=== PATIENT | female | born 1960 | race Caucasian/White ===

== ENCOUNTER 2020-09-01 09:32 | Observation (INO) ==
--- NOTE | 2020-09-01 11:18 | Emergency Department Note ---
History of Present Illness General Chief complaint: Respiratory Problems Stated complaint: BACK PAIN, LEFT LUNG PAIN Time Seen by Provider: 09/01/20 10:59 Source: patient Mode of arrival: ambulatory Limitations: no limitations History of Present Illness Maximum Pain Intensity: 8 This patient is a 59-year-old female who presents to the emergency department for evaluation of "left lung pain." The patient reports that she has had pain intermittently for the past 3 weeks. She states pain was more severe today but has now subsided. She reports she developed some pain in her "left lung" which radiates into the back. She states it does cause her some shortness of breath. She reports some phlegm in her throat, but denies any cough. She denies any fever. Pain does not change with exertion. She has not noticed anything that seems to make the pain better or worse. She reports that it comes on at random. She states that when she does have the pain, she has a hard time getting comfortable and has a hard time sleeping at night due to this. She rates her discomfort an 8/10 when it is severe. She denies any recent travel, leg pain or swelling. She does not take any exogenous hormones. Home Medications Home Medications Medication Instructions Recorded Confirmed Type polyethylene glycol 3350 [Miralax] 17 g PO QAM 12/20/19 09/01/20 History glucagon 3 mg/actuation nasal spray 3 mg INTNAS ONCE #1 ea 01/21/20 09/01/20 Rx duloxetine 30 mg capsule,delayed 30 mg PO BID 02/08/20 09/01/20 History release pen needle, diabetic 31 gauge x #400 ea 02/17/20 06/26/20 Rx 5/16" FreeStyle Addi 14 Day Sensor #6 ea NS 02/22/20 06/26/20 Rx insulin lispro 100 unit/mL 5 units SQ BID ml 05/08/20 09/01/20 History subcutaneous solution aripiprazole 5 mg tablet 5 mg PO QAM 06/26/20 09/01/20 History insulin degludec 100 unit/mL (3 22 units SQ QAM ml 06/26/20 09/01/20 History mL) subcutaneous pen atorvastatin 10 mg PO HS 09/01/20 09/01/20 History Allergies Allergy/AdvReac Type Severity Reaction Status Date / Time Penicillins Allergy Unknown Rash Verified 09/01/20 12:02 Past Med/Surg History Medical History Depression Diabetes type 2, uncontrolled Dyslipidemia Dysphagia PT STOPPED TAKING ALL HER ORAL MEDS PAST MONTH-ENCOURAGED SHE CALL HER PCP TODAY AND CHECK HER BLOOD SUGAR. Hearing deficit BILAT COCHLEAR DEVICES Hypertension Multiple thyroid nodules WERE BEING FOLLOWED IN [place] SOB (shortness of breath) on exertion Surgical History History of cochlear implant BILAT History of colonoscopy History of laparoscopy FOR ENDOMETRIOSIS, converted to open procedure, LSO done too the patient thinks (isn't sure). History of tonsillectomy Social History Smoking Status: Current every day smoker Cigarettes Per Day: 20; Second Hand Exposure: No; Hx Alcohol Use: No Hx Substance Use: No Preferred Language: Divehi Communication Ability: Effective Weed Control Inspector Required: No Beliefs That Will Affect Care: None marital status: Current Living Situation: Spouse and Family Current Living Situation Comment: Pt lives with spouse and son Feels Safe at Home: Yes Assistive Devices: Hearing Aid - Bilateral Review of Systems A total of 10 systems reviewed and were otherwise negative Physical Exam Vital Signs Vital Signs - 24 hr 09/01/20 09:51 09/01/20 09:59 09/01/20 11:04 Temperature 36.6 C Temperature Source Oral Pulse Rate 96 H Pulse Rate [Apical] 84 Pulse Rhythm Regular Pulse Rhythm [Apical] Regular Pulse Strength Normal Pulse Strength [Apical] Normal Respiratory Rate 18 20 Respiratory Effort / Characteristics Non-Labored Spontaneous Non-Labored Spontaneous Non-Labored Spontaneous Respiratory Depth Normal Normal Normal Respiratory Pattern Regular Regular Regular Blood Pressure 133/83 Blood Pressure [Left Arm] 134/105 H Blood Pressure Mean 99 Blood Pressure Mean [Left Arm] 114 Blood Pressure Position Sitting Blood Pressure Position [Left Arm] Sitting Pulse Oximetry 99 98 Oxygen Delivery Method Room Air Room Air Room Air Sepsis Recent Fever Within 48 Hours No Sepsis New/Unexplained Change in Mental Status No Sepsis Action Taken by Nursing No Action Required 09/01/20 12:24 09/01/20 14:04 Temperature Temperature Source Pulse Rate Pulse Rate [Apical] 85 77 Pulse Rhythm Pulse Rhythm [Apical] Regular Regular Pulse Strength Pulse Strength [Apical] Normal Normal Respiratory Rate 18 18 Respiratory Effort / Characteristics Non-Labored Spontaneous Non-Labored Spontaneous Respiratory Depth Normal Normal Respiratory Pattern Regular Regular Blood Pressure Blood Pressure [Left Arm] 136/92 135/90 Blood Pressure Mean Blood Pressure Mean [Left Arm] 106 105 Blood Pressure Position Blood Pressure Position [Left Arm] Sitting Sitting Pulse Oximetry 100 100 Oxygen Delivery Method Nasal Cannula Room Air Sepsis Recent Fever Within 48 Hours Sepsis New/Unexplained Change in Mental Status Sepsis Action Taken by Nursing VITALS: Vitals are noted on the nurse's note and reviewed by myself. GENERAL: This is a 59-year-old female, in no acute distress, well-developed well-nourished. SKIN: The skin was without rashes. HEAD: Normocephalic atraumatic. EARS: External auditory canals clear, tympanic membranes pearly ann without erythema or effusion bilaterally. EYES: Pupils equal round and reactive to light and accommodation. NOSE: Patent, turbinates without inflammation or discharge. MOUTH: Mucous membranes moist. Tonsils are not enlarged. Pharynx without erythema or exudate. NECK: Supple without nuchal rigidity. No lymphadenopathy. HEART: Regular rate and rhythm without murmurs gallops or rubs. LUNGS: Clear to auscultation bilaterally without wheezes, rales or rhonchi. No retractions or accessory muscle use. ABDOMEN: Positive bowel sounds x 4. Soft, nontender to palpation. MUSCULOSKELETAL: No reproducible tenderness palpation. NEURO: Patient was alert and oriented to person place and time. Course Administered Medications Acetaminophen (Acetaminophen 325 Mg Tab) 650 mg PO Q4H PRN PRN Reason: Pain or Fever Stop: 10/01/20 17:15 Last Admin: 09/01/20 18:08 Dose: 650 mg Documented by: [id number] Heparin Sodium/Dextrose (Heparin Sodium/Dextrose) 25,000 units in 500 mls @ 13 mls/hr IV .Q24H ADRIÁN; Protocol Stop: 10/01/20 15:14 Last Titration: 09/01/20 18:55 Dose: 650 units/hr, 13 mls/hr Documented by: [id number] Cosigned by: [id number] Admin: 09/01/20 15:06 Dose: 650 units/hr, 13 mls/hr Documented by: [id number] Cosigned by: [id number] Insulin Aspart (Insulin Aspart 100 Units/Ml 3 Ml Pen) 0 units SC Q6 ADRIÁN Stop: 10/01/20 17:59 Last Admin: 09/01/20 18:11 Dose: Not Given Documented by: [id number] Cosigned by: [id number] Discontinued Medications Aspirin (Aspirin Chew 324 Mg) 324 mg PO NOW STA Stop: 09/01/20 12:19 Last Admin: 09/01/20 12:43 Dose: 324 mg Documented by: [id number] Fentanyl Citrate (Fentanyl Citrate 100 Mcg/2 Ml Vial) 50 mcg IV NOW STA Stop: 09/01/20 12:46 Last Admin: 09/01/20 14:10 Dose: Not Given Documented by: [id number] Heparin Sodium (Porcine) (Heparin Sod (Porcine) 1000 Unit/Ml 10 Ml Vial) Confirm Administered Dose 10,000 units .ROUTE .STK-MED ONE Stop: 09/01/20 14:55 Last Admin: 09/01/20 15:00 Dose: Not Given Documented by: [id number] Heparin Sodium/Dextrose (Heparin Iv Low Dose With Bolus) 1 ea IV Q15M [facility]; Protocol Stop: 09/01/20 16:45 Last Admin: 09/01/20 18:47 Dose: Not Given Documented by: [id number] Heparin Sodium/Dextrose (Heparin 64489 Unit/500 Ml D5w) Confirm Administered Dose 25,000 units IV .STK-MED ONE Stop: 09/01/20 14:55 Last Admin: 09/01/20 15:00 Dose: 3,000 units Documented by: [id number] Cosigned by: [id number] Insulin Glargine (Insulin Glargine Solostar 100 Units/Ml 3 Ml Pen) 10 units SC ONE ONE Stop: 09/01/20 18:01 Last Admin: 09/01/20 18:11 Dose: Not Given Documented by: [id number] Ioversol (Optiray 320 125ml) 119 ml IV ONCE ONE Stop: 09/01/20 13:10 Last Admin: 09/01/20 13:09 Dose: 119 ml Documented by: [id number] Medical Decision Making Differential Diagnosis Differential diagnosis includes acute coronary syndrome, pulmonary embolism, pneumothorax, pericarditis, myocarditis, endocarditis, anxiety, musculoskeletal pain, GERD, costochondritis, pneumonia, among others. Home Medications Current Medication List: was personally reviewed by me Laboratory Data Attestation: I reviewed the patient's lab results. Result diagrams: 09/01/20 11:04 09/01/20 11:04 Lab Results 09/01/20 09/01/20 09/01/20 Range/Units 11:04 11:04 11:04 WBC 7.59 (4.8-10.8) K/uL RBC 5.36 (4.2-5.4) M/uL Hgb 15.6 (12.0-16.0) g/dL Hct 47.3 H (37-47) % MCV 88.2 (80-100) fL MCH 29.1 (25-34) pg MCHC 33.0 (32-36) g/dL RDW Std Deviation 43.2 (36.4-46.3) fL RDW Coeff of Faye 13.4 (11.5-14.5) % Plt Count 266 (130-400) K/uL MPV 9.4 (7.4-10.4) fL Immature Gran % (Auto) 0.1 % Neut % (Auto) 63.5 % Lymph % (Auto) 24.4 % [place] % (Auto) 8.7 % Eos % (Auto) 2.8 % Baso % (Auto) 0.5 % Neut # (Auto) 4.82 (1.4-6.5) K/uL Lymph # (Auto) 1.85 (1.2-3.4) K/uL [place] # (Auto) 0.66 H (0.11-0.59) K/uL Eos # (Auto) 0.21 (0-0.5) K/uL Baso # (Auto) 0.04 (0-0.2) K/uL Immature Gran # (Auto) 0.01 (0.00-0.02) K/uL PT 9.9 (9.0-12.0) Seconds INR 0.9 (0.9-1.1) APTT 28.0 (21.0-31.0) Seconds PTT Ratio 1.0 D-Dimer 370 (0-500) ug/L FEU Sodium 135 L (136-145) mmol/L Potassium 4.9 (3.5-5.1) mmol/L Chloride 101 (98-107) mmol/L Carbon Dioxide 27 (21-32) mmol/L Anion Gap 7.0 (3-11) BUN 11 (7-18) mg/dl Creatinine 0.63 (0.6-1.2) mg/dl Est Cr Clr Drug Dosing 82.7 ml/min Est GFR ( Amer) 113.8 Est GFR (Non-Af Amer) 98.2 BUN/Creatinine Ratio 17.8 (10-20) Glucose 229 H (70-99) mg/dl Calcium 9.7 (8.5-10.1) mg/dl Total Bilirubin 0.4 (0.2-1) mg/dl AST 18 (15-37) U/L ALT 25 (12-78) U/L Alkaline Phosphatase 96 (45-117) U/L Troponin I 0.269 H* (0-0.045) ng/ml Total Protein 8.1 (6.4-8.2) gm/dl Albumin 4.0 (3.4-5.0) gm/dl Globulin 4.1 H (2.5-4.0) gm/dl Albumin/Globulin Ratio 1.0 (0.9-2) Imaging Data Attestation: I personally reviewed and interpreted this imaging study as follows: Radiologist's Impression: XR chest 2V PA/lateral FINDINGS: Lung volumes are normal. Lungs are clear. There is no pneumothorax or pleural effusion. Cardiac size is normal. Mediastinal contours are normal. There is no evidence for pulmonary edema. IMPRESSION: No acute cardiopulmonary findings. CT ANGIOGRAM OF THE CHEST FINDINGS: There is a multinodular thyroid gland, similar to the preceding study. No pathologically enlarged axillary mediastinal or hilar lymph nodes were visualized. There is mild ectasia of descending thoracic aorta which measures 37 mm at the level the main pulmonary artery There were no pulmonary artery filling defects to indicate acute pulmonary embolism. No pleural effusions are visualized. There is no focal pulmonary consolidation. There are multiple bilateral subcentimeter pulmonary nodules measuring up to 5 mm as were described in the prior study. Recommendations of a 12 month follow-up screening CT scan remain unchanged. IMPRESSION: 1. No acute intrathoracic findings 2. No evidence of acute pulmonary embolism 3. No evidence of acute parenchymal consolidation ECG Data Attestation: I personally reviewed and interpreted this ECG as follows: Indication: + chest pain Rate (beats per minute): 88 Rhythm: + normal sinus ECG ST segments: + Nonspecific ST abnormalities Comparison ECG Date: no prior available MDM Narrative Continuous cardiac rehabilitation specialist: Order was placed for continuous cardiac rehabilitation specialist. Patient was placed on the cardiac rehabilitation specialist. Patient was noted to be in normal sinus rhythm at an initial rate of 88 bpm. The patient is a 59-year-old female who presents today complaining of left-sided crampy chest pain which has been ongoing for 3 weeks. Pain has been interm ittent but is not exertional. Labs with no leukocytosis or anemia. D-dimer was not elevated. Troponin was found to be elevated at 0.269. A CT angiogram of the chest was done to rule out PE given patient's unusual history and this was negative. This does likely represent an NSTEMI. Patient was given aspirin. EKG was unremarkable. Case was discussed with the [facility] hospitalist team, who will evaluate the patient for further care. Based on the patient's presentation and work up, I feel the patient is stable for outpatient treatment. The patient was educated to return to the emergency department for any worsening of their current condition or new/concerning symptoms. [] will follow up with []. Impression & Plan Left-sided chest pain, Non-ST elevation [place] (NSTEMI), Elevated troponin Discharge Plan Visit Data Chief Complaint: Respiratory Problems Stated Complaint: BACK PAIN, LEFT LUNG PAIN ED Provider: Christiano Li ED Midlevel Provider: Missy Storey Discharge Problem: Left-sided chest pain, Non-ST elevation [place] (NSTEMI), Elevated troponin Patient Disposition: Admitted As Inpatient Discharge Instructions Interventions: ED Discharge Assessment Last Done: 09/01/20 15:55
[2020-09-01 11:38] LABS: Basophils # (auto) 0.04 K/uL (0-0.2); Basophils % (auto) 0.5 %; Eosinophils # (auto) 0.21 K/uL (0-0.5); Eosinophils % (auto) 2.8 %; Hematocrit (blood only) 47.3 % (37-47); Hemoglobin 15.6 g/dL (12.0-16.0); Immature Granulocytes # (auto) 0.01 K/uL (0.00-0.02); Immature Granulocytes % (auto) 0.1 %; Lymphocytes # (auto) 1.85 K/uL (1.2-3.4); Lymphocytes % (auto) 24.4 %; Mean Corpuscular Hemoglobin 29.1 pg (25-34); Mean Corpuscular Volume 88.2 fL (80-100); Mean Platelet Volume 9.4 fL (7.4-10.4); Monocytes # (auto) 0.66 K/uL (0.11-0.59); Monocytes % (auto) 8.7 %; Neutrophils # (auto) 4.82 K/uL (1.4-6.5); Neutrophils % (auto) 63.5 %; Platelet Count 266 K/uL (130-400); RDW Coefficient of Variation 13.4 % (11.5-14.5); RDW Standard Deviation 43.2 fL (36.4-46.3); Red Blood Count 5.36 M/uL (4.2-5.4); White Blood Count 7.59 K/uL (4.8-10.8)
[2020-09-01 11:43] LABS: D Dimer 370 ug/L FEU (0-500); INR 0.9 (0.9-1.1); Prothrombin Time 9.9 Seconds (9.0-12.0)
[2020-09-01 11:59] LABS: BUN Creatinine Ratio 17.8 (10-20); Calcium 9.7 mg/dl (8.5-10.1); Creatinine Clr Calc Pharmacy 82.7 ml/min; Est GFR (African American) 113.8; Est GFR (Non-African American) 98.2; Potassium 4.9 mmol/L (3.5-5.1)
--- NOTE | 2020-09-01 12:05 | XRay Report ---
XR chest 2V PA/lateral CLINICAL HISTORY: left chest pain/back pain COMPARISON STUDY: Chest CT April 21, 2020. FINDINGS: Lung volumes are normal. Lungs are clear. There is no pneumothorax or pleural effusion. Car diac size is normal. Mediastinal contours are normal. There is no evidence for pulmonary edema. IMPRESSION: No acute cardiopulmonary findings. ACT 112: Negative or not required by law. Electronically signed by: Rico Thomas M.D. 09/01/2020 12:04 PM
[2020-09-01 12:17] LABS: Bilirubin,Total 0.4 mg/dl (0.2-1); Globulin 4.1 gm/dl (2.5-4.0); Total Protein 8.1 gm/dl (6.4-8.2); Troponin I 0.269 ng/ml (0-0.045)
[2020-09-01] MEDS ORDERED: ASPIRIN CHEW 324 MG PO STA (12:18)
[2020-09-01] MEDS ORDERED: fentaNYL citrate 100 MCG/2 ML VIAL IV STA (12:45)
[2020-09-01] MEDS ORDERED: OPTIRAY 320 125ml IV ONE (13:09)
--- NOTE | 2020-09-01 13:21 | CT Scan Report ---
CT ANGIOGRAM OF THE CHEST CLINICAL HISTORY: left chest pain, elevated troponin POSSIBLE ACUTE PULMONARY EMBOLISM COMPARISON STUDY: Chest CT scan dated 04/21/2020 TECHNIQUE: Following the IV administration of 119 mL of Optiray-320, CT angiogram of the thorax was p erformed from the thoracic inlet to the lung bases utilizing the pulmonary embolus protocol. Images a re reviewed in the axial, sagittal, and coronal planes. IV contrast was administered without complica tion. MIP imaging was performed. A dose lowering technique was utilized adhering to the principles o f ALARA. CT DOSE: 243.02 mGy.cm FINDINGS: There is a multinodular thyroid gland, similar to the preceding study. No pathologically enlarged axillary mediastinal or hilar lymph nodes were visualized. There is mild ectasia of descending thoracic aorta which measures 37 mm at the level the main pulmona ry artery There were no pulmonary artery filling defects to indicate acute pulmonary embolism. No pleural effusions are visualized. There is no focal pulmonary consolidation. There are multiple bilateral subcentimeter pulmonary nodul es measuring up to 5 mm as were described in the prior study. Recommendations of a 12 month follow-up screening CT scan remain unchanged. IMPRESSION: 1. No acute intrathoracic findings 2. No evidence of acute pulmonary embolism 3. No evidence of acute parenchymal consolidation ACT 112: Negative or not required by law. Electronically signed by: Nestor Gurrola M.D. 09/01/2020 1:20 PM
[2020-09-01] MEDS ORDERED: HEPARIN SODIUM/DEXTROSE 25,000 UNITS/500 ML BAG IV SCH ×2 (14:30→15:15)
--- NOTE | 2020-09-01 14:31 | History & Physical Report ---
Date of Service September 01, 2020 Assessment & Plan (1) Atypical chest pain: Unclear from history regarding course. Very significant risk factors for coronary artery disease therefore will treat with the assumption this is causing her pain. Alternative possibility of perimyocarditis however would expect her pain to improve more with Advil than acetaminophen and it does not appear to be positional. (2) NSTEMI (non-ST elevated myocardial infarction): Aspirin 324 mg given in ER. Continue 81 mg p.o. daily. Start metoprolol tartrate 25 mg p.o. twice daily Increase atorvastatin from 10 mg to 40 mg p.o. at bedtime IV heparin low-dose drip with bolus. Lipid panel and HbA1c with a.m. labs Diet: heart healthy. N.p.o. after midnight Consult cardiology for consideration of cardiac catheterization (3) Diabetic radiculopathy: Currently denies having any upper thigh pain. Duloxetine 20 mg p.o. twice daily. Acetaminophen PRN (4) Dyslipidemia: Atorvastatin increased as above (5) Diabetes type 2, uncontrolled: Hemoglobin A1c 8.59. We will repeat with a.m. labs. Hold outpatient insulin regimen and will consult pharmacy for tight glycemic control during her admission. (6) Depression: Continue duloxetine 30 mg p.o. twice daily (7) Hearing deficit: (8) Multiple thyroid nodules: Notable history of this. Follow-up with endocrinology. (9) DVT prophylaxis: On IV heparin drip as above. History of Present Illness Chief Complaint: Chest pain Primary Care Provider: Jet Rosen Vani Sanchez is a 59 year old female with no known coronary artery disease, uncontrolled type 2 diabetes, hyperlipidemia, hypertension, tobacco use disorder who presents to the ER with chest pain. Patient is very hard of hearing therefore history is somewhat limited. Able to lip read from greater than 6 feet away. Having chest pain for the last 2 months however more progressive over the last 2 weeks. Left-sided. Radiation through to the back. Severity 2/10, currently 1/10. Associated shortness of breath. Mild improvement with acetaminophen > Advil. No diaphoresis or nausea. Nonpleuritic, non-positional, nonexertional. This morning she had much worse chest pain starting from 4 AM until receiving fentanyl here in the ER. Because it was much more severe she called her PCP this morning who advised her to come to the ER. Of note she did have a dobutamine stress echo in July for chest pain or shortness of breath which was negative for inducible ischemia and no wall motion abnormalities seen with LVEF 50 to 55%. However her symptoms have significantly increased since this time. She reports approximately a year ago stopping all her medications after moving to [place] from [place]. Her cement truck driver in [facility] has been trying to convince her to take insulin for a while she has had uncontrolled diabetes many years. She continues to smoke on your occasion and has also noticed this makes her pain worse. Due to her pain being atypical in the ER she underwent CTA with no acute intrathoracic findings. Lab work was only remarkable for an elevated troponin 0.269. She was referred to medicine for admission. Allergies Allergy/AdvReac Type Severity Reaction Status Date / Time Penicillins Allergy Unknown Rash Verified 09/01/20 12:02 Home Medications Home Medications Medication Instructions Recorded Confirmed Type polyethylene glycol 3350 [Miralax] 17 g PO QAM 12/20/19 09/01/20 History glucagon 3 mg/actuation nasal spray 3 mg INTNAS ONCE #1 ea 01/21/20 09/01/20 Rx duloxetine 30 mg capsule,delayed 30 mg PO BID 02/08/20 09/01/20 History release pen needle, diabetic 31 gauge x #400 ea 02/17/20 06/26/20 Rx 5/16" FreeStyle Addi 14 Day Sensor #6 ea NS 02/22/20 06/26/20 Rx insulin lispro 100 unit/mL 5 units SQ BID ml 05/08/20 09/01/20 History subcutaneous solution aripiprazole 5 mg tablet 5 mg PO QAM 06/26/20 09/01/20 History insulin degludec 100 unit/mL (3 22 units SQ QAM ml 06/26/20 09/01/20 History mL) subcutaneous pen atorvastatin 10 mg PO HS 09/01/20 09/01/20 History Past Med/Surg History Medical History Depression Diabetes type 2, uncontrolled Dyslipidemia Dysphagia PT STOPPED TAKING ALL HER ORAL MEDS PAST MONTH-ENCOURAGED SHE CALL HER PCP TODAY AND CHECK HER BLOOD SUGAR. Hearing deficit BILAT COCHLEAR DEVICES Hypertension Multiple thyroid nodules WERE BEING FOLLOWED [place] SOB (shortness of breath) on exertion Surgical History History of cochlear implant BILAT History of colonoscopy History of laparoscopy FOR ENDOMETRIOSIS, converted to open procedure, LSO done too the patient thinks (isn't sure). History of tonsillectomy Social History Smoking Status: Current every day smoker Cigarettes Per Day: 20; Second Hand Exposure: No; Hx Alcohol Use: No Hx Substance Use: No Preferred Language: Japanese Communication Ability: Impaired Beliefs That Will Affect Care: None marital status: Current Living Situation: Spouse and Family Feels Safe at Home: Yes Assistive Devices: Glasses Review of Systems Review of Systems: All systems reviewed & are unremarkable except as noted in HPI & below Physical Exam Constitutional: WD/WN, vitals as above Eyes: PERRL, conjunctivae normal, anicteric sclerae ENMT: external ear and nose normal, oropharynx normal Neck: normal visual inspection and trachea midline Respiratory: normal respiratory effort, lungs clear to auscultation Cardiovascular: RRR, no murmur, no edema Gastrointestinal (Abdomen): normal bowel sounds, soft, nontender, no hepatosplenomegaly Musculoskeletal: Clubbing present. Extensive degenerative joint changes in both hands Skin: no rashes, warm and dry Neurologic: moves all extremities and awake; not confused Psychiatric: A+Ox3, euthymic affect Genitourinary: no CVA tenderness Lymphatic: no cervical or axillary lymphadenopathy Results & Data Results & Data ([facility]) Vital Signs (Past 12 Hours) Vital Signs Temp Pulse Pulse Resp BP BP Pulse Ox 09/01/20 14:04 77 18 135/90 100 09/01/20 12:24 85 18 136/92 100 09/01/20 11:04 84 20 134/105 H 98 09/01/20 09:51 36.6 C 96 H 18 133/[address] ANGIOGRAM OF THE CHEST IMPRESSION: 1. No acute intrathoracic findings 2. No evidence of acute pulmonary embolism 3. No evidence of acute parenchymal consolidation XR chest 2V PA/lateral IMPRESSION: No acute cardiopulmonary findings. ECG Indication: chest pain Rate (beats per minute): 88 Rhythm: normal sinus Findings: + other (T wave flattening laterally); no ST depression Change: no significant change Code Status & VTE Plan Code Status Full as discussed with the patient VTE Prophylaxis Plan VTE Prophylaxis will be ordered: Yes PG Care Time/CCT Total # of Minutes Spent Total Time Spent with Patient: Total time spent is greater than 50% in coordination of care (as documented) at patient's floor/unit and/or counseling patient: Coding Level of Care Code 74529 Initial Inpt Care Lvl 3 Diagnoses Atypical chest pain R07.89 NSTEMI (non-ST elevated myocardial infarction) I21.4 Diabetic radiculopathy E11.49; M54.10 Dyslipidemia E78.5 Diabetes type 2, uncontrolled E11.65 Depression F32.9 Hearing deficit H91.90 Multiple thyroid nodules E04.2 DVT prophylaxis Z29.9
[2020-09-01] MEDS ORDERED: Heparin IV Low Dose WITH Bolus IV SCH (14:45)
[2020-09-01] MEDS ORDERED: HEPARIN SOD (PORCINE) 1000 UNIT/ML 10 ML VIAL ONE (14:54)
[2020-09-01] MEDS ORDERED: HEPARIN 25000 UNIT/500 ML D5W IV ONE (14:54)
[2020-09-01] MEDS ORDERED: Heparin Adult STANDARD Wt-Based Dextrose 5% 25,000 units/500 mL IV SCH (15:00)
[2020-09-01] MEDS ORDERED: NITROGLYCERIN SL 0.4 MG/TAB TAB SL PRN (17:16)
[2020-09-01] MEDS ORDERED: ACETAMINOPHEN 325 MG TAB PO PRN (17:16)
[2020-09-01] MEDS ORDERED: PHARMACY GLYCEMIC MGMT CONSULT PRN (17:23)
[2020-09-01] MEDS ORDERED: GLUCOSE 10 TABS/TUBE PO PRN (17:30)
[2020-09-01] MEDS ORDERED: GLUCAGON FOR INJ 1 MG VIAL IM PRN (17:30)
[2020-09-01] MEDS ORDERED: DEXTROSE 50% 50 ML SYRINGE IV PRN (17:30)
[2020-09-01] MEDS ORDERED: GLUCOSE 40% GEL 15 GM TUBE PO PRN (17:30)
[2020-09-01] MEDS ORDERED: CARBOHYDRATES FOR HYPOGLYCEMIA PO PRN (17:30)
[2020-09-01 17:57] LABS: Troponin I 0.272 ng/ml (0-0.045)
[2020-09-01] MEDS ORDERED: INSULIN GLARGINE SOLOSTAR 100 UNITS/ML 3 ML PEN SC ONE (18:00)
[2020-09-01] MEDS: INSULIN ASPART 100 UNITS/ML 3 ML PEN SC SCH (18:11)
[2020-09-01] MEDS: METOPROLOL TARTRATE 25 MG TAB PO SCH (20:06)
--- NOTE | 2020-09-01 20:47 | Pharmacy Report ---
Glycemic Control Consultation - Date of Service September 01, 2020 - Scope Scope: Glycemic Pharmacist consulted for glycemic control and to write orders per [facility] inpatient glycemic control protocol. - Objective Weight: 60 kg Accuchecks BSG (last 24hrs): 09/01/20 09/01/20 11:04 17:12 Glucose 229 H POC Glucose 148 H Laboratory Data (last 24hrs): 09/01/20 11:04 Potassium 4.9 Carbon Dioxide 27 Anion Gap 7.0 Creatinine 0.63 Est Cr Clr Drug Dosing 82.7 - Recent Pertinent Medications Outpatient Anti-diabetic Regimen: * Tresiba 22 units SC qAM * Humalog 5 units SC BIDM (lunch and dinner) * A1c = 8.5% (04/25/20) - repeat ordered and pending - Assessment & Plan Assessment & Plan: ASSESSMENT: * CT is a 59 year old female who presents with atypical chest pain * Patient being treated for NSTEMI with heparin gtt, high-intensity statin, and one-time aspirin 324 mg in ED * Patient is NPO after midnight for consideration of cardiac catheterization * Intended to give approximately half of the basal dose (10 units) given limited PO intake today and NPO after midnight, but patient refused this dose PLAN FOR INPATIENT GLYCEMIC CONTROL: * Basal insulin * Patient refused dose this evening - will reassess in AM * Bolus insulin - weight-based stress of 2 dosing * NovoLog per scale ACHS or Q6hrs while NPO * Goal Range: Low 110 mg/dL - High 140 mg/dL * Correction Factor: 40 mg/dL/unit * Nutritional / Prandial insulin per carb ratio of 1 unit per 13 grams CHO consumed * 0300 check overnight due to refused basal dose * Please note that the plan above was derived based on current level of insulin resistance and hospital stress. These recommendations are appropriate for inpatient admission only. Plan of care upon discharge will need to be reassessed to avoid potential outpatient hypo/hyperglycemia. Thank you.
[2020-09-01] MEDS ORDERED: ATORVASTATIN 40 MG TAB PO SCH (21:00)
[2020-09-01 21:31] LABS: Partial Thromboplastin Ratio 1.5
[2020-09-01] MEDS ORDERED: HEPARIN IV BOLUS 2,000 UNITS in SYRINGE 0 ML IV ONE (22:45)
--- NOTE | 2020-09-01 22:53 | Electrocardiogram Report ---
Test Reason : Blood Pressure : / mmHG Vent. Rate : 088 BPM Atrial Rate : 088 BPM P-R Int : 122 ms QRS Dur : 084 ms QT Int : 374 ms P-R-T Axes : 026 000 073 degrees QTc Int : 452 ms Normal sinus rhythm Nonspecific T wave abnormality Abnormal ECG No previous ECGs available Confirmed by William Redd ([id number]) on 09/01/2020 10:52:51 PM Referred By: REFERRED SELF Confirmed By:William Redd
[2020-09-01] MEDS: DULOXETINE HCL 30 MG CAP PO SCH (23:26)
[2020-09-02] MEDS: INSULIN ASPART 100 UNITS/ML 3 ML PEN SC SCH ×3 (00:45→11:54)
[2020-09-02] MEDS ORDERED: INSULIN ASPART 100 UNITS/ML 3 ML PEN SC SCH ×2 (03:00→12:30)
[2020-09-02 04:34] LABS: Hematocrit (blood only) 44.1 % (37-47); Hemoglobin 14.1 g/dL (12.0-16.0); Mean Corpuscular Volume 87.7 fL (80-100); Mean Platelet Volume 9.1 fL (7.4-10.4); Platelet Count 228 K/uL (130-400); RDW Coefficient of Variation 13.3 % (11.5-14.5); RDW Standard Deviation 42.7 fL (36.4-46.3); Red Blood Count 5.03 M/uL (4.2-5.4); White Blood Count 6.39 K/uL (4.8-10.8)
[2020-09-02 04:54] LABS: Partial Thromboplastin Ratio 1.6
[2020-09-02 04:59] LABS: BUN Creatinine Ratio 11.4 (10-20); Calcium 9.1 mg/dl (8.5-10.1); Creatinine Clr Calc Pharmacy 100.2 ml/min; Est GFR (African American) 122.8; Est GFR (Non-African American) 105.9; Potassium 4.5 mmol/L (3.5-5.1); Troponin I 0.249 ng/ml (0-0.045)
[2020-09-02 05:01] LABS: Partial Thromboplastin Time 45.8 Seconds (21.0-31.0)
[2020-09-02] MEDS ORDERED: HEPARIN IV BOLUS 2,000 UNITS in SYRINGE 0 ML IV ONE (05:27)
[2020-09-02 06:59] LABS: Estimated Average Glucose 192 mg/dl; Hemoglobin A1C 8.3 % (4.5-5.6)
[2020-09-02] MEDS: METOPROLOL TARTRATE 25 MG TAB PO SCH (08:28)
[2020-09-02] MEDS ORDERED: INSULIN GLARGINE SOLOSTAR 100 UNITS/ML 3 ML PEN SC ONE (08:30)
[2020-09-02] MEDS ORDERED: ARIPiprazole 5 MG TAB PO SCH (09:00)
[2020-09-02] MEDS ORDERED: POLYETHYLENE (MIRALAX) 17 GM PACK PO SCH (09:00)
[2020-09-02] MEDS ORDERED: ASPIRIN 81 MG ECTAB PO SCH (09:00)
--- NOTE | 2020-09-02 10:20 | Cardiology Consultation ---
Date of Consultation September 02, 2020 Assessment & Plan (1) Left-sided chest pain: This symptoms with which she presented are clearly not related to an acute coronary syndrome or likely to be cardiac in etiology. While she describes having the symptoms for 2 weeks her record suggests that they have been present for longer. In fact, it seems that she was referred for outpatient stress testing based on some element of chest pain. Her symptoms are easily reproducible with palpation. I asked her on several occasions if the pain produced with palpation is human resources hr representative of her presenting chest pain and she answered in the affirmative. It also appears to be pleuritic in nature. It is not reliably reproduced with activity. She has had an extended and severe episode of discomfort without any significant rise or fall in her cardiac biomarkers suggestive of an acute coronary syndrome. This may represent some musculoskeletal discomfort, an inflammatory process such as pleurisy, but not likely pericarditis. (2) Elevated troponin: She does have some elevated cardiac biomarkers. The trajectory of her elevation is not suggestive of an acute coronary syndrome. I am not convinced this represents demand ischemia but may be human resources hr representative of occult obstructive coronary disease. She admits to being sedentary. She has risk factors for coronary disease which include poorly controlled diabetes and tobacco abuse. Interestingly, her dobutamine echocardiogram was not clearly indicative of severe ischemia. However, given her risk factors and elevated biomarkers I think it would be reasonable to recommend coronary angiography. I do not believe this needs to be performed urgently or emergently. I did describe the procedure to the patient including the attendant risks. She wishes to consider this option. I offered the opportunity to perform the procedure as early as this Friday if she elects to stay in the hospital. However, I think it would be safe to discharge her and perform this as an outpatient as well. Again, I do not believe she is suffering from an acute coronary syndrome and this is likely more of a chronic process for which she does not have notable symptoms. She should be continued on her current dose of atorvastatin. Lipid profile was actually quite good recently. I would agree with continuing her on beta blockade at the current doses. She should certainly continue a daily aspirin. I think we can safely discontinue the heparin. History of Present Illness Reason for Consultation: Chest pain, elevated troponin Requesting Physician: Shey Attending Physician: Clint Kat MD History of Present Illness The patient is a 59-year-old woman without a known history of cardiac disease who suffers from poorly controlled diabetes and tobacco abuse. It seems that she has been having some symptoms of chest discomfort for at least 2 weeks. Her record suggests symptoms dating back to July of this year at which time she underwent dobutamine echocardiography for evaluation. The test was not suggestive of significant coronary disease. However, over the past 2 weeks the patient states that she has had waxing and waning severity of left-sided chest discomfort. She feels this discomfort begins under her left breast and radiates into the axillary region. And sometimes involves the left arm as well. She states that it is worse with deep breathing. It is also worse with palpation. She feels that it is commonly incited by smoking. He is commonly relieved with use of Tylenol. She has the symptoms fairly frequently and they can last for hours at times. She cannot make a similar association with activity. Yesterday she had a more severe episode of discomfort. This prompted her to seek medical attention. She was evaluated in our emergency room and discovered to have evidence of myocardial damage based on elevated biomarkers. She was subsequently admitted for non ST elevation myocardial infarction. She admits to being sedentary individual. She does not exercise regularly. However, she is not reliably have symptoms associated with activity either. At the time of admission her symptoms were nearly resolved. She states that they are commonly worse in the morning. There did not appear to be worsened with eating. This morning she does have some mild discomfort in the similar distribution. Allergies Allergy/AdvReac Type Severity Reaction Status Date / Time Penicillins Allergy Unknown Rash Verified 09/01/20 12:02 Home Medications Home Medications Medication Instructions Recorded Confirmed Type polyethylene glycol 3350 [Miralax] 17 g PO QAM 12/20/19 09/01/20 History glucagon 3 mg/actuation nasal spray 3 mg INTNAS ONCE #1 ea 01/21/20 09/01/20 Rx duloxetine 30 mg capsule,delayed 30 mg PO BID 02/08/20 09/01/20 History release pen needle, diabetic 31 gauge x #400 ea 02/17/20 06/26/20 Rx 5/16" FreeStyle Addi 14 Day Sensor #6 ea NS 02/22/20 06/26/20 Rx insulin lispro 100 unit/mL 5 units SQ BID ml 05/08/20 09/01/20 History subcutaneous solution aripiprazole 5 mg tablet 5 mg PO QAM 06/26/20 09/01/20 History insulin degludec 100 unit/mL (3 22 units SQ QAM ml 06/26/20 09/01/20 History mL) subcutaneous pen atorvastatin 10 mg PO HS 09/01/20 09/01/20 History aspirin 81 mg PO DAILY #30 tab 09/02/20 Rx metoprolol tartrate 25 mg PO BID #60 tab 09/02/20 Rx Patient History Medical History Depression Diabetes type 2, uncontrolled Dyslipidemia Dysphagia PT STOPPED TAKING ALL HER ORAL MEDS PAST MONTH-ENCOURAGED SHE CALL HER PCP TODAY AND CHECK HER BLOOD SUGAR. Hearing deficit BILAT COCHLEAR DEVICES Hypertension Multiple thyroid nodules WERE BEING FOLLOWED IN RULA SOB (shortness of breath) on exertion Surgical History History of cochlear implant BILAT History of colonoscopy History of laparoscopy FOR ENDOMETRIOSIS, converted to open procedure, LSO done too the patient thinks (isn't sure). History of tonsillectomy Social History Smoking Status: Current every day smoker (HAS SMOKED FOR 40 YEARS) Cigarettes Per Day: 20; Second Hand Exposure: No; Hx Alcohol Use: No Hx Substance Use: No Preferred Language: Mosotho Communication Ability: Effective Corrugated Sheet Material Sheeter Required: No Beliefs That Will Affect Care: None marital status: Current Living Situation: Spouse and Family Current Living Situation Comment: Pt lives with spouse and son Feels Safe at Home: Yes Assistive Devices: None Review of Systems Review of Systems: All systems reviewed & are unremarkable except as noted in HPI & below Per HPI. No abdominal pain. No lower extremity edema. Physical Exam Physical Exam: She is alert and oriented x3. Mood affect appear normal. She answered all questions appropriately. HEENT: Sclerae are anicteric. Pupils are equal and reactive to light and accommodation. Extraocular movements were intact. Hard of hearing. Neuro: Cranial nerves intact Neck: Examination of the submandibular region did not reveal any significant lymphadenopathy. Carotids are palpable bilaterally and free of bruits on auscultation. There was no evidence of jugular venous distention. The thyroid was not enlarged. Lungs: Lungs are clear to auscultation bilaterally. There are no rales wheezes or rhonchi. She has normal respiratory effort without use of accessory muscles . There is normal pulmonary excursion. Cardiac: The rhythm was regular. S1 and S2 were normal. There are no murmurs on examination. The PMI was not markedly displaced on palpation. Chest: Tender to palpation along the left upper pectoral area and left lateral chest wall including the axilla. Abdomen: The abdomen was soft and nontender. Extremities: Patient has bilateral radial pulses that are equal in intensity. There is no evidence cyanosis or clubbing. There was no evidence of significant peripheral edema bilaterally. Skin: There are no rashes noted on examination today. Results & Data ([facility]) Vital Signs (Past 12 Hours) Vital Signs Temp Pulse Pulse Resp BP Pulse Ox 09/02/20 08:03 37 C 84 18 122/78 99 09/02/20 08:00 83 09/02/20 05:05 36.6 C 75 18 110/72 97 09/02/20 00:04 36.5 C 66 16 116/74 97 Laboratory Results Abnormal Lab Results 09/01/20 09/01/20 09/01/20 11:04 11:04 11:04 WBC 7.59 RBC 5.36 Hgb 15.6 Hct 47.3 H MCV 88.2 MCH 29.1 MCHC 33.0 RDW Std Deviation 43.2 RDW Coeff of Faye 13.4 Plt Count 266 MPV 9.4 Immature Gran % (Auto) 0.1 Neut % (Auto) 63.5 Lymph % (Auto) 24.4 [place] % (Auto) 8.7 Eos % (Auto) 2.8 Baso % (Auto) 0.5 Neut # (Auto) 4.82 Lymph # (Auto) 1.85 [place] # (Auto) 0.66 H Eos # (Auto) 0.21 Baso # (Auto) 0.04 Immature Gran # (Auto) 0.01 PT 9.9 INR 0.9 APTT 28.0 PTT Ratio 1.0 D-Dimer 370 Sodium 135 L Potassium 4.9 Chloride 101 Carbon Dioxide 27 Anion Gap 7.0 BUN 11 Creatinine 0.63 Est Cr Clr Drug Dosing 82.7 Est GFR ( Amer) 113.8 Est GFR (Non-Af Amer) 98.2 BUN/Creatinine Ratio 17.8 Glucose 229 H POC Glucose Estimat Average Glucose Hemoglobin A1c Calcium 9.7 Magnesium Total Bilirubin 0.4 AST 18 ALT 25 Alkaline Phosphatase 96 Troponin I 0.269 H* Total Protein 8.1 Albumin 4.0 Globulin 4.1 H Albumin/Globulin Ratio 1.0 Triglycerides Cholesterol LDL Cholesterol, Calc VLDL Cholesterol, Calc HDL Cholesterol Cholesterol/HDL Ratio 09/01/20 09/01/20 09/01/20 17:12 17:22 17:27 WBC RBC Hgb Hct MCV MCH MCHC RDW Std Deviation RDW Coeff of Faye Plt Count MPV Immature Gran % (Auto) Neut % (Auto) Lymph % (Auto) [place] % (Auto) Eos % (Auto) Baso % (Auto) Neut # (Auto) Lymph # (Auto) [place] # (Auto) Eos # (Auto) Baso # (Auto) Immature Gran # (Auto) PT INR APTT PTT Ratio D-Dimer Sodium Potassium Chloride Carbon Dioxide Anion Gap BUN Creatinine Est Cr Clr Drug Dosing Est GFR ( Amer) Est GFR (Non-Af Amer) BUN/Creatinine Ratio Glucose POC Glucose 148 H Estimat Average Glucose 192 Hemoglobin A1c 8.3 H Calcium Magnesium 2.0 Total Bilirubin AST ALT Alkaline Phosphatase Troponin I 0.272 H* Total Protein Albumin Globulin Albumin/Globulin Ratio Triglycerides Cholesterol LDL Cholesterol, Calc VLDL Cholesterol, Calc HDL Cholesterol Cholesterol/HDL Ratio 09/01/20 09/01/20 09/02/20 21:13 21:13 00:40 WBC RBC Hgb Hct MCV MCH MCHC RDW Std Deviation RDW Coeff of Faye Plt Count MPV Immature Gran % (Auto) Neut % (Auto) Lymph % (Auto) [place] % (Auto) Eos % (Auto) Baso % (Auto) Neut # (Auto) Lymph # (Auto) [place] # (Auto) Eos # (Auto) Baso # (Auto) Immature Gran # (Auto) PT INR APTT 41.0 H PTT Ratio 1.5 D-Dimer Sodium Potassium Chloride Carbon Dioxide Anion Gap BUN Creatinine Est Cr Clr Drug Dosing Est GFR ( Amer) Est GFR (Non-Af Amer) BUN/Creatinine Ratio Glucose POC Glucose 150 H Estimat Average Glucose Hemoglobin A1c Calcium Magnesium Total Bilirubin AST ALT Alkaline Phosphatase Troponin I 0.271 H* Total Protein Albumin Globulin Albumin/Globulin Ratio Triglycerides Cholesterol LDL Cholesterol, Calc VLDL Cholesterol, Calc HDL Cholesterol Cholesterol/HDL Ratio 09/02/20 09/02/20 09/02/20 03:24 04:18 04:18 WBC 6.39 RBC 5.03 Hgb 14.1 Hct 44.1 MCV 87.7 MCH 28.0 MCHC 32.0 RDW Std Deviation 42.7 RDW Coeff of Faye 13.3 Plt Count 228 MPV 9.1 Immature Gran % (Auto) Neut % (Auto) Lymph % (Auto) [place] % (Auto) Eos % (Auto) Baso % (Auto) Neut # (Auto) Lymph # (Auto) [place] # (Auto) Eos # (Auto) Baso # (Auto) Immature Gran # (Auto) PT INR APTT PTT Ratio D-Dimer Sodium 139 Potassium 4.5 Chloride 105 Carbon Dioxide 29 Anion Gap 5.0 BUN 6 L D Creatinine 0.50 L Est Cr Clr Drug Dosing 100.2 Est GFR ( Amer) 122.8 Est GFR (Non-Af Amer) 105.9 BUN/Creatinine Ratio 11.4 Glucose 181 H POC Glucose 179 H Estimat Average Glucose Hemoglobin A1c Calcium 9.1 Magnesium Total Bilirubin AST ALT Alkaline Phosphatase Troponin I 0.249 H* Total Protein Albumin Globulin Albumin/Globulin Ratio Triglycerides 165 H Cholesterol 139 LDL Cholesterol, Calc 39 VLDL Cholesterol, Calc 33 HDL Cholesterol 67 Cholesterol/HDL Ratio 2 09/02/20 09/02/20 04:18 07:30 WBC RBC Hgb Hct MCV MCH MCHC RDW Std Deviation RDW Coeff of Faye Plt Count MPV Immature Gran % (Auto) Neut % (Auto) Lymph % (Auto) [place] % (Auto) Eos % (Auto) Baso % (Auto) Neut # (Auto) Lymph # (Auto) [place] # (Auto) Eos # (Auto) Baso # (Auto) Immature Gran # (Auto) PT INR APTT 45.8 H* PTT Ratio 1.6 D-Dimer Sodium Potassium Chloride Carbon Dioxide Anion Gap BUN Creatinine Est Cr Clr Drug Dosing Est GFR ( Amer) Est GFR (Non-Af Amer) BUN/Creatinine Ratio Glucose POC Glucose 209 H Estimat Average Glucose Hemoglobin A1c Calcium Magnesium Total Bilirubin AST ALT Alkaline Phosphatase Troponin I Total Protein Albumin Globulin Albumin/Globulin Ratio Triglycerides Cholesterol LDL Cholesterol, Calc VLDL Cholesterol, Calc HDL Cholesterol Cholesterol/HDL Ratio Diagnostic Findings Chest CT a obtained at time admission revealed pulmonary nodules but no evidence of pulmonary embolus or other acute intrathoracic findings. Limited echocardiogram obtained today did not reveal any change from an echocardiogram obtained on 07/11/2020. That was a dobutamine echocardiogram which did not demonstrate any evidence of inducible ischemia. No significant valvular heart disease. ECG Additional Comments: EKG obtained at the time of admission revealed normal sinus rhythm with nonspecific ST and T-wave changes. PG Care Time/CCT Total # of Minutes Spent Total Time Spent with Patient: Total time spent is greater than 50% in coordination of care (as documented) at patient's floor/unit and/or counseling patient: Coding Level of Care Code 51121 Office/OBS Consult Lvl 4 Diagnoses Left-sided chest pain R07.9 Elevated troponin R77.8
--- NOTE | 2020-09-02 10:26 | XCELERA ---
[id number]
[2020-09-02] MEDS: DULOXETINE HCL 30 MG CAP PO SCH (11:17)
--- NOTE | 2020-09-02 13:35 | Discharge Summary ---
Date of Service September 02, 2020 Admission HPI Per Admitting Provider Vani Bethea is a 59 year old female with no known coronary artery disease, uncontrolled type 2 diabetes, hyperlipidemia, hypertension, tobacco use disorder who presents to the ER with chest pain. Patient is very hard of hearing therefore history is somewhat limited. Able to lip read from greater than 6 feet away. Having chest pain for the last 2 months however more progressive over the last 2 weeks. Left-sided. Radiation through to the back. Severity 2/10, currently 1/10. Associated shortness of breath. Mild improvement with acetaminophen > Advil. No diaphoresis or nausea. Nonpleuritic, non-positional, nonexertional. This morning she had much worse chest pain starting from 4 AM until receiving fentanyl here in the ER. Because it was much more severe she called her PCP this morning who advised her to come to the ER. Of note she did have a dobutamine stress echo in July for chest pain or shortness of breath which was negative for inducible ischemia and no wall motion abnormalities seen with LVEF 50 to 55%. However her symptoms have significantly increased since this time. She reports approximately a year ago stopping all her medications after moving to [place] from [place]. Her cab station attendant in [facility] has been trying to convince her to take insulin for a while she has had uncontrolled diabetes many years. She continues to smoke on your occasion and has also noticed this makes her pain worse. Due to her pain being atypical in the ER she underwent CTA with no acute intrathoracic findings. Lab work was only remarkable for an elevated troponin 0.269. She was referred to medicine for admission. Admission Exam Per Admitting Provider Constitutional: WD/WN, vitals as above Eyes: PERRL, conjunctivae normal, anicteric sclerae ENMT: external ear and nose normal, oropharynx normal Neck: normal visual inspection and trachea midline Respiratory: normal respiratory effort, lungs clear to auscultation Cardiovascular: RRR, no murmur, no edema Gastrointestinal (Abdomen): normal bowel sounds, soft, nontender, no hepatosplenomegaly Musculoskeletal: Clubbing present. Extensive degenerative joint changes in both hands Skin: no rashes, warm and dry Neurologic: moves all extremities and awake; not confused Psychiatric: A+Ox3, euthymic affect Genitourinary: no CVA tenderness Lymphatic: no cervical or axillary lymphadenopathy Principal Diagnosis Musculoskeletal chest pain Elevated troponin Discharge Exam Patient reports feeling well. Mild chest pain worse on palpation but no pain increased pain on exertion. She mobilized around the travis independently without dizziness. Feels ready for discharge. Constitutional WD/WN, vitals as above Respiratory normal respiratory effort, lungs clear to auscultation Cardiovascular RRR, no murmur, no edema Chest (Breasts) Additional Comments: Pain on palpation over left side of anterior ribs Neurologic moves all extremities and awake Psychiatric A+Ox3, euthymic affect Discharge Data Allergies Allergy/AdvReac Type Severity Reaction Status Date / Time Penicillins Allergy Unknown Rash Verified 09/01/20 12:02 Consultations 09/01/20 13:47 ED Decision to Admit Stat 09/01/20 17:16 Consult Cardiology Routine Ordered Studies 09/01/20 12:26 CT angio chest PE protocol Stat IMPRESSION: 1. No acute intrathoracic findings 2. No evidence of acute pulmonary embolism 3. No evidence of acute parenchymal consolidation Hospital Course (1) Atypical chest pain: Vani Bethea is a 59 year old female observed overnight at [facility] from September 01-2019 due to chest pain with elevated troponin I. Initial concern for NSTEMI ruled out as pain atypical and troponin stable overnight. Chest pain reproducible on exam therefore suspected musculos keletal (costochondritis) in nature. She was reviewed by cardiology (Dr Bhagat) and suspected to have coronary artery disease given her elevated troponin and significant risk factors despite recent negative stress test. Recommended non- urgent cardiac catheterization. Recommended starting aspirin 81mg PO daily as likely underlying coronary artery disease in addition to metoprolol 25mg PO BID. Recommended following up with her PCP in the next 1-2 weeks regarding her MSK chest pain. She will continue to follow up with her cab station attendant routinely regarding her T2DM which appears to be much improved since last year. She is now medically stable for discharge and will contacted on Friday regarding scheduling the cardiac catheterization next week as above. (2) Diabetic radiculopathy: (3) Dyslipidemia: (4) Diabetes type 2, uncontrolled: (5) Depression: (6) Hearing deficit: (7) Multiple thyroid nodules: Total Time Total Time Spent Total Time Spent (In Minutes): 25 Total Time Includes: Examination of the Patient, Discharge Planning, Medication Reconciliation and Communication With Other Providers (Dr Bhagat) Discharge Plan Discharge Items Patient Disposition: Home - Self-Care Reason For Visit: Chest Pain Discharge Diagnosis: Musculoskeletal chest pain Elevated troponin Activity: Per Instructions section Non-emergency contact: Primary Care Provider and Environmental Planning Engineer Call non-emergency contact if: you have any medication questions Follow-up/Referrals: Samson Bhagat MD [Physician] - (Cardiology to call on Friday to set up cardiac catheterization appointment----Dr. Bhagat's office will call you with appointment) Jet Rosen [Primary Care Provider] - 09/05/20 9:50 am Diet: Carb Consistent or DM2 and Heart Healthy Addtl Attending Provider Instructions: You were observed overnight at [facility] from September 01-2019 due to chest pain with elevated heart enzyme (troponin I). Initial concern for heart attack was ruled out since your troponin level was stable. Your pain was reproducible on exam therefore suspected to be more musculoskeletal such as costochondritis. Recommend taking acetaminophen as needed for this. He will reviewed by cardiology (Dr. Bhagat) and recommended to have a cardiac catheterization due to your significant risk factors and elevated troponin level there is a high suspicion of coronary artery disease, despite this episode not being consistent with a heart attack. This can be safely performed as an outpatient and recommend being discharged at this time. The forcer maker office should give you a call on Friday but if you do not hear back Dr. Bhagat's office number is above. Recommend starting a daily aspirin and medication called metoprolol as prescribed below to reduce your cardiovascular risk of heart attacks and strokes. Please follow-up with your PCP in the next 1 to 2 weeks after your cardiac catheterization for follow-up of your musculoskeletal chest pain. Continue to follow-up with your cab station attendant for improved control of your diabetes. You are doing much better with this compared to last year and HbA1c is currently 8.3. Please resume your usual diabetic insulin regimen. Kind regards, Dr. Clint Kat Pending Studies at Discharge: No Stand-Alone Forms: My [facility], Smoking Cessation Medications and DC Order Prescriptions: New aspirin 81 mg tablet,delayed release (DR/EC) 81 mg PO DAILY Qty: 30 RF: 0 metoprolol tartrate 25 mg tablet 25 mg PO BID Qty: 60 RF: 0 Continued (DME) pen needle, diabetic [BD Ultra-Fine Short Pen Needle] 31 gauge x 5/16" needle See Rx Instructions .ROUTE .MEDSUPPLY Qty: 400 RF: 3 (DME) FreeStyle Addi 14 Day Sensor Kit See Rx Instructions .ROUTE .MEDSUPPLY Qty: 6 RF: 3 insulin lispro [Humalog U-100 Insulin] 100 unit/mL solution 5 units SQ BID RF: 0 duloxetine [Cymbalta] 30 mg capsule,delayed release(DR/EC) 30 mg PO BID RF: 0 aripiprazole [Abilify] 5 mg tablet 5 mg PO QAM RF: 0 Baqsimi 3 mg/actuation spray,non-aerosol 3 mg INTNAS ONCE Qty: 1 RF: 1 polyethylene glycol 3350 [Miralax] 17 gram Powder In Packet 17 g PO QAM RF: 0 Tresiba FlexTouch U-100 100 unit/mL (3 mL) insulin pen 22 units SQ QAM RF: 0 atorvastatin 10 mg tablet 10 mg PO HS RF: 0 Discharge Orders: Discharge Order (Routine); Ordered 09/02/20 Ordered By: Clint Kat Admission Data Admit Date/Time: 09/01/20 14:30 Attending Provider: Clint Kat Admit Provider: Clint Kat Primary Care Provider: Jet Rosen Other Providers: William Redd ; Clint Kat Other Interventions: Discharge Summary Assessment (RN) Last Done: 09/02/20 11:15 Coding Level of Care Code 16556 OBS Care - Discharge Diagnoses Atypical chest pain R07.89 Diabetic radiculopathy E11.49; M54.10 Dyslipidemia E78.5 Diabetes type 2, uncontrolled E11.65 Depression F32.9 Hearing deficit H91.90 Multiple thyroid nodules E04.2
== END 2020-09-02 14:30 | disposition home or self-care (01) ==
LOC: ED 09:32 → 2S 14:30 → INTOOBSV 14:30 → 2S 15:55

== ENCOUNTER 2023-03-13 13:30 | Inpatient (IN) ==
[2023-03-13] MEDS ORDERED: SODIUM CHLORIDE 0.9% 1000ML 1,000 ML IV SCH (13:45)
--- NOTE | 2023-03-13 13:47 | Emergency Department Note ---
Impression & Plan Fall, Weakness, Leukocytosis ED Provider Note INFORMANT: Patient and EMS ED PROVIDER(S): Leo Vences DO CHIEF COMPLAINT: Fall, dehydration PLAN: Disposition: Admission Outpatient prescription management: none Discussion with: I spoke with the hospitalist, who will see the patient for admission/observation and further evaluation and consultation. MEDICAL DECISION MAKING: This is a 62-year-old female who presents to the ED with a chief complaint of a fall in her home. The patient states that she was on the ground since this morning. She was unable to get up. She lives alone. The patient states that her hips hurt a little bit but she thinks that is from laying on the ground. The patient has cochlear implants and is somewhat hard of hearing. The patient was able to get in contact with a friend who called EMS. She was brought in for evaluation. EMS report that the patient needed to go to the bathroom when they helped her up. They were able to walk her to the bathroom under her own power however they felt that she was weak and slightly unsteady. They felt that if they would have let her go, she probably would have fallen again. On my exam, t he patient does not have any evidence of fractures or significant injury. No head injury. No neck pain or back pain. No tenderness with palpation. Axial loading of the legs and arms did not reveal any pain. Range of motion of the hips, knees and upper extremity joints did not reveal any pain. The patient's mouth is dry. The patient does have a history of type 2 diabetes. The patient does have a leukocytosis with a white blood cell count of 16.4. Chest x-ray did not show any evidence of pneumonia. COVID test was negative. EKG shows a normal sinus rhythm. Chemistry panel showed no concerning electrolyte abnormality. Total CK was slightly elevated 323. Glucose is 283. Urinalysis pending. Given the white blood cell count and weakness, empiric dose of IV Rocephin was administered. The patient was also given a liter of normal saline IV. Triage Nursing notes reviewed. Vital Signs: reviewed Prior /Outside records reviewed: none Differential diagnosis: Soft tissue injury, bony injury, dehydration, electrolyte abnormality, anemia, infection. Diagnostics, as interpreted by me: 12 lead ECG: Normal sinus rhythm rate of 83. No ST elevation. No PVCs. Normal QTc. Cardiac Monitoring ordered: none Medical decision rules: none Imaging studies: Chest x-ray: No pneumonia. Procedures: none. Critical care: none. HPI: See MDM above. PAST MEDICAL HISTORY: See Below PAST SURGICAL HISTORY: See Below SOCIAL HISTORY: See Below HOME MEDICATIONS: See Below ALLERGIES: See Below VITALS: See Below PHYSICAL EXAMINATION: See MDM for positive findings otherwise unremarkable. CONSTITUTIONAL/VITAL SIGNS: Reviewed GENERAL:done as appropriate INTEGUMENTARY: done as appropriate HEAD: done as appropriate EYES: done as appropriate RESPIRATORY: done as appropriate CARDIOVASCULAR:done as appropriate GI/ABDOMEN:done as appropriate EXTREMITIES: done as appropriate NEUROLOGICAL: done as appropriate PSYCHIATRIC:done as appropriate MUSCULOSKELETAL:done as appropriate TRIAGE NURSING DOCUMENTATION REVIEWED. Past Med/Surg History Medical History Depression Diabetes type 2, controlled Diabetic radiculopathy Dyslipidemia Dysphagia PT STOPPED TAKING ALL HER ORAL MEDS PAST MONTH-ENCOURAGED SHE CALL HER PCP TODAY AND CHECK HER BLOOD SUGAR. Essential hypertension Edita's thyroiditis Hearing deficit BILAT COCHLEAR DEVICES Hypertension SOB (shortness of breath) on exertion Vitamin D deficiency Surgical History History of cochlear implant BILAT History of colonoscopy History of laparoscopy FOR ENDOMETRIOSIS, converted to open procedure, LSO done too the patient thinks (isn't sure). History of tonsillectomy Family History Family/Other Stroke Hypertension Father Hypertension Social History Smoking Status: Current some day smoker Cigarettes Per Day: 20; Second Hand Exposure: No; Hx Alcohol Use: No Hx Substance Use: No Preferred Language: Honduran Communication Ability: Effective Satellite Instruction Facilitator Required: No Beliefs That Will Affect Care: None marital status: Current Living Situation: Spouse Current Living Situation Comment: Pt lives with spouse and son Feels Safe at Home: Yes Assistive Devices: None Allergies Allergies Allergy/AdvReac Type Severity Reaction Status Date / Time Penicillins Allergy Unknown Rash Verified 11/05/21 14:15 Home Meds Home Medications Medication Instructions Recorded Confirmed polyethylene glycol 3350 17 gram 17 g PO QAM 12/20/19 05/23/22 oral powder packet (Miralax) aripiprazole 5 mg tablet (Abilify) 10 mg PO QAM 01/29/21 05/23/22 duloxetine 30 mg capsule,delayed 90 mg PO DAILY 01/29/21 05/23/22 release (Cymbalta) vitamins A,C,U-jyld-twpmre 2,148 2 tab PO DAILY 06/25/21 05/23/22 mcg-113 mg-45 mg-17.4 mg tablet (PreserVision AREDS) glucagon 3 mg/actuation nasal 3 mg intranasal PRN 11/05/21 05/23/22 spray (Baqsimi) Previous Rx's Medication Instructions Recorded flash glucose scanning reader #1 ea 12/21/20 (FreeStyle Addi 14 Day [place]) pen needle, diabetic 32 gauge x #500 ea 10/22/21" (BD Ultra-Fine Grace Pen Needle) insulin aspart U-100 100 unit/mL 5 unit (0.05 mL) subcut TID #15 mL 11/01/21 (3 mL) subcutaneous pen (Novolog FlexPen U-100 Insulin aspart) dulaglutide 0.75 mg/0.5 mL 0.75 mg (0.5 mL) subcut WEEKLY #6 08/21/22 subcutaneous pen injector mL (Trulicity) FreeStyle Addi 14 Day Sensor #6 ea 09/10/22 (flash glucose sensor) atorvastatin 10 mg tablet 10 mg PO HS #90 tabs 11/06/22 insulin degludec 100 unit/mL (3 17 unit (0.17 mL) subcut QAM #15 mL 02/12/23 mL) subcutaneous pen (Tresiba FlexTouch U-100 insulin) Results & Data (ED) Vital Signs Vital Signs - 24 hr 03/13/23 13:41 03/13/23 13:41 03/13/23 14:04 Temperature 36.5 C Temperature Source Oral Pulse Rate 89 86 Pulse Rate [Finger] Pulse Rhythm Regular Regular Pulse Rhythm [Finger] Pulse Strength Normal Pulse Strength [Finger] Respiratory Rate 18 20 Respiratory Effort / Characteristics Non-Labored Spontaneous Non-Labored Spontaneous Respiratory Depth Normal Normal Respiratory Pattern Regular Regular Blood Pressure 148/86 H Blood Pressure [Right Arm] Blood Pressure Mean 106 Blood Pressure Mean [Right Arm] Blood Pressure Position Sitting Blood Pressure Position [Right Arm] Pulse Oximetry 97 98 99 Oxygen Delivery Method Room Air Room Air Room Air Sepsis Recent Fever Within 48 Hours No Sepsis New/Unexplained Change in Mental Status No Sepsis Action Taken by Nursing No Action Required 03/13/23 14:43 Temperature Temperature Source Pulse Rate Pulse Rate [Finger] 90 Pulse Rhythm Pulse Rhythm [Finger] Regular Pulse Strength Pulse Strength [Finger] Normal Respiratory Rate 20 Respiratory Effort / Characteristics Non-Labored Spontaneous Respiratory Depth Normal Respiratory Pattern Regular Blood Pressure Blood Pressure [Right Arm] 164/87 H Blood Pressure Mean Blood Pressure Mean [Right Arm] 112 Blood Pressure Position Blood Pressure Position [Right Arm] Lying Pulse Oximetry 99 Oxygen Delivery Method Room Air Sepsis Recent Fever Within 48 Hours Sepsis New/Unexplained Change in Mental Status Sepsis Action Taken by Nursing Laboratory Data 03/13/23 14:08 03/13/23 14:08 Lab Results 03/13/23 03/13/23 03/13/23 Range/Units 14:08 14:08 14:08 WBC 16.40 H (4.8-10.8) K/ul RBC 5.14 (4.20-5.40) M/uL Hgb 15.3 (12.0-16.0) g/dl Hct 44.7 (37.0-47.0) % MCV 87.0 (80.0-100.0) fL MCH 29.8 (25.0-34.0) pg MCHC 34.2 (32.0-36.0) g/dL RDW Std Deviation 40.8 (36.4-46.3) fL RDW Coeff of Faye 13.1 (11.5-14.5) % Plt Count 218 (130-400) K/uL MPV 9.6 (9.4-12.4) fL Immature Gran % (Auto) 0.4 % Neut % (Auto) 87.5 % Lymph % (Auto) 3.8 % [place] % (Auto) 8.0 % Eos % (Auto) 0.0 % Baso % (Auto) 0.3 % Neut # (Auto) 14.34 H (1.40-6.50) K/uL Lymph # (Auto) 0.63 L (1.2-3.4) K/uL [place] # (Auto) 1.31 H (0.11-0.59) K/uL Eos # (Auto) 0.00 (0-0.50) K/uL Baso # (Auto) 0.05 (0-0.2) K/uL Immature Gran # (Auto) 0.07 (0.01-0.20) K/uL Sodium 139 (136-145) mmol/L Potassium 3.5 (3.5-5.1) mmol/L Chloride 102 (98-107) mmol/L Carbon Dioxide 25 (21-32) mmol/L Anion Gap 12 H (3-11) BUN 9 (6-23) mg/dl Creatinine 0.52 L (0.6-1.2) mg/dl Est Cr Clr Drug Dosing 92.8 ml/min Est GFR ( Amer) 118.7 ml/min Est GFR (Non-Af Amer) 102.4 ml/min BUN/Creatinine Ratio 17.3 (10-20) Glucose 283 H (70-99(Fasting)) mg/dl Calcium 9.7 (8.6-10.3) mg/dl Total Bilirubin 0.8 (0.2-1.0) mg/dl AST 27 (13-39) U/L ALT 18 (7-52) U/L Alkaline Phosphatase 74 (34-104) U/L Total Creatine Kinase 323 H (26-192) U/L Total Protein 6.7 (6.0-8.3) gm/dl Albumin 4.1 (3.4-5.0) gm/dl Globulin 2.6 (2.5-4.0) gm/dl Albumin/Globulin Ratio 1.6 (0.9-2) SARS-CoV-2, RNA, NAAT NEGATIVE (NEGATIVE) Administered Medications Discontinued Medications Sodium Chloride (Nss 1000ml) 1,000 mls @ 999 mls/hr IV .Q1H1M ADRIÁN Stop: 03/13/23 14:45 Last Admin: 03/13/23 14:00 Dose: 999 mls/hr Documented By: [facility] Imaging Data Radiologist's Impression: Chest X-Ray 03/13/23 13:40 XR chest 1V portable CLINICAL HISTORY: Weakness. COMPARISON STUDY: Chest CT June 12, 2022. FINDINGS: Multiple old right-sided rib fractures are incidentally noted. There is mild elevation of the left hemidiaphragm. Lungs are clear. There is no pneumothorax or pleural effusion. Cardiac size is normal. Mediastinal contours are normal. There is no evidence for pulmonary edema. IMPRESSION: No acute cardiopulmonary findings. ACT 112: Negative or not required by law. Electronically signed by: Rico Thomas M.D. 03/13/2023 2:11 PM Pelvis X-Ray 03/13/23 13:41 XR pelvis 1-2V routine CLINICAL HISTORY: fall. Pelvic pain. COMPARISON STUDY: None. FINDINGS: No fracture or dislocation within the pelvis or hips. The sacrum is in tact. The bones are osteopenic. Mild degenerative changes within the bilateral hips and sacroiliac joints. Moderate fecal retention. IMPRESSION: No fracture or dislocation within the pelvis or hips. ACT 112: Negative or not required by law. Electronically signed by: Bruce Hartman M.D. 03/13/2023 2:42 PM Discharge Plan Visit Data Chief Complaint: Fall ED Provider: Leo Vences Discharge Problem: Fall, Weakness, Leukocytosis Forms Stand Alone Forms: [facility] [employer] Prescriptions Prescriptions: No Action (DME) FreeStyle Addi 14 Day [place] Misc See Rx Instructions .ROUTE .MEDSUPPLY Qty: 1 0RF Rx Instructions: Use to test blood sugars daily (DME) pen needle, diabetic [BD Ultra-Fine Grace Pen Needle] 32 gauge x 5/32" needle See Rx Instructions miscellaneous .MEDSUPPLY Qty: 500 3RF Rx Instructions: As directed to use with insulin pens 4 times a day insulin aspart U-100 [Novolog FlexPen U-100 Insulin] 100 unit/mL (3 mL) insulin pen 5 unit subcut TID Qty: 15 3RF (DME) FreeStyle Addi 14 Day Sensor Kit See Rx Instructions .ROUTE .MEDSUPPLY Qty: 6 3RF Rx Instructions: Change every 14 days atorvastatin 10 mg tablet 10 mg PO HS Qty: 90 0RF insulin degludec [Tresiba FlexTouch U-100] 100 unit/mL (3 mL) insulin pen 17 unit SQ QAM Qty: 15 3RF Rx Instructions: Inject 17 units in the morning; TDD up to 20 units a day PreserVision AREDS 7,160 unit- 113 mg-100 unit tablet 2 tab PO DAILY Rx Instructions: administer with AM and PM meals Trulicity 0.75 mg/0.5 mL pen injector 0.75 mg subcut WEEKLY MDD inject once a week Qty: 6 3RF Rx Instructions: Inject once a week duloxetine [Cymbalta] 30 mg capsule,delayed release(DR/EC) 90 mg PO DAILY aripiprazole [Abilify] 5 mg tablet 10 mg PO QAM Baqsimi 3 mg/actuation spray,non-aerosol 3 mg INTNAS PRN polyethylene glycol 3350 [Miralax] 17 gram Powder In Packet 17 g PO QAM Referrals Referrals: Terence Herr MD [Primary Care Provider] -
--- NOTE | 2023-03-13 14:12 | XRay Report ---
XR chest 1V portable CLINICAL HISTORY: Weakness. COMPARISON STUDY: Chest CT June 12, 2022. FINDINGS: Multiple old right-sided rib fractures are incidentally noted. There is mild elevation of t he left hemidiaphragm. Lungs are clear. There is no pneumothorax or pleural effusion. Cardiac size is normal. Mediastinal contours are normal. There is no evidence for pulmonary edema. IMPRESSION: No acute cardiopulmonary findings. ACT 112: Negative or not required by law. Electronically signed by: Rico Thomas M.D. 03/13/2023 2:11 PM
[2023-03-13 14:41] LABS: Basophils # (auto) 0.05 K/uL (0-0.2); Basophils % (auto) 0.3 %; Hematocrit (blood only) 44.7 % (37.0-47.0); Hemoglobin 15.3 g/dl (12.0-16.0); Immature Granulocytes # (auto) 0.07 K/uL (0.01-0.20); Immature Granulocytes % (auto) 0.4 %; Lymphocytes # (auto) 0.63 K/uL (1.2-3.4); Lymphocytes % (auto) 3.8 %; Mean Corpuscular Hemoglobin 29.8 pg (25.0-34.0); Mean Corpuscular Hgb Conc 34.2 g/dL (32.0-36.0); Mean Platelet Volume 9.6 fL (9.4-12.4); Monocytes # (auto) 1.31 K/uL (0.11-0.59); Neutrophils # (auto) 14.34 K/uL (1.40-6.50); Neutrophils % (auto) 87.5 %; Platelet Count 218 K/uL (130-400); RDW Coefficient of Variation 13.1 % (11.5-14.5); RDW Standard Deviation 40.8 fL (36.4-46.3); Red Blood Count 5.14 M/uL (4.20-5.40)
--- NOTE | 2023-03-13 14:45 | XRay Report ---
XR pelvis 1-2V routine CLINICAL HISTORY: fall. Pelvic pain. COMPARISON STUDY: None. FINDINGS: No fracture or dislocation within the pelvis or hips. The sacrum is intact. The bones are o steopenic. Mild degenerative changes within the bilateral hips and sacroiliac joints. Moderate fecal retention. IMPRESSION: No fracture or dislocation within the pelvis or hips. ACT 112: Negative or not required by law. Electronically signed by: Bruce Hartman M.D. 03/13/2023 2:42 PM
[2023-03-13 14:52] LABS: Albumin Globulin Ratio 1.6 (0.9-2); Albumin Level 4.1 gm/dl (3.4-5.0); BUN Creatinine Ratio 17.3 (10-20); Bilirubin,Total 0.8 mg/dl (0.2-1.0); Calcium 9.7 mg/dl (8.6-10.3); Creatinine Clr Calc Pharmacy 92.8 ml/min; Est GFR (African American) 118.7 ml/min; Est GFR (Non-African American) 102.4 ml/min; Globulin 2.6 gm/dl (2.5-4.0); Potassium 3.5 mmol/L (3.5-5.1); Total Protein 6.7 gm/dl (6.0-8.3)
[2023-03-13] MEDS ORDERED: cefTRIAXone SODIUM 2,000 MG/70 ML BAG IV STA (14:56)
[2023-03-13 15:06] LABS: Appearance Urine Clear (Clear); Bacteria Urine Automated 1+ (Negative); Bilirubin Urine Negative (Negative); Blood Urine Negative (Negative); Color Urine Yellow; Epithelial Cell Urine Auto >30 /lpf (0-5); Glucose Urine UA 3+ (Negative); Ketones Urine 1+ (Negative); Leukocyte Esterase Urine Negative (Negative); Nitrite Urine Negative (Negative); Protein Urine Trace (Negative); RBC Urine Automated 0-4 /hpf (0-4); Specific Gravity Urine 1.022 (1.000-1.030); Urobilinogen Urine Negative (Negative)
--- NOTE | 2023-03-13 15:46 | History & Physical Report ---
Date of Service March 13, 2023 Assessment & Plan (1) Fall: (2) Leukocytosis: (3) Weakness: Plan: - Admit to med surg - PT/OT consults, fall precautions - UA does not appear infected, follow urine culture - Labs appear to be essentially unremarkable, imaging including x-rays and chest x-ray appear normal - EKG is without acute findings - Leukocytosis is noted with WBC of 16.40, and CK elevated at 323, likely from repetitive falls (4) Diabetes type 2, controlled: Plan: -Glucose is elevated at 283 on presentation, continue ISS with Accu-Cheks ACHS -Last A1c is 7.9 in May 2022, recheck with a.m. labs -Continue long-acting insulin, at home uses Tresiba 10 units daily -Hold Trulicity once per week (5) Hypertension: Plan: - Not on any blood pressure medications per med rec - BP elevated at 164/87 - will monitor and add prn hydralazine with parameters - Pt reports being in pain so likely adding to elevation, ordered tylenol po x 1 now and then prn (6) Dyslipidemia: Plan: -Continue statin therapy, atorvastatin 10 mg at bedtime (7) Tobacco use: Plan: - Smokes 1 ppd cigarettes, cessation encouraged at bedside, will order nicotine patch (8) Depression: Plan: -Continue Abilify 10 mg every morning, Cymbalta 60 mg twice daily DVT PPx: - teds, scds CODE: DNR/DNI Dispo: From home, likely to remain in the hospital x 1-2 days A total of 75 minutes were spent with greater than 50% of that time face to face with the patient, personally reviewing all current laboratories, imaging studies, past medication reconciliation, outpatient chart review, and discussion with specialists to collaborate care for the patient with attending. Please see attending documentation for corrections and/or additions. History of Present Illness Chief Complaint: Ambulatory dysfunction Primary Care Provider: Terence Herr MD This is a 62-year-old female with PMHx of DM type II, HTN, HLD, depression, dysphagia, Edita thyroiditis, vitamin D sufficiency and history of cochlear implant with hearing disability, and ambulatory dysfunction in the past requiring physical therapy, who presents to the ER with recent frequent falls. She has fallen approximately 3 times within the past month, however today she was unable to get herself up off of the floor and slowly crawled around on the floor for hours this morning until being able to reach a telephone to call her parents. She notes that she did not have any preceding lightheadedness or dizziness, and tripped over her own feet. She uses a cane to assist her ambulation. Last summer she sustained significant injury s/p fall with multiple broken ribs, hurt her right leg which has been consistently weaker than the left since then, requiring a PT/OT acute rehab stay and was at [facility] for a few weeks. She lives at home by herself, but in the past month has been thinking she needs more help. She notes that her last August. Her mood has been stable on Abilify. She did not take any of her morning medications today. Her elderly parents are sitting with her at bedside. She is requesting something for pain, as her body feels sore all over and she was agreeable to tylenol and a heating pad. Pt notes that she is intermittently short of breath but smokes about 1 ppd of cigarettes and has for her adult life, with intermittent cessation. Allergies Allergy/AdvReac Type Severity Reaction Status Date / Time Penicillins Allergy Unknown Rash Verified 03/13/23 15:24 Home Medications Medication Instructions Recorded Confirmed Type flash glucose scanning reader #1 ea 12/21/20 03/13/23 Rx (FreeStyle Addi 14 Day [place]) pen needle, diabetic 32 gauge x #500 ea 10/22/21 03/13/23 Rx 5/32" (BD Ultra-Fine Grace Pen Needle) dulaglutide 0.75 mg/0.5 mL 0.75 mg (0.5 mL) subcut WEEKLY #6 08/21/22 03/13/23 Rx subcutaneous pen injector mL (Trulicity) FreeStyle Addi 14 Day Sensor #6 ea 09/10/22 03/13/23 Rx (flash glucose sensor) atorvastatin 10 mg tablet 10 mg PO HS #90 tabs 11/06/22 03/13/23 Rx insulin degludec 100 unit/mL (3 17 unit (0.17 mL) subcut QAM #15 mL 02/12/23 03/13/23 Rx mL) subcutaneous pen (Tresiba FlexTouch U-100 insulin) aripiprazole 10 mg tablet 10 mg PO QAM 03/13/23 03/13/23 History docusate sodium 100 mg capsule 100 mg PO BID 03/13/23 03/13/23 History duloxetine 60 mg capsule,delayed 60 mg PO AMHS 03/13/23 03/13/23 History release sennosides 8.6 mg capsule 17.2 mg PO BID 03/13/23 03/13/23 History Past Med/Surg History Medical History (Updated 03/13/23 @ 15:35 by Peggy Herbert PA-C) Depression Diabetes type 2, controlled Diabetic radiculopathy Dyslipidemia Dysphagia PT STOPPED TAKING ALL HER ORAL MEDS PAST MONTH-ENCOURAGED SHE CALL HER PCP TODAY AND CHECK HER BLOOD SUGAR. Essential hypertension Edita's thyroiditis Hearing deficit BILAT COCHLEAR DEVICES Hypertension SOB (shortness of breath) on exertion Vitamin D deficiency Surgical History History of cochlear implant BILAT History of colonoscopy History of laparoscopy FOR ENDOMETRIOSIS, converted to open procedure, LSO done too the patient thinks (isn't sure). History of tonsillectomy Family History Family/Other Stroke Hypertension Father Hypertension Social History Smoking Status: Current every day smoker Cigarettes Per Day: 20; Second Hand Exposure: No; Do You Dip or Chew Tobacco: No; Hx Alcohol Use: No Hx Substance Use: No Preferred Language: Vietnamese Communication Ability: Impaired Communication Ability Comment: cochlear inplants Deck Lid Fitter Required: No Beliefs That Will Affect Care: None marital status: Current Living Situation: Alone Current Living Situation Comment: Pt lives with spouse and son Feels Safe at Home: Yes Safety Concerns: Feels Safe At This Time Assistive Devices: Cane Assistive Devices Comment: cochlear inplants. continous bsg monitor right shoulder Review of Systems Review of Systems: Constitutional: No fever, sweats or chills Eyes: No diplopia, no worsening or blurred vision ENT: hard of hearing cochlear implants, no trouble swallowing Respiratory: No cough, sputum, dyspnea at rest or on exertion Cardiovascular: No chest pain, tightness or palpitations Abdomen: No pain, nausea, vomiting, diarrhea or constipation : denies dysuria, increased frequency or hematuria Musculoskeletal: as per HPI, Generalized weakness, + falls, soreness in lower extremities Neurologic: + generalized weakness, no numbness/tingling, + uses a cane for ambulation, + balance problems Psychiatric: No anxiety or depression Skin: No rash or itch Physical Exam Physical Exam: General: awake, alert, no apparent distress, appears much older than stated age, chronically ill Head: Normocephalic, atraumatic ENT: PERRL, EOMI, no pharyngeal exudate, mucous membranes dry, cochlear implants bilaterally, Hard of hearing Chest: Clear to auscultation, on room air, no adventitious breath sounds Cardiac: Regular rate and rhythm, no murmur, no JVD, normal peripheral pulses, good capillary refill Abdominal: NABS x 4 quadrants, soft, nondistended, nontender to palpation, no rebound or guarding Extremities: + Injuries sustained to knees bilaterally, right foot is internally rotated, patient reports that is her baseline status post fall last summer, upper extremities with normal inspection, no peripheral edema or erythema, calfs nontender to palpation Psych: Normal mood and affect Neuro: AAO x 3, strength intact bilaterally upper extremities are 4/5, right lower extremity rated 3/5, left lower extremity rated 4/5, speech is garbled somewhat secondary to hearing disability, no slurring of speech, no focal deficits, no peripheral sensory deficits Results & Data Results & Data Vital Signs (Past 12 Hours) Vital Signs Temp Pulse Pulse Resp BP BP Pulse Ox 03/13/23 14:43 90 20 164/87 H 99 03/13/23 14:04 86 20 99 03/13/23 13:41 98 03/13/23 13:41 36.5 C 89 18 148/86 H 97 O2 Del Method 03/13/23 14:43 Room Air 03/13/23 14:04 Room Air 03/13/23 13:41 Room Air 03/13/23 13:41 Room Air Laboratory Results 03/13/23 14:39 Urine Culture - Pending Urine,Indwelling Cath 03/13/23 03/13/23 03/13/23 14:39 14:08 14:08 WBC RBC Hgb Hct MCV MCH MCHC RDW Std Deviation RDW Coeff of Faye Plt Count MPV Immature Gran % (Auto) Neut % (Auto) Lymph % (Auto) Wilkinson % (Auto) Eos % (Auto) Baso % (Auto) Neut # (Auto) Lymph # (Auto) [place] # (Auto) Eos # (Auto) Baso # (Auto) Immature Gran # (Auto) Sodium 139 Potassium 3.5 Chloride 102 Carbon Dioxide 25 Anion Gap 12 H BUN 9 Creatinine 0.52 L Est Cr Clr Drug Dosing 92.8 Est GFR ( Amer) 118.7 Est GFR (Non-Af Amer) 102.4 BUN/Creatinine Ratio 17.3 Glucose 283 H Calcium 9.7 Total Bilirubin 0.8 AST 27 ALT 18 Alkaline Phosphatase 74 Total Creatine Kinase 323 H Total Protein 6.7 Albumin 4.1 Globulin 2.6 Albumin/Globulin Ratio 1.6 Urine Color Yellow Urine Appearance Clear Urine pH 5.0 Ur Specific [place] 1.022 Urine Protein Trace H Urine Glucose (UA) 3+ H Urine Ketones 1+ H Urine Blood Negative Urine Nitrite Negative Urine Bilirubin Negative Urine Urobilinogen Negative Ur Leukocyte Esterase Negative Urine WBC (Auto) 5-10 H Urine RBC (Auto) 0-4 U Hyaline Cast (Auto) 1-5 U Epithel Cells (Auto) >30 H Urine Bacteria (Auto) 1+ H SARS-CoV-2, RNA, NAAT NEGATIVE 03/13/23 14:08 WBC 16.40 H RBC 5.14 Hgb 15.3 Hct 44.7 MCV 87.0 MCH 29.8 MCHC 34.2 RDW Std Deviation 40.8 RDW Coeff of Faye 13.1 Plt Count 218 MPV 9.6 Immature Gran % (Auto) 0.4 Neut % (Auto) 87.5 Lymph % (Auto) 3.8 Wilkinson % (Auto) 8.0 Eos % (Auto) 0.0 Baso % (Auto) 0.3 Neut # (Auto) 14.34 H Lymph # (Auto) 0.63 L [place]kinson # (Auto) 1.31 H Eos # (Auto) 0.00 Baso # (Auto) 0.05 Immature Gran # (Auto) 0.07 Sodium Potassium Chloride Carbon Dioxide Anion Gap BUN Creatinine Est Cr Clr Drug Dosing Est GFR ( Amer) Est GFR (Non-Af Amer) BUN/Creatinine Ratio Glucose Calcium Total Bilirubin AST ALT Alkaline Phosphatase Total Creatine Kinase Total Protein Albumin Globulin Albumin/Globulin Ratio Urine Color Urine Appearance Urine pH Ur Specific [place] Urine Protein Urine Glucose (UA) Urine Ketones Urine Blood Urine Nitrite Urine Bilirubin Urine Urobilinogen Ur Leukocyte Esterase Urine WBC (Auto) Urine RBC (Auto) U Hyaline Cast (Auto) U Epithel Cells (Auto) Urine Bacteria (Auto) SARS-CoV-2, RNA, NAAT Diagnostic Findings Chest X-Ray 03/13/23 13:40 XR chest 1V portable CLINICAL HISTORY: Weakness. COMPARISON STUDY: Chest CT June 12, 2022. FINDINGS: Multiple old right-sided rib fractures are incidentally noted. There is mild elevation of the left hemidiaphragm. Lungs are clear. There is no pneumothorax or pleural effusion. Cardiac size is normal. Mediastinal contours are normal. There is no evidence for pulmonary edema. IMPRESSION: No acute cardiopulmonary findings. ACT 112: Negative or not required by law. Electronically signed by: Rico Thomas M.D. 03/13/2023 2:11 PM Pelvis X-Ray 03/13/23 13:41 XR pelvis 1-2V routine CLINICAL HISTORY: fall. Pelvic pain. COMPARISON STUDY: None. FINDINGS: No fracture or dislocation within the pelvis or hips. The sacrum is intact. The bones are osteopenic. Mild degenerative changes within the bilateral hips and sacroiliac joints. Moderate fecal retention. IMPRESSION: No fracture or dislocation within the pelvis or hips. ACT 112: Negative or not required by law. Electronically signed by: Bruce Hartman M.D. 03/13/2023 2:42 PM Code Status & VTE Plan Code Status DNR/DNI -discussed with the patient at bedside Supervising Physician Co-Signing Physician Notes Patient was seen and examined independently. Chart reviewed. History of frequent falls. Lives alone. Here after another mechanical fall, down on ground at home all morning. Needs placement Repeat CK in AM
[2023-03-13] MEDS ORDERED: ACETAMINOPHEN 325 MG TAB PO ONE (16:48)
[2023-03-13] MEDS ORDERED: hydrALAZINE HCL 20 MG/ML VIAL IV PRN (17:00)
[2023-03-13] MEDS ORDERED: GLUCAGON FOR INJ 1 MG VIAL SQ PRN (17:13)
[2023-03-13] MEDS ORDERED: DEXTROSE 50% 50 ML SYRINGE IV PRN (17:13)
[2023-03-13] MEDS ORDERED: SODIUM CHLORIDE 0.9% 500 ML IV SCH (17:13)
[2023-03-13] MEDS ORDERED: GLUCOSE 40% GEL 15 GM TUBE PO PRN (17:13)
[2023-03-13] MEDS ORDERED: GLUCOSE 10 TAB/TUBE PO PRN (17:13)
[2023-03-13] MEDS ORDERED: PHARMACY GLYCEMIC MGMT CONSULT PRN (17:13)
[2023-03-13] MEDS ORDERED: ONDANSETRON INJ 2 MG/ML 2 ML VIAL IV PRN (17:13)
[2023-03-13] MEDS ORDERED: CARBOHYDRATES FOR HYPOGLYCEMIA PO PRN (17:13)
[2023-03-13] MEDS: NICOTINE 21 MG/24 HR TDSY TD SCH (20:32)
[2023-03-13] MEDS: DOCUSATE SODIUM 100 MG CAP PO SCH (20:33)
[2023-03-13] MEDS: ATORVASTATIN 10 MG TAB PO SCH (20:33)
[2023-03-13] MEDS: SENNA 8.6 MG TAB PO SCH (20:33)
[2023-03-13] MEDS: DULoxetine HCL 60 MG CAP PO SCH (20:34)
[2023-03-13] MEDS: INSULIN ASPART PER UNIT CHARGE SC SCH ×2 (20:38→21:47)
[2023-03-13] MEDS ORDERED: LANTUS PER UNIT CHARGE SQ ONE (21:00)
[2023-03-14] MEDS ORDERED: INSULIN ASPART PER UNIT CHARGE SC SCH (02:00)
[2023-03-14 06:38] LABS: Hemoglobin 13.7 g/dl (12.0-16.0); Mean Corpuscular Hemoglobin 29.3 pg (25.0-34.0); Mean Corpuscular Hgb Conc 34.3 g/dL (32.0-36.0); Mean Corpuscular Volume 85.7 fL (80.0-100.0); Mean Platelet Volume 9.8 fL (9.4-12.4); Platelet Count 206 K/uL (130-400); RDW Coefficient of Variation 13.1 % (11.5-14.5); RDW Standard Deviation 40.9 fL (36.4-46.3); Red Blood Count 4.67 M/uL (4.20-5.40)
[2023-03-14 06:59] LABS: BUN Creatinine Ratio 17.1 (10-20); Creatinine Clr Calc Pharmacy 117.7 ml/min; Est GFR (African American) 128.3 ml/min; Est GFR (Non-African American) 110.7 ml/min; Magnesium 1.7 mg/dl (1.7-2.4); Potassium 3.1 mmol/L (3.5-5.1)
[2023-03-14] MEDS: NICOTINE 21 MG/24 HR TDSY TD SCH (08:36)
[2023-03-14] MEDS: DULoxetine HCL 60 MG CAP PO SCH ×2 (08:37→20:25)
[2023-03-14] MEDS: SENNA 8.6 MG TAB PO SCH ×2 (08:37→20:25)
[2023-03-14] MEDS: ARIPiprazole 10 MG TAB PO SCH (08:37)
[2023-03-14] MEDS: DOCUSATE SODIUM 100 MG CAP PO SCH ×2 (08:37→20:24)
[2023-03-14] MEDS ORDERED: POTASSIUM CHLORIDE CRTAB 20 MEQ TABCR PO STA (08:38)
[2023-03-14] MEDS ORDERED: LANTUS PER UNIT CHARGE SQ SCH (09:00)
[2023-03-14] MEDS ORDERED: NON-FORMULARY MEDICATION (Insulin Degludec [Tresiba Flextouch U-100] 100 unit/mL (3 mL) in SQ SCH (09:00)
[2023-03-14] MEDS: INSULIN ASPART PER UNIT CHARGE SC SCH ×4 (09:15→21:04)
--- NOTE | 2023-03-14 09:29 | Pharmacy Report ---
Pharmacy Glycemic Short Note 2 - Date of Service March 14, 2023 - Glycemic Short BSG Results (Last 24 hours): 03/13/23 03/13/23 03/13/23 14:08 17:49 19:46 Glucose 283 H POC Glucose 264 H 221 H 03/14/23 03/14/23 03/14/23 02:12 05:32 08:00 Glucose 212 H POC Glucose 122 H 255 H OUTPATIENT ANTIDIABETIC REGIMEN: * Tresiba 17 units SC AM * Trulicity 0.75 mg SC weekly * HbA1c: 9.8% (03/14/23) ASSESSMENT: * 62 yo F admitted on 03/13/23 secondary to frequent falls recently. Pharmacy has been consulted to assist with inpatient glycemic management. Patient is an uncontrolled Type 2 diabetic as an outpatient. Please refer to outpatient regimen and most recent HbA1c above. * Ordered and tolerating a T2DM diet. Received 12 units of basal and 4 units of bolus insulin last evening. BSGs were: 264-221 mg/dL. * Fasting BSG this AM was 255 mg/dL. Increased basal to match home dose. No changes to bolus regimen at this time. PLAN FOR INPATIENT GLYCEMIC CONTROL: * Basal insulin * Lantus 17 units SC AM * Bolus insulin * NovoLog per scale ACHS or Q6hrs while NPO * Goal Range: Low 120 mg/dL - High 160 mg/dL * Correction Factor: 35 mg/dL/unit * Nutritional / Prandial insulin per carb ratio of 1 unit per 12 grams CHO consumed
[2023-03-14 09:37] LABS: Estimated Average Glucose 235 mg/dl; Hemoglobin A1C 9.8 % (4.5-5.6)
--- NOTE | 2023-03-14 14:39 | Hospitalist Progress Note ---
Date of Service March 14, 2023 Assessment & Plan (1) Fall: (2) Leukocytosis: (3) Weakness: Plan: - PT/OT consults, fall precautions - UA does not appear infected, follow urine culture-urine is growing 3 types of organisms likely contaminant. -No significant causes of weakness found - Leukocytosis is noted with WBC of 16.40, and CK elevated at 323, likely from repetitive falls -Intravenous ceftriaxone has been discontinued -We will get PT & OT evaluation for possible placement History of dysphagia We will get speech therapy evaluation She has been eating normally though (4) Diabetes type 2, controlled: Plan: -Glucose is elevated at 283 on presentation, continue ISS with Accu-Cheks ACHS -Last A1c is 7.9 in May 2022, recheck with a.m. labs -Continue long-acting insulin, at home uses Tresiba 10 units daily -Hold Trulicity once per week (5) Hypertension: Plan: - Not on any blood pressure medications per med rec - BP elevated at 164/87 - will monitor and add prn hydralazine with parameters - Pt reports being in pain so likely adding to elevation, ordered tylenol po x 1 now and then prn -Blood pressure remains controlled at 120/78 (6) Dyslipidemia: Plan: -Continue statin therapy, atorvastatin 10 mg at bedtime (7) Tobacco use: Plan: - Smokes 1 ppd cigarettes, cessation encouraged at bedside, will order nicotine patch (8) Depression: Plan: -Continue Abilify 10 mg every morning, Cymbalta 60 mg twice daily DVT PPx: - aileen scds CODE: DNR/DNI Dispo: From home, likely to remain in the hospital x 1-2 days Admission and Anticipated Discharge Date Admission Date: March 13, 2023 Subjective 03/14/2023 The patient was seen and examined in medical floor She has been stable and denies any significant symptoms Was admitted with recurrent falls at home Will need PT OT evaluation and likely to need placement Review of Systems Review of Systems: All systems reviewed and are unremarkable except as noted below Physical Exam Physical Exam: Lying in bed without any significant discomfort Constitutional: average body habitus; not ill appearing Eyes: PERRL, conjunctivae normal, anicteric sclerae ENMT: external ear and nose normal, oropharynx normal Neck: trachea midline, no thyromegaly Respiratory: no respiratory distress Auscultation: + diminished lung sounds and + crackles (Minimal crackles at the bases) Cardiovascular: Rate/Rhythm: regular rate and regular rhythm; not tachycardic Heart Sounds: normal S1, normal S2 and + murmur Extremities: no edema Gastrointestinal (Abdomen): Inspection/Auscultation: normal bowel sounds; abdomen not distended Percussion/Palpation: abdomen soft; abdomen nontender Musculoskeletal: No acute arthritis involving any of the joints Skin: Multiple bruising involving the lower extremities mainly the knees Neurologic: normal touch/pain/proprioception and moves all extremities; no focal motor deficits Lymphatic: no cervical or axillary lymphadenopathy Results & Data Results & Data Vital Signs (Past 12 Hours) Vital Signs Temp Pulse Resp BP Pulse Ox O2 Del Method 03/14/23 07:56 36.3 C L 80 10 L 120/78 97 Room Air Laboratory Results Short CBC 03/13/23 03/14/23 Range/Units 14:08 05:32 WBC 16.40 H 10.80 (4.8-10.8) K/ul Hgb 15.3 13.7 (12.0-16.0) g/dl Hct 44.7 40.0 (37.0-47.0) % Plt Count 218 206 (130-400) K/uL BMP 03/13/23 03/14/23 14:08 05:32 Sodium 139 137 Potassium 3.5 3.1 L Chloride 102 104 Carbon Dioxide 25 23 BUN 9 7 Creatinine 0.52 L 0.41 L Glucose 283 H 212 H Calcium 9.7 9.0 Cardiac Enzymes 03/13/23 03/14/23 Range/Units 14:08 05:32 Total Creatine Kinase 323 H 575 H (26-192) U/L Liver Function 03/13/23 Range/Units 14:08 Total Bilirubin 0.8 (0.2-1.0) mg/dl AST 27 (13-39) U/L ALT 18 (7-52) U/L Alkaline Phosphatase 74 (34-104) U/L Albumin 4.1 (3.4-5.0) gm/dl Urine 03/13/23 Range/Units 14:39 Urine Color Yellow Urine Appearance Clear (Clear) Urine pH 5.0 (4.5-7.5) Ur Specific [place] 1.022 (1.000-1.030) Urine Protein Trace H (Negative) Urine Glucose (UA) 3+ H (Negative) Medications Administered Current Inpatient Medications Acetaminophen (Acetaminophen 325 Mg Tab) 650 mg PO Q4H PRN PRN Reason: Moderate Pain (Scale 4, 5, 6) Stop: 04/12/23 17:12 Aripiprazole (Aripiprazole 10 Mg Tab) 10 mg PO QAM [facility] Stop: 04/13/23 08:59 Last Admin: 03/14/23 08:37 Dose: 10 mg Atorvastatin Calcium (Atorvastatin 10 Mg Tab) 10 mg PO HS [facility] Stop: 04/12/23 20:59 Last Admin: 03/13/23 20:33 Dose: 10 mg Dextrose (Dextrose 50% 50 Ml Syringe) 25 - 50 ml IV UD PRN; Protocol PRN Reason: Hypoglycemia Protocol Stop: 04/12/23 17:12 Docusate Sodium (Docusate Sodium 100 Mg Cap) 100 mg PO BID [facility] Stop: 04/12/23 20:59 Last Admin: 03/14/23 08:37 Dose: 100 mg Duloxetine HCl (Duloxetine Hcl 60 Mg Cap) 60 mg PO AMHS [facility] Stop: 04/12/23 20:59 Last Admin: 03/14/23 08:37 Dose: 60 mg Glucagon (Glucagon For Inj 1 Mg Vial) 1 mg SQ UD PRN; Protocol PRN Reason: Hypoglycemia Protocol Stop: 04/12/23 17:12 Glucose (Glucose 10 Tab/Tube) 4 - 8 tab PO UD PRN; Protocol PRN Reason: Hypoglycemia Treatment Stop: 04/12/23 17:12 Glucose (Glucose 40% Gel 15 Gm Tube) 15 - 30 gm PO UD PRN; Protocol PRN Reason: Hypoglycemia Protocol Stop: 04/12/23 17:12 Hydralazine HCl (Hydralazine Hcl 20 Mg/Ml Vial) 10 mg IV Q8H PRN PRN Reason: Hypertension Stop: 04/12/23 16:59 Insulin Aspart (Insulin Aspart Per Unit Charge) 0 units SC [facility]; Protocol Stop: 04/12/23 17:29 Last Admin: 03/14/23 13:03 Dose: 5 units Insulin Glargine (Lantus Per Unit Charge) 17 units SQ DAILY [facility]; Protocol Stop: 04/13/23 08:59 Last Admin: 03/14/23 09:15 Dose: 17 units Miscellaneous (Remove Nicoderm Patch) 1 each N/A DAILY@0859 [facility] Stop: 04/13/23 08:58 Last Admin: 03/14/23 08:36 Dose: 1 each Miscellaneous (Carbohydrates For Hypoglycemia ) 15 - 30 gm PO UD PRN PRN Reason: Hypoglycemia Protocol Stop: 04/12/23 17:12 Miscellaneous Information (Pharmacy Glycemic Mgmt Consult) 1 each N/A UD PRN PRN Reason: Consult Stop: 04/12/23 17:12 Nicotine (Nicotine 21 Mg/24 Hr Tdsy) 21 mg TD QAM [facility] Stop: 04/12/23 17:14 Last Admin: 03/14/23 08:36 Dose: 21 mg Ondansetron HCl (Ondansetron Inj 2 Mg/Ml 2 Ml Vial) 4 mg IV Q4H PRN PRN Reason: Nausea And Vomiting Stop: 04/12/23 17:12 Sennosides (Senna 8.6 Mg Tab) 17.2 mg PO BID [facility] Stop: 04/12/23 20:59 Last Admin: 03/14/23 08:37 Dose: 17.2 mg
[2023-03-14] MEDS: ATORVASTATIN 10 MG TAB PO SCH (20:24)
--- NOTE | 2023-03-14 22:26 | Electrocardiogram Report ---
Test Reason : Blood Pressure : / mmHG Vent. Rate : 083 BPM Atrial Rate : 083 BPM P-R Int : 122 ms QRS Dur : 088 ms QT Int : 352 ms P-R-T Axes : 021 -32 108 degrees QTc Int : 413 ms Normal sinus rhythm Left axis deviation T wave abnormality, consider anterior ischemia Abnormal ECG When compared with ECG of 12-JUN-2022 13:39, Criteria for Septal infarct are no longer Present QT has shortened Confirmed by William Redd ([id number]) on 03/14/2023 10:25:57 PM Referred By: REFERRED SELF Confirmed By:William Redd
[2023-03-15] MEDS: ARIPiprazole 10 MG TAB PO SCH (09:16)
[2023-03-15] MEDS: DULoxetine HCL 60 MG CAP PO SCH ×2 (09:16→20:16)
[2023-03-15] MEDS: ACETAMINOPHEN 325 MG TAB PO PRN ×2 (09:16→20:13)
[2023-03-15] MEDS: NICOTINE 21 MG/24 HR TDSY TD SCH (09:17)
[2023-03-15] MEDS: SENNA 8.6 MG TAB PO SCH ×2 (09:17→20:15)
[2023-03-15] MEDS: DOCUSATE SODIUM 100 MG CAP PO SCH ×2 (09:20→20:15)
[2023-03-15] MEDS: LANTUS PER UNIT CHARGE SQ SCH (09:21)
[2023-03-15] MEDS: INSULIN ASPART PER UNIT CHARGE SC SCH ×4 (09:21→20:55)
--- NOTE | 2023-03-15 14:15 | Pharmacy Report ---
Pharmacy Glycemic Short Note 2 - Date of Service March 15, 2023 - Glycemic Short BSG Results (Last 24 hours): 03/14/23 03/14/23 03/15/23 17:03 20:30 08:25 POC Glucose 189 H 195 H 229 H 03/15/23 12:13 POC Glucose 207 H OUTPATIENT ANTIDIABETIC REGIMEN: * Tresiba 17 units SC AM * Trulicity 0.75 mg SC weekly * HbA1c: 9.8% (03/14/23) ASSESSMENT: 03/15: * Vani received 36 units of insulin yesterday (17 units basal + 19 units bolus) * Fasting BSG of 229 mg/dL. Will increase Lantus ~25%. * Persistent post prandial hyperglycemia. Will tighten correction factor and carb ratio. 03/14: * 62 yo F admitted on 03/13/23 secondary to frequent falls recently. Pharmacy has been consulted to assist with inpatient glycemic management. Patient is an uncontrolled Type 2 diabetic as an outpatient. Please refer to outpatient regimen and most recent HbA1c above. * Ordered and tolerating a T2DM diet. Received 12 units of basal and 4 units of bolus insulin last evening. BSGs were: 264-221 mg/dL. * Fasting BSG this AM was 255 mg/dL. Increased basal to match home dose. No changes to bolus regimen at this time. PLAN FOR INPATIENT GLYCEMIC CONTROL: * Basal insulin * Lantus 21 units SC AM * Bolus insulin * NovoLog per scale ACHS or Q6hrs while NPO * Goal Range: Low 120 mg/dL - High 150 mg/dL * Correction Factor: 25 mg/dL/unit * Nutritional / Prandial insulin per carb ratio of 1 unit per 9 grams CHO consumed
--- NOTE | 2023-03-15 17:00 | Hospitalist Progress Note ---
Date of Service March 15, 2023 Assessment & Plan (1) Fall: (2) Leukocytosis: (3) Weakness: Plan: - PT/OT consults, fall precautions - UA does not appear infected, follow urine culture-urine is growing 3 types of organisms likely contaminant. -No significant causes of weakness found - Leukocytosis is noted with WBC of 16.40, and CK elevated at 323, likely from repetitive falls -Intravenous ceftriaxone has been discontinued -We will get PT & OT evaluation for possible placement -Likely to need placement History of dysphagia We will get speech therapy evaluation She has been eating normally though Appreciate speech evaluation and recommendation (4) Diabetes type 2, controlled: Plan: -Glucose is elevated at 283 on presentation, continue ISS with Accu-Cheks ACHS -Last A1c is 7.9 in May 2022, recheck with a.m. labs -Continue long-acting insulin, at home uses Tresiba 10 units daily -Hold Trulicity once per week (5) Hypertension: Plan: - Not on any blood pressure medications per med rec - BP elevated at 164/87 - will monitor and add prn hydralazine with parameters - Pt reports being in pain so likely adding to elevation, ordered tylenol po x 1 now and then prn -Blood pressure remains controlled at 120/78 Blood pressure remains on the lower side 92/65 (6) Dyslipidemia: Plan: -Continue statin therapy, atorvastatin 10 mg at bedtime (7) Tobacco use: Plan: - Smokes 1 ppd cigarettes, cessation encouraged at bedside, will order nicotine patch (8) Depression: Plan: -Continue Abilify 10 mg every morning, Cymbalta 60 mg twice daily DVT PPx: - aileen scds CODE: DNR/DNI Dispo: From home, likely to remain in the hospital x 1-2 days Awaiting PT and OT evaluation prior to discharge Admission and Anticipated Discharge Date Admission Date: March 15, 2023 Subjective 03/14/2023 The patient was seen and examined in medical floor She has been stable and denies any significant symptoms Was admitted with recurrent falls at home Will need PT OT evaluation and likely to need placement 03/15/2023 The patient was seen and examined in the medical floor She has been stable out of bed on a chair Complains today of some right groin pain We will get PT and OT evaluation Review of Systems Review of Systems: All systems reviewed and are unremarkable except as noted below Physical Exam Physical Exam: Lying in bed without any significant discomfort Constitutional: average body habitus; not ill appearing Eyes: PERRL, conjunctivae normal, anicteric sclerae ENMT: external ear and nose normal, oropharynx normal Neck: trachea midline, no thyromegaly Respiratory: no respiratory distress Auscultation: + diminished lung sounds and + crackles (Minimal crackles at the bases) Cardiovascular: Rate/Rhythm: regular rate and regular rhythm; not tachycardic Heart Sounds: normal S1, normal S2 and + murmur Extremities: no edema Gastrointestinal (Abdomen): Inspection/Auscultation: normal bowel sounds; abdomen not distended Percussion/Palpation: abdomen soft; abdomen nontender Musculoskeletal: No acute arthritis involving any joint Neurologic: normal touch/pain/proprioception and moves all extremities; no focal motor deficits Lymphatic: no cervical or axillary lymphadenopathy Results & Data Results & Data Vital Signs (Past 12 Hours) Vital Signs Temp Pulse Resp BP BP Pulse Ox O2 Del Method 03/15/23 15:43 36.7 C 82 16 92/65 L 98 Room Air 03/15/23 07:45 Room Air 03/15/23 07:13 37 C 87 16 105/67 94 Room Air Medications Administered Current Inpatient Medications Acetaminophen (Acetaminophen 325 Mg Tab) 650 mg PO Q4H PRN PRN Reason: Moderate Pain (Scale 4, 5, 6) Stop: 04/12/23 17:12 Last Admin: 03/15/23 09:16 Dose: 650 mg Aripiprazole (Aripiprazole 10 Mg Tab) 10 mg PO QAM [facility] Stop: 04/13/23 08:59 Last Admin: 03/15/23 09:16 Dose: 10 mg Atorvastatin Calcium (Atorvastatin 10 Mg Tab) 10 mg PO HS [facility] Stop: 04/12/23 20:59 Last Admin: 03/14/23 20:24 Dose: 10 mg Dextrose (Dextrose 50% 50 Ml Syringe) 25 - 50 ml IV UD PRN; Protocol PRN Reason: Hypoglycemia Protocol Stop: 04/12/23 17:12 Docusate Sodium (Docusate Sodium 100 Mg Cap) 100 mg PO BID [facility] Stop: 04/12/23 20:59 Last Admin: 03/15/23 09:20 Dose: 100 mg Duloxetine HCl (Duloxetine Hcl 60 Mg Cap) 60 mg PO AMHS [facility] Stop: 04/12/23 20:59 Last Admin: 03/15/23 09:16 Dose: 60 mg Glucagon (Glucagon For Inj 1 Mg Vial) 1 mg SQ UD PRN; Protocol PRN Reason: Hypoglycemia Protocol Stop: 04/12/23 17:12 Glucose (Glucose 10 Tab/Tube) 4 - 8 tab PO UD PRN; Protocol PRN Reason: Hypoglycemia Treatment Stop: 04/12/23 17:12 Glucose (Glucose 40% Gel 15 Gm Tube) 15 - 30 gm PO UD PRN; Protocol PRN Reason: Hypoglycemia Protocol Stop: 04/12/23 17:12 Hydralazine HCl (Hydralazine Hcl 20 Mg/Ml Vial) 10 mg IV Q8H PRN PRN Reason: Hypertension Stop: 04/12/23 16:59 Insulin Aspart (Insulin Aspart Per Unit Charge) 0 units SC [facility]; Protocol Stop: 04/12/23 17:29 Last Admin: 03/15/23 13:03 Dose: 6 units Insulin Glargine (Lantus Per Unit Charge) 21 units SQ DAILY [facility]; Protocol Stop: 04/14/23 08:59 Last Admin: 03/15/23 09:21 Dose: 21 units Miscellaneous (Remove Nicoderm Patch) 1 each N/A DAILY@0859 [facility] Stop: 04/13/23 08:58 Last Admin: 03/15/23 09:17 Dose: 1 each Miscellaneous (Carbohydrates For Hypoglycemia ) 15 - 30 gm PO UD PRN PRN Reason: Hypoglycemia Protocol Stop: 04/12/23 17:12 Miscellaneous Information (Pharmacy Glycemic Mgmt Consult) 1 each N/A UD PRN PRN Reason: Consult Stop: 04/12/23 17:12 Nicotine (Nicotine 21 Mg/24 Hr Tdsy) 21 mg TD QAM [facility] Stop: 04/12/23 17:14 Last Admin: 03/15/23 09:17 Dose: 21 mg Ondansetron HCl (Ondansetron Inj 2 Mg/Ml 2 Ml Vial) 4 mg IV Q4H PRN PRN Reason: Nausea And Vomiting Stop: 04/12/23 17:12 Sennosides (Senna 8.6 Mg Tab) 17.2 mg PO BID [facility] Stop: 04/12/23 20:59 Last Admin: 03/15/23 09:17 Dose: 17.2 mg
[2023-03-15] MEDS: ATORVASTATIN 10 MG TAB PO SCH (20:16)
[2023-03-16] MEDS: DOCUSATE SODIUM 100 MG CAP PO SCH ×2 (08:20→19:57)
[2023-03-16] MEDS: ARIPiprazole 10 MG TAB PO SCH (08:20)
[2023-03-16] MEDS: NICOTINE 21 MG/24 HR TDSY TD SCH (08:20)
[2023-03-16] MEDS: DULoxetine HCL 60 MG CAP PO SCH ×2 (08:20→19:57)
[2023-03-16] MEDS: SENNA 8.6 MG TAB PO SCH ×2 (08:20→19:56)
[2023-03-16] MEDS: INSULIN ASPART PER UNIT CHARGE SC SCH ×4 (08:54→21:12)
[2023-03-16] MEDS: LANTUS PER UNIT CHARGE SQ SCH (08:55)
[2023-03-16] MEDS ORDERED: LANTUS PER UNIT CHARGE SQ ONE (12:30)
--- NOTE | 2023-03-16 13:36 | Discharge Summary ---
Date of Service March 16, 2023 Admission HPI Per Admitting Provider This is a 62-year-old female with PMHx of DM type II, HTN, HLD, depression, dysphagia, Edita thyroiditis, vitamin D sufficiency and history of cochlear implant with hearing disability, and ambulatory dysfunction in the past requiring physical therapy, who presents to the ER with recent frequent falls. She has fallen approximately 3 times within the past month, however today she was unable to get herself up off of the floor and slowly crawled around on the floor for hours this morning until being able to reach a telephone to call her parents. She notes that she did not have any preceding lightheadedness or dizziness, and tripped over her own feet. She uses a cane to assist her ambulation. Last summer she sustained significant injury s/p fall with multiple broken ribs, hurt her right leg which has been consistently weaker than the left since then, requiring a PT/OT acute rehab stay and was at [facility] for a few weeks. She lives at home by herself, but in the past month has been thinking she needs more help. She notes that her last August. Her mood has been stable on Abilify. She did not take any of her morning medications today. Her elderly parents are sitting with her at bedside. She is requesting something for pain, as her body feels sore all over and she was agreeable to tylenol and a heating pad. Pt notes that she is intermittently short of breath but smokes about 1 ppd of cigarettes and has for her adult life, with intermittent cessation. Discharge Exam Lying in bed without any significant discomfort Constitutional average body habitus; not ill appearing Eyes PERRL, conjunctivae normal, anicteric sclerae ENMT external ear and nose normal, oropharynx normal Neck trachea midline, no thyromegaly Respiratory no respiratory distress Auscultation: + diminished lung sounds and + crackles (Minimal crackles at the bases) Cardiovascular Rate/Rhythm: regular rate and regular rhythm; not tachycardic Heart Sounds: normal S1, normal S2 and + murmur Extremities: no edema Gastrointestinal (Abdomen) Inspection/Auscultation: normal bowel sounds; abdomen not distended Percussion/Palpation: abdomen soft; abdomen nontender Neurologic normal touch/pain/proprioception and moves all extremities; no focal motor deficits Lymphatic no cervical or axillary lymphadenopathy Discharge Data Allergies Allergy/AdvReac Type Severity Reaction Status Date / Time Penicillins Allergy Unknown Rash Verified 03/13/23 15:24 Consultations 03/13/23 15:05 ED Decision to Admit Stat Hospital Course (1) Fall: (2) Leukocytosis: (3) Weakness: - PT/OT consults, fall precautions - UA does not appear infected, follow urine culture-urine is growing 3 types of organisms likely contaminant. -No significant causes of weakness found - Leukocytosis is noted with WBC of 16.40, and CK elevated at 323, likely from repetitive falls -Intravenous ceftriaxone has been discontinued -We will get PT & OT evaluation for possible placement -Likely to need placement History of dysphagia We will get speech therapy evaluation She has been eating normally though Appreciate speech evaluation and recommendation (4) Diabetes type 2, controlled: -Glucose is elevated at 283 on presentation, continue ISS with Accu-Cheks ACHS -Last A1c is 7.9 in May 2022, recheck with a.m. labs -Continue long-acting insulin, at home uses Tresiba 10 units daily -Hold Trulicity once per week (5) Hypertension: - Not on any blood pressure medications per med rec - BP elevated at 164/87 - will monitor and add prn hydralazine with parameters - Pt reports being in pain so likely adding to elevation, ordered tylenol po x 1 now and then prn -Blood pressure remains controlled at 120/78 Blood pressure remains on the lower side 92/65 (6) Dyslipidemia: -Continue statin therapy, atorvastatin 10 mg at bedtime (7) Tobacco use: - Smokes 1 ppd cigarettes, cessation encouraged at bedside, will order nicotine patch (8) Depression: -Continue Abilify 10 mg every morning, Cymbalta 60 mg twice daily DVT PPx: - teds, scds CODE: DNR/DNI Dispo: From home, likely to remain in the hospital x 1-2 days Awaiting PT and OT evaluation prior to discharge Discharge Plan Discharge Items Reason For Visit: AMBULATORY DYSFUNCTION Follow-up/Referrals: Terence Herr MD [Primary Care Provider] - Medications and DC Order Prescriptions: No Action (DME) FreeStyle Addi 14 Day [place] Misc See Rx Instructions .ROUTE .MEDSUPPLY Qty: 1 0RF Rx Instructions: Use to test blood sugars daily (DME) pen needle, diabetic [BD Ultra-Fine Grace Pen Needle] 32 gauge x 5/32" needle See Rx Instructions miscellaneous .MEDSUPPLY Qty: 500 3RF Rx Instructions: As directed to use with insulin pens 4 times a day (DME) FreeStyle Addi 14 Day Sensor Kit See Rx Instructions .ROUTE .MEDSUPPLY Qty: 6 3RF Rx Instructions: Change every 14 days atorvastatin 10 mg tablet 10 mg PO HS Qty: 90 0RF insulin degludec [Tresiba FlexTouch U-100] 100 unit/mL (3 mL) insulin pen 17 unit SQ QAM Qty: 15 3RF Rx Instructions: Inject 17 units in the morning; TDD up to 20 units a day Trulicity 0.75 mg/0.5 mL pen injector 0.75 mg subcut WEEKLY MDD inject once a week Qty: 6 3RF Rx Instructions: Inject once a week aripiprazole 10 mg tablet 10 mg PO QAM duloxetine 60 mg capsule,delayed release(DR/EC) 60 mg PO AMHS docusate sodium 100 mg Capsule 100 mg PO BID sennosides 8.6 mg Capsule 17.2 mg PO BID Admission Data Admit Date/Time: 03/15/23 13:47 Attending Provider: Adolfo Leyva Admit Provider: Chuck Landa Primary Care Provider: Terence Herr Other Providers: Chuck Landa ; [facility] ; [facility]
--- NOTE | 2023-03-16 13:39 | Hospitalist Progress Note ---
Date of Service March 16, 2023 Assessment & Plan (1) Fall: (2) Leukocytosis: (3) Weakness: Plan: - PT/OT consults, fall precautions - UA does not appear infected, follow urine culture-urine is growing 3 types of organisms likely contaminant. -No significant causes of weakness found - Leukocytosis is noted with WBC of 16.40, and CK elevated at 323, likely from repetitive falls -Intravenous ceftriaxone has been discontinued -We will get PT & OT evaluation for possible placement -Appreciate PT and OT input and recommendation to rehab -She remains stable to be transferred History of dysphagia We will get speech therapy evaluation She has been eating normally though Appreciate speech evaluation and recommendation (4) Diabetes type 2, controlled: Plan: -Glucose is elevated at 283 on presentation, continue ISS with Accu-Cheks ACHS -Last A1c is 7.9 in May 2022, recheck with a.m. labs -Continue long-acting insulin, at home uses Tresiba 10 units daily -Hold Trulicity once per week (5) Hypertension: Plan: - Not on any blood pressure medications per med rec - BP elevated at 164/87 - will monitor and add prn hydralazine with parameters - Pt reports being in pain so likely adding to elevation, ordered tylenol po x 1 now and then prn -Blood pressure remains controlled at 120/78 Blood pressure remains on the lower side 92/65 Blood pressure seems to be stable at 111/74 (6) Dyslipidemia: Plan: -Continue statin therapy, atorvastatin 10 mg at bedtime (7) Tobacco use: Plan: - Smokes 1 ppd cigarettes, cessation encouraged at bedside, will order nicotine patch (8) Depression: Plan: -Continue Abilify 10 mg every morning, Cymbalta 60 mg twice daily DVT PPx: - aileen, scds CODE: DNR/DNI Dispo: From home, likely to remain in the hospital x 1-2 days Likely discharge to rehab tomorrow Admission and Anticipated Discharge Date Admission Date: March 15, 2023 Subjective 03/14/2023 The patient was seen and examined in medical floor She has been stable and denies any significant symptoms Was admitted with recurrent falls at home Will need PT OT evaluation and likely to need placement 03/15/2023 The patient was seen and examined in the medical floor She has been stable out of bed on a chair Complains today of some right groin pain We will get PT and OT evaluation 03/16/2023 The patient was seen and examined in medical floor She has been complaining of right inguinal pain specially with ambulation X-ray reviewed did not show any fracture She will have pain medications prior to ovulation Denies any other symptoms Review of Systems Review of Systems: All systems reviewed and are unremarkable except as noted below Physical Exam Constitutional: average body habitus; not ill appearing Eyes: PERRL, conjunctivae normal, anicteric sclerae ENMT: external ear and nose normal, oropharynx normal Neck: trachea midline, no thyromegaly Respiratory: no respiratory distress Auscultation: + diminished lung sounds and + crackles (Minimal crackles at the bases) Cardiovascular: Rate/Rhythm: regular rate and regular rhythm; not tachycardic Heart Sounds: normal S1, normal S2 and + murmur Extremities: no edema Gastrointestinal (Abdomen): Inspection/Auscultation: normal bowel sounds; abdomen not distended Percussion/Palpation: abdomen soft; abdomen nontender Musculoskeletal: No significant restriction of movement of the right hip Neurologic: normal touch/pain/proprioception and moves all extremities; no focal motor deficits Lymphatic: no cervical or axillary lymphadenopathy Results & Data Results & Data Vital Signs (Past 12 Hours) Vital Signs Temp Pulse Resp BP Pulse Ox O2 Del Method O2 Del Method 03/16/23 08:00 Room Air 03/16/23 07:44 37.2 C 87 16 111/74 96 Room Air Medications Administered Current Inpatient Medications Acetaminophen (Acetaminophen 325 Mg Tab) 650 mg PO Q4H PRN PRN Reason: Moderate Pain (Scale 4, 5, 6) Stop: 04/12/23 17:12 Last Admin: 03/15/23 20:13 Dose: 650 mg Aripiprazole (Aripiprazole 10 Mg Tab) 10 mg PO QAM [facility] Stop: 04/13/23 08:59 Last Admin: 03/16/23 08:20 Dose: 10 mg Atorvastatin Calcium (Atorvastatin 10 Mg Tab) 10 mg PO HS [facility] Stop: 04/12/23 20:59 Last Admin: 03/15/23 20:16 Dose: 10 mg Dextrose (Dextrose 50% 50 Ml Syringe) 25 - 50 ml IV UD PRN; Protocol PRN Reason: Hypoglycemia Protocol Stop: 04/12/23 17:12 Docusate Sodium (Docusate Sodium 100 Mg Cap) 100 mg PO BID [facility] Stop: 04/12/23 20:59 Last Admin: 03/16/23 08:20 Dose: 100 mg Duloxetine HCl (Duloxetine Hcl 60 Mg Cap) 60 mg PO AMHS [facility]CLUDES [facility] Stop: 04/12/23 20:59 Last Admin: 03/16/23 08:20 Dose: 60 mg Glucagon (Glucagon For Inj 1 Mg Vial) 1 mg SQ UD PRN; Protocol PRN Reason: Hypoglycemia Protocol Stop: 04/12/23 17:12 Glucose (Glucose 10 Tab/Tube) 4 - 8 tab PO UD PRN; Protocol PRN Reason: Hypoglycemia Treatment Stop: 04/12/23 17:12 Glucose (Glucose 40% Gel 15 Gm Tube) 15 - 30 gm PO UD PRN; Protocol PRN Reason: Hypoglycemia Protocol Stop: 04/12/23 17:12 Hydralazine HCl (Hydralazine Hcl 20 Mg/Ml Vial) 10 mg IV Q8H PRN PRN Reason: Hypertension Stop: 04/12/23 16:59 Insulin Aspart (Insulin Aspart Per Unit Charge) 0 units SC [facility]; Protocol Stop: 04/12/23 17:29 Last Admin: 03/16/23 12:41 Dose: 9 units Insulin Glargine (Lantus Per Unit Charge) 25 units SQ DAILY [facility]; Protocol Stop: 04/16/23 08:59 Miscellaneous (Remove Nicoderm Patch) 1 each N/A DAILY@0859 [facility] Stop: 04/13/23 08:58 Last Admin: 03/16/23 08:55 Dose: 1 each Miscellaneous (Carbohydrates For Hypoglycemia ) 15 - 30 gm PO UD PRN PRN Reason: Hypoglycemia Protocol Stop: 04/12/23 17:12 Miscellaneous Information (Pharmacy Glycemic Mgmt Consult) 1 each N/A UD PRN PRN Reason: Consult Stop: 04/12/23 17:12 Nicotine (Nicotine 21 Mg/24 Hr Tdsy) 21 mg TD QAM [facility] Stop: 04/12/23 17:14 Last Admin: 03/16/23 08:20 Dose: 21 mg Ondansetron HCl (Ondansetron Inj 2 Mg/Ml 2 Ml Vial) 4 mg IV Q4H PRN PRN Reason: Nausea And Vomiting Stop: 04/12/23 17:12 Sennosides (Senna 8.6 Mg Tab) 17.2 mg PO BID [facility] Stop: 04/12/23 20:59 Last Admin: 03/16/23 08:20 Dose: 17.2 mg
--- NOTE | 2023-03-16 14:31 | Pharmacy Report ---
Pharmacy Glycemic Short Note 2 - Date of Service March 16, 2023 - Glycemic Short BSG Results (Last 24 hours): 03/15/23 03/15/23 03/16/23 17:14 20:36 04:03 POC Glucose 174 H 186 H 124 H 03/16/23 03/16/23 08:13 12:13 POC Glucose 234 H 218 H OUTPATIENT ANTIDIABETIC REGIMEN: * Tresiba 17 units SC AM * Trulicity 0.75 mg SC weekly * HbA1c: 9.8% (03/14/23) ASSESSMENT: 03/16: * Vani received 46 units of insulin yesterday (21 units of basal + 25 units bolus) * Continues to experience both fasting and post prandial elevations despite increasing doses on 03/15. * Fasting of 234 mg/dL. BSG check at 0400 was at goal, 124 mg/dL. I confirmed that the patient did not have anything to eat between these two values. Will further increase basal insulin. * Patient requesting to use her home dulaglutide SQ. Discussed with Hospitalist. Will resume dulaglutide today. Will need to monitor post prandial BSGs closely while on this medication plus Novolog. 03/15: * Vani received 36 units of insulin yesterday (17 units basal + 19 units bolus) * Fasting BSG of 229 mg/dL. Will increase Lantus ~25%. * Persistent post prandial hyperglycemia. Will tighten correction factor and carb ratio. 03/14: * 62 yo F admitted on 03/13/23 secondary to frequent falls recently. Pharmacy has been consulted to assist with inpatient glycemic management. Patient is an uncontrolled Type 2 diabetic as an outpatient. Please refer to outpatient regimen and most recent HbA1c above. * Ordered and tolerating a T2DM diet. Received 12 units of basal and 4 units of bolus insulin last evening. BSGs were: 264-221 mg/dL. * Fasting BSG this AM was 255 mg/dL. Increased basal to match home dose. No changes to bolus regimen at this time. PLAN FOR INPATIENT GLYCEMIC CONTROL: * Basal insulin * Lantus 21 units SC AM + 5 units with lunch * Start Lantus 25 units SC daily on 03/17 * Dulaglutide 0.75 mg SC weekly on Sundays * Bolus insulin * NovoLog per scale ACHS or Q6hrs while NPO * Goal Range: Low 120 mg/dL - High 150 mg/dL * Correction Factor: 25 mg/dL/unit * Nutritional / Prandial insulin per carb ratio of 1 unit per 7 grams CHO consumed
[2023-03-16] MEDS ORDERED: [UNRECOGNIZED DRUG - REMARK] SC SCH (16:00)
[2023-03-16] MEDS: ACETAMINOPHEN 325 MG TAB PO PRN (19:58)
[2023-03-16] MEDS: ATORVASTATIN 10 MG TAB PO SCH (19:58)
[2023-03-17] MEDS ORDERED: LANTUS PER UNIT CHARGE SQ SCH (09:00)
[2023-03-17] MEDS: SENNA 8.6 MG TAB PO SCH ×2 (09:02→20:12)
[2023-03-17] MEDS: DOCUSATE SODIUM 100 MG CAP PO SCH ×2 (09:02→20:11)
[2023-03-17] MEDS: NICOTINE 21 MG/24 HR TDSY TD SCH (09:02)
[2023-03-17] MEDS: DULoxetine HCL 60 MG CAP PO SCH ×2 (09:02→20:12)
[2023-03-17] MEDS: ARIPiprazole 10 MG TAB PO SCH (09:02)
[2023-03-17] MEDS: LANTUS PER UNIT CHARGE SQ SCH (09:06)
[2023-03-17] MEDS: INSULIN ASPART PER UNIT CHARGE SC SCH ×4 (09:07→21:49)
--- NOTE | 2023-03-17 09:34 | Pharmacy Report ---
Pharmacy Glycemic Short Note 2 - Date of Service March 17, 2023 - Glycemic Short BSG Results (Last 24 hours): 03/16/23 03/16/23 03/16/23 12:13 17:09 20:24 POC Glucose 218 H 115 H 112 H 03/17/23 08:08 POC Glucose 112 H OUTPATIENT ANTIDIABETIC REGIMEN: * Tresiba 17 units SC AM * Trulicity 0.75 mg SC weekly * HbA1c: 9.8% (03/14/23) ASSESSMENT: 03/17: * Patient received 50 units of insulin yesterday, 26 units basal + 24 units bolus. BSGs were: 361-139-664-112 mg/dL. * Fasting BSG significantly improved this AM to 112 mg/dL. Basal dose was increased each of the last 3 days so may just be seeing a delayed effect. Also, patient received home GLP1-RA injection yesterday afternoon which may be playing a role. Will decrease basal dose by ~20% today. * Postprandial BSGs were well controlled last evening. Therefore, will not make any changes to bolus regimen today. 03/16: * Vani received 46 units of insulin yesterday (21 units of basal + 25 units bolus) * Continues to experience both fasting and post prandial elevations despite increasing doses on 03/15. * Fasting of 234 mg/dL. BSG check at 0400 was at goal, 124 mg/dL. I confirmed that the patient did not have anything to eat between these two values. Will further increase basal insulin. * Patient requesting to use her home dulaglutide SQ. Discussed with Hospitalist. Will resume dulaglutide today. Will need to monitor post prandial BSGs closely while on this medication plus Novolog. 03/15: * Vani received 36 units of insulin yesterday (17 units basal + 19 units bolus) * Fasting BSG of 229 mg/dL. Will increase Lantus ~25%. * Persistent post prandial hyperglycemia. Will tighten correction factor and carb ratio. 03/14: * 62 yo F admitted on 03/13/23 secondary to frequent falls recently. Pharmacy has been consulted to assist with inpatient glycemic management. Patient is an uncontrolled Type 2 diabetic as an outpatient. Please refer to outpatient regimen and most recent HbA1c above. * Ordered and tolerating a T2DM diet. Received 12 units of basal and 4 units of bolus insulin last evening. BSGs were: 264-221 mg/dL. * Fasting BSG this AM was 255 mg/dL. Increased basal to match home dose. No changes to bolus regimen at this time. PLAN FOR INPATIENT GLYCEMIC CONTROL: * Basal insulin * Lantus 20 units SC daily * Dulaglutide 0.75 mg SC weekly on Sundays * Bolus insulin * NovoLog per scale ACHS or Q6hrs while NPO * Goal Range: Low 110 mg/dL - High 140 mg/dL * Correction Factor: 25 mg/dL/unit * Nutritional / Prandial insulin per carb ratio of 1 unit per 7 grams CHO consumed
--- NOTE | 2023-03-17 13:49 | Hospitalist Progress Note ---
Date of Service March 17, 2023 Assessment & Plan (1) Fall: (2) Leukocytosis: (3) Weakness: Plan: This is a 62-year-old female with PMHx of DM type II, HTN, HLD, depression, dysphagia, Edita thyroiditis, vitamin D sufficiency and history of cochlear implant with hearing disability, and ambulatory dysfunction in the past requiring physical therapy, who presents to the ER with recent frequent falls. - PT/OT consults, fall precautions - Rehab is recommended - UA does not appear infected, follow urine culture-urine is growing 3 types of organisms likely contaminant. -No significant causes of weakness found - Leukocytosis is noted with WBC of 16.40, and CK elevated at 323, likely from repetitive falls -Intravenous ceftriaxone has been discontinued -medically stable for d/c to rehab when able History of dysphagia ST consulted felt no formal assessment indicated at this time (4) Diabetes type 2, controlled: Plan: -Glucose is elevated at 283 on presentation, continue ISS with Accu-Cheks ACHS -Last A1c is 7.9 in May 2022, recheck with a.m. labs -Continue long-acting insulin, at home uses Tresiba 10 units daily -Hold Trulicity once per week -a1c 9.8 on 03/14/23 - BSG 114 (5) Hypertension: Plan: - Not on any blood pressure medications per med rec - BP elevated at 164/87 - w ill monitor and add prn hydralazine with parameters - Pt reports being in pain so likely adding to elevation, ordered tylenol po x 1 now and then prn - BP stable (6) Dyslipidemia: Plan: -Continue statin therapy, atorvastatin 10 mg at bedtime (7) Tobacco use: Plan: - Smokes 1 ppd cigarettes, cessation encouraged at bedside, will order nicotine patch (8) Depression: Plan: -Continue Abilify 10 mg every morning, Cymbalta 60 mg twice daily DVT PPx: - abram gallagher CODE: DNR/DNI Dispo: From home, awaiting rehab placement A total of 40 minutes was spent with greater than 50% of that time personally viewing all current laboratory work and diagnostic imaging studies obtained in the ED. Additionally, I was able to view the patients past medication reconciliation and history with direct visualization in the patients chart. Included in the time above, a portion of that time was spent assessing the patient while discussing and collaborating with specialists, if necessary, and making medical decision making on treatment plan. All of the above was collaborated with Dr. Leyva. Please see addendum for further details. Admission and Anticipated Discharge Date Admission Date: March 15, 2023 Supervising Physician Co-Signing Physician Notes Attending addendum: The patient was seen and examined in presence of the son She complains to right groin pain especially with ambulation Denies any other significant symptoms On examination No apparent distress at rest Hemodynamically stable Examination of the right groin and right hip joint remain unremarkable Her medications and imaging studies reviewed Admitted with fall secondary to ambulatory dysfunction with right hip arthritis Remains medically stable for transfer to facility to continue physical therapy Agree with assessment plan as outlined above by Gaye Leyva Subjective Pt was seen and eval in room 350-2. Follow up recurrent falls. C/o R groin pain otherwise no acute complaints. Denies f/c/s, chest pain, sob, n/v/d, abd pain. Stable appetite. Review of Systems Review of Systems: All systems reviewed & are unremarkable except as noted in HPI & below Physical Exam Physical Exam: Gen: WD/WN, F, NAD, A&O x3 HEENT: Normocephalic, atraumatic, conjunctivae moist, sclerae anicteric, mucous membranes moist. +cochlear implant Lung: Clear to Auscultation bilaterally, no wheezes/rales/rhonchi Heart: Regular rate, regular rhythm, no murmurs, rubs, or gallops Abdomen: Soft, NT, ND +BS x 4 Extremities: No edema Skin: Warm, no rash, negative turgor. Results & Data Results & Data Vital Signs (Past 12 Hours) Vital Signs Temp Pulse Resp BP Pulse Ox O2 Del Method 03/17/23 07:42 36.9 C 85 11 L 118/70 97 Room Air Medications Administered Current Inpatient Medications Acetaminophen (Acetaminophen 325 Mg Tab) 650 mg PO Q4H PRN PRN Reason: Moderate Pain (Scale 4, 5, 6) Stop: 04/12/23 17:12 Last Admin: 03/16/23 19:58 Dose: 650 mg Aripiprazole (Aripiprazole 10 Mg Tab) 10 mg PO QAM [facility] Stop: 04/13/23 08:59 Last Admin: 03/17/23 09:02 Dose: 10 mg Atorvastatin Calcium (Atorvastatin 10 Mg Tab) 10 mg PO HS [facility] Stop: 04/12/23 20:59 Last Admin: 03/16/23 19:58 Dose: 10 mg Dextrose (Dextrose 50% 50 Ml Syringe) 25 - 50 ml IV UD PRN; Protocol PRN Reason: Hypoglycemia Protocol Stop: 04/12/23 17:12 Docusate Sodium (Docusate Sodium 100 Mg Cap) 100 mg PO BID [facility] Stop: 04/12/23 20:59 Last Admin: 03/17/23 09:02 Dose: 100 mg Duloxetine HCl (Duloxetine Hcl 60 Mg Cap) 60 mg PO [facility] Stop: 04/12/23 20:59 Last Admin: 03/17/23 09:02 Dose: 60 mg Glucagon (Glucagon For Inj 1 Mg Vial) 1 mg SQ UD PRN; Protocol PRN Reason: Hypoglycemia Protocol Stop: 04/12/23 17:12 Glucose (Glucose 10 Tab/Tube) 4 - 8 tab PO UD PRN; Protocol PRN Reason: Hypoglycemia Treatment Stop: 04/12/23 17:12 Glucose (Glucose 40% Gel 15 Gm Tube) 15 - 30 gm PO UD PRN; Protocol PRN Reason: Hypoglycemia Protocol Stop: 04/12/23 17:12 Hydralazine HCl (Hydralazine Hcl 20 Mg/Ml Vial) 10 mg IV Q8H PRN PRN Reason: Hypertension Stop: 04/12/23 16:59 Insulin Aspart (Insulin Aspart Per Unit Charge) 0 units SC [facility]; Protocol Stop: 04/12/23 17:29 Last Admin: 03/17/23 12:56 Dose: 5 units Insulin Glargine (Lantus Per Unit Charge) 20 units SQ DAILY [facility]; Protocol Stop: 04/16/23 08:59 Last Admin: 03/17/23 09:06 Dose: 20 units Miscellaneous (Remove Nicoderm Patch) 1 each N/A DAILY@0859 [facility] Stop: 04/13/23 08:58 Last Admin: 03/17/23 09:03 Dose: 1 each Miscellaneous (Carbohydrates For Hypoglycemia ) 15 - 30 gm PO UD PRN PRN Reason: Hypoglycemia Protocol Stop: 04/12/23 17:12 Miscellaneous Information (Pharmacy Glycemic Mgmt Consult) 1 each N/A UD PRN PRN Reason: Consult Stop: 04/12/23 17:12 Nicotine (Nicotine 21 Mg/24 Hr Tdsy) 21 mg TD QAM [facility] Stop: 04/12/23 17:14 Last Admin: 03/17/23 09:02 Dose: 21 mg *Dulaglutide*Non- Form Patient's Own Med 1 each SC Briones@0900 [facility] Stop: 04/15/23 15:59 Last Admin: 03/16/23 17:15 Dose: 0.75 mg Ondansetron HCl (Ondansetron Inj 2 Mg/Ml 2 Ml Vial) 4 mg IV Q4H PRN PRN Reason: Nausea And Vomiting Stop: 04/12/23 17:12 Sennosides (Senna 8.6 Mg Tab) 17.2 mg PO BID [facility] Stop: 04/12/23 20:59 Last Admin: 03/17/23 09:02 Dose: 17.2 mg
[2023-03-17] MEDS: ACETAMINOPHEN 325 MG TAB PO PRN (20:10)
[2023-03-17] MEDS: ATORVASTATIN 10 MG TAB PO SCH (20:11)
[2023-03-18 06:36] LABS: Basophils # (auto) 0.04 K/uL (0-0.2); Basophils % (auto) 0.5 %; Eosinophils # (auto) 0.19 K/uL (0-0.50); Eosinophils % (auto) 2.5 %; Hemoglobin 13.3 g/dl (12.0-16.0); Immature Granulocytes # (auto) 0.02 K/uL (0.01-0.20); Immature Granulocytes % (auto) 0.3 %; Lymphocytes # (auto) 1.94 K/uL (1.2-3.4); Mean Corpuscular Hemoglobin 29.1 pg (25.0-34.0); Mean Corpuscular Hgb Conc 33.3 g/dL (32.0-36.0); Mean Corpuscular Volume 87.5 fL (80.0-100.0); Mean Platelet Volume 9.3 fL (9.4-12.4); Monocytes # (auto) 0.89 K/uL (0.11-0.59); Monocytes % (auto) 11.9 %; Neutrophils # (auto) 4.38 K/uL (1.40-6.50); Neutrophils % (auto) 58.8 %; Platelet Count 258 K/uL (130-400); RDW Coefficient of Variation 12.9 % (11.5-14.5); RDW Standard Deviation 41.2 fL (36.4-46.3); Red Blood Count 4.57 M/uL (4.20-5.40); White Blood Count 7.46 K/ul (4.8-10.8)
[2023-03-18 06:50] LABS: BUN Creatinine Ratio 25.6 (10-20); Calcium 9.3 mg/dl (8.6-10.3); Creatinine Clr Calc Pharmacy 112.2 ml/min; Est GFR (African American) 126.3 ml/min; Potassium 4.7 mmol/L (3.5-5.1)
[2023-03-18] MEDS: NICOTINE 21 MG/24 HR TDSY TD SCH (08:14)
[2023-03-18] MEDS: ARIPiprazole 10 MG TAB PO SCH (08:15)
[2023-03-18] MEDS: DULoxetine HCL 60 MG CAP PO SCH ×2 (08:15→20:27)
[2023-03-18] MEDS: SENNA 8.6 MG TAB PO SCH ×2 (08:15→20:27)
[2023-03-18] MEDS: DOCUSATE SODIUM 100 MG CAP PO SCH ×2 (08:15→20:27)
[2023-03-18] MEDS: LANTUS PER UNIT CHARGE SQ SCH (09:07)
[2023-03-18] MEDS: INSULIN ASPART PER UNIT CHARGE SC SCH ×4 (09:07→20:27)
--- NOTE | 2023-03-18 13:37 | Hospitalist Progress Note ---
Date of Service March 18, 2023 Assessment & Plan (1) Fall: (2) Leukocytosis: (3) Weakness: Plan: This is a 62-year-old female with PMHx of DM type II, HTN, HLD, depression, dysphagia, Edita thyroiditis, vitamin D sufficiency and history of cochlear implant with hearing disability, and ambulatory dysfunction in the past requiring physical therapy, who presents to the ER with recent frequent falls. - PT/OT consults, fall precautions - Rehab is recommended - UA does not appear infected, follow urine culture-urine is growing 3 types of organisms likely contaminant. -No significant causes of weakness found - Leukocytosis is noted with WBC of 16.40, and CK elevated at 323, likely from repetitive falls and no resolved -Intravenous ceftriaxone has been discontinued -medically stable for d/c to rehab when able History of dysphagia ST consulted felt no formal assessment indicated at this time (4) Diabetes type 2, controlled: Plan: -Glucose is elevated at 283 on presentation, continue ISS with Accu-Cheks ACHS -Last A1c is 7.9 in May 2022, recheck with a.m. labs -Continue long-acting insulin, at home uses Tresiba 10 units daily -Hold Trulicity once per week -a1c 9.8 on 03/14/23 - BSG 114 (5) Hypertension: Plan: - Not on any blood pressure medications per med rec - BP stable (6) Dyslipidemia: Plan: -Continue statin therapy, atorvastatin 10 mg at bedtime (7) Tobacco use: Plan: - Smokes 1 ppd cigarettes, cessation encouraged at bedside, will order nicotine patch (8) Depression: Plan: -Continue Abilify 10 mg every morning, Cymbalta 60 mg twice daily DVT PPx: - teds, scds CODE: DNR/DNI Dispo: From home, awaiting rehab placement, denied [facility], other referrals being placed, possible d[facility]c to [facility] A total of 40 minutes was spent with greater than 50% of that time personally viewing all current laboratory work and diagnostic imaging studies obtained in the ED. Additionally, I was able to view the patients past medication reconciliation and history with direct visualization in the patients chart. Included in the time above, a portion of that time was spent assessing the patient while discussing and collaborating with specialists, if necessary, and making medical decision making on treatment plan. All of the above was collaborated with Dr. Leyva. Please see addendum for further details. Admission and Anticipated Discharge Date Admission Date: March 15, 2023 Supervising Physician Co-Signing Physician Notes Attending addendum: The patient was seen and examined in telemetry floor in presence of the daughter Still complains to have right groin pain Has been ambulating and has been getting physical therapy Has been accepted to [facility] and will be discharged tomorrow On examination No apparent distress at rest Hemodynamically stable Chest-clear to auscultate bilaterally Heart-S1, S2 Abdomen-benign Extremities-no acute arthritis involving any joint and no edema Labs reviewed and medications reviewed Has ambulatory dysfunction with frequent falls Right groin pain likely secondary to osteoarthritis of the hip Will need rehab placement to continue physical therapy Agree with assessment and plan as outlined above by Gaye Leyva Subjective Pt was seen and eval in room 350-2. Follow up recurrent falls. continues to C/o R groin pain otherwise no acute complaints. Daughter is at bedside. Denies f/c/s, chest pain, sob, n/v/d, abd pain. Stable appetite. Only walks ~ 15ft with PT yesterday. Review of Systems Review of Systems: All systems reviewed & are unremarkable except as noted in HPI & below Physical Exam Physical Exam: Gen: WD/WN, F, NAD, A&O x3 HEENT: Normocephalic, atraumatic, conjunctivae moist, sclerae anicteric, mucous membranes moist. +cochlear implant Lung: Clear to Auscultation bilaterally, no wheezes/rales/rhonchi Heart: Regular rate, regular rhythm, no murmurs, rubs, or gallops Abdomen: Soft, NT, ND +BS x 4 Extremities: No edema Skin: Warm, no rash, negative turgor. Results & Data Results & Data Vital Signs (Past 12 Hours) Vital Signs Temp Pulse Resp BP Pulse Ox O2 Del Method 03/18/23 11:33 36.7 C 88 22 109/76 95 Room Air 03/18/23 07:22 36.2 C L 86 16 106/73 96 Room Air Laboratory Results Short CBC 03/18/23 Range/Units 05:33 WBC 7.46 (4.8-10.8) K/ul Hgb 13.3 (12.0-16.0) g/dl Hct 40.0 (37.0-47.0) % Plt Count 258 (130-400) K/uL BMP 03/18/23 05:33 Sodium 136 Potassium 4.7 Chloride 100 Carbon Dioxide 30 BUN 11 Creatinine 0.43 L Glucose 118 H Calcium 9.3 Medications Administered Current Inpatient Medications Acetaminophen (Acetaminophen 325 Mg Tab) 650 mg PO Q4H PRN PRN Reason: Moderate Pain (Scale 4, 5, 6) Stop: 04/12/23 17:12 Last Admin: 03/17/23 20:10 Dose: 650 mg Aripiprazole (Aripiprazole 10 Mg Tab) 10 mg PO QAM [facility] Stop: 04/13/23 08:59 Last Admin: 03/18/23 08:15 Dose: 10 mg Atorvastatin Calcium (Atorvastatin 10 Mg Tab) 10 mg PO HS [facility] Stop: 04/12/23 20:59 Last Admin: 03/17/23 20:11 Dose: 10 mg Dextrose (Dextrose 50% 50 Ml Syringe) 25 - 50 ml IV UD PRN; Protocol PRN Reason: Hypoglycemia Protocol Stop: 04/12/23 17:12 Docusate Sodium (Docusate Sodium 100 Mg Cap) 100 mg PO BID [facility] Stop: 04/12/23 20:59 Last Admin: 03/18/23 08:15 Dose: 100 mg Duloxetine HCl (Duloxetine Hcl 60 Mg Cap) 60 mg PO [facility] Stop: 04/12/23 20:59 Last Admin: 03/18/23 08:15 Dose: 60 mg Glucagon (Glucagon For Inj 1 Mg Vial) 1 mg SQ UD PRN; Protocol PRN Reason: Hypoglycemia Protocol Stop: 04/12/23 17:12 Glucose (Glucose 10 Tab/Tube) 4 - 8 tab PO UD PRN; Protocol PRN Reason: Hypoglycemia Treatment Stop: 04/12/23 17:12 Glucose (Glucose 40% Gel 15 Gm Tube) 15 - 30 gm PO UD PRN; Protocol PRN Reason: Hypoglycemia Protocol Stop: 04/12/23 17:12 Hydralazine HCl (Hydralazine Hcl 20 Mg/Ml Vial) 10 mg IV Q8H PRN PRN Reason: Hypertension Stop: 04/12/23 16:59 Insulin Aspart (Insulin Aspart Per Unit Charge) 0 units SC [facility]; Protocol Stop: 04/12/23 17:29 Last Admin: 03/18/23 09:07 Dose: 4 units Insulin Glargine (Lantus Per Unit Charge) 20 units SQ DAILY [facility]; Protocol Stop: 04/16/23 08:59 Last Admin: 03/18/23 09:07 Dose: 20 units Miscellaneous (Remove Nicoderm Patch) 1 each N/A DAILY@0859 [facility] Stop: 04/13/23 08:58 Last Admin: 03/18/23 08:15 Dose: 1 each Miscellaneous (Carbohydrates For Hypoglycemia ) 15 - 30 gm PO UD PRN PRN Reason: Hypoglycemia Protocol Stop: 04/12/23 17:12 Miscellaneous Information (Pharmacy Glycemic Mgmt Consult) 1 each N/A UD PRN PRN Reason: Consult Stop: 04/12/23 17:12 Nicotine (Nicotine 21 Mg/24 Hr Tdsy) 21 mg TD QAM [facility] Stop: 04/12/23 17:14 Last Admin: 03/18/23 08:14 Dose: 21 mg *Dulaglutide*Non- Form Patient's Own Med 1 each SC [facility]@0900 [facility] Stop: 04/15/23 15:59 Last Admin: 03/16/23 17:15 Dose: 0.75 mg Ondansetron HCl (Ondansetron Inj 2 Mg/Ml 2 Ml Vial) 4 mg IV Q4H PRN PRN Reason: Nausea And Vomiting Stop: 04/12/23 17:12 Sennosides (Senna 8.6 Mg Tab) 17.2 mg PO BID [facility] Stop: 04/12/23 20:59 Last Admin: 03/18/23 08:15 Dose: 17.2 mg
[2023-03-18] MEDS: ACETAMINOPHEN 325 MG TAB PO PRN (16:42)
[2023-03-18] MEDS: ATORVASTATIN 10 MG TAB PO SCH (20:27)
[2023-03-19 08:26] LABS: Hematocrit (blood only) 39.7 % (37.0-47.0); Hemoglobin 13.3 g/dl (12.0-16.0); Mean Corpuscular Hemoglobin 29.5 pg (25.0-34.0); Mean Corpuscular Hgb Conc 33.5 g/dL (32.0-36.0); Mean Platelet Volume 9.2 fL (9.4-12.4); Platelet Count 276 K/uL (130-400); RDW Coefficient of Variation 12.9 % (11.5-14.5); RDW Standard Deviation 41.4 fL (36.4-46.3); Red Blood Count 4.51 M/uL (4.20-5.40); White Blood Count 8.21 K/ul (4.8-10.8)
[2023-03-19 08:56] LABS: Calcium 9.3 mg/dl (8.6-10.3); Creatinine Clr Calc Pharmacy 117.7 ml/min; Est GFR (African American) 128.3 ml/min; Est GFR (Non-African American) 110.7 ml/min; Potassium 4.3 mmol/L (3.5-5.1)
[2023-03-19] MEDS: DULoxetine HCL 60 MG CAP PO SCH (09:08)
[2023-03-19] MEDS: DOCUSATE SODIUM 100 MG CAP PO SCH (09:08)
[2023-03-19] MEDS: SENNA 8.6 MG TAB PO SCH (09:08)
[2023-03-19] MEDS: NICOTINE 21 MG/24 HR TDSY TD SCH (09:08)
[2023-03-19] MEDS: ARIPiprazole 10 MG TAB PO SCH (09:08)
[2023-03-19] MEDS: INSULIN ASPART PER UNIT CHARGE SC SCH ×2 (09:10→12:40)
[2023-03-19] MEDS: LANTUS PER UNIT CHARGE SQ SCH (09:10)
[2023-03-19] MEDS: ACETAMINOPHEN 325 MG TAB PO PRN (10:37)
--- NOTE | 2023-03-19 11:33 | XRay Report ---
XR hip RT min 2V CLINICAL HISTORY: Right groin pain. COMPARISON STUDY: Pelvis 03/13/2023. FINDINGS: The bones are osteopenic. No acute fracture or dislocation within the proximal right femur. Focal cortical irregularity at the superior and inferior pubic rami suggesting age-indeterminate fra ctures. These are not significantly displaced. Soft tissues are unremarkable. No radiopaque foreign b odies. IMPRESSION: Focal cortical irregularity at the superior and inferior pubic rami suggesting age-indet erminate fractures. ACT 112: Negative or not required by law. Electronically signed by: Bruce Hartman M.D. 03/19/2023 11:32 AM
--- NOTE | 2023-03-19 14:38 | Communication Note ---
Date of Service: March 19, 2023 We were asked to review the patient's x-rays today secondary to finding she had a superior inferior pubic ramus fracture. Patient had fallen prior to admi ssion. Patient had multiple falls prior to this but after this latest fall, she was having difficulty getting up to ambulate. She was admitted by the hospitalist service. She had a pelvis film performed on 03/13/2023 which showed no obvious fractures. She appears to have a subtle cortical irregularity on the superior pubic ramus but no obvious fracture on the inferior pubic ramus from the pelvis film. Patient was continued to have discomfort in the right groin and a repeat film was done of the right hip today. This did show fracture lines at the superior and inferior pubic ramus. No obvious fractures noted around the sacral area. I discussed the case with Dr. Proctor who is regional property manager today for [facility]. Films have been reviewed. It was felt that CT scan was not needed at this time per Dr. Proctor. Patient can be weightbearing as tolerated with use of walker. She should follow-up with Dr. Proctor in 2 weeks.
--- NOTE | 2023-03-19 16:29 | Discharge Summary ---
Discharge Summary Date of Service March 19, 2023 Notes For Next Care Provider Admitted for fall, found to have non-operative pubic rami fracture, WBAT and discharged to [facility]. Ortho f/u in 2 weeks. Recommend outpatient Psychiatric care as well given ongoing depression. Medication Changes From Visit Increased Tresiba to 20u daily Admission HPI Per Admitting Provider This is a 62-year-old female with PMHx of DM type II, HTN, HLD, depression, dysphagia, Edita thyroiditis, vitamin D sufficiency and history of cochlear implant with hearing disability, and ambulatory dysfunction in the past requiring physical therapy, who presents to the ER with recent frequent falls. She has fallen approximately 3 times within the past month, however today she was unable to get herself up off of the floor and slowly crawled around on the floor for hours this morning until being able to reach a telephone to call her parents. She notes that she did not have any preceding lightheadedness or dizziness, and tripped over her own feet. She uses a cane to assist her ambulation. Last summer she sustained significant injury s/p fall with multiple broken ribs, hurt her right leg which has been consistently weaker than the left since then, requiring a PT/OT acute rehab stay and was at [facility] a few [facility]. She lives at home by herself, but in the past month has been thinking she needs more help. She notes that her last August. Her mood has been stable on Abilify. She did not take any of her morning medications today. Her elderly parents are sitting with her at bedside. She is requesting something for pain, as her body feels sore all over and she was agreeable to tylenol and a heating pad. Pt notes that she is intermittently short of breath but smokes about 1 ppd of cigarettes and has for her adult life, with intermittent cessation. Admission Exam Per Admitting Provider General: awake, alert, no apparent distress, appears much older than stated age, chronically ill Head: Normocephalic, atraumatic ENT: PERRL, EOMI, no pharyngeal exudate, mucous membranes dry, cochlear implants bilaterally, Hard of hearing Chest: Clear to auscultation, on room air, no adventitious breath sounds Cardiac: Regular rate and rhythm, no murmur, no JVD, normal peripheral pulses, good capillary refill Abdominal: NABS x 4 quadrants, soft, nondistended, nontender to palpation, no rebound or guarding Extremities: + Injuries sustained to knees bilaterally, right foot is internally rotated, patient reports that is her baseline status post fall last summer, upper extremities with normal inspection, no peripheral edema or erythema, calfs nontender to palpation Psych: Normal mood and affect Neuro: AAO x 3, strength intact bilaterally upper extremities are 4/5, right lower extremity rated 3/5, left lower extremity rated 4/5, speech is garbled somewhat secondary to hearing disability, no slurring of speech, no focal deficits, no peripheral sensory deficits Principal Dx & Hospital Course #1 = Principal Diagnosis (1) Fall: (2) Leukocytosis: (3) Weakness: (4) Diabetes type 2, controlled: (5) Hypertension: (6) Dyslipidemia: (7) Tobacco use: (8) Depression: Plan This is a 62-year-old female with PMHx of DM type II, HTN, HLD, depression, dysphagia, Edita thyroiditis, vitamin D sufficiency and history of cochlear implant with hearing disability, and ambulatory dysfunction in the past requiring physical therapy, who presents to the ER with recent frequent falls. Initial pelvic x-ray did not reveal any acute fracture. Evaluated by PT/OT with recommendation for ongoing rehab at SNF. Is able to ambulate and transfer with minimal assist and use of walker for balance. Due to ongoing pain in right groin, hip x-ray was obtained today which showed age-indeterminate superior inferior pubic rami fracture. Films reviewed by orthopedic surgery service, who recommended weightbearing as tolerated with use of walker. The x-ray did not show any obvious fractures noted around sacral area. It was felt that CT scan not needed at this time per Dr. Proctor and patient is to follow-up with him in 2 weeks time at [facility]. Has been receiving Tylenol as needed for pain control with ambulation but is comfortable at rest. Continue alternating Tylenol and ibuprofen as needed in outpatient setting. Caution against use of narcotics given poor tolerance of them in the past. Did empirically receive IV Rocephin due to abnormal UA but urine culture growing 3 organisms, likely contaminant and antibiotic was discontinued. Noted to have poorly controlled type 2 diabetes with A1c of 9.8 on 03/14/2023. tobacco educator and glycemic pharmacy recommend increasing Tresiba to 20 units daily. Continue to monitor BSG closely at rehab and adjust insulin as needed. Smokes 1 pack/day but encourage cessation and ordered nicotine patch for discharge. Daughter mention concerns of uncontrolled depression and notable in patient's affect. Continue Abilify and Cymbalta home medication with recommendation for continued PCP follow-up and psychiatric evaluation upon discharge. Discussed plan with patient and her daughter at bedside, who [facility]. Hemodynamically stable and comfortable at time of discharge. Discharge Exam Gen: WD/WN, F, NAD, A&O x3 HEENT: Normocephalic, atraumatic, conjunctivae moist, sclerae anicteric, mucous membranes moist. +cochlear implant Lung: Clear to Auscultation bilaterally, no wheezes/rales/rhonchi Heart: Regular rate, regular rhythm, no murmurs, rubs, or gallops Abdomen: Soft, NT, ND +BS x 4 Extremities: TTP medial thigh. No trauma noted, no edema Skin: Warm, no rash, negative turgor. Updated Medication List Medication Instructions Recorded Confirmed Type FreeStyle Addi 14 Day Sensor #6 ea 03/19/23 Rx (flash glucose sensor) acetaminophen 500 mg capsule 1,000 mg PO Q8H PRN pain #60 caps 03/19/23 Rx aripiprazole 10 mg tablet 10 mg PO QAM #30 tabs 03/19/23 Rx atorvastatin 10 mg tablet 10 mg PO HS #30 tabs 03/19/23 Rx docusate sodium 100 mg capsule 100 mg PO BID #60 caps 03/19/23 Rx dulaglutide 0.75 mg/0.5 mL 0.75 mg (0.5 mL) subcut WEEKLY #6 03/19/23 Rx subcutaneous pen injector mL (Trulicity) duloxetine 60 mg capsule,delayed 60 mg PO AMHS #60 caps 03/19/23 Rx release flash glucose scanning reader #1 ea 03/19/23 Rx (FreeStyle Addi 14 Day [place]) ibuprofen 200 mg capsule 400 mg PO Q6H PRN pain #14 caps 03/19/23 Rx insulin degludec 100 unit/mL (3 20 unit (0.2 mL) subcut QAM #15 mL 03/19/23 Rx mL) subcutaneous pen pen needle, diabetic 32 gauge x #500 ea 03/19/23 Rx 532" (BD Ultra-Fine Grace Pen Needle) sennosides 8.6 mg capsule 17.2 mg PO BID #60 caps 03/19/23 03/13/23 Rx Hospital Stay Data Consultations 03/13/23 15:05 ED Decision to Admit Stat Pending Results Patient Have Any Pending Studies at Discharge: No Discharge Instructions Given to Patient (Per Discharging Provider) You were admitted after a fall with initial pelvic x-ray not revealing any acute fractures. Per PT/OT evaluation, able to transfer and ambulate with minimal assist and walker. Due to ongoing pain in right groin, obtained hip x-ray today which showed age- indeterminate superior inferior pubic rami fracture. Films reviewed by orthopedic surgery service with recommendation to weight-bear as tolerated with use of walker. Follow-up with Dr. Proctor of orthopedic surgery in two weeks. MEDICATION CHANGES: Increase Tresiba to 20 units SQ Daily. While at rehab recommend close monitoring of blood sugars and titration of insulin to achieve good blood sugar control. Continue all other medications. Recommend scheduled Tylenol 1,000mg TID and ibuprofen as needed for pubic rami fracture. RECOMMENDATIONS FOR FOLLOW-UP: Please follow up with primary care provider upon discharge from rehab. Continue to encourage smoking cessation. Continue PT and OT to strengthen lower extremities and improve mobility. A1C was 9.8 on 03/14/23. This is considered uncontrolled and recommend close follow up with primary provider to achieve better blood sugar control. Insulin dose of Tresiba was increased from 17 units to 20 units. Monitor blood sugars before meals and at bedtime. Recommend follow up with PCP/psychiatry given ongoing concerns for depression. Follow-up with Dr. Proctor of orthopedic surgery in two weeks. OTHER INSTRUCTIONS: Seek medical attention if you have: * temperature above 101 * chest pain or trouble breathing * abdominal pain, nausea, vomiting * diarrhea, dark stools or bloody stools * any unanswered questions or concerns Call 911 if symptoms are severe. Please take good care of yourself. It has been a pleasure taking care of you. Please take care of yourself. If you have any questions regarding your recent hospitalization please contact [facility] and request Huma Gandhi @ [phone]. Total Time Total Time Spent Total Time Spent (In Minutes): 75 Supervising Physician Co-Signing Physician Notes Patient is seen and examined at bedside. Chart reviewed. Discussed with orthopedics. Agree with assessment and plan as per physician accounting administrative assistant. Plan to be discharged to rehab. Advised to follow-up with orthopedics upon discharge
== END 2023-03-19 17:43 | DRG 536 ==
LOC: ED 13:30 → 3W 13:30 → SUATTDRO 15:50 → 3W 16:41 → SUATTDRO 03-15 13:47

== ENCOUNTER 2023-04-10 21:53 | Inpatient (IN) ==
[2023-04-10 22:50] LABS: Basophils # (auto) 0.08 K/uL (0-0.2); Basophils % (auto) 0.8 %; Eosinophils # (auto) 0.28 K/uL (0-0.50); Eosinophils % (auto) 2.8 %; Hematocrit (blood only) 42.3 % (37.0-47.0); Hemoglobin 13.9 g/dl (12.0-16.0); Immature Granulocytes # (auto) 0.03 K/uL (0.01-0.20); Immature Granulocytes % (auto) 0.3 %; Lymphocytes # (auto) 1.95 K/uL (1.2-3.4); Lymphocytes % (auto) 19.5 %; Mean Corpuscular Hemoglobin 29.3 pg (25.0-34.0); Mean Corpuscular Hgb Conc 32.9 g/dL (32.0-36.0); Mean Corpuscular Volume 89.1 fL (80.0-100.0); Mean Platelet Volume 9.1 fL (9.4-12.4); Monocytes # (auto) 1.01 K/uL (0.11-0.59); Monocytes % (auto) 10.1 %; Neutrophils # (auto) 6.63 K/uL (1.40-6.50); Neutrophils % (auto) 66.5 %; Platelet Count 342 K/uL (130-400); RDW Standard Deviation 42.6 fL (36.4-46.3); Red Blood Count 4.75 M/uL (4.20-5.40); White Blood Count 9.98 K/ul (4.8-10.8)
--- NOTE | 2023-04-10 22:54 | Emergency Department Note ---
Impression & Plan Cerebrovascular accident, Acute hyponatremia ED Provider Note NAME: CONCHIS COFFMAN AGE: 62 SEX: F : 1960 ARRIVES VIA: Walk-In INFORMANT: Patient ED PROVIDER(S): Han Ding DO CHIEF COMPLAINT: AMS HPI: Patient is a 62-year-old female with a past medical history of diabetes, hypertension and smoker who presents to the ER for confusion. Patient was recently admitted for a hip fracture and transferred to rehab. She was there until the fourth. She just left. She has had waxing and waning mild confusion. Today at 2 PM she has been significantly more confused. She is unable to get out certain words. Daughter has been present with her. Patient denies any headache or change in vision. No chest pain or shortness of breath. PAST MEDICAL HISTORY:See Below PAST SURGICAL HISTORY:See Below FAMILY HISTORY:See Below SOCIAL HISTORY:See Below HOME MEDICATIONS:See Below ALLERGIES:See Below VITALS:See Below PHYSICAL EXAMINATION: GENERAL: Sitting up in bed, alert, chronically ill-appearing, disheveled, intermittently following commands EYE EXAM: normal conjunctiva. PERRL and EOM's grossly intact. OROPHARYNX:tongue normal and mucous membranes are moist LUNGS: Clear to auscultation. Normal chest wall mechanics HEART: no murmurs, S1 normal and S2 normal ABDOMEN: abdomen soft, non-tender, normo-active bowel sounds, no masses, no rebound or guarding. BACK: Back is symmetrical on inspection and there is no deformity, no midline tenderness, no CVA tenderness. SKIN: no rashes and no bruising UPPER EXTREMITIES: upper extremities are grossly normal. LOWER EXTREMITIES: No pitting edema. NEURO EXAM: Not oriented to person place or time, cranial nerves II-XII intact, normal speech, no weakness of arms, no weakness of legs. Unable to perform drift or [id number] secondary to mentation MEDICAL DECISION MAKING: Patient is a 60-year-old female who presents ER for above-stated complaint. IV was established blood work was obtained. External records were reviewed. Labs show no significant leukocytosis or anemia. INR is unremarkable. BMP with mild hyponatremia 133. Glucose slightly up at 206. LFTs bilirubin was unremarkable. UA was clean. COVID-negative. CT of the head does suggest possible subacute infarct per radiology as I discussed with them over the phone. Symptoms started 2. By the time patient presented she was non-tPA candidate. She is still having trouble getting her words out. She was updated bedside discussed with the hospitalist. History was obtained by the daughter who was present at bedside. Triage Nursing notes reviewed. Limited review of prior medical records performed Vital Signs: reviewed and remarkable for no significant abnormalities Differential diagnosis: Differential diagnoses includes but is not limited to toxic, metabolic, infectious, traumatic, cardiac, neurologic, hematologic, psychiatric and inflammatory etiologies. ER treatment provided: See below Diagnostics interpreted by me include EKG and cardiac monitoring as listed below: -Cardiac Monitoring: An order was placed for continuous cardiac monitoring. The monitor shows a rate of 80 with sinus rhythm. -ECG: QTc 442 rhythm rate 85 Normal axis No PVCs QTc 442 -Laboratory studies:Interpreted by me as stated above in MDM and shown below. Imaging studies: Xrays: As interpreted by me: Portable AP upright 1 view of the chest shows no pneumonia CTs show: CT angios of the head and neck were negative Consultation(s): Discussed with hospitalist Dr. Soares for further evaluation management Procedures:none Critical Care: None Past Med/Surg History Medical History (Updated 04/11/23 @ 01:35 by Han Ding DO) Depression Diabetes mellitus, type II Diabetes type 2, controlled Diabetic radiculopathy Dyslipidemia Dysphagia PT STOPPED TAKING ALL HER ORAL MEDS PAST MONTH-ENCOURAGED SHE CALL HER PCP TODAY AND CHECK HER BLOOD SUGAR. Essential hypertension Edita's thyroiditis Hearing deficit BILAT COCHLEAR DEVICES Hypertension SOB (shortness of breath) on exertion Vitamin D deficiency Surgical History History of cochlear implant BILAT History of colonoscopy History of laparoscopy FOR ENDOMETRIOSIS, converted to open procedure, LSO done too the patient thinks (isn't sure). History of tonsillectomy Family History Family/Other Stroke Hypertension Father Hypertension Social History Smoking Status: Current every day smoker Tobacco Type: Cigarettes Cigarettes Per Day: 20; Second Hand Exposure: No; Do You Dip or Chew Tobacco: No; Hx Alcohol Use: No Hx Substance Use: No Preferred Language: Wolof Communication Ability: Effective Communication Ability Comment: cochlear inplants Computer System Validation Specialist Required: No Beliefs That Will Affect Care: None marital status: Current Living Situation: Alone Current Living Situation Comment: Pt lives with spouse and son Feels Safe at Home: Yes Assistive Devices: Cane, Stair Lift and Walker Allergies Allergies Allergy/AdvReac Type Severity Reaction Status Date / Time Penicillins Allergy Intermediate Rash Verified 04/10/23 23:29 Home Meds Home Medications Medication Instructions Recorded Confirmed acetaminophen 500 mg capsule 1,000 mg PO DIRECTED PRN pain 04/10/23 04/10/23 insulin aspart U-100 100 unit/mL 5 unit subcut TID 04/10/23 04/10/23 subcutaneous solution (Novolog U-100 Insulin aspart) insulin degludec 100 unit/mL (3 17 - 20 unit subcut DAILY 04/10/23 04/10/23 mL) subcutaneous pen (Tresiba FlexTouch U-100 insulin) Previous Rx's Medication Instructions Recorded FreeStyle Addi 14 Day Sensor #6 ea 03/19/23 (flash glucose sensor) aripiprazole 10 mg tablet 10 mg PO QAM #30 tabs 03/19/23 atorvastatin 10 mg tablet 10 mg PO HS #30 tabs 03/19/23 dulaglutide 0.75 mg/0.5 mL 0.75 mg (0.5 mL) subcut WEEKLY #6 03/19/23 subcutaneous pen injector mL (Trulicity) duloxetine 60 mg capsule,delayed 60 mg PO AMHS #60 caps 03/19/23 release flash glucose scanning reader #1 ea 03/19/23 (FreeStyle Addi 14 Day [place]) ibuprofen 200 mg capsule 400 mg PO Q6H PRN pain #14 caps 03/19/23 pen needle, diabetic 32 gauge x #500 ea 03/19/2332" (BD Ultra-Fine Grace Pen Needle) Results & Data (ED) Vital Signs Vital Signs - 24 hr 04/10/23 21:56 04/10/23 22:48 04/10/23 22:50 Temperature 36.4 C L Temperature Source Temporal Artery Scan Pulse Rate 101 H 92 H 86 Pulse Rate from SpO2 Sensor 86 Respiratory Rate 18 28 H 23 Respiratory Effort / Characteristics Non-Labored Spontaneous Respiratory Depth Normal Blood Pressure 154/91 H 149/94 H Blood Pressure Mean 112 112 Blood Pressure Position Sitting Pulse Oximetry 100 100 Oxygen Delivery Method Room Air Sepsis Recent Fever Within 48 Hours No Sepsis New/Unexplained Change in Mental Status No Sepsis Action Taken by Nursing No Action Required 04/10/23 23:00 04/10/23 23:10 04/10/23 23:20 Temperature Temperature Source Pulse Rate 89 89 87 Pulse Rate from SpO2 Sensor 90 87 Respiratory Rate 24 17 19 Respiratory Effort / Characteristics Respiratory Depth Blood Pressure 137/103 H Blood Pressure Mean 114 Blood Pressure Position Pulse Oximetry 100 100 Oxygen Delivery Method Sepsis Recent Fever Within 48 Hours Sepsis New/Unexplained Change in Mental Status Sepsis Action Taken by Nursing 04/10/23 23:30 04/10/23 23:56 04/11/23 00:00 Temperature Temperature Source Pulse Rate 85 89 96 H Pulse Rate from SpO2 Sensor 85 95 H Respiratory Rate 13 22 19 Respiratory Effort / Characteristics Respiratory Depth Blood Pressure 133/89 Blood Pressure Mean 103 Blood Pressure Position Pulse Oximetry 100 100 Oxygen Delivery Method Sepsis Recent Fever Within 48 Hours Sepsis New/Unexplained Change in Mental Status Sepsis Action Taken by Nursing 04/11/23 00:01 04/11/23 00:10 04/11/23 00:20 Temperature Temperature Source Pulse Rate 90 92 H 89 Pulse Rate from SpO2 Sensor 99 H 92 H 90 Respiratory Rate 16 18 14 Respiratory Effort / Characteristics Respiratory Depth Blood Pressure 163/100 H Blood Pressure Mean 121 Blood Pressure Position Pulse Oximetry 97 100 100 Oxygen Delivery Method Sepsis Recent Fever Within 48 Hours Sepsis New/Unexplained Change in Mental Status Sepsis Action Taken by Nursing 04/11/23 00:32 04/11/23 00:30 04/11/23 00:40 Temperature 37.3 C Temperature Source Oral Pulse Rate 84 89 Pulse Rate from SpO2 Sensor 85 87 Respiratory Rate 18 16 Respiratory Effort / Characteristics Respiratory Depth Blood Pressure 136/87 Blood Pressure Mean 103 Blood Pressure Position Pulse Oximetry 99 100 Oxygen Delivery Method Sepsis Recent Fever Within 48 Hours Sepsis New/Unexplained Change in Mental Status Sepsis Action Taken by Nursing 04/11/23 00:50 04/11/23 01:00 04/11/23 01:01 Temperature Temperature Source Pulse Rate 87 91 H 94 H Pulse Rate from SpO2 Sensor Respiratory Rate 17 17 16 Respiratory Effort / Characteristics Respiratory Depth Blood Pressure 133/100 Blood Pressure Mean 111 Blood Pressure Position Pulse Oximetry Oxygen Delivery Method Sepsis Recent Fever Within 48 Hours Sepsis New/Unexplained Change in Mental Status Sepsis Action Taken by Nursing 04/11/23 01:10 Temperature Temperature Source Pulse Rate 85 Pulse Rate from SpO2 Sensor Respiratory Rate 19 Respiratory Effort / Characteristics Respiratory Depth Blood Pressure Blood Pressure Mean Blood Pressure Position Pulse Oximetry Oxygen Delivery Method Sepsis Recent Fever Within 48 Hours Sepsis New/Unexplained Change in Mental Status Sepsis Action Taken by Nursing Laboratory Data 04/10/23 22:26 04/10/23 22: Lab Results 04/10/23 04/10/23 04/10/23 Range/Units 22:00 22:26 22:26 WBC 9.98 (4.8-10.8) K/ul RBC 4.75 (4.20-5.40) M/uL Hgb 13.9 (12.0-16.0) g/dl Hct 42.3 (37.0-47.0) % MCV 89.1 (80.0-100.0) fL MCH 29.3 (25.0-34.0) pg MCHC 32.9 (32.0-36.0) g/dL RDW Std Deviation 42.6 (36.4-46.3) fL RDW Coeff of Faye 13.0 (11.5-14.5) % Plt Count 342 (130-400) K/uL MPV 9.1 L (9.4-12.4) fL Immature Gran % (Auto) 0.3 % Neut % (Auto) 66.5 % Lymph % (Auto) 19.5 % [place] % (Auto) 10.1 % Eos % (Auto) 2.8 % Baso % (Auto) 0.8 % Neut # (Auto) 6.63 H (1.40-6.50) K/uL Lymph # (Auto) 1.95 (1.2-3.4) K/uL [place] # (Auto) 1.01 H (0.11-0.59) K/uL Eos # (Auto) 0.28 (0-0.50) K/uL Baso # (Auto) 0.08 (0-0.2) K/uL Immature Gran # (Auto) 0.03 (0.01-0.20) K/uL PT 9.9 (9.0-12.0) Seconds INR 0.9 (0.9-1.1) APTT 27.3 (21.0-31.0) Seconds PTT Ratio 1.0 Sodium (136-145) mmol/L Potassium (3.5-5.1) mmol/L Chloride (98-107) mmol/L Carbon Dioxide (21-32) mmol/L Anion Gap (3-11) BUN (6-23) mg/dl Creatinine (0.6-1.2) mg/dl Est Cr Clr Drug Dosing ml/min Est GFR ( Amer) ml/min Est GFR (Non-Af Amer) ml/min BUN/Creatinine Ratio (10-20) Glucose (70-99(Fasting)) mg/dl POC Glucose 163 H (70-99) mg/dl Calcium (8.6-10.3) mg/dl Magnesium (1.7-2.4) mg/dl Total Bilirubin (0.2-1.0) mg/dl AST (13-39) U/L ALT (7-52) U/L Alkaline Phosphatase (34-104) U/L Troponin I High Sens (0-14) pg/ml Total Protein (6.0-8.3) gm/dl Albumin (3.4-5.0) gm/dl Globulin (2.5-4.0) gm/dl Albumin/Globulin Ratio (0.9-2) Urine Color Urine Appearance (Clear) Urine pH (4.5-7.5) Ur Specific [place] (1.000-1.030) Urine Protein (Negative) Urine Glucose (UA) (Negative) Urine Ketones (Negative) Urine Blood (Negative) Urine Nitrite (Negative) Urine Bilirubin (Negative) Urine Urobilinogen (Negative) Ur Leukocyte Esterase (Negative) SARS-CoV-2, RNA, NAAT (NEGATIVE) 04/10/23 04/10/23 04/11/23 Range/Units 22:26 23:06 00:32 WBC (4.8-10.8) K/ul RBC (4.20-5.40) M/uL Hgb (12.0-16.0) g/dl Hct (37.0-47.0) % MCV (80.0-100.0) fL MCH (25.0-34.0) pg MCHC (32.0-36.0) g/dL RDW Std Deviation (36.4-46.3) fL RDW Coeff of Faye (11.5-14.5) % Plt Count (130-400) K/uL MPV (9.4-12.4) fL Immature Gran % (Auto) % Neut % (Auto) % Lymph % (Auto) % [place] % (Auto) % Eos % (Auto) % Baso % (Auto) % Neut # (Auto) (1.40-6.50) K/uL Lymph # (Auto) (1.2-3.4) K/uL [place] # (Auto) (0.11-0.59) K/uL Eos # (Auto) (0-0.50) K/uL Baso # (Auto) (0-0.2) K/uL Immature Gran # (Auto) (0.01-0.20) K/uL PT (9.0-12.0) Seconds INR (0.9-1.1) APTT (21.0-31.0) Seconds PTT Ratio Sodium 133 L (136-145) mmol/L Potassium 4.5 (3.5-5.1) mmol/L Chloride 98 (98-107) mmol/L Carbon Dioxide 26 (21-32) mmol/L Anion Gap 9 (3-11) BUN 10 (6-23) mg/dl Creatinine 0.49 L (0.6-1.2) mg/dl Est Cr Clr Drug Dosing 106.7 ml/min Est GFR ( Amer) 121.0 ml/min Est GFR (Non-Af Amer) 104.4 ml/min BUN/Creatinine Ratio 20.4 H (10-20) Glucose 206 H (70-99(Fasting)) mg/dl POC Glucose (70-99) mg/dl Calcium 9.6 (8.6-10.3) mg/dl Magnesium 1.8 (1.7-2.4) mg/dl Total Bilirubin 0.4 (0.2-1.0) mg/dl AST 15 (13-39) U/L ALT 8 (7-52) U/L Alkaline Phosphatase 129 H (34-104) U/L Troponin I High Sens 8.6 (0-14) pg/ml Total Protein 7.0 (6.0-8.3) gm/dl Albumin 4.1 (3.4-5.0) gm/dl Globulin 2.9 (2.5-4.0) gm/dl Albumin/Globulin Ratio 1.4 (0.9-2) Urine Color Yellow Urine Appearance Clear (Clear) Urine pH 5.5 (4.5-7.5) Ur Specific [place] 1.008 (1.000-1.030) Urine Protein Negative (Negative) Urine Glucose (UA) Negative (Negative) Urine Ketones Negative (Negative) Urine Blood Negative (Negative) Urine Nitrite Negative (Negative) Urine Bilirubin Negative (Negative) Urine Urobilinogen Negative (Negative) Ur Leukocyte Esterase Negative (Negative) SARS-CoV-2, RNA, NAAT NEGATIVE (NEGATIVE) Administered Medications Discontinued Medications Ioversol (Optiray 320 500ml) 112 ml IV ONCE ONE Stop: 04/11/23 00:19 Last Admin: 04/11/23 00:19 Dose: 112 ml Documented By: LY Imaging Data Radiologist's Impression: Head CT 04/10/23 00:00 CR Exam(s): CT HEAD Without Contrast EXAM: CT Head Without Intravenous Contrast CLINICAL HISTORY: Reason for exam: neuro deficit, acute stroke suspected. TECHNIQUE: Axial computed tomography images of the head/brain without intravenous contrast. CTDI is 29.23 mGy and DLP is 512.02 mGy-cm. Automated exposure control was utilized for the study. A dose lowering technique was utilized adhering to the principles of ALARA. COMPARISON: CT head 06/12/22 FINDINGS: Calvarium is intact. Paranasal sinuses are clear. Patient is status post partial bilateral mastoidectomies and placement of bilateral cochlear implants. Left mastoid air cells are partially opacified. Right mastoid air cells are clear. There is generalized parenchymal volume loss with enlargement of the sulci, ventricles, and basal cisterns. Evaluation of the brain parenchyma is limited by motion artifact. Hypoattenuation in the cerebral white matter is compatible with chronic small vessel ischemic disease. There is questionable loss of polanco-white matter differentiation in the anterior left temporal lobe (series 2, image 8). Polanco-white matter differentiation appears otherwise grossly maintained. There is no hemorrhage or midline shift. IMPRESSION: 1. Limited by motion artifact. 2. Questionable loss of polanco-white matter differentiation in the anterior left temporal lobe could represent acute or subacute infarct. Communications: Call Doctor Other Electronically signed by: Rhona Naik M.D. 04/11/23 00:37 AM Head CTA 04/10/23 22:32 Exam(s): CTA HEAD With Contrast IV Amt: 112ml Optiray 320 EXAM: CT Angiography Head With Intravenous Contrast CLINICAL HISTORY: Reason for exam: neuro deficit, acute stroke suspected. TECHNIQUE: Axial computed tomographic angiography images of the head with intravenous contrast. CTDI is 29.23 mGy and DLP is 512.02 mGy-cm. Automated exposure control was utilized for the study. A dose lowering technique was utilized adhering to the principles of ALARA. MIP reconstructed images were created and reviewed. CONTRAST: Patient received 112ml Optiray 320 of IV contrast COMPARISON: CT head of the same date FINDINGS: Right internal carotid artery: Calcific plaquing of the intracranial right ICA without stenosis. No aneurysm. Right anterior cerebral artery: Unremarkable. No occlusion or significant stenosis. No aneurysm. Right middle cerebral artery: Unremarkable. No occlusion or significant stenosis. No aneurysm. Right posterior cerebral artery: Unremarkable. No occlusion or significant stenosis. No aneurysm. 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 No occlusion or significant stenosis. No aneurysm. Left internal carotid artery: Calcific plaquing of the intracranial left ICA without stenosis. No aneurysm. Left anterior cerebral artery: Unremarkable. No occlusion or significant stenosis. No aneurysm. Left middle cerebral artery: Unremarkable. No occlusion or significant stenosis. No aneurysm. Left posterior cerebral artery: Unremarkable. No occlusion or significant stenosis. No aneurysm. 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 No occlusion or significant stenosis. No aneurysm. Basilar artery: Unremarkable. No occlusion or significant stenosis. No aneurysm. IMPRESSION: 1. Patent intracranial circulation. Electronically signed by: Rhona Naik M.D. 04/11/23 00:41 AM Neck CTA 04/10/23 22:32 Exam(s): CTA NECK With Contrast IV Amt: 112ml Optiray 320 EXAM: CT Angiography Neck With Intravenous Contrast CLINICAL HISTORY: Reason for exam: neuro deficit, acute stroke suspected. TECHNIQUE: Routine carotid CT angiography protocol was performed with intravenous contrast. NASCET criteria using the distal ICAs for comparison were used for evaluation of stenoses. CTDI is 12.76 mGy and DLP is 516.38 mGy-cm. Automated exposure control was utilized for the study. A dose lowering technique was utilized adhering to the principles of ALARA. MIP reconstructed images were created and reviewed. CONTRAST: Patient received 112ml Optiray 320 of IV contrast COMPARISON: None. FINDINGS: VASCULATURE: Right common carotid artery: Unremarkable. No occlusion or significant stenosis. No dissection. Right internal carotid artery: Calcific plaque producing approximately 20% stenosis within the proximal to mid right ICA. No dissection. Right external carotid artery: Unremarkable. No occlusion. Right vertebral artery: Unremarkable. No occlusion or significant stenosis. No dissection. Left common carotid artery: Unremarkable. No occlusion or significant stenosis. No dissection. Left internal carotid artery: Unremarkable. Extracranial segment is patent with no occlusion or significant stenosis. No dissection. Left external carotid artery: Unremarkable. No occlusion. Left vertebral artery: Unremarkable. No occlusion or significant stenosis. No dissection. Other vasculature: Conventional aortic arch branch anatomy. NECK: Bones/joints: Unremarkable. Soft tissues: Unremarkable. Lung apices: Clear. CAROTID STENOSIS REFERENCE USING NASCET CRITERIA: % ICA stenosis = (1 - narrowest ICA diameter/diameter of distal cervical ICA) x 100. Mild - <50% stenosis. Moderate - 50-69% stenosis. Severe - 70-94% stenosis. Near occlusion - 95-99% stenosis. Occluded - 100% stenosis. IMPRESSION: No dissection, hemodynamically significant stenosis, or occlusion. Electronically signed by: Rhona Naik M.D. 04/11/23 00:52 AM Discharge Plan Visit Data Chief Complaint: TIA Symptoms Stated Complaint: DIABETIC,REF BY DOC,STROKE ED Provider: Han Ding Discharge Problem: Cerebrovascular accident, Acute hyponatremia Forms Stand Alone Forms: My [facility] Prescriptions Prescriptions: No Action insulin aspart U-100 [Novolog U-100 Insulin aspart] 100 unit/mL Solution 5 unit SUBCUT TID insulin degludec [Tresiba FlexTouch U-100] 100 unit/mL (3 mL) insulin pen 17 - 20 unit SUBCUT DAILY Rx Instructions: PER PT'S DAUGHTER, "ONLY WILL LET ME GIVE HER 16 UNITS". acetaminophen 500 mg capsule 1,000 mg PO DIRECTED PRN (Reason: pain) ibuprofen 200 mg capsule 400 mg PO Q6H PRN (Reason: pain) Qty: 14 0RF atorvastatin 10 mg tablet 10 mg PO HS Qty: 30 0RF aripiprazole 10 mg tablet 10 mg PO QAM Qty: 30 0RF duloxetine 60 mg capsule,delayed release(DR/EC) 60 mg PO AMHS Qty: 60 0RF (DME) pen needle, diabetic [BD Ultra-Fine Grace Pen Needle] 32 gauge x /32" ne edle See Rx Instructions miscellaneous .MEDSUPPLY Qty: 500 3RF Rx Instructions: As directed to use with insulin pens 4 times a day Trulicity 0.75 mg/0.5 mL pen injector 0.75 mg subcut WEEKLY Qty: 6 3RF Rx Instructions: TUESDAYS (DME) FreeStyle Addi 14 Day Sensor Kit See Rx Instructions .ROUTE .MEDSUPPLY Qty: 6 3RF Rx Instructions: Change every 14 days (DME) FreeStyle Addi 14 Day [place] Misc See Rx Instructions .ROUTE .MEDSUPPLY Qty: 1 1RF Rx Instructions: Use to test blood sugars daily Referrals Referrals: Terence Herr MD [Primary Care Provider] -
[2023-04-10 23:04] LABS: Albumin Globulin Ratio 1.4 (0.9-2); Albumin Level 4.1 gm/dl (3.4-5.0); BUN Creatinine Ratio 20.4 (10-20); Bilirubin,Total 0.4 mg/dl (0.2-1.0); Calcium 9.6 mg/dl (8.6-10.3); Creatinine Clr Calc Pharmacy 106.7 ml/min; Est GFR (Non-African American) 104.4 ml/min; Globulin 2.9 gm/dl (2.5-4.0); Magnesium 1.8 mg/dl (1.7-2.4); Potassium 4.5 mmol/L (3.5-5.1)
[2023-04-10 23:11] LABS: Troponin I High Sensitivity 8.6 pg/ml (0-14)
[2023-04-10 23:18] LABS: INR 0.9 (0.9-1.1); Partial Thromboplastin Time 27.3 Seconds (21.0-31.0); Prothrombin Time 9.9 Seconds (9.0-12.0)
[2023-04-10 23:35] LABS: Appearance Urine Clear (Clear); Bilirubin Urine Negative (Negative); Blood Urine Negative (Negative); Color Urine Yellow; Glucose Urine UA Negative (Negative); Ketones Urine Negative (Negative); Leukocyte Esterase Urine Negative (Negative); Nitrite Urine Negative (Negative); Protein Urine Negative (Negative); Specific Gravity Urine 1.008 (1.000-1.030); Urobilinogen Urine Negative (Negative); pH Urine 5.5 (4.5-7.5)
[2023-04-11] MEDS ORDERED: OPTIRAY 320 500ml IV ONE (00:18)
--- NOTE | 2023-04-11 00:39 | CT Scan Report ---
Exam(s): CT HEAD Without Contrast EXAM: CT Head Without Intravenous Contrast CLINICAL HISTORY: Reason for exam: neuro deficit, acute stroke suspected. TECHNIQUE: Axial computed tomography images of the head/brain without intravenous contrast. CTDI is 29.23 mGy and DLP is 512.02 mGy-cm. Automated exposure control was utilized for the study. A dose lowering technique was utilized adhering to the principles of ALARA. COMPARISON: CT head 06/12/22 FINDINGS: Calvarium is intact. Paranasal sinuses are clear. Patient is status post partial bilateral mastoidectomies and placement of bilateral cochlear implants. Left mastoid air cells are partially opacified. Right mastoid air cells are clear. There is generalized parenchymal volume loss with enlargement of the sulci, ventricles, and basal cisterns. Evaluation of the brain parenchyma is limited by motion artifact. Hypoattenuation in the cerebral white matter is compatible with chronic small vessel ischemic disease. There is questionable loss of polanco-white matter differentiation in the anterior left temporal lobe (series 2, image 8). Polanco-white matter differentiation appears otherwise grossly maintained. There is no hemorrhage or midline shift. IMPRESSION: 1. Limited by motion artifact. 2. Questionable loss of polanco-white matter differentiation in the anterior left temporal lobe could represent acute or subacute infarct. Communications: Call Doctor Other Electronically signed by: Rhona Naik M.D. 04/11/23 00:37 AM
--- NOTE | 2023-04-11 00:42 | CT Scan Report ---
Exam(s): CTA HEAD With Contrast IV Amt: 112ml Optiray 320 EXAM: CT Angiography Head With Intravenous Contrast CLINICAL HISTORY: Reason for exam: neuro deficit, acute stroke suspected. TECHNIQUE: Axial computed tomographic angiography images of the head with intravenous contrast. CTDI is 29.23 mGy and DLP is 512.02 mGy-cm. Automated exposure control was utilized for the study. A dose lowering technique was utilized adhering to the principles of ALARA. MIP reconstructed images were created and reviewed. CONTRAST: Patient received 112ml Optiray 320 of IV contrast COMPARISON: CT head of the same date FINDINGS: Right internal carotid artery: Calcific plaquing of the intracranial right ICA without stenosis. No aneurysm. Right anterior cerebral artery: Unremarkable. No occlusion or significant stenosis. No aneurysm. Right middle cerebral artery: Unremarkable. No occlusion or significant stenosis. No aneurysm. Right posterior cerebral artery: Unremarkable. No occlusion or significant stenosis. No aneurysm. 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 No occlusion or significant stenosis. No aneurysm. Left internal carotid artery: Calcific plaquing of the intracranial left ICA without stenosis. No aneurysm. Left anterior cerebral artery: Unremarkable. No occlusion or significant stenosis. No aneurysm. Left middle cerebral artery: Unremarkable. No occlusion or significant stenosis. No aneurysm. Left posterior cerebral artery: Unremarkable. No occlusion or significant stenosis. No aneurysm. 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 No occlusion or significant stenosis. No aneurysm. Basilar artery: Unremarkable. No occlusion or significant stenosis. No aneurysm. IMPRESSION: 1. Patent intracranial circulation. Electronically signed by: Rhona Naik M.D. 04/11/23 00:41 AM
--- NOTE | 2023-04-11 00:53 | CT Scan Report ---
Exam(s): CTA NECK With Contrast IV Amt: 112ml Optiray 320 EXAM: CT Angiography Neck With Intravenous Contrast CLINICAL HISTORY: Reason for exam: neuro deficit, acute stroke suspected. TECHNIQUE: Routine carotid CT angiography protocol was performed with intravenous contrast. NASCET criteria using the distal ICAs for comparison were used for evaluation of stenoses. CTDI is 12.76 mGy and DLP is 516.38 mGy-cm. Automated exposure control was utilized for the study. A dose lowering technique was utilized adhering to the principles of ALARA. MIP reconstructed images were created and reviewed. CONTRAST: Patient received 112ml Optiray 320 of IV contrast COMPARISON: None. FINDINGS: VASCULATURE: Right common carotid artery: Unremarkable. No occlusion or significant stenosis. No dissection. Right internal carotid artery: Calcific plaque producing approximately 20% stenosis within the proximal to mid right ICA. No dissection. Right external carotid artery: Unremarkable. No occlusion. Right vertebral artery: Unremarkable. No occlusion or significant stenosis. No dissection. Left common carotid artery: Unremarkable. No occlusion or significant stenosis. No dissection. Left internal carotid artery: Unremarkable. Extracranial segment is patent with no occlusion or significant stenosis. No dissection. Left external carotid artery: Unremarkable. No occlusion. Left vertebral artery: Unremarkable. No occlusion or significant stenosis. No dissection. Other vasculature: Conventional aortic arch branch anatomy. NECK: Bones/joints: Unremarkable. Soft tissues: Unremarkable. Lung apices: Clear. CAROTID STENOSIS REFERENCE USING NASCET CRITERIA: % ICA stenosis = (1 - narrowest ICA diameter/diameter of distal cervical ICA) x 100. Mild - <50% stenosis. Moderate - 50-69% stenosis. Severe - 70-94% stenosis. Near occlusion - 95-99% stenosis. Occluded - 100% stenosis. IMPRESSION: No dissection, hemodynamically significant stenosis, or occlusion. Electronically signed by: Rhona Naik M.D. 04/11/23 00:52 AM
[2023-04-11] MEDS: MAGNESIUM SULFATE / D5W 1 GM/100 ML BAG IV SCH ×2 (01:55→03:38)
[2023-04-11] MEDS ORDERED: CARBOHYDRATES FOR HYPOGLYCEMIA PO PRN ×2 (02:06→05:27)
[2023-04-11] MEDS ORDERED: GLUCOSE 40% GEL 15 GM TUBE PO PRN ×2 (02:06→05:27)
[2023-04-11] MEDS ORDERED: GLUCOSE 10 TAB/TUBE PO PRN ×2 (02:06→05:27)
[2023-04-11] MEDS ORDERED: DEXTROSE 50% 50 ML SYRINGE IV PRN ×2 (02:06→05:27)
[2023-04-11] MEDS ORDERED: GLUCAGON FOR INJ 1 MG VIAL SQ PRN ×2 (02:06→05:27)
[2023-04-11] MEDS ORDERED: SODIUM CHLORIDE 0.9% 1000ML 1,000 ML IV ONE (02:07)
[2023-04-11] MEDS: INSULIN ASPART PER UNIT CHARGE SC SCH ×5 (02:25→21:17)
[2023-04-11] MEDS ORDERED: ASPIRIN 81 MG CHEW PO STA (02:58)
--- NOTE | 2023-04-11 02:58 | History & Physical Report ---
Date of Service April 11, 2023 Assessment & Plan (1) Cerebrovascular accident: Plan: Acute/subacute infarct over left temporal lobe as per CT report hypertension, elevated secondary to above hyperlipidemia, on statin Rx hx COPD/CONNIE as per records, stable lung status DM 2 insulin requiring, suboptimal control as of recent hemoglobin A1c of 9.08 March 2023 hypothyroidism, euthyroid as of today's TSH anxiety/mood disorder, at baseline sensorineural hearing loss status post cochlear device implantation Sacral decubitus wound, noted by PCP during last visit, on recent mupirocin Rx ongoing tobacco abuse Medical telemetry Neurochecks Aspirin for secondary stroke prevention Permissive hypertension for first 48 hours Brain MRI unfortunately precluded by patient's cochlear device TTE for additional stroke work-up Neurology consult Re: CVA Basal bolus insulin, ISS BG goal 1 10-1 40, carb count coverage PT OT eval Wound care nurse consult for sacral decubitus wound Nicotine patch DVT prophylaxis. Lovenox subcu Full code Patient daughter requesting updates providers. Ms. Renetta Moreira, contact #[phone]. Text document was generated using [employer] voice recognition software. It may contain grammatical or spelling errors. Kindly contact undersigned for clarification of any documentation item in question. History of Present Illness Chief Complaint: Altered mental status Primary Care Provider: Terence Herr MD History obtained from patient, family, and records. Limited history from patient secondary to marked hearing impairment. Medical history significant for hypertension, hyperlipidemia, COPD/CONNIE as per records, DM 2 insulin requiring, hypothyroidism, anxiety/mood disorder, sensorineural hearing loss status post cochlear device implantation, ongoing tobacco abuse. Recent confinement last month for recurrent falls. Age-indeterminate pelvic fractures noted on imaging. Patient discharged to [facility] facility where she stayed until she was discharged home last week. Patient seen on follow-up at PCPs office 2 days ago. Daughter working with case management for patient placement. Stage I sacral decubitus wound noted on patient's back for which topical mupirocin was prescribed by PCP. Yesterday afternoon, patient noted to be more confused than usual. Somewhat aphasic. No note of facial droop/arm/leg weakness. Patient brought to the ER for evaluation. 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 Allergies Allergy/AdvReac Type Severity Reaction Status Date / Time Penicillins Allergy Intermediate Rash Verified 04/10/23 23:29 Home Medications Medication Instructions Recorded Confirmed Type FreeStyle Addi 14 Day Sensor #6 ea 03/19/23 Rx (flash glucose sensor) aripiprazole 10 mg tablet 10 mg PO QAM #30 tabs 03/19/23 04/11/23 Rx atorvastatin 10 mg tablet 10 mg PO HS #30 tabs 03/19/23 04/11/23 Rx dulaglutide 0.75 mg/0.5 mL 0.75 mg (0.5 mL) subcut WEEKLY #6 03/19/23 04/11/23 Rx subcutaneous pen injector mL (Trulicity) duloxetine 60 mg capsule,delayed 60 mg PO AMHS #60 caps 03/19/23 04/11/23 Rx release flash glucose scanning reader #1 ea 03/19/23 Rx (FreeStyle Addi 14 Day Conifer) ibuprofen 200 mg capsule 400 mg PO Q6H PRN pain #14 caps 03/19/23 04/10/23 Rx pen needle, diabetic 32 gauge x #500 ea 03/19/23 Rx 5/32" (BD Ultra-Fine Grace Pen Needle) insulin aspart U-100 100 unit/mL 5 unit subcut TID 04/10/23 04/10/23 History subcutaneous solution (Novolog U-100 Insulin aspart) insulin degludec 100 unit/mL (3 16 unit subcut DAILY 04/10/23 04/11/23 History mL) subcutaneous pen (Tresiba FlexTouch U-100 insulin) acetaminophen 325 mg tablet 975 mg PO TID 04/11/23 04/11/23 History (Tylenol) docusate sodium 100 mg capsule 100 mg PO BID 04/11/23 04/11/23 History lidocaine 4 % topical patch 1 patch topical DAILY PRN Pain 04/11/23 04/11/23 History mupirocin 2 % topical ointment 1 applic topical BID 04/11/23 04/11/23 History Past Med/Surg History Medical History Depression Diabetes mellitus, type II Diabetes type 2, controlled Diabetic radiculopathy Dyslipidemia Dysphagia PT STOPPED TAKING ALL HER ORAL MEDS PAST MONTH-ENCOURAGED SHE CALL HER PCP TODAY AND CHECK HER BLOOD SUGAR. Essential hypertension Edita's thyroiditis Hearing deficit BILAT COCHLEAR DEVICES Hypertension SOB (shortness of breath) on exertion Vitamin D deficiency Surgical History History of cochlear implant BILAT History of colonoscopy History of laparoscopy FOR ENDOMETRIOSIS, converted to open procedure, LSO done too the patient thinks (isn't sure). History of tonsillectomy Family History Family/Other Stroke Hypertension Father Hypertension Social History Smoking Status: Current every day smoker Tobacco Type: Cigarettes Cigarettes Per Day: 20; Second Hand Exposure: No; Do You Dip or Chew Tobacco: No; Hx Alcohol Use: No Hx Substance Use: No Preferred Language: Greek Communication Ability: Impaired Communication Ability Comment: Bilat cochlear implants Product Management Intern Required: No Beliefs That Will Affect Care: None marital status: Current Living Situation: Family Current Living Situation Comment: Previously lived alone until daughter came to live w her in march Feels Safe at Home: Yes Safety Concerns: Feels Safe At This Time Assistive Devices: Cane and Walker Assistive Devices Comment: bilat cochlear implants Review of Systems Review of Systems: Could not be reliably obtained secondary to marked hearing impairment Physical Exam Physical Exam: GENERAL: Comfortable, lethargic, marked hearing impairment, no respiratory distress SKIN: Normal color, warm HEENT: [place] palpebral conjunctivae, no ptosis, dry buccal mucosa NECK : Supple, no tenderness CHEST : Decreased breath sounds, no tenderness HEART : RRR, no obvious murmurs ABDOMEN: Some distention, nontender EXTREMITIES : No LE swelling/tenderness, no other conspicuous deformities noted NEUROLOGIC : Lethargic, no facial asymmetry, marked hearing impairment, gait and stance not assessed Results & Data Results & Data Vital Signs (Past 12 Hours) Vital Signs Temp Pulse Resp BP Pulse Ox O2 Del Method 04/11/23 01:10 85 19 04/11/23 01:01 94 H 16 133/100 04/11/23 01:00 91 H 17 04/11/23 00:50 87 17 04/11/23 00:40 89 16 100 04/11/23 00:30 84 18 136/87 99 04/11/23 00:32 37.3 C 04/11/23 00:20 89 14 100 04/11/23 00:10 92 H 18 163/100 H 100 04/11/23 00:01 90 16 97 04/11/23 00:00 96 H 19 100 04/10/23 23:56 89 22 04/10/23 23:30 85 13 133/89 100 04/10/23 23:20 87 19 100 04/10/23 23:10 89 17 04/10/23 23:00 89 24 137/103 H 100 04/10/23 22:50 86 23 100 04/10/23 22:48 92 H 28 H 149/94 H 04/10/23 21:56 36.4 C L 101 H 18 154/91 H 100 Room Air Laboratory Results Laboratory Results WBC 9.98 K/ul (4.8-10.8) 04/10/23 22:26 RBC 4.75 M/uL (4.20-5.40) 04/10/23 22:26 Hgb 13.9 g/dl (12.0-16.0) 04/10/23 22:26 Hct 42.3 % (37.0-47.0) 04/10/23 22: MCV 89.1 fL (80.0-100.0) 04/10/23 22:26 MCH 29.3 pg (25.0-34.0) 04/10/23 22: MCHC 32.9 g/dL (32.0-36.0) 04/10/23 22:26 RDW Std Deviation 42.6 fL (36.4-46.3) 04/10/23 22:26 RDW Coeff of Faye 13.0 % (11.5-14.5) 04/10/23 22:26 Plt Count 342 K/uL (130-400) 04/10/23 22:26 MPV 9.1 fL (9.4-12.4) L 04/10/23 22:26 Immature Gran % (Auto) 0.3 % 04/10/23 22:26 Neut % (Auto) 66.5 % 04/10/23 22:26 Lymph % (Auto) 19.5 % 04/10/23 22:26 [place]lette % (Auto) 10.1 % 04/10/23 22:26 Eos % (Auto) 2.8 % 04/10/23 22:26 Baso % (Auto) 0.8 % 04/10/23 22: Neut # (Auto) 6.63 K/uL (1.40-6.50) H 04/10/23 22: Lymph # (Auto) 1.95 K/uL (1.2-3.4) 04/10/23 22: [place] # (Auto) 1.01 K/uL (0.11-0.59) H 04/10/23 22:26 Eos # (Auto) 0.28 K/uL (0-0.50) 04/10/23 22: Baso # (Auto) 0.08 K/uL (0-0.2) 04/10/23: Immature Gran # (Auto) 0.03 K/uL (0.01-0.20) 04/10/23 22: PT 9.9 Seconds (9.0-12.0) 04/10/23: INR 0.9 (0.9-1.1) 04/10/23 22: APTT 27.3 Seconds (21.0-31.0) 04/10/23: PTT Ratio 1.0 04/10/23 22: Sodium 133 mmol/L (136-145) L 04/10/23 22: Potassium 4.5 mmol/L (3.5-5.1) 04/10/23 22: Chloride 98 mmol/L (98-107) 04/10/23 22: Carbon Dioxide 26 mmol/L (21-32) 04/10/23 22: Anion Gap 9 (3-11) 04/10/23 22: BUN 10 mg/dl (6-23) 04/10/23: Creatinine 0.49 mg/dl (0.6-1.2) L 04/10/23: Est Cr Clr Drug Dosing 106.7 ml/min 04/10/23 22: Est GFR ( Amer) 121.0 ml/min 04/10/23 22: Est GFR (Non-Af Amer) 104.4 ml/min 04/10/23 22: BUN/Creatinine Ratio 20.4 (10-20) H 04/10/23 22:26 Glucose 206 mg/dl (70-99(Fasting)) H 04/10/23 22:26 POC Glucose 163 mg/dl (70-99) H 04/10/23 22:00 Calcium 9.6 mg/dl (8.6-10.3) 04/10/23 22:26 Magnesium 1.8 mg/dl (1.7-2.4) 04/10/23 22: Total Bilirubin 0.4 mg/dl (0.2-1.0) 04/10/23 22:26 AST 15 U/L (13-39) 04/10/23 22:26 ALT 8 U/L (7-52) 04/10/23 22: Alkaline Phosphatase 129 U/L (34-104) H 04/10/23 22: Troponin I High Sens 8.6 pg/ml (0-14) 04/10/23 22:26 Total Protein 7.0 gm/dl (6.0-8.3) 04/10/23 22: Albumin 4.1 gm/dl (3.4-5.0) 04/10/23 22: Globulin 2.9 gm/dl (2.5-4.0) 04/10/23 22: Albumin/Globulin Ratio 1.4 (0.9-2) 04/10/23 22:26 Urine Color Yellow 04/10/23 23:06 Urine Appearance Clear (Clear) 04/10/23 23:06 Urine pH 5.5 (4.5-7.5) 04/10/23 23:06 Ur Specific [place] 1.008 (1.000-1.030) 04/10/23 23:06 Urine Protein Negative (Negative) 04/10/23 23:06 Urine Glucose (UA) Negative (Negative) 04/10/23 23:06 Urine Ketones Negative (Negative) 04/10/23 23:06 Urine Blood Negative (Negative) 04/10/23 23:06 Urine Nitrite Negative (Negative) 04/10/23 23:06 Urine Bilirubin Negative (Negative) 04/10/23 23:06 Urine Urobilinogen Negative (Negative) 04/10/23 23:06 Ur Leukocyte Esterase Negative (Negative) 04/10/23 23:06 SARS-CoV-2, RNA, NAAT NEGATIVE (NEGATIVE) 04/11/23 00:[address] 04/10/23 00:00 CR Exam(s): CT HEAD Without Contrast EXAM: CT Head Without Intravenous Contrast CLINICAL HISTORY: Reason for exam: neuro deficit, acute stroke suspected. TECHNIQUE: Axial computed tomography images of the head/brain without intravenous contrast. CTDI is 29.23 mGy and DLP is 512.02 mGy-cm. Automated exposure control was utilized for the study. A dose lowering technique was utilized adhering to the principles of ALARA. COMPARISON: CT head 06/12/22 FINDINGS: Calvarium is intact. Paranasal sinuses are clear. Patient is status post partial bilateral mastoidectomies and placement of bilateral cochlear implants. Left mastoid air cells are partially opacified. Right mastoid air cells are clear. There is generalized parenchymal volume loss with enlargement of the sulci, ventricles, and basal cisterns. Evaluation of the brain parenchyma is limited by motion artifact. Hypoattenuation in the cerebral white matter is compatible with chronic small vessel ischemic disease. There is questionable loss of polanco-white matter differentiation in the anterior left temporal lobe (series 2, image 8). Polanco-white matter differentiation appears otherwise grossly maintained. There is no hemorrhage or midline shift. IMPRESSION: 1. Limited by motion artifact. 2. Questionable loss of polanco-white matter differentiation in the anterior left temporal lobe could represent acute or subacute infarct. Communications: Call Doctor Other Electronically signed by: Rhona Naik M.D. 04/11/23 00:37 AM Head CTA 04/10/23 22:32 Exam(s): CTA HEAD With Contrast IV Amt: 112ml Optiray 320 EXAM: CT Angiography Head With Intravenous Contrast CLINICAL HISTORY: Reason for exam: neuro deficit, acute stroke suspected. TECHNIQUE: Axial computed tomographic angiography images of the head with intravenous contrast. CTDI is 29.23 mGy and DLP is 512.02 mGy-cm. Automated exposure control was utilized for the study. A dose lowering technique was utilized adhering to the principles of ALARA. MIP reconstructed images were created and reviewed. CONTRAST: Patient received 112ml Optiray 320 of IV contrast COMPARISON: CT head of the same date FINDINGS: Right internal carotid artery: Calcific plaquing of the intracranial right ICA without stenosis. No aneurysm. Right anterior cerebral artery: Unremarkable. No occlusion or significant stenosis. No aneurysm. Right middle cerebral artery: Unremarkable. No occlusion or significant stenosis. No aneurysm. Right posterior cerebral artery: Unremarkable. No occlusion or significant stenosis. No aneurysm. 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 No occlusion or significant stenosis. No aneurysm. Left internal carotid artery: Calcific plaquing of the intracranial left ICA without stenosis. No aneurysm. Left anterior cerebral artery: Unremarkable. No occlusion or significant stenosis. No aneurysm. Left middle cerebral artery: Unremarkable. No occlusion or significant stenosis. No aneurysm. Left posterior cerebral artery: Unremarkable. No occlusion or significant stenosis. No aneurysm. 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 No occlusion or significant stenosis. No aneurysm. Basilar artery: Unremarkable. No occlusion or significant stenosis. No aneurysm. IMPRESSION: 1. Patent intracranial circulation. Electronically signed by: Rhona Naik M.D. 04/11/23 00:41 AM Neck CTA 04/10/23 22:32 Exam(s): CTA NECK With Contrast IV Amt: 112ml Optiray 320 EXAM: CT Angiography Neck With Intravenous Contrast CLINICAL HISTORY: Reason for exam: neuro deficit, acute stroke suspected. TECHNIQUE: Routine carotid CT angiography protocol was performed with intravenous contrast. NASCET criteria using the distal ICAs for comparison were used for evaluation of stenoses. CTDI is 12.76 mGy and DLP is 516.38 mGy-cm. Automated exposure control was utilized for the study. A dose lowering technique was utilized adhering to the principles of ALARA. MIP reconstructed images were created and reviewed. CONTRAST: Patient received 112ml Optiray 320 of IV contrast COMPARISON: None. FINDINGS: VASCULATURE: Right common carotid artery: Unremarkable. No occlusion or significant stenosis. No dissection. Right internal carotid artery: Calcific plaque producing approximately 20% stenosis within the proximal to mid right ICA. No dissection. Right external carotid artery: Unremarkable. No occlusion. Right vertebral artery: Unremarkable. No occlusion or significant stenosis. No dissection. Left common carotid artery: Unremarkable. No occlusion or significant stenosis. No dissection. Left internal carotid artery: Unremarkable. Extracranial segment is patent with no occlusion or significant stenosis. No dissection. Left external carotid artery: Unremarkable. No occlusion. Left vertebral artery: Unremarkable. No occlusion or significant stenosis. No dissection. Other vasculature: Conventional aortic arch branch anatomy. NECK: Bones/joints: Unremarkable. Soft tissues: Unremarkable. Lung apices: Clear. CAROTID STENOSIS REFERENCE USING NASCET CRITERIA: % ICA stenosis = (1 - narrowest ICA diameter/diameter of distal cervical ICA) x 100. Mild - <50% stenosis. Moderate - 50-69% stenosis. Severe - 70-94% stenosis. Near occlusion - 95-99% stenosis. Occluded - 100% stenosis. IMPRESSION: No dissection, hemodynamically significant stenosis, or occlusion. Electronically signed by: Rhona Naik M.D. 04/11/23 00:52 AM Diagnostic Findings EKG as per my interpretation : Rate 85, NSR, LAD, LAFB, septal infarct, diffuse T wave abnormalities
[2023-04-11] MEDS: NICOTINE 21 MG/24 HR TDSY TD SCH (03:36)
[2023-04-11] MEDS ORDERED: PHARMACIST DISCHARGE MED REC CONSULT PRN (05:27)
[2023-04-11] MEDS ORDERED: ACETAMINOPHEN 325 MG TAB PO PRN (05:27)
[2023-04-11] MEDS ORDERED: LIDOCAINE 5% 1 PATCH TD PRN (05:27)
[2023-04-11 07:11] LABS: Chol HDL Ratio 2.1 (0-5)
--- NOTE | 2023-04-11 07:20 | XRay Report ---
XR chest 1V portable HISTORY: 62 years-old Female neuro deficit, acute stroke suspected acute shortness of breath COMPARISON: 03/13/2023 TECHNIQUE: AP view of the chest FINDINGS: Cardiac silhouette is upper limits of normal in size. No pneumothorax, pleural effusion, airspace con solidation or overt pulmonary edema. Chronic right-sided rib fractures. Unchanged left hemidiaphragma tic elevation. Bones of the chest appear grossly intact. IMPRESSION: No acute process. ACT 112: Negative or not required by law. The above report was generated using voice recognition software. It may contain grammatical, syntax o r spelling errors. Electronically signed by: Gee Mcnair M.D. 04/11/2023 7:19 AM
[2023-04-11] MEDS: DULoxetine HCL 60 MG CAP PO SCH ×2 (08:13→21:16)
[2023-04-11] MEDS: ARIPiprazole 10 MG TAB PO SCH (08:13)
[2023-04-11] MEDS: LANTUS PER UNIT CHARGE SQ SCH (08:16)
--- NOTE | 2023-04-11 09:24 | Neurology Consultation ---
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 Clinically, she has a distinct a facial, mostly motor/expressive. She cannot state now owns. Because of her trouble with following commands and with imitation (at times) I cannot exclude a receptive aphasia. Compound in the communication issues is profound hearing loss with cochlear implants. She has no other focal neurologic deficit on examination otherwise. Patient has been falling recently. This has not been adequately explore and I do note on CT scan of the head that the patient has her generous ventricles and she may have normal pressure hydrocephalus. This could give her some cognitive issues as well as balance and falling problems. Patient has multiple risk factors for stroke including hypertension, diabetes, cigarette smoking, and dyslipidemia. Her lipids, however, are very well controlled on 10 mg atorvastatin. Recommendations: 1. Unfortunately, we cannot get an MRI of the brain because of the cochlear implants. 2. However, depending on her clinical course, we may repeat the CT scan if needed. 3. once she recovers some from her acute stroke, we may pursue additional neurologic testing because of the ventricular size and her falling. We may consider a radionucleotide cisternogram to evaluate for normal pressure hydrocephalus ( this could could be done as an outpatient ). 4. Speech therapy to evaluate and treat. Physical and occupational therapy should be done as well. 5. Control blood pressure as you are doing. 6. Control glucose trying to lower the hemoglobin A1c ( March 14 was 9.8). 7. since her lipids are so significantly controlled on the low dose of atorvastatin, I would not increase this dose. 8. Initiate 81 mg aspirin tablet daily overall, I spent a total of 75 minutes with this case including review of records, review of CT films, direct evaluation the patient at bedside, discussion of the case with the patient, RN, and Dr. Pulido at bedside, and the patient's daughter via telephone, including differential diagnosis and treatment options. History of Present Illness Reason for Consultation: patient is a 62-year-old, who I was asked to see at the request of Dr. Moore, for neurologic consultation regarding stroke Requesting Physician: Dr. Moore Attending Physician: Minal Pulido MD History of Present Illness patient has a history of diabetes, hypertension, depression, and dyslipidemia. In addition, the patient has significant hearing loss and has cochlear implants bilaterally. the patient has been falling rather frequently in the last few months and fell March 13 injuring her pubic rami. She went to [facility] for rehab on March 19 and was discharged home April 03. According to the patient's daughter, who I talked to via the telephone at has been caring for the patient this past week, the patient did fairly well for the 1st few days at home but by the she was not communicating well. She was having trouble finishing sentences or thoughts. The patient stated the daughter that "something isn't right". She arrived to the emergency room April 10 at 9:56 p.m. with a blood pressure of 154/91, pulse 101, respiratory rate 18, temperature 36.4, and O2 saturation 100%. She was described as having trouble getting words out and being "confused". CBC and Chem profile were remarkable only for an elevated glucose ( 206) and alkaline phosphatase (129). Urinalysis was unremarkable. CT scan of the head showed a left temporoparietal stroke. I reviewed this film and see the wedge like hypodensity on the left. In addition the ventricles are "generous" and seemed to be out of proportion to any atrophy that might be present. CT angiography of the head neck were largely unremarkable. Patient has blood pressure 115/78 this morning and glucose is 125. total cholesterol is 113 and triglycerides 139 she has little bit of pain in her left hip area and a mild headache. Allergies Allergy/AdvReac Type Severity Reaction Status Date / Time Penicillins Allergy Intermediate Rash Verified 04/10/23 23:29 Home Medications Medication Instructions Recorded Confirmed Type FreeStyle Addi 14 Day Sensor #6 ea 03/19/23 Rx (flash glucose sensor) aripiprazole 10 mg tablet 10 mg PO QAM #30 tabs 03/19/23 04/11/23 Rx atorvastatin 10 mg tablet 10 mg PO HS #30 tabs 03/19/23 04/11/23 Rx dulaglutide 0.75 mg/0.5 mL 0.75 mg (0.5 mL) subcut WEEKLY #6 03/19/23 04/11/23 Rx subcutaneous pen injector mL (Trulicity) duloxetine 60 mg capsule,delayed 60 mg PO AMHS #60 caps 03/19/23 04/11/23 Rx release flash glucose scanning reader #1 ea 03/19/23 Rx (FreeStyle Addi 14 Day [place]) ibuprofen 200 mg capsule 400 mg PO Q6H PRN pain #14 caps 03/19/23 04/10/23 Rx pen needle, diabetic 32 gauge x #500 ea 03/19/23 Rx 32" (BD Ultra-Fine Grace Pen Needle) insulin aspart U-100 100 unit/mL 5 unit subcut TID 04/10/23 04/10/23 History subcutaneous solution (Novolog U-100 Insulin aspart) insulin degludec 100 unit/mL (3 16 unit subcut DAILY 04/10/23 04/11/23 History mL) subcutaneous pen (Tresiba FlexTouch U-100 insulin) acetaminophen 325 mg tablet 975 mg PO TID 04/11/23 04/11/23 History (Tylenol) docusate sodium 100 mg capsule 100 mg PO BID 04/11/23 04/11/23 History lidocaine 4 % topical patch 1 patch topical DAILY PRN Pain 04/11/23 04/11/23 History mupirocin 2 % topical ointment 1 applic topical BID 04/11/23 04/11/23 History Patient History Medical History Depression Diabetes mellitus, type II Diabetes type 2, controlled Diabetic radiculopathy Dyslipidemia Dysphagia PT STOPPED TAKING ALL HER ORAL MEDS PAST MONTH-ENCOURAGED SHE CALL HER PCP TODAY AND CHECK HER BLOOD SUGAR. Essential hypertension Edita's thyroiditis Hearing deficit BILAT COCHLEAR DEVICES Hypertension SOB (shortness of breath) on exertion Vitamin D deficiency Surgical History History of cochlear implant BILAT History of colonoscopy History of laparoscopy FOR ENDOMETRIOSIS, converted to open procedure, LSO done too the patient thinks (isn't sure). 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 Exam (Neuro) Physical Exam: The patient is left-handed. She is awake and alert. Speech is understandable and there is no obvious dysarthria. She is very fluent with "little" words or "filler" words, but cannot produce now oz or name objects. When given a choice of several possibilities she tends to mostly pick out the right answer and knows that she was correct. She is very hard of hearing and I was speaking fairly deeply and loudly, fairly closely making direct eye contact when I spoke to her. She seemed to be in a good mood and was smiling and friendly. At times she seemed to be unable to follow direction or understand the question. Extraocular eye muscles are intact without nystagmus. Pupils are 4 mm bilaterally and reactive to light. There is no facial droop. Tongue is midline and palate moves well.Visual acuity seems to be intact bilaterally and she recognize and could state fingers laterally, bilateral There are no deficits to sensation in the face in all 3 distributions of the fifth cranial nerve bilaterally. Corneal reflexes are positive bilaterally. Facial strength and symmetry was normal bilaterally. There is normal sternocleidomastoid and trapezius (shoulder shrug) strength bilaterally. Tongue is midline with good strength bilaterally. Neck has a full range of motion without discomfort. There are no cervical bruits bilaterally. There are no cranial or ocular bruits. Heart is without murmur. There is a regular rhythm and rate. Cervical, thoracic, and lumbar spine are nontender to palpation. gait was not tested. With outstretched arms there is no drift. There are no resting, postural, or action tremors. There is no ataxia with finger to nose testing. There is Reasonable facility in the hands. No other abnormal involuntary movements are noted. Motor strength is 5/5 diffusely in the arms bilaterally including deltoids, biceps, triceps, brachioradialis, wrist flexors and extensors, barrel marker, and intrinsic hand muscles. Motor strength is 5/5 diffusely in the legs bilaterally including hip flexors, quadriceps, hamstrings, gastrocnemius, tibialis anterior, tibialis posterior, and Peroneii muscles. Toe extensors are normal and there is good bulk in the extensor digitorum brevis muscles bilaterally. The limbs have good tone without rigidity or spasticity. There is no atrophy noted in the muscles. Muscle bulk is normal, there is no tenderness to palpation, no myotonia to percussion, and no fasciculations seen. Sensory examination is intact to touch and pin throughout all 4 limbs diffusely. Reflexes are 2/4 in the biceps, triceps, brachioradialis, quadriceps, and Achilles tendons bilaterally. There is no clonus bilaterally. Toes are downgoing with plantar stimulation bilaterally. Peripheral pulses are present and of normal quality distally in all 4 limbs. There is no peripheral edema noted in the limbs. Results & Data Vital Signs (Past 12 Hours) Vital Signs Temp Pulse Pulse Resp BP BP Pulse Ox 04/11/23 07:58 36.6 C 78 18 115/78 97 04/11/23 06:15 04/11/23 06:15 36.4 C L 84 16 153/87 H 96 04/11/23 04:59 36.4 C L 84 16 153/87 H 96 04/11/23 07:26 81 04/11/23 04:38 04/11/23 04:20 87 19 04/11/23 04:10 86 17 04/11/23 04:00 85 19 140/91 04/11/23 03:50 86 18 04/11/23 03:40 96 H 20 04/11/23 03:30 88 17 132/86 95 04/11/23 03:20 87 21 98 04/11/23 03:10 86 18 98 04/11/23 03:00 84 20 139/87 98 04/11/23 02:50 89 23 96 04/11/23 02:40 85 23 100 04/11/23 02:30 82 15 145/84 H 99 04/11/23 02:20 87 15 100 04/11/23 02:10 88 18 98 04/11/23 02:00 86 14 100 04/11/23 01:50 84 16 137/99 100 04/11/23 01:40 91 H 21 04/11/23 01:30 107 H 18 04/11/23 01:20 88 18 04/11/23 03:48 90 04/11/23 01:10 85 19 04/11/23 01:01 94 H 16 133/100 04/11/23 01:00 91 H 17 04/11/23 00:50 87 17 04/11/23 00:40 89 16 100 04/11/23 00:30 84 18 136/87 99 04/11/23 00:32 37.3 C 04/11/23 00:20 89 14 100 04/11/23 00:10 92 H 18 163/100 H 100 04/11/23 00:01 90 16 97 04/11/23 00:00 96 H 19 100 04/10/23 23:56 89 22 04/10/23 23:30 85 13 133/89 100 04/10/23 23:20 87 19 100 04/10/23 23:10 89 17 04/10/23 23:00 89 24 137/103 H 100 04/10/23 22:50 86 23 100 04/10/23 22:48 92 H 28 H 149/94 H 04/10/23 21:56 36.4 C L 101 H 18 154/91 H 100 O2 Del Method 04/11/23 07:58 Room Air 04/11/23 06:15 Room Air 04/11/23 06:15 Room Air 04/11/23 04:59 Room Air 04/11/23 07:26 04/11/23 04:38 Room Air 04/11/23 04:20 04/11/23 04:10 04/11/23 04:00 04/11/23 03:50 04/11/23 03:40 04/11/23 03:30 04/11/23 03:20 04/11/23 03:10 04/11/23 03:00 04/11/23 02:50 04/11/23 02:40 04/11/23 02:30 04/11/23 02:20 04/11/23 02:10 04/11/23 02:00 04/11/23 01:50 04/11/23 01:40 04/11/23 01:30 04/11/23 01:20 04/11/23 03:48 04/11/23 01:10 04/11/23 01:01 04/11/23 01:00 04/11/23 00:50 04/11/23 00:40 04/11/23 00:30 04/11/23 00:32 04/11/23 00:20 04/11/23 00:10 04/11/23 00:01 04/11/23 00:00 04/10/23 23:56 04/10/23 23:30 04/10/23 23:20 04/10/23 23:10 04/10/23 23:00 04/10/23 22:50 04/10/23 22:48 04/10/23 21:56 Room Air PG Care Time/CCT Total # of Minutes Spent Total Time Spent with Patient: Total time spent is greater than 50% in coordination of care (as documented) at patient's floor/unit and/or counseling patient: Coding Level of Care Code 76829 INT INP/OBS CARE 3/75MIN Diagnoses 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
--- NOTE | 2023-04-11 10:11 | Hospitalist Progress Note ---
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 Very well controlled on atorvastatin 10mg. Will continue this for now Recent A1c from last month was 9.8. Need optimization of glycemic control. Will monitor while inpatient Continue ISS Awaiting TTE PT/OT eval Continue home levothyroxine dose for hypothyroidism Counseled on need for smoking cessation Continue home aripiprazole, duloxetin Continue wound care DVT prophylaxis. Lovenox subcu Full code Patient daughter requesting updates providers. Ms. Renetta Moreira, contact #[phone]. Admission and Anticipated Discharge Date Admission Date: April 11, 2023 Subjective Patient seen and examined Patient has hearing deficits She also has expressive aphasia which makes ROS challenging She noted pain in her left hip She follows simple commands most of the time. Physical Exam Constitutional: + well hydrated; no acute distress Eyes: PERRL, conjunctivae normal, anicteric sclerae ENMT: external ear and nose normal, oropharynx normal Respiratory: normal respiratory effort, lungs clear to auscultation Cardiovascular: Rate/Rhythm: regular rate and regular rhythm S1 S2 Gastrointestinal (Abdomen): normal bowel sounds, soft, nontender, no h epatosplenomegaly Musculoskeletal: No pedal edema Neurologic: PERRL, EOMI +Aphasia No facial droop, nystagmus or lateral drift of outstretched arms NO focal sensory or motor deficits in extremities Results & Data Results & Data Vital Signs (Past 12 Hours) Vital Signs Temp Pulse Pulse Resp BP BP Pulse Ox 04/11/23 07:58 36.6 C 78 18 115/78 97 04/11/23 06:15 04/11/23 06:15 36.4 C L 84 16 153/87 H 96 04/11/23 04:59 36.4 C L 84 16 153/87 H 96 04/11/23 07:26 81 04/11/23 04:38 04/11/23 04:20 87 19 04/11/23 04:10 86 17 04/11/23 04:00 85 19 140/91 04/11/23 03:50 86 18 04/11/23 03:40 96 H 20 04/11/23 03:30 88 17 132/86 95 04/11/23 03:20 87 21 98 04/11/23 03:10 86 18 98 04/11/23 03:00 84 20 139/87 98 04/11/23 02:50 89 23 96 04/11/23 02:40 85 23 100 04/11/23 02:30 82 15 145/84 H 99 04/11/23 02:20 87 15 100 04/11/23 02:10 88 18 98 04/11/23 02:00 86 14 100 04/11/23 01:50 84 16 137/99 100 04/11/23 01:40 91 H 21 04/11/23 01:30 107 H 18 04/11/23 01:20 88 18 04/11/23 03:48 90 04/11/23 01:10 85 19 04/11/23 01:01 94 H 16 133/100 04/11/23 01:00 91 H 17 04/11/23 00:50 87 17 04/11/23 00:40 89 16 100 04/11/23 00:30 84 18 136/87 99 04/11/23 00:32 37.3 C 04/11/23 00:20 89 14 100 04/11/23 00:10 92 H 18 163/100 H 100 04/11/23 00:01 90 16 97 04/11/23 00:00 96 H 19 100 04/10/23 23:56 89 22 04/10/23 23:30 85 13 133/89 100 04/10/23 23:20 87 19 100 04/10/23 23:10 89 17 04/10/23 23:00 89 24 137/103 H 100 04/10/23 22:50 86 23 100 04/10/23 22:48 92 H 28 H 149/94 H O2 Del Method 04/11/23 07:58 Room Air 04/11/23 06:15 Room Air 04/11/23 06:15 Room Air 04/11/23 04:59 Room Air 04/11/23 07:26 04/11/23 04:38 Room Air 04/11/23 04:20 04/11/23 04:10 04/11/23 04:00 04/11/23 03:50 04/11/23 03:40 04/11/23 03:30 04/11/23 03:20 04/11/23 03:10 04/11/23 03:00 04/11/23 02:50 04/11/23 02:40 04/11/23 02:30 04/11/23 02:20 04/11/23 02:10 04/11/23 02:00 04/11/23 01:50 04/11/23 01:40 04/11/23 01:30 04/11/23 01:20 04/11/23 03:48 04/11/23 01:10 04/11/23 01:01 04/11/23 01:00 04/11/23 00:50 04/11/23 00:40 04/11/23 00:30 04/11/23 00:32 04/11/23 00:20 04/11/23 00:10 04/11/23 00:01 04/11/23 00:00 04/10/23 23:56 04/10/23 23:30 04/10/23 23:20 04/10/23 23:10 04/10/23 23:00 04/10/23 22:50 04/10/23 22:48 Laboratory Results Abnormal lab results 04/10/23 04/10/23 04/10/23 Range/Units 22:00 22:26 22:26 MPV 9.1 L (9.4-12.4) fL Neut # (Auto) 6.63 H (1.40-6.50) K/uL [place] # (Auto) 1.01 H (0.11-0.59) K/uL Sodium 133 L (136-145) mmol/L Creatinine 0.49 L (0.6-1.2) mg/dl BUN/Creatinine Ratio 20.4 H (10-20) Glucose 206 H (70-99(Fasting)) mg/dl POC Glucose 163 H (70-99) mg/dl Alkaline Phosphatase 129 H (34-104) U/L 04/11/23 04/11/23 Range/Units 06:12 12:03 MPV (9.4-12.4) fL Neut # (Auto) (1.40-6.50) K/uL [place] # (Auto) (0.11-0.59) K/uL Sodium (136-145) mmol/L Creatinine (0.6-1.2) mg/dl BUN/Creatinine Ratio (10-20) Glucose (70-99(Fasting)) mg/dl POC Glucose 125 H 198 H (70-99) mg/dl Alkaline Phosphatase (34-104) U/L
[2023-04-11] MEDS: MUPIROCIN 2% OINT 22 GM TUBE TOP SCH ×2 (12:07→21:17)
--- NOTE | 2023-04-11 13:14 | Pharmacy Report ---
- Date of Service April 11, 2023 - Pharmacy CVA/TIA Medication Review Medications to Prevent Stroke handout has been added to the patients discharge packet. Antiplatelet(s) * Aspirin 81 mg PO daily Cholesterol * LDL = 32 * Patient was on Atorvastatin 10 mg daily prior to admission. This is continued on admission. * Per Neurology note: "since her lipids are so significantly controlled on the low dose of atorvastatin, I would not increase this dose." DVT Prophylaxis * Heparin 5000 units SC q12h Therapeutic Anticoagulation * No history of Afib/Aflutter noted Type 2 Diabetes * Patient has T2DM, but per Dr. Pulido, a diabetes medication with proven CVD benefit will be deferred to their outpatient provider due to familiarity with risks/benefits of such therapies. Dr. Pulido said her basal insulin was only just increased last month. "Medications to prevent stroke" handout has already been added to the patient's discharge packet, which instructs the patient to follow up with their outpatient provider to evaluate which diabetes medication with proven CVD benefit is best for them
[2023-04-11] MEDS: HEPARIN SOD 5,000 UNIT/0.5 ML VIAL SQ SCH ×2 (16:44→21:16)
[2023-04-11] MEDS: ATORVASTATIN 10 MG TAB PO SCH (21:15)
--- NOTE | 2023-04-12 06:16 | Electrocardiogram Report ---
Test Reason : Blood Pressure : / mmHG Vent. Rate : 085 BPM Atrial Rate : 085 BPM P-R Int : 124 ms QRS Dur : 074 ms QT Int : 372 ms P-R-T Axes : 025 -20 090 degrees QTc Int : 442 ms Normal sinus rhythm Low voltage QRS Septal infarct , age undetermined Nonspecific T wave abnormality Abnormal ECG When compared with ECG of 13-MAR-2023 14:02, Septal infarct is now Present T wave inversion no longer evident in Anterior leads Confirmed by William Redd ([id number]) on 04/12/2023 6:15:56 AM Referred By: VINH PCP Confirmed By:William Redd
[2023-04-12 07:47] LABS: Basophils # (auto) 0.05 K/uL (0-0.2); Basophils % (auto) 0.6 %; Eosinophils # (auto) 0.18 K/uL (0-0.50); Hematocrit (blood only) 38.6 % (37.0-47.0); Hemoglobin 13.1 g/dl (12.0-16.0); Immature Granulocytes # (auto) 0.03 K/uL (0.01-0.20); Immature Granulocytes % (auto) 0.3 %; Lymphocytes # (auto) 1.49 K/uL (1.2-3.4); Lymphocytes % (auto) 16.9 %; Mean Corpuscular Hemoglobin 29.4 pg (25.0-34.0); Mean Corpuscular Hgb Conc 33.9 g/dL (32.0-36.0); Mean Corpuscular Volume 86.7 fL (80.0-100.0); Monocytes # (auto) 0.82 K/uL (0.11-0.59); Monocytes % (auto) 9.3 %; Neutrophils # (auto) 6.24 K/uL (1.40-6.50); Neutrophils % (auto) 70.9 %; Platelet Count 296 K/uL (130-400); RDW Coefficient of Variation 13.1 % (11.5-14.5); RDW Standard Deviation 40.8 fL (36.4-46.3); Red Blood Count 4.45 M/uL (4.20-5.40); White Blood Count 8.81 K/ul (4.8-10.8)
[2023-04-12 08:08] LABS: BUN Creatinine Ratio 17.5 (10-20); Calcium 8.8 mg/dl (8.6-10.3); Creatinine Clr Calc Pharmacy 120.6 ml/min; Est GFR (African American) 129.4 ml/min; Est GFR (Non-African American) 111.6 ml/min
--- NOTE | 2023-04-12 08:26 | Hospitalist Progress Note ---
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 Will continue this for now Recent A1c from last month was 9.8. Need optimization of glycemic control. Will monitor while inpatient Start IVF D5 saline for now while NPO Accucheck and ISS q6H Will have glycemic pharm on board TTE reviewed PT/OT eval noted Will benefit from SNF eventually Called daughter Renetta and updated her Currently on home levothyroxine dose for hypothyroidism Currently home aripiprazole, duloxetin Po meds on hold today as above Continue wound care DVT prophylaxis. Hep sq not given this morning in view of some oral bleeding Full code Patient daughter requesting updates providers. Ms. Renetta Moreira, contact #[phone]. I spent a total of 65 minutes coordinating, documenting and providing care for this patient excluding time spent in performance of separately billed services Called daughter and updated again in the afternoon Admission and Anticipated Discharge Date Admission Date: April 11, 2023 Subjective Called by RN who just took over this morning that she had noticed some blood on patient's face. Per RN, Night RN noted she was sleeping around 1am. No other events noted Tele showed sinus tachycardia in 100s. On seeing patient, she was sleeping but arousable However, she was not responsive to my questions, tracks slowly Patient has significant hearing deficits. However, even after placing her hearing aids on/turning them on, she was still not answering questions like yesterday She had dried blood in her lip and mouth but would not let me examine inside of mouth/tongue properly Review of Systems Review of Systems: Unable to assess due to mental status Physical Exam Constitutional: no acute distress Altered Eyes: PERRL, conjunctivae normal, anicteric sclerae ENMT: Dried blood on lip and mouth. Would not allow me examine oral cavity as she kept closing her mouth and pulling away Respiratory: normal respiratory effort, lungs clear to auscultation Cardiovascular: Rate/Rhythm: regular rhythm and + tachycardic S1 S2 Gastrointestinal (Abdomen): normal bowel sounds, soft, nontender, no hepatosplenomegaly Musculoskeletal: No pedal edema Neurologic: PERRL, EOMI Was not answering my questions. Tracks Stares blankly at times Moves all extremities spontaneously Results & Data Results & Data Vital Signs (Past 12 Hours) Vital Signs Temp Pulse Pulse Resp BP BP Pulse Ox 04/12/23 07:59 36.8 C 102 H 18 126/78 92 04/12/23 07:30 128 H 04/12/23 07:30 04/12/23 04:02 36.6 C 89 18 117/80 95 04/11/23 23:30 36.8 C 92 H 18 121/77 96 04/12/23 00:57 93 H O2 Del Method 04/12/23 07:59 Room Air 04/12/23 07:30 04/12/23 07:30 Room Air 04/12/23 04:02 Room Air 04/11/23 23:30 Room Air 04/12/23 00:57 Laboratory Results Abnormal lab results 04/11/23 04/11/23 04/12/23 Range/Units 16:57 20:16 07:02 MPV 9.0 L (9.4-12.4) fL [place] # (Auto) 0.82 H (0.11-0.59) K/uL Creatinine (0.6-1.2) mg/dl Glucose (70-99(Fasting)) mg/dl POC Glucose 127 H 134 H (70-99) mg/dl 04/12/23 04/12/23 04/12/23 Range/Units 07:02 07:48 11:47 MPV (9.4-12.4) fL [place] # (Auto) (0.11-0.59) K/uL Creatinine 0.40 L (0.6-1.2) mg/dl Glucose 167 H (70-99(Fasting)) mg/dl POC Glucose 218 H 217 H (70-99) mg/dl
[2023-04-12] MEDS: HEPARIN SOD 5,000 UNIT/0.5 ML VIAL SQ SCH ×2 (08:29→20:12)
[2023-04-12] MEDS: DULoxetine HCL 60 MG CAP PO SCH ×2 (08:29→20:12)
[2023-04-12] MEDS: ASPIRIN 81 MG ECTAB PO SCH (08:29)
[2023-04-12] MEDS: ARIPiprazole 10 MG TAB PO SCH (08:29)
[2023-04-12] MEDS: MUPIROCIN 2% OINT 22 GM TUBE TOP SCH ×2 (08:30→20:13)
--- NOTE | 2023-04-12 09:20 | CT Scan Report ---
CT head/brain wo con CLINICAL HISTORY: CVA. Acute change in mental status. Reassess Technique: Contiguous axial CT images of the head were acquired from the base of the skull to the barney nuzhat without intravenous contrast administration. Images were viewed in brain, subdural and bone windo ws. Automated dose lowering techniques and/or adjustment according to patient size were utilized for this exam. Comparison: Comparison is made to CTA head and neck 04/10/2023 Findings: Areas of decreased attenuation are present in the periventricular and subcortical white matter bilate rally consistent with small vessel ischemic disease. Generalized cerebral atrophy with commensurate e nlargement of the ventricles, sulci, and cisterns is also present. There is no acute intracranial hem orrhage or evidence of acute territorial infarction. No shift of the midline structures, mass effect, or extra-axial abnormalities are shown. Atherosclerotic calcifications are present in the intracran ial segments of the internal carotid arteries. Imaged portions of the paranasal sinuses and mastoid air cells are clear. The orbits appear normal. There are no acute fractures of the calvaria or scalp swelling. Impression: No acute intracranial hemorrhage, no evidence of acute territorial infarction or other acute intracra nial disease process. ACT 112: Negative or not required by law. Electronically signed by: Porter Parks M.D. 04/12/2023 9:18 AM
--- NOTE | 2023-04-12 09:53 | Neurology Progress Note ---
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 Clinically, she has a distinct aphasia, mostly motor/expressive. She cannot state nouns. Because of her trouble with following commands and with imitation (at times) I cannot exclude a receptive aphasia in addition. Compounding the communication issues is profound hearing loss with cochlear implants. She has no other focal neurologic deficit on examination otherwise. this morning she was found with blood and having had bitten the right side of her tongue. Given her mental status I suspect she had a seizure. Repeat CT scan was unremarkable. Patient has been falling recently. This has not been adequately explore and I do note on CT scan of the head that the patient has her generous ventricles and she may have normal pressure hydrocephalus. This could give her some cognitive issues as well as balance and falling problems. Patient has multiple risk factors for stroke including hypertension, diabetes, cigarette smoking, and dyslipidemia. Her lipids, however, are very well controlled on 10 mg atorvastatin. Recommendations: 1. Unfortunately, we cannot get an MRI of the brain because of the cochlear implants. 2. initiate levetiracetam 500 milligrams twice daily. No need for a loading dose at this time. No need for an EEG as I would probably treat her whether the EEG was positive or negative. 3. once she recovers some from her acute stroke, we may pursue additional neurologic testing because of the ventricular size and her falling. We may consider a radionucleotide cisternogram to evaluate for normal pressure hydrocephalus ( this could could be done as an outpatient ). 4. Speech therapy to evaluate and treat. Physical and occupational therapy should be done as well. 5. Control blood pressure as you are doing. 6. Control glucose trying to lower the hemoglobin A1c ( March 14 was 9.8). 7. since her lipids are so significantly controlled on the low dose of atorvastatin, I would not increase this dose. 8. Continue 81 mg aspirin tablet daily overall, I spent a total of 35 minutes with this case including review of records, review of CT films, direct evaluation the patient at bedside, discussion of the case with the patient, RN, and Dr. Ezekwem at bedside, including differential diagnosis and treatment options. Admission and Anticipated Discharge Date Admission Date: April 11, 2023 Subjective Patient had an uneventful day yesterday and apparently slept all night. She was found in the morning by the day shift RN to be asleep with blood dripping out corners of both sides of her mouth. It was clear that she is this the right side of her tongue. She underwent a CT scan of the head which showed no acute processes or change. Ventricles were still enlarged. Blood pressure was 126/78 and she Remains afebrile. Laboratory studies today revealed a normal CBC and Chem profile although glucose was 167. Results & Data Vital Signs (Past 12 Hours) Vital Signs Temp Pulse Pulse Resp BP BP Pulse Ox 04/12/23 07:59 36.8 C 102 H 18 126/78 92 04/12/23 07:30 128 H 04/12/23 07:30 04/12/23 04:02 36.6 C 89 18 117/80 95 04/11/23 23:30 36.8 C 92 H 18 121/77 96 04/12/23 00:57 93 H O2 Del Method 04/12/23 07:59 Room Air 04/12/23 07:30 04/12/23 07:30 Room Air 04/12/23 04:02 Room Air 04/11/23 23:30 Room Air 04/12/23 00:57 Exam (Neuro) Physical Exam: she is awake and alert when gently touched. She makes eye contact and fixes following the examiner. She says "yes" and "okay" frequently no matter how loudly I speak to her. She seems slightly lethargic / confused compared to yesterday. She is moving all 4 limbs equally well with no abnormal involuntary movements. Extraocular eye muscles seem intact without nystagmus and there is no facial droop. Tongue is midline. PG Care Time/CCT Total # of Minutes Spent Total Time Spent with Patient: Total time spent is greater than 50% in coordination of care (as documented) at patient's floor/unit and/or counseling patient: Coding Level of Care Code 72247 SUB INP/OBS CARE 2/35MIN Diagnoses Unresponsive episode R41.89 Aphasia due to acute stroke I63.9; R47.01 Hypertension I10 Diabetes mellitus, type II E11.9 Fall W19.XXXA Hearing deficit H91.90
[2023-04-12] MEDS ORDERED: levETIRAcetam 500 MG in 0.9 % SODIUM CHLORIDE 100 ML IV SCH (10:30)
[2023-04-12] MEDS: INSULIN ASPART PER UNIT CHARGE SC SCH ×4 (10:38→18:49)
[2023-04-12] MEDS: LANTUS PER UNIT CHARGE SQ SCH (10:44)
[2023-04-12] MEDS: NICOTINE 21 MG/24 HR TDSY TD SCH (10:44)
[2023-04-12] MEDS ORDERED: PHARMACY GLYCEMIC MGMT CONSULT PRN (14:20)
[2023-04-12] MEDS: D5W AND NSS 1,000 ML IV SCH (14:22)
[2023-04-12] MEDS ORDERED: LORazepam 2 MG/1 ML VIAL IV PRN (18:12)
[2023-04-12] MEDS ORDERED: levETIRAcetam 1,000 MG in 0.9 % SODIUM CHLORIDE 100 ML IV STA (18:46)
--- NOTE | 2023-04-12 18:49 | Communication Note ---
Date of Service: April 12, [address] Pulido / pt's RN that patient likely experienced another seizure. Family member was present at the bedside and witnessed patient twitching. On my evaluation, patient likely postictal, she is also very hard of hearing per family present at the bedside. Patient not answering questions, drowsy. Discussed with the family at the bedside and discussed with neurologist Dr. Altamirano. Plan to give patient 1 g of IV Keppra now. Patient was started on Keppra today and received 500 mg this morning. She will continue with this dosage starting tomorrow. Dr. Pulido was updated about the conversation. MD Wil[place]
[2023-04-12] MEDS: ATORVASTATIN 10 MG TAB PO SCH (20:12)
[2023-04-12] MEDS ORDERED: LANTUS PER UNIT CHARGE SQ SCH (21:00)
[2023-04-13] MEDS: INSULIN ASPART PER UNIT CHARGE SC SCH ×5 (00:25→20:37)
[2023-04-13] MEDS: D5W AND NSS 1,000 ML IV SCH ×2 (05:20→18:50)
[2023-04-13 06:24] LABS: Basophils # (auto) 0.06 K/uL (0-0.2); Basophils % (auto) 0.5 %; Eosinophils # (auto) 0.08 K/uL (0-0.50); Eosinophils % (auto) 0.7 %; Hematocrit (blood only) 38.8 % (37.0-47.0); Hemoglobin 12.8 g/dl (12.0-16.0); Immature Granulocytes # (auto) 0.03 K/uL (0.01-0.20); Immature Granulocytes % (auto) 0.2 %; Lymphocytes % (auto) 14.7 %; Mean Corpuscular Hemoglobin 28.9 pg (25.0-34.0); Mean Corpuscular Volume 87.6 fL (80.0-100.0); Mean Platelet Volume 8.7 fL (9.4-12.4); Monocytes # (auto) 1.53 K/uL (0.11-0.59); Monocytes % (auto) 12.5 %; Neutrophils # (auto) 8.74 K/uL (1.40-6.50); Neutrophils % (auto) 71.4 %; Platelet Count 311 K/uL (130-400); RDW Coefficient of Variation 13.2 % (11.5-14.5); RDW Standard Deviation 42.4 fL (36.4-46.3); Red Blood Count 4.43 M/uL (4.20-5.40); White Blood Count 12.24 K/ul (4.8-10.8)
[2023-04-13 06:48] LABS: BUN Creatinine Ratio 16.7 (10-20); Calcium 9.3 mg/dl (8.6-10.3); Est GFR (African American) 133.9 ml/min; Est GFR (Non-African American) 115.6 ml/min; Potassium 4.4 mmol/L (3.5-5.1)
[2023-04-13] MEDS: DULoxetine HCL 60 MG CAP PO SCH ×2 (07:55→20:36)
[2023-04-13] MEDS: ASPIRIN 81 MG ECTAB PO SCH (07:55)
[2023-04-13] MEDS: ARIPiprazole 10 MG TAB PO SCH (07:55)
[2023-04-13] MEDS: HEPARIN SOD 5,000 UNIT/0.5 ML VIAL SQ SCH ×2 (07:56→20:37)
[2023-04-13] MEDS: levETIRAcetam 500 MG in 0.9 % SODIUM CHLORIDE 100 ML IV SCH ×2 (07:57→20:36)
[2023-04-13] MEDS: NICOTINE 21 MG/24 HR TDSY TD SCH (07:58)
[2023-04-13] MEDS: MUPIROCIN 2% OINT 22 GM TUBE TOP SCH ×2 (07:58→20:38)
--- NOTE | 2023-04-13 12:22 | Hospitalist Progress Note ---
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 Will continue this for now Recent A1c from last month was 9.8. Need optimization of glycemic control. Will monitor while inpatient Accucheck and ISS q6H Glycemic pharm on board TTE reviewed PT/OT eval noted Will benefit from SNF eventually Currently on home levothyroxine dose for hypothyroidism Currently home aripiprazole, duloxetin Po meds on hold today as above until cleared by PRACTICING UROLOGIST Continue wound care DVT prophylaxis. Hep sq Full code Patient daughter requesting updates providers. Jovanny Renetta Moreira, contact #[phone]. I spent a total of 60 minutes coordinating, documenting and providing care for this patient excluding time spent in performance of separately billed services Updated daughter and sister who were at bedside Admission and Anticipated Discharge Date Admission Date: April 11, 2023 Subjective Patient seen and examined She is awake, alert today, answering 'OK' to every question Some swelling under the tongue. Had bit her tongue yesterday Occasionally able to follow simple instructions such as squeezing my hands when asked Limited ROS due aphasia and mental status Physical Exam Constitutional: + well hydrated; no acute distress Eyes: PERRL, conjunctivae normal, anicteric sclerae ENMT: Significant hearing deficits Some swelling under the tongue. No bleeding Respiratory: normal respiratory effort, lungs clear to auscultation Cardiovascular: Rate/Rhythm: regular rhythm and + tachycardic S1 S2 Gastrointestinal (Abdomen): normal bowel sounds, soft, nontender, no hepatosplenomegaly Musculoskeletal: No pedal edema Neurologic: PERRL, EOMI. +aphasia Moves all extremities spontaneously Awake and alert. Genitourinary: [place] in situ Results & Data Results & Data Vital Signs (Past 12 Hours) Vital Signs Temp Pulse Pulse Resp BP BP BP 04/13/23 10:33 36.9 C 105 H 16 154/91 H 04/13/23 07:50 36.9 C 88 22 147/87 H 04/13/23 07:30 73 21 04/13/23 07:00 81 18 04/13/23 07:00 147/87 H 04/13/23 01:49 36.8 C 04/13/23 01:00 85 21 04/13/23 01:00 123/77 Pulse Ox O2 Del Method 04/13/23 10:33 98 Room Air 04/13/23 07:50 97 Room Air 04/13/23 07:30 92 04/13/23 07:00 96 04/13/23 07:00 04/13/23 01:49 04/13/23 01:00 94 04/13/23 01:00 Laboratory Results Abnormal lab results 04/12/23 04/12/23 04/13/23 Range/Units 15:49 20:02 01:22 WBC (4.8-10.8) K/ul MPV (9.4-12.4) fL Neut # (Auto) (1.40-6.50) K/uL [place] # (Auto) (0.11-0.59) K/uL Creatinine (0.6-1.2) mg/dl POC Glucose 114 H 126 H 65 L* (70-99) mg/dl 04/13/23 04/13/23 04/13/23 Range/Units 01:23 01:54 05:52 WBC 12.24 H (4.8-10.8) K/ul MPV 8.7 L (9.4-12.4) fL Neut # (Auto) 8.74 H (1.40-6.50) K/uL [place] # (Auto) 1.53 H (0.11-0.59) K/uL Creatinine (0.6-1.2) mg/dl POC Glucose 65 L* 145 H (70-99) mg/dl 04/13/23 04/13/23 04/13/23 Range/Units 05:52 08:09 11:34 WBC (4.8-10.8) K/ul MPV (9.4-12.4) fL Neut # (Auto) (1.40-6.50) K/uL [place] # (Auto) (0.11-0.59) K/uL Creatinine 0.36 L (0.6-1.2) mg/dl POC Glucose 106 H 133 H (70-99) mg/dl
--- NOTE | 2023-04-13 15:03 | Pharmacy Report ---
Pharmacy Glycemic Short Note 2 - Date of Service April 13, 2023 - Glycemic Short BSG Results (Last 24 hours): 04/12/23 04/12/23 04/13/23 15:49 20:02 00:16 Glucose POC Glucose 114 H 126 H 74 04/13/23 04/13/23 04/13/23 01:22 01:23 01:54 Glucose POC Glucose 65 L* 65 L* 145 H 04/13/23 04/13/23 04/13/23 05:52 06:23 08:09 Glucose 89 POC Glucose 91 106 H 04/13/23 11:34 Glucose POC Glucose 133 H OUTPATIENT ANTIDIABETIC REGIMEN: * Tresiba 16 units SQ daily + Novolog 5 units TID * A1c = 9.8% (03/14/23) ASSESSMENT: * Vani is a 62 yo T2DM who presented with altered mental status. CT of her head revealed acute/subacute infarct over left temporal lobe. * She was started on Lantus 10 units daily on admission. This was increased to 10 units BID on 04/12 due to fasting BSG of 218 mg/dL. Patient with hypoglycemia this morning, BSG 65 mg/dL. Will hold basal insulin this morning. Resume this evening at reduced dose (25% reduction in home dose). * Patient has required no bolus insulin thus far this admission. Diet being advanced with dinner today. May need to adjust Novolog parameters in AM. PLAN FOR INPATIENT GLYCEMIC CONTROL: * Hold outpatient oral diabetes medications * Basal insulin * Lantus 12 units SQ this evening * Reassess basal 5/15 AM * Bolus insulin * NovoLog per scale ACHS or Q6hrs while NPO * Goal Range: Low 110 mg/dL - High 140 mg/dL * Correction Factor: 30 mg/dL/unit * Nutritional / Prandial insulin per carb ratio of 1 unit per 15 grams CHO consumed
[2023-04-13] MEDS: ATORVASTATIN 10 MG TAB PO SCH (20:37)
[2023-04-13] MEDS ORDERED: LANTUS PER UNIT CHARGE SQ SCH (21:00)
[2023-04-14 08:04] LABS: Basophils # (auto) 0.04 K/uL (0-0.2); Basophils % (auto) 0.5 %; Eosinophils # (auto) 0.19 K/uL (0-0.50); Eosinophils % (auto) 2.2 %; Hematocrit (blood only) 39.4 % (37.0-47.0); Immature Granulocytes # (auto) 0.02 K/uL (0.01-0.20); Immature Granulocytes % (auto) 0.2 %; Lymphocytes # (auto) 1.37 K/uL (1.2-3.4); Lymphocytes % (auto) 15.9 %; Mean Corpuscular Hemoglobin 29.2 pg (25.0-34.0); Mean Corpuscular Volume 88.5 fL (80.0-100.0); Mean Platelet Volume 8.7 fL (9.4-12.4); Monocytes # (auto) 0.94 K/uL (0.11-0.59); Monocytes % (auto) 10.9 %; Neutrophils # (auto) 6.08 K/uL (1.40-6.50); Neutrophils % (auto) 70.3 %; Platelet Count 280 K/uL (130-400); RDW Coefficient of Variation 12.9 % (11.5-14.5); RDW Standard Deviation 41.6 fL (36.4-46.3); Red Blood Count 4.45 M/uL (4.20-5.40); White Blood Count 8.64 K/ul (4.8-10.8)
[2023-04-14 08:30] LABS: BUN Creatinine Ratio 9.8 (10-20); Calcium 9.2 mg/dl (8.6-10.3); Creatinine Clr Calc Pharmacy 117.7 ml/min; Est GFR (African American) 128.3 ml/min; Est GFR (Non-African American) 110.7 ml/min; Magnesium 1.8 mg/dl (1.7-2.4); Phosphorus 3.2 mg/dl (2.5-4.9); Potassium 3.7 mmol/L (3.5-5.1)
[2023-04-14] MEDS: D5W AND NSS 1,000 ML IV SCH ×2 (08:31→20:53)
[2023-04-14] MEDS: INSULIN ASPART PER UNIT CHARGE SC SCH ×4 (08:32→20:24)
[2023-04-14] MEDS: ASPIRIN 81 MG ECTAB PO SCH ×2 (08:35→08:47)
[2023-04-14] MEDS: DULoxetine HCL 60 MG CAP PO SCH ×3 (08:35→20:54)
[2023-04-14] MEDS: HEPARIN SOD 5,000 UNIT/0.5 ML VIAL SQ SCH ×2 (08:36→20:53)
[2023-04-14] MEDS: MUPIROCIN 2% OINT 22 GM TUBE TOP SCH ×2 (08:36→20:55)
[2023-04-14] MEDS: ARIPiprazole 10 MG TAB PO SCH ×2 (08:36→08:47)
[2023-04-14] MEDS: levETIRAcetam 500 MG in 0.9 % SODIUM CHLORIDE 100 ML IV SCH ×2 (08:36→20:53)
[2023-04-14] MEDS: NICOTINE 21 MG/24 HR TDSY TD SCH (08:37)
--- NOTE | 2023-04-14 10:56 | Pharmacy Report ---
Pharmacy Glycemic Short Note 2 - Date of Service April 14, 2023 - Glycemic Short BSG Results (Last 24 hours): 04/13/23 04/13/23 04/13/23 11:34 16:50 20:09 Glucose POC Glucose 133 H 135 H 150 H 04/14/23 04/14/23 07:24 07:44 Glucose 162 H POC Glucose 148 H OUTPATIENT ANTIDIABETIC REGIMEN: * Tresiba 16 units SC daily * Novolog 5 units SC AC * Trulicity 0.75 mg SC every Friday * HbA1c: 9.8% (03/14/23) ASSESSMENT: 04/14: * Vani received 13 units of insulin yesterday, 12 units basal + 1 unit bolus. BSGs were: 75-31-241-135-150 mg/dL. * Fasting BSG this AM was 148 mg/dL. Will continue with reduced basal dose. Patient takes basal dose in the AM at home so will start transition back to AM administration today by giving dose with dinner. * Did tighten Novolog this AM. Patient is ordered a T2DM diet but has not eaten anything. 04/13: * Vani is a 62 yo T2DM who presented with altered mental status. CT of her head revealed acute/subacute infarct over left temporal lobe. * She was started on Lantus 10 units daily on admission. This was increased to 10 units BID on 04/12 due to fasting BSG of 218 mg/dL. Patient with hypoglycemia this morning, BSG 65 mg/dL. Will hold basal insulin this morning. Resume this evening at reduced dose (25% reduction in home dose). * Patient has required no bolus insulin thus far this admission. Diet being advanced with dinner today. May need to adjust Novolog parameters in AM. PLAN FOR INPATIENT GLYCEMIC CONTROL: * Hold outpatient GLP1-RA * Basal insulin * Lantus 12 units SC x 1 with dinner * Bolus insulin * NovoLog per scale ACHS or Q6hrs while NPO * Goal Range: Low 110 mg/dL - High 140 mg/dL * Correction Factor: 30 mg/dL/unit * Nutritional / Prandial insulin per carb ratio of 1 unit per 10 grams CHO c onsumed
--- NOTE | 2023-04-14 11:12 | Neurology Progress Note ---
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 Clinically, she has a distinct aphasia, mostly motor/expressive. She cannot state nouns. Because of her trouble with following commands and with imitation (at times) I cannot exclude a receptive aphasia in addition. Compounding the communication issues is profound hearing loss with cochlear implants. She has no other focal neurologic deficit on examination otherwise. On the morning of April 12, she was found with blood and having had bitten the right side of her tongue. Given her mental status I suspect she had a seizure. Repeat CT scan was unremarkable. she had a 2nd seizure later on on April 12 and then given a 1000 milligram loading dose of levetiracetam. She has been on 500 milligrams IV levetiracetam twice daily since. Patient has been falling recently. This has not been adequately explore and I do note on CT scan of the head that the patient has her generous ventricles and she may have normal pressure hydrocephalus. This could give her some cognitive issues as well as balance and falling problems. Patient has multiple risk factors for stroke including hypertension, diabetes, cigarette smoking, and dyslipidemia. Her lipids, however, are very well controlled on 10 mg atorvastatin. Recommendations: 1. Unfortunately, we cannot get an MRI of the brain because of the cochlear implants. 2. Continue levetiracetam 500 milligrams twice daily. 3. once she recovers some from her acute stroke, we may pursue additional neurologic testing because of the ventricular size and her falling. We may consider a radionucleotide cisternogram to evaluate for normal pressure h ydrocephalus ( this could could be done as an outpatient ). 4. Speech therapy to evaluate and treat. Physical and occupational therapy should be done as well. 5. Control blood pressure as you are doing. 6. Control glucose trying to lower the hemoglobin A1c ( March 14 was 9.8). 7. since her lipids are so significantly controlled on the low dose of atorvastatin, I would not increase this dose. 8. Continue 81 mg aspirin tablet daily overall, I spent a total of 35 minutes with this case including review of records, direct evaluation the patient at bedside, discussion of the case with the patient, RN, the patient's daughter at bedside, and Dr. Pulido, including differential diagnosis and treatment options. Admission and Anticipated Discharge Date Admission Date: April 11, 2023 Subjective patient has had no seizures since the evening of April 12. She is on 500 milligrams of levetiracetam twice daily. Nursing staff says that she has been somewhat irritable. She has tried to remove her hearing aids and pull out lines at times. The daughter, who is present today states that she has been variable in her mood but somewhat grumpy with her over the last day or so. She is afebrile and blood Pressure is 144/87. Today, CBC was unremarkable. Chem profile showed a glucose of 162 but was otherwise unremarkable as well. Results & Data Vital Signs (Past 12 Hours) Vital Signs Temp Pulse Pulse Resp BP Pulse Ox O2 Del Method 04/14/23 07:43 53 L 04/14/23 06:54 36.9 C 78 22 144/87 H 97 Room Air Exam (Neuro) Physical Exam: She was sleeping but easily aroused with gentle touch on her sternum. She opened her eyes and make eye contact and smiled. She would not formulate words. She did not have her hearing aids in and she could not seem to understand anything I was same. She had no abnormal involuntary movements and had symmetrical strength in the arms and legs with symmetrical withdrawal to light stimuli in all 4 limbs. Extraocular eye muscles are intact without nystagmus and there was no facial droop. PG Care Time/CCT Total # of Minutes Spent Total Time Spent with Patient: Total time spent is greater than 50% in coordination of care (as documented) at patient's floor/unit and/or counseling patient: Coding Level of Care Code 39167 SUB INP/OBS CARE 2/35MIN Diagnoses Unresponsive episode R41.89 Aphasia due to acute stroke I63.9; R47.01 Hypertension I10 Diabetes mellitus, type II E11.9 Fall W19.XXXA Hearing deficit H91.90 Time Spent (min) 35
--- NOTE | 2023-04-14 12:47 | Hospitalist Progress Note ---
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 of 04/12/23 She bit her tongue Repeat stat CT did not show acute abnormality Started on Keppra 500mg IV BID per neuro Had a witnessed seizure evening of 04/12/23 described by daughter as jerking movement in LUE Loaded with keppra 1000mg Continue Keppra 500mg IV BID 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 Will continue this for now Recent A1c from last month was 9.8. Tresiba dose was increased to 20U daily. Difficult to ascertain if patient had been adherent due to speech/hearing deficits Patient is on Weekly trulicity. Need optimization of glycemic control. Accucheck and ISS q6H Glycemic pharm on board TTE reviewed PT/OT eval noted Will benefit from SNF eventually Currently on home levothyroxine dose for hypothyroidism Currently home aripiprazole, duloxetin Continue wound care DVT prophylaxis. Hep sq Full code Patient daughter requesting updates providers. Ms. Renetta Moreira, contact #[phone]. Unfortunately, this is a sad situation considering patient's hearing deficits, stroke with aphasia and seizures. Will continue to encourage po intake, continue PT/OT and see how patient does in the next 24-48h I spent a total of 45 minutes coordinating, documenting and providing care for this patient excluding time spent in performance of separately billed services Admission and Anticipated Discharge Date Admission Date: April 11, 2023 Subjective Patient seen and examined She is awake, alert, answers 'Yes' to all questions even contradictory ones It is tough to ascertain how much she understands due to aphasia. Even when I wrote questions out for her, she was not given consistent responses or following commands. She also has significant hearing deficits. Patient response did not change even after putting on both hearing devices. Per RN, she has also been occasionally refusing meds and food. ROS limited Physical Exam Constitutional: + well hydrated; no acute distress Eyes: PERRL, conjunctivae normal, anicteric sclerae ENMT: +Hearing deficits Respiratory: normal respiratory effort, lungs clear to auscultation Cardiovascular: Rate/Rhythm: regular rate and regular rhythm S1 S2 Gastrointestinal (Abdomen): normal bowel sounds, soft, nontender, no hepatosplenomegaly Musculoskeletal: Moves extremities spontaneously No pedal edema Neurologic: Awake, alert Neuro exam is limited due to aphasia and hearing deficits Moves extremities spontaneously Results & Data Results & Data Vital Signs (Past 12 Hours) Vital Signs Temp Pulse Pulse Resp BP Pulse Ox O2 Del Method 04/14/23 12:44 83 17 131/83 99 Room Air 04/14/23 11:09 Room Air 04/14/23 07:43 53 L 04/14/23 06:54 36.9 C 78 22 144/87 H 97 Room Air Laboratory Results Abnormal lab results 04/13/23 04/13/23 04/14/23 Range/Units 16:50 20:09 07:24 MPV (9.4-12.4) fL [place] # (Auto) (0.11-0.59) K/uL BUN (6-23) mg/dl Creatinine (0.6-1.2) mg/dl BUN/Creatinine Ratio (10-20) Glucose (70-99(Fasting)) mg/dl POC Glucose 135 H 150 H 148 H (70-99) mg/dl 04/14/23 04/14/23 04/14/23 Range/Units 07:44 07:44 11:22 MPV 8.7 L (9.4-12.4) fL [place] # (Auto) 0.94 H (0.11-0.59) K/uL BUN 4 L (6-23) mg/dl Creatinine 0.41 L (0.6-1.2) mg/dl BUN/Creatinine Ratio 9.8 L (10-20) Glucose 162 H (70-99(Fasting)) mg/dl POC Glucose 136 H (70-99) mg/dl
[2023-04-14] MEDS: ATORVASTATIN 10 MG TAB PO SCH (20:54)
[2023-04-15] MEDS: NICOTINE 21 MG/24 HR TDSY TD SCH (08:27)
[2023-04-15] MEDS: DULoxetine HCL 60 MG CAP PO SCH ×2 (08:27→19:59)
[2023-04-15] MEDS: MUPIROCIN 2% OINT 22 GM TUBE TOP SCH ×2 (08:28→19:59)
[2023-04-15] MEDS: HEPARIN SOD 5,000 UNIT/0.5 ML VIAL SQ SCH ×2 (08:28→19:58)
[2023-04-15] MEDS: levETIRAcetam 500 MG in 0.9 % SODIUM CHLORIDE 100 ML IV SCH ×2 (08:28→19:57)
[2023-04-15] MEDS: ARIPiprazole 10 MG TAB PO SCH (08:28)
[2023-04-15] MEDS: ASPIRIN 81 MG ECTAB PO SCH (08:28)
[2023-04-15] MEDS: LANTUS PER UNIT CHARGE SC SCH (08:29)
[2023-04-15] MEDS: INSULIN ASPART PER UNIT CHARGE SC SCH ×4 (08:30→21:33)
[2023-04-15 08:37] LABS: Hematocrit (blood only) 41.2 % (37.0-47.0); Hemoglobin 13.8 g/dl (12.0-16.0); Mean Corpuscular Hemoglobin 28.8 pg (25.0-34.0); Mean Corpuscular Hgb Conc 33.5 g/dL (32.0-36.0); Mean Platelet Volume 9.2 fL (9.4-12.4); Platelet Count 300 K/uL (130-400); RDW Coefficient of Variation 12.8 % (11.5-14.5); Red Blood Count 4.79 M/uL (4.20-5.40); White Blood Count 8.51 K/ul (4.8-10.8)
[2023-04-15] MEDS: D5W AND NSS 1,000 ML IV SCH (08:41)
[2023-04-15 08:47] LABS: BUN Creatinine Ratio 12.5 (10-20); Calcium 9.2 mg/dl (8.6-10.3); Creatinine Clr Calc Pharmacy 150.8 ml/min; Est GFR (African American) 139.2 ml/min; Est GFR (Non-African American) 120.1 ml/min; Potassium 3.5 mmol/L (3.5-5.1)
--- NOTE | 2023-04-15 13:37 | Hospitalist Progress Note ---
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 Plan to transition to po once oral intake improves/patient not refusing meds like yesterday CONTENT PUBLISHER eval noted Patient doing better today. Diet advanced Plan to stop IVF once po intake improves Neuro recommends further neurologic eval once stable to evaluate for NPH (can be done outpatient) Aspiration precautions Was started on ASA 81mg Very well controlled on atorvastatin 10mg. Will continue this for now Recent A1c from last month was 9.8. Tresiba dose was increased to 20U daily. Difficult to ascertain if patient had been adherent due to speech/hearing deficits Patient is on Weekly trulicity. Need optimization of glycemic control. Accucheck and ISS q6H Glycemic pharm on board TTE reviewed PT/OT eval noted Will benefit from SNF eventually Currently on home levothyroxine dose for hypothyroidism Currently home aripiprazole, duloxetin Continue wound care DVT prophylaxis. Hep sq Full code Patient daughter requesting updates providers. Ms. Renetta Moreira, contact #[phone]. Unfortunately, this is a sad situation considering patient's hearing deficits, stroke with aphasia and seizures. Patient is doing better today clinically Unclear if cochlear implant is working properly prior to stroke. No kardex clerk here. Will need follow up with kardex clerk Sister at bedside. Updated I spent a total of 50 minutes coordinating, documenting and providing care for this patient excluding time spent in performance of separately billed services Admission and Anticipated Discharge Date Admission Date: April 11, 2023 Subjective Patient seen and examined Patient is awake, alert, more interactive today, sitting out in chair Per RN, she has been accepting her meds today Patient has aphasia which makes communication difficult ROS limited by these Physical Exam Constitutional: + well hydrated; no acute distress Smiling Eyes: PERRL, conjunctivae normal, anicteric sclerae ENMT: Hearing deficits Respiratory: normal respiratory effort, lungs clear to auscultation Cardiovascular: Rate/Rhythm: regular rate and regular rhythm S1 S2 Gastrointestinal (Abdomen): normal bowel sounds, soft, nontender, no hepatosplenomegaly Musculoskeletal: No pedal edema Neurologic: PERRL, EOMI Moves all extremities spontaneously +aphasia Does not follow commands even when written out. Answers "OK" to every question Results & Data Results & Data Vital Signs (Past 12 Hours) Vital Signs Temp Pulse Pulse Resp BP Pulse Ox O2 Del Method 04/15/23 10:58 36.9 C 109 H 17 149/95 H 96 Room Air 04/15/23 10:58 Room Air 04/15/23 08:00 37.1 C 99 H 20 144/92 H 96 Room Air 04/15/23 07:12 80 Laboratory Results Abnormal lab results 04/14/23 04/14/23 04/15/23 Range/Units 16:26 20:16 07:33 MPV (9.4-12.4) fL Anion Gap (3-11) BUN (6-23) mg/dl Creatinine (0.6-1.2) mg/dl Glucose (70-99(Fasting)) mg/dl POC Glucose 169 H 102 H 163 H (70-99) mg/dl 04/15/23 04/15/23 04/15/23 Range/Units 07:36 07:36 11:24 MPV 9.2 L (9.4-12.4) fL Anion Gap 12 H (3-11) BUN 4 L (6-23) mg/dl Creatinine 0.32 L (0.6-1.2) mg/dl Glucose 172 H (70-99(Fasting)) mg/dl POC Glucose 185 H (70-99) mg/dl
[2023-04-15] MEDS: ATORVASTATIN 10 MG TAB PO SCH (19:59)
[2023-04-16] MEDS: D5W AND NSS 1,000 ML IV SCH (01:22)
[2023-04-16 07:54] LABS: Hematocrit (blood only) 40.3 % (37.0-47.0); Hemoglobin 13.3 g/dl (12.0-16.0); Mean Platelet Volume 9.1 fL (9.4-12.4); Platelet Count 294 K/uL (130-400); RDW Standard Deviation 41.8 fL (36.4-46.3); Red Blood Count 4.58 M/uL (4.20-5.40); White Blood Count 6.49 K/ul (4.8-10.8)
[2023-04-16] MEDS: INSULIN ASPART PER UNIT CHARGE SC SCH ×4 (08:05→20:43)
[2023-04-16] MEDS: LANTUS PER UNIT CHARGE SC SCH (08:05)
[2023-04-16] MEDS: NICOTINE 21 MG/24 HR TDSY TD SCH (08:06)
[2023-04-16] MEDS: DULoxetine HCL 60 MG CAP PO SCH ×2 (08:08→20:43)
[2023-04-16] MEDS: ASPIRIN 81 MG ECTAB PO SCH (08:08)
[2023-04-16] MEDS: ARIPiprazole 10 MG TAB PO SCH (08:08)
[2023-04-16] MEDS: HEPARIN SOD 5,000 UNIT/0.5 ML VIAL SQ SCH ×2 (08:08→20:43)
[2023-04-16] MEDS: levETIRAcetam 500 MG in 0.9 % SODIUM CHLORIDE 100 ML IV SCH ×2 (08:09→20:42)
[2023-04-16] MEDS: MUPIROCIN 2% OINT 22 GM TUBE TOP SCH ×2 (08:10→20:44)
[2023-04-16 08:15] LABS: BUN Creatinine Ratio 12.2 (10-20); Calcium 9.3 mg/dl (8.6-10.3); Creatinine Clr Calc Pharmacy 117.7 ml/min; Est GFR (African American) 128.3 ml/min; Est GFR (Non-African American) 110.7 ml/min; Magnesium 1.7 mg/dl (1.7-2.4); Phosphorus 3.6 mg/dl (2.5-4.9); Potassium 3.8 mmol/L (3.5-5.1)
--- NOTE | 2023-04-16 11:56 | Pharmacy Report ---
Pharmacy Glycemic Short Note 2 - Date of Service April 16, 2023 - Glycemic Short BSG Results (Last 24 hours): 04/15/23 04/15/23 04/16/23 16:37 21:01 06:43 Glucose 150 H POC Glucose 120 H 189 H 04/16/23 04/16/23 07:37 11:37 Glucose POC Glucose 142 H 109 H OUTPATIENT ANTIDIABETIC REGIMEN: * Tresiba 16 units SC daily * Novolog 5 units SC AC * Trulicity 0.75 mg SC every Friday * HbA1c: 9.8% (03/14/23) ASSESSMENT: 04/16: * Patient received 23 units of insulin yesterday, 12 units basal + 11 units bolus. BSGs were: 546-455-687-189 mg/dL. * D5 fluids were decreased from 75 cc/hr to 60 cc/hr yesterday afternoon. * Of note, patient did not receive any basal insulin on 04/14/23 due to an omission error by myself. However, blood sugars were surprisingly okay yesterday. * Fasting BSG was 142 mg/dL this AM, improved. Lunchtime BSG dropped to 109 mg/dL. * D5 fluids have been discontinued as of this morning. Therefore, will loosen Novolog parameters with lunch today. Patient already received 12 units of Lantus. Will discontinue any further basal insulin and have tomorrow's glycemic pharmacist evaluate basal needs in the morning. 04/14: * Vani received 13 units of insulin yesterday, 12 units basal + 1 unit bolus. BSGs were: 61-18-832-135-150 mg/dL. * Fasting BSG this AM was 148 mg/dL. Will continue with reduced basal dose. Patient takes basal dose in the AM at home so will start transition back to AM administration today by giving dose with dinner. * Did tighten Novolog this AM. Patient is ordered a T2DM diet but has not eaten anything. 04/13: * Vani is a 62 yo T2DM who presented with altered mental status. CT of her head revealed acute/subacute infarct over left temporal lobe. * She was started on Lantus 10 units daily on admission. This was increased to 10 units BID on 04/12 due to fasting BSG of 218 mg/dL. Patient with hypoglycemia this morning, BSG 65 mg/dL. Will hold basal insulin this morning. Resume this evening at reduced dose (25% reduction in home dose). * Patient has required no bolus insulin thus far this admission. Diet being advanced with dinner today. May need to adjust Novolog parameters in AM. PLAN FOR INPATIENT GLYCEMIC CONTROL: * Hold outpatient GLP1-RA * Basal insulin * Lantus 12 units SC daily - has been discontinued following this mornings dose * Reassess basal needs in AM * Bolus insulin * NovoLog per scale ACHS or Q6hrs while NPO * Goal Range: Low 110 mg/dL - High 140 mg/dL * Correction Factor: 35 mg/dL/unit * Nutritional / Prandial insulin per carb ratio of 1 unit per 15 grams CHO consumed
--- NOTE | 2023-04-16 14:46 | Palliative Care Consultation ---
Date of Consultation April 16, 2023 Assessment & Plan (1) Palliative care by specialist: (2) Advanced care planning/counseling discussion: (3) Dyspnea and respiratory abnormalities: (4) Weakness generalized: (5) Falls frequently: (6) Aphasia due to acute stroke: (7) Cerebrovascular accident: (8) Smoker: Plan pt unable to engage in discussion, very agitated and at times screaming.She has not been decisional through this admission. Continues to refuse care in varying capacities. Daughter at medical appt, planning to return tomorrow per nursing teams. Will revisit GOC discussion tomorrow with dtr who is also POA History of Present Illness Reason for Consultation: On 04/16/23 @ 13:55 Shon Crow Wrote Please address goals of care Attending Physician: Shon Crow MD History of Present Illness Vani Sanchez is a 62 year old woman with hearing deficits with cochlear implant, Hypertension, DM2, Hypothyroidism who presented to ED with report of confusion per family PMH: hypertension, hyperlipidemia, COPD/CONNIE as per records, DM 2 insulin requiring, hypothyroidism, anxiety/mood disorder, sensorineural hearing loss status post cochlear device implantation, ongoing tobacco abuse. Patient has various issues with medical non adherence and no follow up as advi sed. She is s/p cochlear implant but no one knows if it's working properly prior to stroke bc patient refused to go for follow up and her family did not know how to manage it. We do not have stock checker here. Will need follow up with stock checker. In earlier d/w speech therapy today, pt daughter and POA, Renetta, requested a palliative med consult for assistance determining GOC Allergies Allergy/AdvReac Type Severity Reaction Status Date / Time Penicillins Allergy Intermediate Rash Verified 04/10/23 23:29 Home Medications Medication Instructions Recorded Confirmed Type FreeStyle Addi 14 Day Sensor #6 ea 03/19/23 Rx (flash glucose sensor) aripiprazole 10 mg tablet 10 mg PO QAM #30 tabs 03/19/23 04/11/23 Rx atorvastatin 10 mg tablet 10 mg PO HS #30 tabs 03/19/23 04/11/23 Rx dulaglutide 0.75 mg/0.5 mL 0.75 mg (0.5 mL) subcut WEEKLY #6 03/19/23 04/11/23 Rx subcutaneous pen injector mL (Trulicity) duloxetine 60 mg capsule,delayed 60 mg PO AMHS #60 caps 03/19/23 04/11/23 Rx release flash glucose scanning reader #1 ea 03/19/23 Rx (FreeStyle Addi 14 Day [place]) ibuprofen 200 mg capsule 400 mg PO Q6H PRN pain #14 caps 03/19/23 04/10/23 Rx pen needle, diabetic 32 gauge x #500 ea 03/19/23 Rx 32" (BD Ultra-Fine Grace Pen Needle) insulin aspart U-100 100 unit/mL 5 unit subcut TID 04/10/23 04/10/23 History subcutaneous solution (Novolog U-100 Insulin aspart) insulin degludec 100 unit/mL (3 16 unit subcut DAILY 04/10/23 04/11/23 History mL) subcutaneous pen (Tresiba FlexTouch U-100 insulin) acetaminophen 325 mg tablet 975 mg PO TID 04/11/23 04/11/23 History (Tylenol) docusate sodium 100 mg capsule 100 mg PO BID 04/11/23 04/11/23 History lidocaine 4 % topical patch 1 patch topical DAILY PRN Pain 04/11/23 04/11/23 History mupirocin 2 % topical ointment 1 applic topical BID 04/11/23 04/11/23 History Patient History Medical History (Updated 04/16/23 @ 15:45 by Asia Berman DNP) Advanced care planning/counseling discussion Depression Diabetes mellitus, type II Diabetes type 2, controlled Diabetic radiculopathy Dyslipidemia Dysphagia PT STOPPED TAKING ALL HER ORAL MEDS PAST MONTH-ENCOURAGED SHE CALL HER PCP TODAY AND CHECK HER BLOOD SUGAR. Dyspnea and respiratory abnormalities Essential hypertension Falls frequently Edita's thyroiditis Hearing deficit BILAT COCHLEAR DEVICES Hypertension Palliative care by specialist Smoker SOB (shortness of breath) on exertion Vitamin D deficiency Weakness generalized Surgical History History of cochlear implant BILAT History of colonoscopy History of laparoscopy FOR ENDOMETRIOSIS, converted to open procedure, LSO done too the patient thinks (isn't sure). History of tonsillectomy Family History Family/Other Stroke Hypertension Father Hypertension Social History Smoking Status: Current every day smoker Tobacco Type: Cigarettes Cigarettes Per Day: 20; Second Hand Exposure: No; Do You Dip or Chew Tobacco: No; Hx Alcohol Use: No Hx Substance Use: No Preferred Language: German Communication Ability: Unable Communication Ability Comment: Bilat cochlear implants Adaptive Physical Education Specialist Required: No Beliefs That Will Affect Care: None marital status: Current Living Situation: Family Current Living Situation Comment: Previously lived alone until daughter came to live w her in march Feels Safe at Home: Yes Safety Concerns: Feels Safe At This Time Assistive Devices: Cane, Stair Lift and Walker Assistive Devices Comment: bilat cochlear implants Review of Systems Review of Systems: Unobtainable due to cognitive status and Other (stroke/aphasic) Physical Exam Physical Exam: patient very agitated, exam deferred Results & Data Vital Signs (Past 12 Hours) Vital Signs Temp Pulse Pulse Resp BP BP Pulse Ox 04/16/23 07:00 92 H 04/16/23 11:37 36.8 C 88 16 148/93 H 97 04/16/23 07:23 36.8 C 86 132/76 98 04/16/23 03:26 36.7 C 83 16 125/80 95 O2 Del Method 04/16/23 07:00 04/16/23 11:37 Room Air 04/16/23 07:23 Room Air 04/16/23 03:26 Room Air Laboratory Results data reviewed Diagnostic Findings data reviewed PG Care Time/CCT Total # of Minutes Spent Total Time Spent: 45 Total Time Spent with Patient: Total time spent is greater than 50% in coordination of care (as documented) at patient's floor/unit and/or counseling patient: [place] [address] IN/OBS CONSULT LVL 3,45M Patient Type New History Comprehensive Exam Problem Focused Medical Decision Making Low Complexity Diagnoses Palliative care by specialist Z51.5 Advanced care planning/counseling discussion Z71.89 Dyspnea and respiratory abnormalities R06.00; R06.89 Weakness generalized R53.1 Falls frequently R29.6 Aphasia due to acute stroke I63.9; R47.01 Cerebrovascular accident I63.9 Smoker F17.200
--- NOTE | 2023-04-16 16:29 | Hospitalist Progress Note ---
Date of Service April 16, 2023 Assessment & Plan (1) Cerebrovascular accident: Plan: Patient is a 62 yr old woman with hearing deficits with cochlear implant, Hypertension, DM2, Hypothyroidism who presents with report of confusion per family Acute/Subacute CVA Seizure -CT Head: Limited by motion artifact. Questionable loss of ann-white matter differentiation in the anterior left temporal lobe could represent acute or subacute infarct. -CTA head:No acute intracranial hemorrhage, no evidence of acute territorial infarction or other acute intracranial disease process. -Neck CTA:No dissection, hemodynamically significant stenosis, or occlusion. -ECHO: EF 55 to 60%. Mild concentric LVH. Grade 1 diastolic dysfunction. No significant valvular pathology. No interatrial shunt. --Repeat CT Head:No acute intracranial hemorrhage, no evidence of acute territorial infarction or other acute intracranial disease process. Continue seizure precautions Appreciate neurology input Continue continue Keppra 500mg IV BID --Needs further evaluation for possible NPH as outpatient as recommended by neurology Aspiration precautions Continue aspirin 81 mg daily Very well controlled on atorvastatin 10mg. Will continue this for now DM II Recent A1c from last month was 9.8. Tresiba dose was increased to 20U daily. Difficult to ascertain if patient had been adherent due to speech/hearing deficits Patient is on Weekly Trulicity. Need optimization of glycemic control. 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 COPD CONNIE Respiratory status at baseline Sensorineural hearing impairment with cochlear implant Needs follow-up with audiology as outpatient DVT Px: Heparin SQ Code Status Full code Admission and Anticipated Discharge Date Admission Date: April 11, 2023 Subjective Patient is seen and examined at bedside Pleasantly confused Sitter at bedside Unable to obtain any history No distress on exam No seizure activity overnight Review of Systems Review of Systems: Other Physical Exam Physical Exam: Physical Exam: Vitals signs as noted above General Appearance:Moderately built and nourished, no apparent distress Head: normocephalic, Atraumatic Eyes: normal inspection, EOMI Neck: supple, Trachea midline Respiratory/Chest: Normal breath sounds, CTA, No accessory muscle use Cardiovascular: S1, S2, No murmur Abdomen/GI:Soft, Non tender, Bowel sounds present Extremities/Musculoskeletal:normal inspection, no edema Neurologic/Psych:Alert, awake, moves all extremities, does not follow commands Skin: normal color, warm Results & Data Results & Data Vital Signs (Past 12 Hours) Vital Signs Temp Pulse Pulse Resp BP BP Pulse Ox 04/16/23 15:00 86 04/16/23 07:00 92 H 04/16/23 11:37 36.8 C 88 16 148/93 H 97 04/16/23 07: 36.8 C 86 132/76 98 O2 Del Method 04/16/23 15:00 04/16/23 07:00 04/16/23 11:37 Room Air 04/16/23 07:23 Room Air Laboratory Results Short CBC 04/16/23 Range/Units 06:43 WBC 6.49 (4.8-10.8) K/ul Hgb 13.3 (12.0-16.0) g/dl Hct 40.3 (37.0-47.0) % Plt Count 294 (130-400) K/uL BMP 04/16/23 06:43 Sodium 139 Potassium 3.8 Chloride 106 Carbon Dioxide 24 BUN 5 L Creatinine 0.41 L Glucose 150 H Calcium 9.3
[2023-04-16] MEDS: ATORVASTATIN 10 MG TAB PO SCH (20:44)
[2023-04-17 07:45] LABS: BUN Creatinine Ratio 17.9 (10-20); Calcium 9.3 mg/dl (8.6-10.3); Creatinine Clr Calc Pharmacy 123.7 ml/min; Est GFR (African American) 130.5 ml/min; Est GFR (Non-African American) 112.6 ml/min; Potassium 3.3 mmol/L (3.5-5.1)
[2023-04-17] MEDS: levETIRAcetam 500 MG in 0.9 % SODIUM CHLORIDE 100 ML IV SCH (08:05)
[2023-04-17] MEDS: NICOTINE 21 MG/24 HR TDSY TD SCH (08:14)
[2023-04-17] MEDS: DULoxetine HCL 60 MG CAP PO SCH ×2 (08:17→22:01)
[2023-04-17] MEDS: ARIPiprazole 10 MG TAB PO SCH (08:18)
[2023-04-17] MEDS: ASPIRIN 81 MG ECTAB PO SCH (08:18)
[2023-04-17] MEDS: INSULIN ASPART PER UNIT CHARGE SC SCH ×4 (08:23→21:55)
[2023-04-17] MEDS: HEPARIN SOD 5,000 UNIT/0.5 ML VIAL SQ SCH ×2 (08:27→22:01)
[2023-04-17] MEDS ORDERED: POTASSIUM CHLORIDE CRTAB 20 MEQ TABCR PO ONE ×2 (09:01→11:30)
[2023-04-17] MEDS: MUPIROCIN 2% OINT 22 GM TUBE TOP SCH ×2 (10:42→22:01)
--- NOTE | 2023-04-17 12:13 | Pharmacy Report ---
Pharmacy Glycemic Short Note 2 - Date of Service April 17, 2023 - Glycemic Short BSG Results (Last 24 hours): 04/16/23 04/16/23 04/17/23 16:36 20:34 06:43 Glucose 95 POC Glucose 80 98 04/17/23 04/17/23 07:18 11:18 Glucose POC Glucose 92 114 H OUTPATIENT ANTIDIABETIC REGIMEN: * Tresiba 16 units SC daily * Novolog 5 units SC AC * Trulicity 0.75 mg SC every Friday * HbA1c: 9.8% (03/14/23) ASSESSMENT: 04/17: * BSGs 98-32-82-114mg/dL the last 24h. Received 12 units of basal and 2 units of bolus insulin yesterday. * Started on diet yesterday, however not taking PO. * Will continue to hold basal until PO intake improves. No change to Novolog parameters. 04/16: * Patient received 23 units of insulin yesterday, 12 units basal + 11 units bolus. BSGs were: 394-404-877-189 mg/dL. * D5 fluids were decreased from 75 cc/hr to 60 cc/hr yesterday afternoon. * Of note, patient did not receive any basal insulin on 04/14/23 due to an omission error by myself. However, blood sugars were surprisingly okay yesterday. * Fasting BSG was 142 mg/dL this AM, improved. Lunchtime BSG dropped to 109 mg/dL. * D5 fluids have been discontinued as of this morning. Therefore, will loosen Novolog parameters with lunch today. Patient already received 12 units of Lantus. Will discontinue any further basal insulin and have tomorrow's glycemic pharmacist evaluate basal needs in the morning. 04/14: * Vani received 13 units of insulin yesterday, 12 units basal + 1 unit bolus. BSGs were: 45-71-717-135-150 mg/dL. * Fasting BSG this AM was 148 mg/dL. Will continue with reduced basal dose. Patient takes basal dose in the AM at home so will start transition back to AM administration today by giving dose with dinner. * Did tighten Novolog this AM. Patient is ordered a T2DM diet but has not eaten anything. 04/13: * Vani is a 62 yo T2DM who presented with altered mental status. CT of her head revealed acute/subacute infarct over left temporal lobe. * She was started on Lantus 10 units daily on admission. This was increased to 10 units BID on 04/12 due to fasting BSG of 218 mg/dL. Patient with hypoglycemia this morning, BSG 65 mg/dL. Will hold basal insulin this morning. Resume this evening at reduced dose (25% reduction in home dose). * Patient has required no bolus insulin thus far this admission. Diet being advanced with dinner today. May need to adjust Novolog parameters in AM. PLAN FOR INPATIENT GLYCEMIC CONTROL: * Hold outpatient GLP1-RA * Basal insulin * hold * Bolus insulin * NovoLog per scale ACHS or Q6hrs while NPO * Goal Range: Low 110 mg/dL - High 140 mg/dL * Correction Factor: 35 mg/dL/unit * Nutritional / Prandial insulin per carb ratio of 1 unit per 15 grams CHO consumed
[2023-04-17] MEDS: VALPROATE SOD 250 MG in DEXTROSE 5% 50 ML IV SCH ×2 (17:06→21:59)
[2023-04-17] MEDS ORDERED: LACTATED RINGER'S 1,000 ML IV SCH (18:15)
[2023-04-17] MEDS: POTASSIUM CHLORIDE / WTR 10 MEQ/100 ML PLCT IV SCH ×2 (18:44→20:08)
--- NOTE | 2023-04-17 18:58 | Hospitalist Progress Note ---
Date of Service April 17, 2023 Assessment & Plan (1) Cerebrovascular accident: Plan: Patient is a 62 yr old woman with hearing deficits with cochlear implant, Hypertension, DM2, Hypothyroidism who presents with report of confusion per family Acute/Subacute CVA Seizure -CT Head: Limited by motion artifact. Questionable loss of ann-white matter differentiation in the anterior left temporal lobe could represent acute or subacute infarct. -CTA head:No acute intracranial hemorrhage, no evidence of acute territorial infarction or other acute intracranial disease process. -Neck CTA:No dissection, hemodynamically significant stenosis, or occlusion. -ECHO: EF 55 to 60%. Mild concentric LVH. Grade 1 diastolic dysfunction. No significant valvular pathology. No interatrial shunt. --Repeat CT Head:No acute intracranial hemorrhage, no evidence of acute territorial infarction or other acute intracranial disease process. Continue seizure precautions Appreciate neurology input Continue continue Keppra 500mg IV BID>> changed to valproate sodium as Keppra likely causing sedation Discussed with neurology Dr. Altamirano on 04/17/2023 --Needs further evaluation for possible NPH as outpatient as recommended by neurology Aspiration precautions Continue aspirin 81 mg daily Very well controlled on atorvastatin 10mg. Will continue this for now Palliative care consulted to address goals of care DM II Recent A1c from last month was 9.8. Tresiba dose was increased to 20U daily. Difficult to ascertain if patient had been adherent due to speech/hearing deficits Patient is on Weekly Trulicity. Need optimization of glycemic control. 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 meds this morning Discussed with patient's family at bedside Also discussed with neurology Dr. Altamirano Review of Systems Review of Systems: All systems reviewed & are unremarkable except as noted in Subjective Physical Exam Physical Exam: Physical Exam: Vitals signs as noted above General Appearance:Moderately built and nourished, no apparent distress Head: normocephalic, Atraumatic Eyes: normal inspection, EOMI Neck: supple, Trachea midline Respiratory/Chest: Normal breath sounds, CTA, No accessory muscle use Cardiovascular: S1, S2, No murmur Abdomen/GI:Soft, Non tender, Bowel sounds present Extremities/Musculoskeletal:normal inspection, no edema Neurologic/Psych:Alert, awake, moves all extremities, does not follow commands Skin: normal color, warm Results & Data Results & Data Vital Signs (Past 12 Hours) Vital Signs Temp Pulse Pulse Resp BP BP Pulse Ox 04/17/23 16:46 82 04/17/23 15:04 36.7 C 90 16 137/83 98 04/17/23 11:26 36.7 C 85 17 143/88 H 98 04/17/23 07:54 82 04/17/23 07:21 36.8 C 74 17 117/72 95 O2 Del Method 04/17/23 16:46 04/17/23 15:04 Room Air 04/17/23 11:26 Room Air 04/17/23 07:54 04/17/23 07:21 Room Air Laboratory Results BMP 04/17/23 06:43 Sodium 139 Potassium 3.3 L Chloride 105 Carbon Dioxide 24 BUN 7 Creatinine 0.39 L Glucose 95 Calcium 9.3
[2023-04-17] MEDS: ATORVASTATIN 10 MG TAB PO SCH (22:00)
[2023-04-17] MEDS: D5W AND NSS 1,000 ML IV SCH (23:53)
[2023-04-18] MEDS: VALPROATE SOD 250 MG in DEXTROSE 5% 50 ML IV SCH ×4 (05:23→21:53)
[2023-04-18 06:54] LABS: BUN Creatinine Ratio 16.7 (10-20); Calcium 9.1 mg/dl (8.6-10.3); Creatinine Clr Calc Pharmacy 114.9 ml/min; Est GFR (African American) 127.3 ml/min; Est GFR (Non-African American) 109.9 ml/min; Magnesium 1.7 mg/dl (1.7-2.4); Potassium 3.9 mmol/L (3.5-5.1)
[2023-04-18] MEDS: INSULIN ASPART PER UNIT CHARGE SC SCH ×4 (09:06→21:52)
[2023-04-18] MEDS: ASPIRIN 81 MG ECTAB PO SCH (09:24)
[2023-04-18] MEDS: DULoxetine HCL 60 MG CAP PO SCH ×2 (09:24→21:51)
[2023-04-18] MEDS: NICOTINE 21 MG/24 HR TDSY TD SCH (09:24)
[2023-04-18] MEDS: ARIPiprazole 10 MG TAB PO SCH (09:25)
[2023-04-18] MEDS: MUPIROCIN 2% OINT 22 GM TUBE TOP SCH ×2 (09:27→21:53)
[2023-04-18] MEDS: HEPARIN SOD 5,000 UNIT/0.5 ML VIAL SQ SCH ×2 (09:42→21:52)
--- NOTE | 2023-04-18 09:54 | Palliative Care Progress Note ---
Date of Service April 18, 2023 Assessment & Plan (1) Palliative care by specialist: Plan: pt dtr Renetta requested [facility] eval and family meeting to discuss GOC. we reviewed that Palliative Medicine, a subspecialty that provides specialized medical care for people living with a serious illness by offering a focus on quality of life. Palliative Medicine is often conflated with hospice: I advised patient/family that Palliative and hospice can be partners but we are not the same. It is important to understand the difference so that we may be informed, and not afraid. Palliative Medicine works to improve QOL through reduction of symptom burden/more control over their illness, for both the patient and family. Palliative medicine clinicians are board certified, specially-trained and another member of the patient's medical care team. We often provide an extra l dee of support because our care is based on the needs of the patient, not the prognosis; as such, it's appropriate at any age/advancing stage of a serious illness and can be provided along with curative treatment. Palliative Medicine clinicians are also trained in advanced communication methodologies, to facilitate complex discussions about advanced illness planning, which are needed to help assure that the treatment choices match the patient's goals, aka delivering Goal Concordant care. Finally, we discussed that hospice is a visiting nurse service that focuses on care delivered at the very end of life for patients with terminal illness, with life expectancy less than 6 month. (2) Advanced care planning/counseling discussion: Plan: A face to face ACP meeting was held with patient rashawnr/Renetta./POA, parents Andrew & Orly Leon, sister Vida Finley and on the phone was sister Libia Ac. This meeting was held from 1030 - 1150AM, 80min. We reviewed that all chronic/progressive disease has a declining trajectory over time where facets of patient self-identity and independence are lost. Every acute event leads to a further decline, resulting- many times, in a new baseline. Advised that the greatest priority is to determine what matters most to pt, then family and to develop a plan of care that is aligned with those priorities. Advance illness planning conversations are conducted to review goals and expectations, support shared decision-making, and engage in disease specific advance care planning. This type of advance care planning is sometimes referred to as 'preparedness planning. It is used to review the risks and benefits of offered therapy, elicit and deepen understanding of the underlying illness and therapeutic options, ensure adequate psychosocial support, address existential concerns and coping, and engage in end-of-life planning. Preparedness planning is not meant to replace informed consent discussions. Palliative medicine plays a role in the process of deepening a patients understanding of this specific medical intervention and ensuring this treatment aligns with their goals of care remains a central tenet of the planning conversation. We discussed CODE STATUS and I provided the following details about CPR survival: Only about 10% of patients who have qsh-pg-jocskhnf sudden cardiac arrest survive to hospital discharge, with many survivors having neurologic impairment. This rate is even lower among patients with serious coexisting conditions, ie chance of survival to hospital discharge for in-hospital CPR in older people is low to moderate (15%) and decreases with age, comorbidities, performance status and frailty: for pts > 70 yo, more than half of the patients who initially survived resuscitation in the hospital before hospital discharge. The pooled survival to discharge after in-hospital CPR was 18% for patients between 70 and 79 years old, 15% for patients between 80 and 89 years old and 11% for patients of 90 years and older. (Sal LAZCANOY, Isaac LJ, Linda F, et al. Trends in short- and long-term survival among bhi-sz-jmddfsni cardiac arrest patients alive at hospital arrival. Circulation 2014;130:3852-0316. AND Deandre C, José Manuel T, Isaac R, et al. Performance of clinical risk scores to predict mortality and neurological outcome in cardiac arrest patients. Resuscitation 2019;136:21-29.) Patient's living will reviewed. 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 Her Living will is explicitly written and very clear. She does not want CPR. She does not want aggressive interventions. If she cannot be the person she was/if things are not recoverable to a aoavcvinft-iz-nbq level then she wants comfort focus.She does not want IVF, MONICA, aggressive care. If her mental status is permanently altered/debilitated she wants comfort. She is amenable to hospice. we discussed this is in alignment with Code status of DNR/DNI. Family in agreement. We discussed dispo plans moving forward: cont path of aggressive care with feeding tube, rehab etc vs SNF with comfort care vs SNF with rehab trial then comfort care or dc home with hospice. Home dc is not possible - there is not enough caregiver support. Parents both live at the [facility] and are wheelchair dependent. Sisters live in [place] and [place]. Daughter Renetta lives in [place] but is [facility] and staying at pt home in [place], pt son lives in [place]. Renetta cannot care for pt entirely on her own. She would not have in home support from grand parents or her brother. 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 Andrew would like at least a trial of rehab, he notes he was at the [facility] for rehab following a sepsis admission and it was beneficial. He is in agreement for no feeding tube, noting that patient would most likely pull it out as she has pulled out other catheters and lines. Family is in agreement. They also agree that she cannot go home with hospice due to lack of caregivers and Renetta cannot do it alone. Renetta cared for her father who approx 1.5 yr ago and then her mother became sick not too long after wards and Renetta has not had the chance to grieve the loss of her father or the declines in her mother. in relatively rapid succession, this young 26yo has lost the 2 blake people in her life. We agreed on a plan for SNF trial rehab with comfort care as goal/aka convert to LTC after rehab is done. If she declines during rehab, move to comfort care and add hospice. They would like [facility]. They DO NOT WANT [facility] SNF. [facility] SNF is first choice. Parents would like to ask [facility] to consider accepting her as she is their dtr and they are [facility] residents there. We agreed on the following Comfort Care Discharge Summary & Plan of Care Comfort plan of care agreed upon by: patient dtr/Renetta./POA, parents Andrew & Orly Leon, sister Vida Finley and on the phone was sister Libia Ac Discussed with Patient/Family on: 04/18/23 Copy of this plan has been given to:CM will print copy of this note for dtr/POA Renetta prior to dc Comfort plan of care parameters: 1. Patient and family would like hospice added to their care. 2. Trial of rehab/PT/OT 3. Move to comfort care with hospice with any decline during rehab trial 4. No escalation of care: do not increase oxygen, escalate therapies, etc. The focus is on comfort through end of life, assure this is accomplished with aggressive symptom management (i.e. relief of dyspnea, pain, etc.) 5. NO return to hospital 6. No labs 7. No imaging 8. No surgery 9. PO as tolerated for comfort and pleasure/no dietary restriction: NO FEEDING TUBE, NO IV FLUIDS, NO ARTIFICIAL NUTRITION 10. Continue Salmon catheter for comfort/hygiene/skin protection 11. If difficulty urinating/commode/bedpan, ok to place Salmon catheter for comfort/hygiene/skin protection 12. NO CALORIE COUNTS 13. No IVs 14. PATIENT MAY TAKE MEDS TOLERATED. Medications to continue: PER DC SUMMARY Provider to contact if any questions about comfort plan of care: Real BERMAN/PALLIATIVE MED (3) Weakness generalized: (4) Dyspnea and respiratory abnormalities: (5) Falls frequently: (6) Aphasia due to acute stroke: (7) Cerebrovascular accident: Plan Plan of care outlined above in 80min ACP meeting Primary team, ST, CM and nursing updated Thank you for allowing us to participate in the ongoing care of this patient. Please don't hesitate to call or page with any additional concerns. Dr. Asia Berman DNP Director, Palliative Care Admission and Anticipated Discharge Date Admission Date: April 11, 2023 Subjective Overall condition unchanged. Patient continues to refuse most aspects of care, as well as medications. Continued difficulty with communication secondary to aphasia as well as profound hearing deficit. Although cochlear implant is in place was never activated as patient did not go for her follow-up Review of Systems Review of Systems: Unobtainable due to mental health condition and Unobtainable due to cognitive status Physical Exam Physical Exam: OOB to chair pleasantly confused though at times guarded very [place] but family states she answered a few questions appropriately for them not eating or drinking much at all, mostly refuses nursing did manage to get pt to take some AM meds but she remains overall inconsistent with taking her meds Dtkatty Jackson has brought in patient living will Results & Data Vital Signs (Past 12 Hours) Vital Signs Temp Pulse Pulse Resp BP Pulse Ox O2 Del Method 04/18/23 07:56 36.5 C 93 H 18 133/77 97 Room Air 04/18/23 07:26 90 04/17/23 22:00 77 04/18/23 03:00 36.8 C 93 H 18 133/84 96 Room Air 04/17/23 23:00 36.7 C 81 18 140/83 98 Room Air Laboratory Results reviewed Diagnostic Findings reviewed PG Care Time/CCT Total # of Minutes Spent Total Time Spent: 140 Total Time Spent with Patient: Total time spent is greater than 50% in coordination of care (as documented) at patient's floor/unit and/or counseling patient: I spent 140 minutes overall addressing this complex case: 15 in medical data review/discussion with referring provider(s) and/or preparation for the visit 15 in direct interaction with the patient 80 Advance Care Planning/Goals of Care discussions as detailed above in note (must be >16min) 15 in subsequent review and synthesis of assessment and plan 15 in communicating with other providers regarding the patient's case: primary team, speech therapy, nursing, care mgt Prolonged Care Time Prolonged Care Time: Yes Advanced Care Planning 30298 Advanced Care Planning 30 Min 97466 Advanced Care Planning Additional 30 Min [place] [address] SUB INP/OBS CARE 3/50MIN Patient Type Established History Comprehensive Exam Comprehensive Medical Decision Making High Complexity Diagnoses Palliative care by specialist Z51.5 Advanced care planning/counseling discussion Z71.89 Weakness generalized R53.1 Dyspnea and respiratory abnormalities R06.00; R06.89 Falls frequently R29.6 Aphasia due to acute stroke I63.9; R47.01 Cerebrovascular accident I63.9 Additional Codes Advanced Care Planning - 18171 Advanced Care Planning 30 Min: 09143 Advanced Care Planning 30 Min ([id number]) Advanced Care Planning - 32138 Advanced Care Planning Additional 30 Min: 96494 Advanced Care Planning Additional 30 Min ([id number]) Prolonged Care Time - Prolonged Care Time: Yes ([id number])
--- NOTE | 2023-04-18 12:19 | Pharmacy Report ---
Pharmacy Glycemic Short Note 2 - Date of Service April 18, 2023 - Glycemic Short BSG Results (Last 24 hours): 04/17/23 04/17/23 04/18/23 16:07 20:01 05:48 Glucose 129 H POC Glucose 99 86 04/18/23 04/18/23 07:32 11:32 Glucose POC Glucose 157 H 198 H OUTPATIENT ANTIDIABETIC REGIMEN: * Tresiba 16 units SC daily * Novolog 5 units SC AC * Trulicity 0.75 mg SC every Friday * HbA1c: 9.8% (03/14/23) ASSESSMENT: 04/18: * BSGs 94-97-574-198mg/dL the last 24h. Patient received no insulin yesterday. * Continues to refuse PO. D5NS now running at 80mL/hr. * Continue to hold basal. Tightened Novolog given dextrose containing IVF re- started and BSGs uptrending. 04/17: * BSGs 85-38-67-114mg/dL the last 24h. Received 12 units of basal and 2 units of bolus insulin yesterday. * Started on diet yesterday, however not taking PO. * Will continue to hold basal until PO intake improves. No change to Novolog parameters. 04/16: * Patient received 23 units of insulin yesterday, 12 units basal + 11 units bolu s. BSGs were: 158-298-715-189 mg/dL. * D5 fluids were decreased from 75 cc/hr to 60 cc/hr yesterday afternoon. * Of note, patient did not receive any basal insulin on 04/14/23 due to an omission error by myself. However, blood sugars were surprisingly okay yesterday. * Fasting BSG was 142 mg/dL this AM, improved. Lunchtime BSG dropped to 109 mg/dL. * D5 fluids have been discontinued as of this morning. Therefore, will loosen Novolog parameters with lunch today. Patient already received 12 units of Lantus. Will discontinue any further basal insulin and have tomorrow's glycemic pharmacist evaluate basal needs in the morning. 04/14: * Vani received 13 units of insulin yesterday, 12 units basal + 1 unit bolus. BSGs were: 95-14-625-135-150 mg/dL. * Fasting BSG this AM was 148 mg/dL. Will continue with reduced basal dose. Patient takes basal dose in the AM at home so will start transition back to AM administration today by giving dose with dinner. * Did tighten Novolog this AM. Patient is ordered a T2DM diet but has not eaten anything. 04/13: * Vani is a 62 yo T2DM who presented with altered mental status. CT of her head revealed acute/subacute infarct over left temporal lobe. * She was started on Lantus 10 units daily on admission. This was increased to 10 units BID on 04/12 due to fasting BSG of 218 mg/dL. Patient with hypoglycemia this morning, BSG 65 mg/dL. Will hold basal insulin this morning. Resume this evening at reduced dose (25% reduction in home dose). * Patient has required no bolus insulin thus far this admission. Diet being advanced with dinner today. May need to adjust Novolog parameters in AM. PLAN FOR INPATIENT GLYCEMIC CONTROL: * Hold outpatient GLP1-RA * Basal insulin * hold * Bolus insulin * NovoLog per scale ACHS or Q6hrs while NPO * Goal Range: Low 110 mg/dL - High 140 mg/dL * Correction Factor: 25 mg/dL/unit * Nutritional / Prandial insulin per carb ratio of 1 unit per 15 grams CHO consumed
--- NOTE | 2023-04-18 12:30 | Psychiatric Consultation ---
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 Psychiatry consulted for recommendations for depression. Unfortunately given the severity of her left parietal stroke and language deficits it's very difficult to determine to what extent she may or may not be currently depressed. However, given collateral and history of depression certainly seems that this could be a part of the clinical picture and contributing to poor appetite and engagement with care. Will discontinue Abilify given that she's now on Depakote (which offers mood stabilization in case of unknown history of bipolar), it lowers seizure threshold, has metabolic side effects and can further blunt cognitive function and worsen sedation. Recommend continuing with duloxetine for depression. Appreciative palliative care involvement and discussion with family and patient about goals of care and next steps. (1) Cerebrovascular accident: (2) Aphasia due to acute stroke: (3) Depression: (4) Hearing deficit: Plan -Discontinued Abilify -Continue with duloxetine 60mg BID; if she declines this for more than 3-4 days then would discontinue and could consider starting an SSRI if she/family desires instead as less likely to cause withdrawal side effects (i.e. sertraline 50mg qd or escitalopram 10mg qd) -If appetite remains difficult or she develops sleep issues would consider mirtazapine 7.5mg HS or 15mg HS to help with mood, sleep and appetite -In the future if appetite improves but she appears depressed and cannot engage in OT/therapies then could consider a trial of modafinil or Ritalin to help with energy/mood/motivation but would avoid at this time given this can worsen appetite suppression -Agree with plan for likely SNF [facility] and focus on comfort care as documented by palliative care consultation Psych History Identifying Data 62 yo woman with history of depression, cochlear implants with sensorineural hearing loss, COPD, CONNIE, HLD, HTN, DM type II, hypothyroidism admitted medically with 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 Psychiatry consulted for recommendations for depression. Chief Complaint "Ok". History of Present Illness Vani was admitted for stroke-like symptoms and found to have new left parietal lobe stroke and subsequently experienced a seizure. She is only able to speak in brief phrases such as "ok" and "yeah" but her responses don't fit with most of the questions. She cannot identify her daughter who is sitting next to her. She's not been eating or drinking much and has been refusing most of her medications. Majority of history provided by her daughter who is at bedside. Her daughter reports Vani has experienced depression "all her life" but it seemed to worsen after her 's about 1 year ago. Her daughter recalls that around [facility] when she visited her mom made a statement of being "fed up with living" and was not eating or drinking as much and wasn't consistently taking her medications or using her insulin. She was on her medications while at [facility] and then for the week after she was discharged and at home. Her daughter doesn't think she was seeing a psychiatrist, she saw a therapist via telemedicine recently but they struggled via zoom due to Vani's hearing difficulty. She has been prescribed Abilify and Cymbalta. No history of any prior suicide attempts. Allergies Allergy/AdvReac Type Severity Reaction Status Date / Time Penicillins Allergy Intermediate Rash Verified 04/10/23 23:29 Home Medications Medication Instructions Recorded Confirmed Type FreeStyle Addi 14 Day Sensor #6 ea 03/19/23 Rx (flash glucose sensor) aripiprazole 10 mg tablet 10 mg PO QAM #30 tabs 03/19/23 04/11/23 Rx atorvastatin 10 mg tablet 10 mg PO HS #30 tabs 03/19/23 04/11/23 Rx dulaglutide 0.75 mg/0.5 mL 0.75 mg (0.5 mL) subcut WEEKLY #6 03/19/23 04/11/23 Rx subcutaneous pen injector mL (Trulicity) duloxetine 60 mg capsule,delayed 60 mg PO AMHS #60 caps 03/19/23 04/11/23 Rx release flash glucose scanning reader #1 ea 03/19/23 Rx (FreeStyle Addi 14 Day Urania) ibuprofen 200 mg capsule 400 mg PO Q6H PRN pain #14 caps 03/19/23 04/10/23 Rx pen needle, diabetic 32 gauge x #500 ea 03/19/23 Rx " (BD Ultra-Fine Grace Pen Needle) insulin aspart U-100 100 unit/mL 5 unit subcut TID 05/11/23 05/11/23 History subcutaneous solution (Novolog U-100 Insulin aspart) insulin degludec 100 unit/mL (3 16 unit subcut DAILY 04/10/23 04/11/23 History mL) subcutaneous pen (Tresiba FlexTouch U-100 insulin) acetaminophen 325 mg tablet 975 mg PO TID 04/11/23 04/11/23 History (Tylenol) docusate sodium 100 mg capsule 100 mg PO BID 04/11/23 04/11/23 History lidocaine 4 % topical patch 1 patch topical DAILY PRN Pain 04/11/23 04/11/23 History mupirocin 2 % topical ointment 1 applic topical BID 04/11/23 04/11/23 History Patient History Medical History Advanced care planning/counseling discussion Depression Diabetes mellitus, type II Diabetes type 2, controlled Diabetic radiculopathy Dyslipidemia Dysphagia PT STOPPED TAKING ALL HER ORAL MEDS PAST MONTH-ENCOURAGED SHE CALL HER PCP TODAY AND CHECK HER BLOOD SUGAR. Dyspnea and respiratory abnormalities Essential hypertension Falls frequently Edita's thyroiditis Hearing deficit BILAT COCHLEAR DEVICES Hypertension Palliative care by specialist Smoker SOB (shortness of breath) on exertion Vitamin D deficiency Weakness generalized Surgical History History of cochlear implant BILAT History of colonoscopy History of laparoscopy FOR ENDOMETRIOSIS, converted to open procedure, LSO done too the patient thinks (isn't sure). History of tonsillectomy Family History Family/Other Stroke Hypertension Father Hypertension Social History Smoking Status: Current every day smoker Tobacco Type: Cigarettes Cigarettes Per Day: 20; Second Hand Exposure: No; Do You Dip or Chew Tobacco: No; Hx Alcohol Use: No Hx Substance Use: No Preferred Language: Estonian Communication Ability: Unable Communication Ability Comment: Bilat cochlear implants Fire Dispatcher Required: No Beliefs That Will Affect Care: None marital status: Current Living Situation: Family Current Living Situation Comment: Previously lived alone until daughter came to live w her in march Feels Safe at Home: Yes Safety Concerns: Feels Safe At This Time Assistive Devices: Cane, Stair Lift and Walker Assistive Devices Comment: bilat cochlear implants Physical Exam Psychiatric: Orientation: alert Apperance: appropriately dressed and appropriately groomed Eye Contact: + fair eye contact Motor Behavior: no abnormal motor movements Speech: + abnormal rate/rhythm/volume of speech (brief) Affect: + constricted affect Mood: + depressed mood (?) Thought Process: + concrete thought process Thought Content: reality based without delusions Insight: + severely impaired insight Judgment: + severely impaired judgement Vital Signs (Past 24 Hours): Last Vital Signs Temp 36.6 C 04/18/23 12:01 Pulse 82 04/18/23 12:01 Resp 19 04/18/23 12:01 BP 133/82 04/18/23 12:01 Pulse Ox 100 04/18/23 12:01 O2 Del Method Room Air 04/18/23 12:01 Review of Systems All systems reviewed & are unremarkable except as noted in HPI & below Results & Data (PSY) Medications Administered Aripiprazole (Aripiprazole 10 Mg Tab) [address] [facility] Stop: 05/11/23 08:59 Last Admin: 04/18/23 09:25 Dose: 10 mg Documented By: Admin: 04/17/23 08:18 Dose: 10 mg Documented By: Admin: 04/16/23 08:08 Dose: 10 mg Documented By: Admin: 04/15/23 08:28 Dose: 10 mg Documented By: Admin: 04/14/23 08:47 Dose: Not Given Documented By: Admin: 04/13/23 07:55 Dose: Not Given Documented By: Admin: 04/12/23 08:29 Dose: Not Given Documented By: Admin: 04/11/23 08:13 Dose: 10 mg Documented By: J Aspirin (Aspirin 81 Mg Ectab) [address] [facility] Stop: 05/12/23 08:59 Last Admin: 04/18/23 09:24 Dose: 81 mg Documented By: Admin: 04/17/23 08:18 Dose: 81 mg Documented By: Admin: 04/16/23 08:08 Dose: 81 mg Documented By: Admin: 04/15/23 08:28 Dose: 81 mg Documented By: Admin: 04/14/23 08:47 Dose: Not Given Documented By: Admin: 04/13/23 07:55 Dose: Not Given Documented By: Admin: 04/12/23 08:29 Dose: Not Given Documented By: LISA Atorvastatin Calcium (Atorvastatin 10 Mg Tab) 10 mg PO HS ADRIÁN Stop: 05/11/23 20:59 Last Admin: 04/17/23 22:00 Dose: Not Given Documented By: Admin: 04/16/23 20:44 Dose: 10 mg Documented By: Admin: 04/15/23 19:59 Dose: 10 mg Documented By: Admin: 04/14/23 20:54 Dose: 10 mg Documented By: Admin: 04/13/23 20:37 Dose: 10 mg Documented By: Admin: 04/12/23 20:12 Dose: Not Given Documented By: Admin: 04/11/23 21:15 Dose: 10 mg Documented By: LEANDRA Dextrose (Dextrose 50% 50 Ml Syringe) 25 - 50 ml IV UD PRN; Protocol PRN Reason: Hypoglycemia Protocol Stop: 05/11/23 05:26 Last Admin: 04/13/23 01:38 Dose: 25 ml Documented By: ANITA Duloxetine HCl (Duloxetine Hcl 60 Mg Cap) 60 mg PO AMHS ADRIÁN Stop: 05/11/23 08:59 Last Admin: 04/18/23 09:24 Dose: 60 mg Documented By: Admin: 04/17/23 22:01 Dose: Not Given Documented By: Admin: 04/17/23 08:17 Dose: 60 mg Documented By: Admin: 04/16/23 20:43 Dose: 60 mg Documented By: Admin: 04/16/23 08:08 Dose: 60 mg Documented By: Admin: 04/15/23 19:59 Dose: 60 mg Documented By: Admin: 04/15/23 08:27 Dose: 60 mg Documented By: Admin: 04/14/23 20:54 Dose: 60 mg Documented By: Admin: 04/14/23 08:47 Dose: Not Given Documented By: Admin: 04/13/23 20:36 Dose: 60 mg Documented By: Admin: 04/13/23 07:55 Dose: Not Given Documented By: Admin: 04/12/23 20:12 Dose: Not Given Documented By: Admin: 04/12/23 08:29 Dose: Not Given Documented By: Admin: 04/11/23 21:16 Dose: 60 mg Documented By: Admin: 04/11/23 08:13 Dose: 60 mg Documented By: SHAMEKA Heparin Sodium (Porcine) (Heparin Sod 5,000 Unit/0.5 Ml Vial) 5,000 units SQ Q12 ADRIÁN Stop: 05/11/23 14:29 Last Admin: 04/18/23 09:42 Dose: Not Given Documented By: Admin: 04/17/23 22:01 Dose: Not Given Documented By: Admin: 04/17/23 08:27 Dose: 5,000 units Documented By: Admin: 04/16/23 20:43 Dose: 5,000 units Documented By: Admin: 04/16/23 08:08 Dose: 5,000 units Documented By: Admin: 04/15/23 19:58 Dose: 5,000 units Documented By: Admin: 04/15/23 08:28 Dose: 5,000 units Documented By: Admin: 04/14/23 20:53 Dose: 5,000 units Documented By: Admin: 04/14/23 08:36 Dose: 5,000 units Documented By: Admin: 04/13/23 20:37 Dose: 5,000 units Documented By: Admin: 04/13/23 07:56 Dose: 5,000 units Documented By: Admin: 04/12/23 20:12 Dose: 5,000 units Documented By: Admin: 04/12/23 08:29 Dose: Not Given Documented By: Admin: 04/11/23 21:16 Dose: 5,000 units Documented By: Admin: 04/11/23 16:44 Dose: 5,000 units Documented By: SHAMEKA Valproic Acid 250 mg/ Dextrose 52.5 mls @ 55 mls/hr IV Q6H ADRIÁN Stop: 05/17/23 16:29 Last Infusion: 04/18/23 11:44 Dose: 0 mls/hr Documented By: Admin: 04/18/23 10:22 Dose: 55 mls/hr Documented By: Infusion: 04/18/23 06:30 Dose: 0 mls/hr Documented By: Admin: 04/18/23 05:23 Dose: 55 mls/hr Documented By: Infusion: 04/17/23 22:58 Dose: 0 mls/hr Documented By: Admin: 04/17/23 21:59 Dose: 55 mls/hr Documented By: Infusion: 04/17/23 18:05 Dose: 0 mls/hr Documented By: Admin: 04/17/23 17:06 Dose: 55 mls/hr Documented By: Dextrose/Sodium Chloride (D5w And Nss) 1,000 mls @ 80 mls/hr IV .[id number] ADRIÁN Stop: 05/17/23 23:44 Last Admin: 04/17/23 23:53 Dose: 80 mls/hr Documented By: ISAC Insulin Aspart (Insulin Aspart Per Unit Charge) [facility] Protocol Stop: 05/13/23 16:29 Last Admin: 04/18/23 12:02 Dose: 2 units Documented By: Co-signed By: OUMOU Admin: 04/18/23 09:06 Dose: 1 units Documented By: Co-signed By: OUMOU Admin: 04/17/23 21:55 Dose: Not Given Documented By: Admin: 04/17/23 16:42 Dose: Not Given Documented By: Admin: 04/17/23 12:49 Dose: Not Given Documented By: Admin: 04/17/23 08:23 Dose: Not Given Documented By: Admin: 04/16/23 20:43 Dose: Not Given Documented By: Admin: 04/16/23 16:53 Dose: Not Given Documented By: Admin: 04/16/23 12:30 Dose: Not Given Documented By: Admin: 04/16/23 08:05 Dose: 2 units Documented By: ANAYA Co-signed By: CAITLYN Admin: 04/15/23 21:33 Dose: 2 units Documented By: MICHAEL Co-signed By: LUIS ARMANDO Admin: 04/15/23 17:21 Dose: Not Given Documented By: Admin: 04/15/23 12:24 Dose: 6 units Documented By: GEOVANNA Co-signed By: ANDRES Admin: 04/15/23 08:30 Dose: 3 units Documented By: GEOVANNA Co-signed By: BRENDA Admin: 04/14/23 20:24 Dose: Not Given Documented By: Admin: 04/14/23 17:33 Dose: 3 units Documented By: GEOVANNA Co-signed By: TALA Admin: 04/14/23 11:35 Dose: Not Given Documented By: Admin: 04/14/23 08:32 Dose: 1 units Documented By: GEOVANNA Co-signed By: NABILA Admin: 04/13/23 20:37 Dose: 1 units Documented By: MARY Co-signed By: BERNARDO Admin: 04/13/23 16:51 Dose: Not Given Documented By: BERNADETTE Miscellaneous (Remove Nicoderm Patch) 1 each N/A DAILY@0859 [facility] Stop: 05/12/23 08:58 Last Admin: 04/18/23 09:22 Dose: 1 each Documented By: Admin: 04/17/23 08:13 Dose: 1 each Documented By: Admin: 04/16/23 08:07 Dose: 1 each Documented By: Admin: 04/15/23 08:27 Dose: 1 each Documented By: Admin: 04/14/23 08:33 Dose: 1 each Documented By: Admin: 04/13/23 07:54 Dose: 1 each Documented By: Admin: 04/12/23 10:50 Dose: 1 each Documented By: LISA Mupirocin (Mupirocin 2% Oint 22 Gm Tube) 1 appln TOP BID ADRIÁN Stop: 04/23/23 21:01 Last Admin: 04/18/23 09:27 Dose: 1 appln Documented By: Admin: 04/17/23 22:01 Dose: 1 appln Documented By: Admin: 04/17/23 10:42 Dose: 1 appln Documented By: Admin: 04/16/23 20:44 Dose: 1 appln Documented By: Admin: 04/16/23 08:10 Dose: 1 appln Documented By: Admin: 04/15/23 19:59 Dose: 1 appln Documented By: Admin: 04/15/23 08:28 Dose: 1 appln Documented By: Admin: 04/14/23 20:55 Dose: 1 appln Documented By: Admin: 04/14/23 08:36 Dose: 1 appln Documented By: Admin: 04/13/23 20:38 Dose: 1 appln Documented By: Admin: 04/13/23 07:58 Dose: 1 appln Documented By: Admin: 04/12/23 20:13 Dose: 1 appln Documented By: Admin: 04/12/23 08:30 Dose: Not Given Documented By: Admin: 04/11/23 21:17 Dose: 1 appln Documented By: Admin: 04/11/23 12:07 Dose: 1 appln Documented By: SHAMEKA Nicotine (Nicotine 21 Mg/24 Hr Tdsy) 21 mg TD QAM ADRIÁN Stop: 05/11/23 03:29 Last Admin: 04/18/23 09:24 Dose: 21 mg Documented By: Admin: 04/17/23 08:14 Dose: 21 mg Documented By: Admin: 04/16/23 08:06 Dose: 21 mg Documented By: Admin: 04/15/23 08:27 Dose: 21 mg Documented By: Admin: 04/14/23 08:37 Dose: 21 mg Documented By: Admin: 04/13/23 07:58 Dose: 21 mg Documented By: Admin: 04/12/23 10:44 Dose: 21 mg Documented By: Admin: 04/11/23 03:36 Dose: 21 mg Documented By: NAHEED Coding Level of Care Code 94233 IN/OBS CONSULT LVL 2,35M Diagnoses Cerebrovascular accident I63.9 Aphasia due to acute stroke I63.9; R47.01 Depression F32.9 Hearing deficit H91.90 Time Spent (min) 40
[2023-04-18] MEDS: D5W AND NSS 1,000 ML IV SCH (12:32)
--- NOTE | 2023-04-18 17:58 | Hospitalist Progress Note ---
Date of Service April 18, 2023 Assessment & Plan (1) Cerebrovascular accident: Plan: Patient is a 62 yr old woman with hearing deficits with cochlear implant, Hypertension, DM2, Hypothyroidism who presents with report of confusion per family Acute/Subacute CVA Seizure -CT Head: Limited by motion artifact. Questionable loss of ann-white matter differentiation in the anterior left temporal lobe could represent acute or subacute infarct. -CTA head:No acute intracranial hemorrhage, no evidence of acute territorial infarction or other acute intracranial disease process. -Neck CTA:No dissection, hemodynamically significant stenosis, or occlusion. -ECHO: EF 55 to 60%. Mild concentric LVH. Grade 1 diastolic dysfunction. No significant valvular pathology. No interatrial shunt. --Repeat CT Head:No acute intracranial hemorrhage, no evidence of acute territorial infarction or other acute intracranial disease process. Continue seizure precautions Appreciate neurology input Continue continue Keppra 500mg IV BID>> changed to valproate sodium as Keppra likely causing sedation Discussed with neurology Dr. Altamirano on 04/17/2023 --Needs further evaluation for possible NPH as outpatient as recommended by neurology Aspiration precautions Continue aspirin 81 mg daily Very well controlled on atorvastatin 10mg. Will continue this for now Abilify discontinued Appreciate palliative care input No escalation of care if patient deteriorates. Goal is comfort. Trial of SNF as able. If patient deteriorates, plan to transition to comfort as per patient's family wishes Plan to discharge to SNF when accepted DM II Recent A1c from last month was 9.8. Tresiba dose was increased to 20U daily. Difficult to ascertain if patient had been adherent due to speech/hearing deficits Patient is on Weekly Trulicity. Need optimization of glycemic control. 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 Appreciate psychiatry input DVT Px: Heparin SQ Code Status DNI/DNR Admission and Anticipated Discharge Date Admission Date: April 11, 2023 Subjective Patient is seen and examined at bedside Oral intake slightly better today Sitting in chair with no distress during my encounter Discussed with patient's family at bedside Also discussed with psychiatry today Follows simple commands No events overnight Review of Systems Review of Systems: Unobtainable due to cognitive status Physical Exam Physical Exam: Physical Exam: Vitals signs as noted above General Appearance:Moderately built and nourished, no apparent distress Head: normocephalic, Atraumatic Eyes: normal inspection, EOMI Neck: supple, Trachea midline Respiratory/Chest: Normal breath sounds, CTA, No accessory muscle use Cardiovascular: S1, S2, No murmur Abdomen/GI:Soft, Non tender, Bowel sounds present Extremities/Musculoskeletal:normal inspection, no edema Neurologic/Psych:Alert, awake, moves all extremities, follows simple commands occasionally Skin: normal color, warm Results & Data Results & Data Vital Signs (Past 12 Hours) Vital Signs Temp Pulse Pulse Resp BP Pulse Ox O2 Del Method 04/18/23 15:55 36.5 C 84 20 148/93 H 99 Room Air 04/18/23 15:25 81 04/18/23 12:01 36.6 C 82 19 133/82 100 Room Air 04/18/23 07:56 36.5 C 93 H 18 133/77 97 Room Air 04/18/23 07:26 90 Laboratory Results BMP 04/18/23 05:48 Sodium 138 Potassium 3.9 Chloride 104 Carbon Dioxide 26 BUN 7 Creatinine 0.42 L Glucose 129 H Calcium 9.1
[2023-04-18] MEDS: ATORVASTATIN 10 MG TAB PO SCH (21:51)
[2023-04-19] MEDS: VALPROATE SOD 250 MG in DEXTROSE 5% 50 ML IV SCH ×4 (03:59→22:52)
[2023-04-19] MEDS: INSULIN ASPART PER UNIT CHARGE SC SCH ×4 (08:37→21:08)
[2023-04-19] MEDS: HEPARIN SOD 5,000 UNIT/0.5 ML VIAL SQ SCH ×2 (10:23→21:08)
[2023-04-19] MEDS: NICOTINE 21 MG/24 HR TDSY TD SCH (10:23)
[2023-04-19] MEDS: MUPIROCIN 2% OINT 22 GM TUBE TOP SCH ×2 (10:24→21:06)
[2023-04-19] MEDS: DULoxetine HCL 60 MG CAP PO SCH ×2 (11:32→21:08)
[2023-04-19] MEDS: LANTUS PER UNIT CHARGE SC SCH ×2 (11:39→21:09)
[2023-04-19] MEDS: ASPIRIN 81 MG ECTAB PO SCH (12:36)
[2023-04-19] MEDS: ASPIRIN 81 MG CHEW PO SCH (13:52)
[2023-04-19] MEDS: THIAMINE HCL 100 MG TAB PO SCH (13:54)
--- NOTE | 2023-04-19 16:33 | Hospitalist Progress Note ---
Date of Service April 19, 2023 Assessment & Plan (1) Cerebrovascular accident: Plan: Patient is a 62 yr old woman with hearing deficits with cochlear implant, Hypertension, DM2, Hypothyroidism who presents with report of confusion per family Acute/Subacute CVA Seizure -CT Head: Limited by motion artifact. Questionable loss of ann-white matter differentiation in the anterior left temporal lobe could represent acute or subacute infarct. -CTA head:No acute intracranial hemorrhage, no evidence of acute territorial infarction or other acute intracranial disease process. -Neck CTA:No dissection, hemodynamically significant stenosis, or occlusion. -ECHO: EF 55 to 60%. Mild concentric LVH. Grade 1 diastolic dysfunction. No significant valvular pathology. No interatrial shunt. --Repeat CT Head:No acute intracranial hemorrhage, no evidence of acute territorial infarction or other acute intracranial disease process. Continue seizure precautions Appreciate neurology input Continue continue Keppra 500mg IV BID>> changed to valproate sodium as Keppra likely causing sedation Discussed with neurology Dr. Altamirano on 04/17/2023 --Needs further evaluation for possible NPH as outpatient as recommended by neurology Aspiration precautions Continue aspirin 81 mg daily Very well controlled on atorvastatin 10mg. Will continue this for now Abilify discontinued--can lower seizure threshold Appreciate palliative care input No escalation of care if patient deteriorates. Goal is comfort. Trial of SNF as able. If patient deteriorates, plan to transition to comfort as per patient's family wishes Plan to discharge to SNF when accepted Continue current management Appetite remains poor DM II Recent A1c from last month was 9.8. Tresiba dose was increased to 20U daily. Difficult to ascertain if patient had been adherent due to speech/hearing deficits Patient is on Weekly Trulicity. Need optimization of glycemic control. 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 Appreciate psychiatry input DVT Px: Heparin SQ Code Status DNI/DNR Admission and Anticipated Discharge Date Admission Date: April 11, 2023 Subjective Patient is seen and examined at bedside No new complaints Sitting in pleasantly confused No distress on exam Plan to discharge to rehab as able Review of Systems Review of Systems: Unobtainable due to cognitive status Physical Exam Physical Exam: Physical Exam: Vitals signs as noted above General Appearance:Moderately built and nourished, no apparent distress Head: normocephalic, Atraumatic Eyes: normal inspection, EOMI Neck: supple, Trachea midline Respiratory/Chest: Normal breath sounds, CTA, No accessory muscle use Cardiovascular: S1, S2, No murmur Abdomen/GI:Soft, Non tender, Bowel sounds present Extremities/Musculoskeletal:normal inspection, no edema Neurologic/Psych:Alert, awake, moves all extremities, follows simple commands occasionally Skin: normal color, warm Results & Data Results & Data Vital Signs (Past 12 Hours) Vital Signs Temp Pulse Resp BP Pulse Ox O2 Del Method 04/19/23 15:18 Room Air 04/19/23 14:09 36.8 C 82 16 144/86 H 97 Room Air 04/19/23 07:29 36.7 C 89 20 127/86 95 Room Air
[2023-04-19] MEDS: ATORVASTATIN 10 MG TAB PO SCH (21:08)
[2023-04-20] MEDS: VALPROATE SOD 250 MG in DEXTROSE 5% 50 ML IV SCH ×4 (04:26→23:09)
[2023-04-20] MEDS: NICOTINE 21 MG/24 HR TDSY TD SCH (08:08)
[2023-04-20] MEDS: DULoxetine HCL 60 MG CAP PO SCH ×2 (08:09→21:00)
[2023-04-20] MEDS: MUPIROCIN 2% OINT 22 GM TUBE TOP SCH ×2 (08:09→23:10)
[2023-04-20] MEDS: THIAMINE HCL 100 MG TAB PO SCH (08:10)
[2023-04-20] MEDS: ASPIRIN 81 MG CHEW PO SCH (08:10)
[2023-04-20] MEDS: HEPARIN SOD 5,000 UNIT/0.5 ML VIAL SQ SCH ×2 (08:10→21:01)
[2023-04-20] MEDS: INSULIN ASPART PER UNIT CHARGE SC SCH ×4 (08:19→21:32)
[2023-04-20] MEDS: LANTUS PER UNIT CHARGE SC SCH ×2 (09:02→21:32)
[2023-04-20 09:43] LABS: BUN Creatinine Ratio 16.2 (10-20); Calcium 9.2 mg/dl (8.6-10.3); Creatinine Clr Calc Pharmacy 130.4 ml/min; Est GFR (African American) 132.7 ml/min; Est GFR (Non-African American) 114.5 ml/min; Potassium 3.7 mmol/L (3.5-5.1)
--- NOTE | 2023-04-20 16:48 | Hospitalist Progress Note ---
Date of Service April 20, 2023 Assessment & Plan (1) Cerebrovascular accident: Plan: Patient is a 62 yr old woman with hearing deficits with cochlear implant, Hypertension, DM2, Hypothyroidism who presents with report of confusion per family Acute/Subacute CVA Seizure -CT Head: Limited by motion artifact. Questionable loss of ann-white matter differentiation in the anterior left temporal lobe could represent acute or subacute infarct. -CTA head:No acute intracranial hemorrhage, no evidence of acute territorial infarction or other acute intracranial disease process. -Neck CTA:No dissection, hemodynamically significant stenosis, or occlusion. -ECHO: EF 55 to 60%. Mild concentric LVH. Grade 1 diastolic dysfunction. No significant valvular pathology. No interatrial shunt. --Repeat CT Head:No acute intracranial hemorrhage, no evidence of acute territorial infarction or other acute intracranial disease process. Continue seizure precautions Appreciate neurology input Continue continue Keppra 500mg IV BID>> changed to valproate sodium as Keppra likely causing sedation Discussed with neurology Dr. Altamirano on 04/17/2023 --Needs further evaluation for possible NPH as outpatient as recommended by neurology Aspiration precautions Continue aspirin 81 mg daily Very well controlled on atorvastatin 10mg. Will continue this for now Abilify discontinued--can lower seizure threshold Appreciate palliative care input No escalation of care if patient deteriorates. Goal is comfort. Trial of SNF as able. If patient deteriorates, plan to transition to comfort as per patient's family wishes Plan to discharge to SNF when accepted Seemed to be slowly improving DM II Recent A1c from last month was 9.8. Tresiba dose was increased to 20U daily. Difficult to ascertain if patient had been adherent due to speech/hearing deficits Patient is on Weekly Trulicity. Need optimization of glycemic control. 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 Appreciate psychiatry input DVT Px: Heparin SQ Code Status DNI/DNR Disposition Rehab as able Admission and Anticipated Discharge Date Admission Date: April 11, 2023 Subjective Patient is seen and examined at bedside Slightly more conversational when compared to yesterday No distress on exam Poor historian secondary to significant hearing impairment Offers no new complaints Waiting for rehab placement Review of Systems Review of Systems: Other Physical Exam Physical Exam: Physical Exam: Vitals signs as noted above General Appearance:Moderately built and nourished, no apparent distress Head: normocephalic, Atraumatic Eyes: normal inspection, EOMI Neck: supple, Trachea midline Respiratory/Chest: Normal breath sounds, CTA, No accessory muscle use Cardiovascular: S1, S2, No murmur Abdomen/GI:Soft, Non tender, Bowel sounds present Extremities/Musculoskeletal:normal inspection, no edema Neurologic/Psych:Alert, awake, moves all extremities, follows simple commands occasionally Skin: normal color, warm Results & Data Results & Data Vital Signs (Past 12 Hours) Vital Signs Temp Pulse Resp BP Pulse Ox O2 Del Method 04/20/23 15:24 36.8 C 77 18 137/87 95 Room Air 04/20/23 07:43 Room Air 04/20/23 07:13 36.3 C L 91 H 18 125/81 94 Room Air Laboratory Results [facility] 04/20/23 08:37 Sodium 138 Potassium 3.7 Chloride 103 Carbon Dioxide 26 BUN 6 Creatinine 0.37 L Glucose 134 H Calcium 9.2
[2023-04-20] MEDS: ATORVASTATIN 10 MG TAB PO SCH (21:00)
[2023-04-21] MEDS: LANTUS PER UNIT CHARGE SC SCH (00:37)
[2023-04-21] MEDS: VALPROATE SOD 250 MG in DEXTROSE 5% 50 ML IV SCH (04:14)
[2023-04-21] MEDS: INSULIN ASPART PER UNIT CHARGE SC SCH ×3 (08:36→17:09)
[2023-04-21] MEDS ORDERED: VALPROIC ACID SOLN 250 MG/5 ML UDC PO ONE (10:00)
[2023-04-21] MEDS: HEPARIN SOD 5,000 UNIT/0.5 ML VIAL SQ SCH ×2 (10:01→21:34)
[2023-04-21] MEDS: THIAMINE HCL 100 MG TAB PO SCH (10:01)
[2023-04-21] MEDS: DULoxetine HCL 60 MG CAP PO SCH ×2 (10:02→21:20)
[2023-04-21] MEDS: NICOTINE 21 MG/24 HR TDSY TD SCH (10:02)
[2023-04-21] MEDS: MUPIROCIN 2% OINT 22 GM TUBE TOP SCH ×2 (10:02→21:33)
[2023-04-21] MEDS: ASPIRIN 81 MG CHEW PO SCH (10:02)
--- NOTE | 2023-04-21 12:52 | Pharmacy Report ---
Pharmacy Glycemic Sign Off Nt - Date of Service April 21, 2023 - Assessment & Plan ASSESSMENT: * Pharmacy was consulted by Dr Pulido on 04/12/23 for glycemic control and to write orders per [facility] inpatient glycemic control protocol. * Major changes made by pharmacy to antidiabetic regimen include: * Lantus has been reduced to 5 units per day * Patient has been receiving/requiring fewer than 10 units of insulin per day for adequate glycemic control * BSGs ranging 89-137 mg/dl during the past ~48hr * Do not anticipate further changes in patient status that would quickly deteriorate glycemic control (i.e. patient to be NPO for upcoming procedure, steroids tapering, starting tube feedings, etc). * Please see recommendations for outpatient antidiabetic regimen below. PLAN FOR INPATIENT GLYCEMIC CONTROL: No changes needed to current regimen. * Continue basal insulin with Lantus 5 units SQ daily * This low dose has been appropriate, even on days when patient has little to no PO intake. * Continue NovoLog per scale ACHS/Q6hrs while NPO * Goal range = 110 - 140 mg/dl * CF = 35 mg/dl/unit * CR = none * Pharmacy is signing off of glycemic consult and will no longer be making adjustments to inpatient regimen. Please feel free to re-consult if needed. Thank you.
--- NOTE | 2023-04-21 16:02 | Hospitalist Progress Note ---
Date of Service April 21, 2023 Assessment & Plan (1) Cerebrovascular accident: Plan: Patient is a 62 yr old woman with hearing deficits with cochlear implant, Hypertension, DM2, Hypothyroidism who presents with report of confusion per family Acute/Subacute CVA Seizure -CT Head: Limited by motion artifact. Questionable loss of ann-white matter differentiation in the anterior left temporal lobe could represent acute or subacute infarct. -CTA head:No acute intracranial hemorrhage, no evidence of acute territorial infarction or other acute intracranial disease process. -Neck CTA:No dissection, hemodynamically significant stenosis, or occlusion. -ECHO: EF 55 to 60%. Mild concentric LVH. Grade 1 diastolic dysfunction. No significant valvular pathology. No interatrial shunt. --Repeat CT Head:No acute intracranial hemorrhage, no evidence of acute territorial infarction or other acute intracranial disease process. Continue seizure precautions Appreciate neurology input Continue continue Keppra 500mg IV BID>> changed to valproate sodium as Keppra likely causing sedation Discussed with neurology Dr. Altamirano on 04/17/2023 --Needs further evaluation for possible NPH as outpatient as recommended by neurology Aspiration precautions Continue aspirin 81 mg daily Very well controlled on atorvastatin 10mg. Will continue this for now Abilify discontinued--can lower seizure threshold Appreciate palliative care input No escalation of care if patient deteriorates. Goal is comfort. SNF as able per patient's family wishes . If patient deteriorates, plan to transition to comfort as per patient's family wishes Waiting for SNF placement DM II Recent A1c from last month was 9.8. Tresiba dose was increased to 20U daily. Difficult to ascertain if patient had been adherent due to speech/hearing deficits Patient is on Weekly Trulicity. Need optimization of glycemic control. 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 Appreciate psychiatry input DVT Px: Heparin SQ Code Status DNI/DNR Disposition Rehab when accepted Admission and Anticipated Discharge Date Admission Date: April 11, 2023 Subjective Patient is seen and examined at bedside Lying in bed pleasantly during my encounter Took medications per RN No acute issues Poor historian secondary to significant hearing impairment Waiting for rehab placement Will add Mirtazapine given poor oral intake Review of Systems Review of Systems: All systems reviewed & are unremarkable except as noted in Subjective Physical Exam Physical Exam: Physical Exam: Vitals signs as noted above General Appearance:Moderately built and nourished, no apparent distress Head: normocephalic, Atraumatic Eyes: normal inspection, EOMI Neck: supple, Trachea midline Respiratory/Chest: Normal breath sounds, CTA, No accessory muscle use Cardiovascular: S1, S2, No murmur Abdomen/GI:Soft, Non tender, Bowel sounds present Extremities/Musculoskeletal:normal inspection, no edema Neurologic/Psych:Alert, awake, moves all extremities, follows simple commands occasionally Skin: normal color, warm Results & Data Results & Data Vital Signs (Past 12 Hours) Vital Signs Temp Pulse Resp BP Pulse Ox O2 Del Method 04/21/23 15:16 36.5 C 89 18 128/87 97 Room Air 04/21/23 07:50 36.8 C 81 14 122/82 95 Room Air 04/21/23 07:30 Room Air 04/21/23 07:22 36.7 C 89 18 152/90 H 96 Room Air
[2023-04-21] MEDS: VALPROIC ACID SOLN 500 MG/10 ML UDC PO SCH (21:20)
[2023-04-21] MEDS: MIRTAZAPINE TAB 15 MG TAB PO SCH (21:20)
[2023-04-21] MEDS: ATORVASTATIN 10 MG TAB PO SCH (21:21)
[2023-04-22] MEDS: INSULIN ASPART PER UNIT CHARGE SC SCH ×5 (00:35→22:40)
[2023-04-22] MEDS: NICOTINE 21 MG/24 HR TDSY TD SCH (08:56)
[2023-04-22] MEDS: VALPROIC ACID SOLN 500 MG/10 ML UDC PO SCH ×2 (08:56→20:44)
[2023-04-22] MEDS: DULoxetine HCL 60 MG CAP PO SCH ×2 (08:56→20:44)
[2023-04-22] MEDS: THIAMINE HCL 100 MG TAB PO SCH (08:57)
[2023-04-22] MEDS: HEPARIN SOD 5,000 UNIT/0.5 ML VIAL SQ SCH ×2 (08:57→20:45)
[2023-04-22] MEDS: MUPIROCIN 2% OINT 22 GM TUBE TOP SCH ×2 (08:59→20:45)
[2023-04-22] MEDS: LANTUS PER UNIT CHARGE SC SCH ×2 (09:25→22:42)
[2023-04-22] MEDS: ASPIRIN 81 MG CHEW PO SCH (09:54)
--- NOTE | 2023-04-22 17:50 | Hospitalist Progress Note ---
Date of Service April 22, 2023 Assessment & Plan (1) Cerebrovascular accident: Plan: Patient is a 62 yr old woman with hearing deficits with cochlear implant, Hypertension, DM2, Hypothyroidism who presents with report of confusion per family Acute/Subacute CVA Seizure -CT Head: Limited by motion artifact. Questionable loss of ann-white matter differentiation in the anterior left temporal lobe could represent acute or subacute infarct. -CTA head:No acute intracranial hemorrhage, no evidence of acute territorial infarction or other acute intracranial disease process. -Neck CTA:No dissection, hemodynamically significant stenosis, or occlusion. -ECHO: EF 55 to 60%. Mild concentric LVH. Grade 1 diastolic dysfunction. No significant valvular pathology. No interatrial shunt. --Repeat CT Head:No acute intracranial hemorrhage, no evidence of acute territorial infarction or other acute intracranial disease process. Continue seizure precautions Appreciate neurology input Continue continue Keppra 500mg IV BID>> changed to valproate sodium as Keppra likely causing sedation Discussed with neurology Dr. Altamirano on 04/17/2023 --Needs further evaluation for possible NPH as outpatient as recommended by neurology Aspiration precautions Continue aspirin 81 mg daily Very well controlled on atorvastatin 10mg. Will continue this for now Abilify discontinued--can lower seizure threshold Appreciate palliative care input No escalation of care if patient deteriorates. Goal is comfort. SNF as able per patient's family wishes . If patient deteriorates, plan to transition to comfort as per patient's family wishes Waiting for SNF placement Continue current management Admit mirtazapine given very poor oral intake DM II Recent A1c from last month was 9.8. Tresiba dose was increased to 20U daily. Difficult to ascertain if patient had been adherent due to speech/hearing deficits Patient is on Weekly Trulicity. Need optimization of glycemic control. 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 COPD CONNIE Respiratory status at baseline Sensorineural hearing impairment with cochlear implant Needs follow-up with audiology as outpatient Mood disorder Major depression Abilify discontinued as recommended by psychiatry Continue duloxetine add mirtazapine 7.5 mg HS as oral intake remains poor.--Can increase to 15 mg if needed Appreciate psychiatry input DVT Px: Heparin SQ Code Status DNI/DNR Disposition Rehab when accepted Admission and Anticipated Discharge Date Admission Date: April 11, 2023 Subjective Patient is seen and examined at bedside No distress on exam Poor historian secondary to significant hearing impairment Waiting for rehab placement Appetite remains poor Review of Systems Review of Systems: All systems reviewed & are unremarkable except as noted in Subjective Physical Exam Physical Exam: Physical Exam: Vitals signs as noted above General Appearance:Moderately built and nourished, no apparent distress Head: normocephalic, Atraumatic Eyes: normal inspection, EOMI Neck: supple, Trachea midline Respiratory/Chest: Normal breath sounds, CTA, No accessory muscle use Cardiovascular: S1, S2, No murmur Abdomen/GI:Soft, Non tender, Bowel sounds present Extremities/Musculoskeletal:normal inspection, no edema Neurologic/Psych:Alert, awake, moves all extremities, follows simple commands occasionally Skin: normal color, warm Results & Data Results & Data Vital Signs (Past 12 Hours) Vital Signs Temp Pulse Resp BP Pulse Ox O2 Del Method 04/22/23 14:49 36.8 C 89 16 133/87 97 Room Air 04/22/23 07:32 36.6 C 84 17 113/75 95 Room Air
[2023-04-22] MEDS: ATORVASTATIN 10 MG TAB PO SCH (20:44)
[2023-04-22] MEDS: MIRTAZAPINE TAB 15 MG TAB PO SCH (20:44)
[2023-04-23 07:29] LABS: Hematocrit (blood only) 42.9 % (37.0-47.0); Hemoglobin 13.9 g/dl (12.0-16.0); Mean Corpuscular Hemoglobin 29.2 pg (25.0-34.0); Mean Corpuscular Hgb Conc 32.4 g/dL (32.0-36.0); Mean Corpuscular Volume 90.1 fL (80.0-100.0); Mean Platelet Volume 9.6 fL (9.4-12.4); Platelet Count 226 K/uL (130-400); RDW Coefficient of Variation 13.3 % (11.5-14.5); RDW Standard Deviation 44.2 fL (36.4-46.3); Red Blood Count 4.76 M/uL (4.20-5.40); White Blood Count 9.17 K/ul (4.8-10.8)
[2023-04-23 07:40] LABS: BUN Creatinine Ratio 32.7 (10-20); Calcium 9.2 mg/dl (8.6-10.3); Creatinine Clr Calc Pharmacy 98.5 ml/min; Est GFR (Non-African American) 104.4 ml/min; Potassium 4.1 mmol/L (3.5-5.1)
[2023-04-23] MEDS: INSULIN ASPART PER UNIT CHARGE SC SCH ×4 (09:00→21:39)
--- NOTE | 2023-04-23 09:13 | Communication Note ---
Date of Service: April 23, 2023 Palliative Medicine Brief Note We were asked to see pt for GOC, and a detailed family meeting was completed/documented. At this time, pt does not have any acute Inpatient Pall Med needs warranting daily evaluation, therefore I will sign off but remain available for re- involvement this admission as needed. Please don't hesitate to call or page me as needed. Pt not seen/no charge submitted. Thank you for allowing us to participate in the ongoing care of this patient. Please don't hesitate to call or page with any additional concerns. Dr. Asia Berman DNP Director, Palliative Care
[2023-04-23] MEDS: DULoxetine HCL 60 MG CAP PO SCH ×2 (09:14→21:33)
[2023-04-23] MEDS: HEPARIN SOD 5,000 UNIT/0.5 ML VIAL SQ SCH ×2 (09:14→21:34)
[2023-04-23] MEDS: VALPROIC ACID SOLN 500 MG/10 ML UDC PO SCH ×2 (09:14→21:33)
[2023-04-23] MEDS: NICOTINE 21 MG/24 HR TDSY TD SCH (09:15)
[2023-04-23] MEDS: MUPIROCIN 2% OINT 22 GM TUBE TOP SCH ×2 (09:15→21:40)
[2023-04-23] MEDS: THIAMINE HCL 100 MG TAB PO SCH (09:15)
[2023-04-23] MEDS: LANTUS PER UNIT CHARGE SC SCH ×2 (09:25→21:40)
[2023-04-23] MEDS: ASPIRIN 81 MG CHEW PO SCH (09:58)
--- NOTE | 2023-04-23 16:47 | Hospitalist Progress Note ---
Date of Service April 23, 2023 Assessment & Plan (1) Cerebrovascular accident: Plan: Patient is a 62 yr old woman with hearing deficits with cochlear implant, Hypertension, DM2, Hypothyroidism who presents with report of confusion per family Acute/Subacute CVA Seizure -CT Head: Limited by motion artifact. Questionable loss of ann-white matter differentiation in the anterior left temporal lobe could represent acute or subacute infarct. -CTA head:No acute intracranial hemorrhage, no evidence of acute territorial infarction or other acute intracranial disease process. -Neck CTA:No dissection, hemodynamically significant stenosis, or occlusion. -ECHO: EF 55 to 60%. Mild concentric LVH. Grade 1 diastolic dysfunction. No significant valvular pathology. No interatrial shunt. --Repeat CT Head:No acute intracranial hemorrhage, no evidence of acute territorial infarction or other acute intracranial disease process. Continue seizure precautions Appreciate neurology input Continue continue Keppra 500mg IV BID>> changed to valproate sodium as Keppra likely causing sedation Discussed with neurology Dr. Altamirano on 04/17/2023 --Needs further evaluation for possible NPH as outpatient as recommended by neurology Aspiration precautions Continue aspirin 81 mg daily Very well controlled on atorvastatin 10mg. Will continue this for now Abilify discontinued--can lower seizure threshold Appreciate palliative care input No escalation of care if patient deteriorates. Goal is comfort. SNF as able per patient's family wishes . If patient deteriorates, plan to transition to comfort as per patient's family wishes Waiting for SNF placement Added mirtazapine given very poor oral intake--Increase to 15mg if needed Encouraged to increase oral intake Continue supplements DM II Recent A1c from last month was 9.8. Tresiba dose was increased to 20U daily. Difficult to ascertain if patient had been adherent due to speech/hearing deficits Patient is on Weekly Trulicity. Need optimization of glycemic control. 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 COPD CONNIE Respiratory status at baseline Sensorineural hearing impairment with cochlear implant Needs follow-up with audiology as outpatient Mood disorder Major depression Abilify discontinued as recommended by psychiatry Continue duloxetine add mirtazapine 7.5 mg HS as oral intake remains poor.--Can increase to 15 mg if needed Appreciate psychiatry input DVT Px: Heparin SQ Code Status DNI/DNR Disposition Rehab when accepted Admission and Anticipated Discharge Date Admission Date: April 11, 2023 Subjective Patient is seen and examined at bedside No new issues Discussed with patient's family today Also discussed with psychiatry today Poor historian secondary to significant hearing impairment Waiting for rehab placement Very poor oral intake Review of Systems Review of Systems: Unobtainable due to cognitive status Physical Exam Physical Exam: Physical Exam: Vitals signs as noted above General Appearance:Moderately built and nourished, no apparent distress Head: normocephalic, Atraumatic Eyes: normal inspection, EOMI Neck: supple, Trachea midline Respiratory/Chest: Normal breath sounds, CTA, No accessory muscle use Cardiovascular: S1, S2, No murmur Abdomen/GI:Soft, Non tender, Bowel sounds present Extremities/Musculoskeletal:normal inspection, no edema Neurologic/Psych:Alert, awake, moves all extremities, follows simple commands occasionally Skin: normal color, warm Results & Data Results & Data Vital Signs (Past 12 Hours) Vital Signs Temp Pulse Resp BP Pulse Ox O2 Del Method 04/23/23 15:32 36.8 C 94 H 16 105/69 93 Room Air 04/23/23 07:39 36.8 C 77 16 120/78 95 Room Air Laboratory Results Short CBC 04/23/23 Range/Units 07:01 WBC 9.17 (4.8-10.8) K/ul Hgb 13.9 (12.0-16.0) g/dl Hct 42.9 (37.0-47.0) % Plt Count 226 (130-400) K/uL BMP 04/23/23 07:01 Sodium 140 Potassium 4.1 Chloride 104 Carbon Dioxide 29 BUN 16 Creatinine 0.49 L Glucose 162 H Calcium 9.2
[2023-04-23] MEDS: MIRTAZAPINE TAB 15 MG TAB PO SCH (21:33)
[2023-04-23] MEDS: ATORVASTATIN 10 MG TAB PO SCH (21:39)
[2023-04-24] MEDS: VALPROIC ACID SOLN 500 MG/10 ML UDC PO SCH ×2 (08:34→20:10)
[2023-04-24] MEDS: DULoxetine HCL 60 MG CAP PO SCH ×2 (08:34→20:10)
[2023-04-24] MEDS: NICOTINE 21 MG/24 HR TDSY TD SCH (08:34)
[2023-04-24] MEDS: THIAMINE HCL 100 MG TAB PO SCH (08:34)
[2023-04-24] MEDS: ASPIRIN 81 MG CHEW PO SCH (08:39)
[2023-04-24] MEDS: INSULIN ASPART PER UNIT CHARGE SC SCH ×4 (08:39→20:06)
[2023-04-24] MEDS: LANTUS PER UNIT CHARGE SC SCH ×2 (08:39→20:06)
--- NOTE | 2023-04-24 14:31 | Hospitalist Progress Note ---
Date of Service April 24, 2023 Assessment & Plan (1) Cerebrovascular accident: Plan: Patient is a 62 yr old woman with hearing deficits with cochlear implant, Hypertension, DM2, Hypothyroidism who presents with report of confusion per family Acute/Subacute CVA Seizure -CT Head: Limited by motion artifact. Questionable loss of ann-white matter differentiation in the anterior left temporal lobe could represent acute or subacute infarct. -CTA head:No acute intracranial hemorrhage, no evidence of acute territorial infarction or other acute intracranial disease process. -Neck CTA:No dissection, hemodynamically significant stenosis, or occlusion. -ECHO: EF 55 to 60%. Mild concentric LVH. Grade 1 diastolic dysfunction. No significant valvular pathology. No interatrial shunt. --Repeat CT Head:No acute intracranial hemorrhage, no evidence of acute territorial infarction or other acute intracranial disease process. Continue seizure precautions Appreciate neurology input Continue continue Keppra 500mg IV BID>> changed to valproate sodium as Keppra likely causing sedation Discussed with neurology Dr. Altamirano on 04/17/2023 --Needs further evaluation for possible NPH as outpatient as recommended by neurology Aspiration precautions Continue aspirin 81 mg daily Very well controlled on atorvastatin 10mg--continue Abilify discontinued--can lower seizure threshold Appreciate palliative care input No escalation of care if patient deteriorates. Goal is comfort. SNF as able per patient's family wishes . If patient deteriorates, plan to transition to comfort as per patient's family wishes Added mirtazapine given very poor oral intake--Increase to 15mg Encouraged to increase oral intake Waiting for SNF placement DM II Recent A1c from last month was 9.8. Tresiba dose was increased to 20U daily. Difficult to ascertain if patient had been adherent due to speech/hearing deficits Patient is on Weekly Trulicity. Need optimization of glycemic control. 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 CONNIE Respiratory status at baseline Sensorineural hearing impairment with cochlear implant Needs follow-up with audiology as outpatient Mood disorder Major depression Abilify discontinued as recommended by psychiatry Continue duloxetine add mirtazapine 7.5 mg HS as oral intake remains poor.--Can increase to 15 mg if needed Appreciate psychiatry input DVT Px: Heparin SQ Code Status DNI/DNR Disposition Rehab when accepted Admission and Anticipated Discharge Date Admission Date: April 11, 2023 Subjective Patient is seen and examined at bedside Appetite remains poor Ate Crackles when encouraged Poor historian secondary to significant hearing impairment Waiting for rehab placement No distress on exam Review of Systems Review of Systems: All systems reviewed & are unremarkable except as noted in Subjective Physical Exam Physical Exam: Physical Exam: Vitals signs as noted above General Appearance:Moderately built and nourished, no apparent distress Head: normocephalic, Atraumatic Eyes: normal inspection, EOMI Neck: supple, Trachea midline Respiratory/Chest: Normal breath sounds, CTA, No accessory muscle use Cardiovascular: S1, S2, No murmur Abdomen/GI:Soft, Non tender, Bowel sounds present Extremities/Musculoskeletal:normal inspection, no edema Neurologic/Psych:Alert, awake, moves all extremities, follows simple commands occasionally Skin: normal color, warm Results & Data Results & Data Vital Signs (Past 12 Hours) Vital Signs Temp Pulse Resp BP Pulse Ox O2 Del Method 04/24/23 08:21 37.0 C 85 16 105/71 96 Room Air
[2023-04-24] MEDS: ATORVASTATIN 10 MG TAB PO SCH (20:10)
[2023-04-24] MEDS: MIRTAZAPINE TAB 15 MG TAB PO SCH (20:10)
[2023-04-24] MEDS: HEPARIN SOD 5,000 UNIT/0.5 ML VIAL SQ SCH (20:11)
[2023-04-25 06:48] LABS: BUN Creatinine Ratio 38.3 (10-20); Calcium 9.5 mg/dl (8.6-10.3); Creatinine Clr Calc Pharmacy 102.7 ml/min; Est GFR (African American) 122.7 ml/min; Est GFR (Non-African American) 105.9 ml/min; Potassium 4.1 mmol/L (3.5-5.1)
[2023-04-25] MEDS: INSULIN ASPART PER UNIT CHARGE SC SCH ×4 (08:01→20:14)
[2023-04-25] MEDS: NICOTINE 21 MG/24 HR TDSY TD SCH (08:02)
[2023-04-25] MEDS: DULoxetine HCL 60 MG CAP PO SCH ×2 (08:02→20:16)
[2023-04-25] MEDS: THIAMINE HCL 100 MG TAB PO SCH (08:02)
[2023-04-25] MEDS: VALPROIC ACID SOLN 500 MG/10 ML UDC PO SCH ×2 (08:02→20:16)
[2023-04-25] MEDS: ASPIRIN 81 MG CHEW PO SCH (08:05)
[2023-04-25] MEDS: LANTUS PER UNIT CHARGE SC SCH ×2 (08:05→20:15)
[2023-04-25] MEDS: HEPARIN SOD 5,000 UNIT/0.5 ML VIAL SQ SCH ×2 (08:56→20:16)
--- NOTE | 2023-04-25 14:50 | Hospitalist Progress Note ---
Date of Service April 25, 2023 Assessment & Plan (1) Cerebrovascular accident: Plan: Patient is a 62 yr old woman with hearing deficits with cochlear implant, Hypertension, DM2, Hypothyroidism who presents with report of confusion per family Acute/Subacute CVA Seizure -CT Head: Limited by motion artifact. Questionable loss of polanco-white matter differentiation in the anterior left temporal lobe could represent acute or subacute infarct. -CTA head:No acute intracranial hemorrhage, no evidence of acute territorial infarction or other acute intracranial disease process. -Neck CTA:No dissection, hemodynamically significant stenosis, or occlusion. -ECHO: EF 55 to 60%. Mild concentric LVH. Grade 1 diastolic dysfunction. No significant valvular pathology. No interatrial shunt. --Repeat CT Head:No acute intracranial hemorrhage, no evidence of acute territ orial infarction or other acute intracranial disease process. Continue seizure precautions Appreciate neurology input Continue continue Keppra 500mg IV BID>> changed to valproate sodium as Keppra likely causing sedation Discussed with neurology Dr. Altamirano on 04/17/2023 Needs further evaluation for possible NPH as outpatient as recommended by neurology Aspiration precautions Continue aspirin 81 mg daily, atorvastatin 10mg Abilify discontinued--can lower seizure threshold Appreciate palliative care input- No escalation of care if patient deteriorates. Goal is comfort SNF as able per patient's family wishes . If patient deteriorates, plan to transition to comfort as per patient's family wishes Added mirtazapine given very poor oral intake--Increase to 15mg Waiting for SNF placement DM II Recent A1c from last month was 9.8. Tresiba dose was increased to 20U daily. Difficult to ascertain if patient had been adherent due to speech/hearing deficits Patient is on Weekly Trulicity. Need optimization of glycemic control. Continue insulin per protocol, monitor blood glucose levels Hypothyroidism Mood disorder Continue levothyroxine Continue aripiprazole, duloxetine Sacral decubitus wound Continue wound care Ongoing tobacco use Nicotine patch [employer] to quit COPD CONNIE Respiratory status at baseline Sensorineural hearing impairment with cochlear implant Needs follow-up with audiology as outpatient Mood disorder Major depression Abilify discontinued as recommended by psychiatry Continue duloxetine Mirtazapine increased to 15 mg HS with small appetite improvement Appreciate psychiatry input DVT Px: Heparin SQ Code Status DNI/DNR Disposition Rehab when accepted I spent a total of 35 minutes coordinating, documenting, and providing care for this patient excluding time spent in the performance of separately billed services. Admission and Anticipated Discharge Date Admission Date: April 11, 2023 Supervising Physician Co-Signing Physician Notes Attending addendum The patient was seen and examined in medical floor She has been out of bed on a chair and feeling much better today Communicative and does not have any acute distress On examination Sitting on a chair without any acute distress Hemodynamically stable Chest-clear to auscultate bilateral Heart-S1, [id number] Abdomen-benign Extremities-negative for any edema Her labs and imaging studies reviewed Has acute/subacute CVA with seizure disorder-stable right now Agree with assessment and plan as outlined above by [facility]ENCION [address] Dr Subjective Patient is seen and examined in 303-1. Pleasant, appears, comfortable, poor historian 2/2 significant hearing impairment. ROS unobtainable. Per discussion with RN, patent has been eating more in the past day. No documented bowel movement since 04/19/23 so will start regimen. Review of Systems Review of Systems: Unobtainable due to cognitive status Physical Exam Physical Exam: Gen: WD/WN, NAD, resting in bed comfortably, awake, pleasant but marked hearing impairment HEENT: Normocephalic, atraumatic, conjunctivae moist, sclerae anicteric, mucous membranes moist Lung: Clear to Auscultation bilaterally, no wheezes/rales/rhonchi Heart: Regular rate, regular rhythm, no murmurs, rubs, or gallops Abdomen: Soft, NT, ND +BS x 4 Extremities: no edema Skin: Warm, no rash Results & Data Results & Data Vital Signs (Past 12 Hours) Vital Signs Temp Pulse Pulse Resp BP Pulse Ox O2 Del Method 04/25/23 14:06 36.7 C 86 17 105/72 99 Room Air 04/25/23 08:00 36.4 C L 87 14 108/77 98 Room Air Laboratory Results [facility] 04/25/23 05:34 Sodium 143 Potassium 4.1 Chloride 104 Carbon Dioxide 31 BUN 18 Creatinine 0.47 L Glucose 130 H Calcium 9.[address] 04/10/23 00:00 CR Exam(s): CT HEAD Without Contrast EXAM: CT Head Without Intravenous Contrast CLINICAL HISTORY: Reason for exam: neuro deficit, acute stroke suspected. TECHNIQUE: Axial computed tomography images of the head/brain without intravenous contrast. CTDI is 29.23 mGy and DLP is 512.02 mGy-cm. Automated exposure control was utilized for the study. A dose lowering technique was utilized adhering to the principles of ALARA. COMPARISON: CT head 06/12/22 FINDINGS: Calvarium is intact. Paranasal sinuses are clear. Patient is status post partial bilateral mastoidectomies and placement of bilateral cochlear implants. Left mastoid air cells are partially opacified. Right mastoid air cells are clear. There is generalized parenchymal volume loss with enlargement of the sulci, ventricles, and basal cisterns. Evaluation of the brain parenchyma is limited by motion artifact. Hypoattenuation in the cerebral white matter is compatible with chronic small vessel ischemic disease. There is questionable loss of polanco-white matter differentiation in the anterior left temporal lobe (series 2, image 8). Polanco-white matter differentiation appears otherwise grossly maintained. There is no hemorrhage or midline shift. IMPRESSION: 1. Limited by motion artifact. 2. Questionable loss of polanco-white matter differentiation in the anterior left temporal lobe could represent acute or subacute infarct. Communications: Call Doctor Other Electronically signed by: Rhona Naik M.D. 04/11/23 00:37 AM Chest X-Ray 04/10/23 22:32 XR chest 1V portable HISTORY: 62 years-old Female neuro deficit, acute stroke suspected acute shortness of breath COMPARISON: 03/13/2023 TECHNIQUE: AP view of the chest FINDINGS: Cardiac silhouette is upper limits of normal in size. No pneumothorax, pleural effusion, airspace consolidation or overt pulmonary edema. Chronic right-sided rib fractures. Unchanged left hemidiaphragmatic elevation. Bones of the chest appear grossly intact. IMPRESSION: No acute process. ACT 112: Negative or not required by law. The above report was generated using voice recognition software. It may contain grammatical, syntax or spelling errors. Electronically signed by: Gee Mcnair M.D. 04/11/2023 7:19 AM Head CTA 04/10/23 22:32 Exam(s): CTA HEAD With Contrast IV Amt: 112ml Optiray 320 EXAM: CT Angiography Head With Intravenous Contrast CLINICAL HISTORY: Reason for exam: neuro deficit, acute stroke suspected. TECHNIQUE: Axial computed tomographic angiography images of the head with intravenous contrast. CTDI is 29.23 mGy and DLP is 512.02 mGy-cm. Automated exposure control was utilized for the study. A dose lowering technique was utilized adhering to the principles of ALARA. MIP reconstructed images were created and reviewed. CONTRAST: Patient received 112ml Optiray 320 of IV contrast COMPARISON: CT head of the same date FINDINGS: Right internal carotid artery: Calcific plaquing of the intracranial right ICA without stenosis. No aneurysm. Right anterior cerebral artery: Unremarkable. No occlusion or significant stenosis. No aneurysm. Right middle cerebral artery: Unremarkable. No occlusion or significant stenosis. No aneurysm. Right posterior cerebral artery: Unremarkable. No occlusion or significant stenosis. No aneurysm. 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 No occlusion or significant stenosis. No aneurysm. Left internal carotid artery: Calcific plaquing of the intracranial left ICA without stenosis. No aneurysm. Left anterior cerebral artery: Unremarkable. No occlusion or significant stenosis. No aneurysm. Left middle cerebral artery: Unremarkable. No occlusion or significant stenosis. No aneurysm. Left posterior cerebral artery: Unremarkable. No occlusion or significant stenosis. No aneurysm. 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 No occlusion or significant stenosis. No aneurysm. Basilar artery: Unremarkable. No occlusion or significant stenosis. No aneurysm. IMPRESSION: 1. Patent intracranial circulation. Electronically signed by: Rhona Naik M.D. 04/11/23 00:41 AM Neck CTA 04/10/23 22:32 Exam(s): CTA NECK With Contrast IV Amt: 112ml Optiray 320 EXAM: CT Angiography Neck With Intravenous Contrast CLINICAL HISTORY: Reason for exam: neuro deficit, acute stroke suspected. TECHNIQUE: Routine carotid CT angiography protocol was performed with intravenous contrast. NASCET criteria using the distal ICAs for comparison were used for evaluation of stenoses. CTDI is 12.76 mGy and DLP is 516.38 mGy-cm. Automated exposure control was utilized for the study. A dose lowering technique was utilized adhering to the principles of ALARA. MIP reconstructed images were created and reviewed. CONTRAST: Patient received 112ml Optiray 320 of IV contrast COMPARISON: None. FINDINGS: VASCULATURE: Right common carotid artery: Unremarkable. No occlusion or significant stenosis. No dissection. Right internal carotid artery: Calcific plaque producing approximately 20% stenosis within the proximal to mid right ICA. No dissection. Right external carotid artery: Unremarkable. No occlusion. Right vertebral artery: Unremarkable. No occlusion or significant stenosis. No dissection. Left common carotid artery: Unremarkable. No occlusion or significant stenosis. No dissection. Left internal carotid artery: Unremarkable. Extracranial segment is patent with no occlusion or significant stenosis. No dissection. Left external carotid artery: Unremarkable. No occlusion. Left vertebral artery: Unremarkable. No occlusion or significant stenosis. No dissection. Other vasculature: Conventional aortic arch branch anatomy. NECK: Bones/joints: Unremarkable. Soft tissues: Unremarkable. Lung apices: Clear. CAROTID STENOSIS REFERENCE USING NASCET CRITERIA: % ICA stenosis = (1 - narrowest ICA diameter/diameter of distal cervical ICA) x 100. Mild - <50% stenosis. Moderate - 50-69% stenosis. Severe - 70-94% stenosis. Near occlusion - 95-99% stenosis. Occluded - 100% stenosis. IMPRESSION: No dissection, hemodynamically significant stenosis, or occlusion. Electronically signed by: Rhona Naik M.D. 04/11/23 00:[address] 04/12/23 08:12 CT head/brain wo con CLINICAL HISTORY: CVA. Acute change in mental status. Reassess Technique: Contiguous axial CT images of the head were acquired from the base of the skull to the vertex without intravenous contrast administration. Images were viewed in brain, subdural and bone windows. Automated dose lowering techniques and/or adjustment according to patient size were utilized for this exam. Comparison: Comparison is made to CTA head and neck 04/10/2023 Findings: Areas of decreased attenuation are present in the periventricular and subcortical white matter bilaterally consistent with small vessel ischemic disease. Generalized cerebral atrophy with commensurate enlargement of the ventricles, sulci, and cisterns is also present. There is no acute intracranial hemorrhage or evidence of acute territorial infarction. No shift of the midline structures, mass effect, or extra-axial abnormalities are shown. Atherosclerotic calcifications are present in the intracranial segments of the internal carotid arteries. Imaged portions of the paranasal sinuses and mastoid air cells are clear. The orbits appear normal. There are no acute fractures of the calvaria or scalp swelling. Impression: No acute intracranial hemorrhage, no evidence of acute territorial infarction or other acute intracranial disease process. ACT 112: Negative or not required by law. Electronically signed by: Porter Parks M.D. 04/12/2023 9:18 AM
[2023-04-25] MEDS: ATORVASTATIN 10 MG TAB PO SCH (20:16)
[2023-04-25] MEDS: MIRTAZAPINE TAB 15 MG TAB PO SCH (20:16)
[2023-04-25] MEDS ORDERED: DOCUSATE SODIUM 100 MG CAP PO SCH (21:00)
[2023-04-26] MEDS: ASPIRIN 81 MG CHEW PO SCH (08:35)
[2023-04-26] MEDS: DULoxetine HCL 60 MG CAP PO SCH ×2 (08:36→20:12)
[2023-04-26] MEDS: THIAMINE HCL 100 MG TAB PO SCH (08:38)
[2023-04-26] MEDS: NICOTINE 21 MG/24 HR TDSY TD SCH (08:39)
[2023-04-26] MEDS: VALPROIC ACID SOLN 500 MG/10 ML UDC PO SCH ×2 (08:41→20:12)
[2023-04-26] MEDS: INSULIN ASPART PER UNIT CHARGE SC SCH ×4 (08:53→20:12)
[2023-04-26] MEDS: HEPARIN SOD 5,000 UNIT/0.5 ML VIAL SQ SCH ×2 (08:55→20:11)
[2023-04-26] MEDS: LANTUS PER UNIT CHARGE SC SCH ×2 (09:31→20:12)
[2023-04-26] MEDS: DOCUSATE SODIUM SYRUP 100 MG/10 ML UDC PO SCH ×2 (09:31→20:12)
--- NOTE | 2023-04-26 17:53 | Hospitalist Progress Note ---
Date of Service April 26, 2023 Assessment & Plan (1) Cerebrovascular accident: Plan: 62 yr old woman with hearing deficits with cochlear implant, Hypertension, DM2, Hypothyroidism who presents with report of confusion per family. she is being managed for the following: Acute/Subacute CVA Seizure -CT Head: Limited by motion artifact. Questionable loss of ann-white matter differentiation in the anterior left temporal lobe could represent acute or subacute infarct. -CTA head:No acute intracranial hemorrhage, no evidence of acute territorial infarction or other acute intracranial disease process. -Neck CTA:No dissection, hemodynamically significant stenosis, or occlusion. -ECHO: EF 55 to 60%. Mild concentric LVH. Grade 1 diastolic dysfunction. No significant valvular pathology. No interatrial shunt. --Repeat CT Head:No acute intracranial hemorrhage, no evidence of acute territorial infarction or other acute intracranial disease process. Continue seizure precautions Appreciate neurology input Continue continue Keppra 500mg IV BID>> changed to valproate sodium as Keppra likely causing sedation Needs further evaluation for possible NPH as outpatient as recommended by n eurology Aspiration precautions Continue aspirin 81 mg daily, atorvastatin 10mg Abilify discontinued--can lower seizure threshold Appreciate palliative care input- No escalation of care if patient deteriorates. Goal is comfort SNF as able per patient's family wishes . If patient deteriorates, plan to transition to comfort as per patient's family wishes Added mirtazapine given very poor oral intake--Increase to 15mg Waiting for SNF placement DM II Recent A1c from last month was 9.8. Tresiba dose was increased to 20U daily. Difficult to ascertain if patient had been adherent due to speech/hearing deficits Patient is on Weekly Trulicity. Need optimization of glycemic control. Continue insulin per protocol, monitor blood glucose levels Hypothyroidism Mood disorder Continue levothyroxine Continue aripiprazole, duloxetine Sacral decubitus wound Continue wound care Ongoing tobacco use Nicotine patch [employer] to quit COPD CONNIE Respiratory status at baseline Sensorineural hearing impairment with cochlear implant Needs follow-up with audiology as outpatient Mood disorder Major depression Abilify discontinued as recommended by psychiatry Continue duloxetine Mirtazapine increased to 15 mg HS with small appetite improvement Appreciate psychiatry input DVT Px:Heparin SQ Code Status :DNI/DNR Disposition: Rehab when accepted Admission and Anticipated Discharge Date Admission Date: April 11, 2023 Subjective Patient is seen and examined in 303-1. Pleasant, appears, comfortable, poor historian 2/2 significant hearing impairment. ROS unobtainable. Per discussion with RN, patent has been eating more in the past day. No documented bowel movement since 04/19/23 so c/w bowel regimen. Physical Exam Physical Exam: Gen: WD/WN, NAD, resting in bed comfortably, awake, pleasant but marked hearing impairment, dysarthria. HEENT: Normocephalic, atraumatic, conjunctivae moist, sclerae anicteric, mucous membranes moist Lung: Clear to Auscultation bilaterally, no wheezes/rales/rhonchi Heart: Regular rate, regular rhythm, no murmurs, rubs, or gallops Abdomen: Soft, NT, ND +BS x 4 Extremities: no edema Skin: Warm, no rash Results & Data Results & Data Vital Signs (Past 12 Hours) Vital Signs Temp Pulse Pulse Resp BP Pulse Ox O2 Del Method 04/26/23 14:28 36.7 C 81 16 116/79 98 Room Air 04/26/23 07:48 36.7 C 82 16 112/72 98 Room Air
[2023-04-26] MEDS: ATORVASTATIN 10 MG TAB PO SCH (20:11)
[2023-04-26] MEDS: MIRTAZAPINE TAB 15 MG TAB PO SCH (20:11)
[2023-04-27] MEDS: INSULIN ASPART PER UNIT CHARGE SC SCH ×4 (08:40→21:07)
[2023-04-27] MEDS: LANTUS PER UNIT CHARGE SC SCH ×2 (08:42→21:07)
[2023-04-27] MEDS: DOCUSATE SODIUM SYRUP 100 MG/10 ML UDC PO SCH ×2 (08:54→20:47)
[2023-04-27] MEDS: ASPIRIN 81 MG CHEW PO SCH (08:54)
[2023-04-27] MEDS: HEPARIN SOD 5,000 UNIT/0.5 ML VIAL SQ SCH ×2 (08:57→20:47)
[2023-04-27] MEDS: DULoxetine HCL 60 MG CAP PO SCH ×2 (08:57→20:47)
[2023-04-27] MEDS: NICOTINE 21 MG/24 HR TDSY TD SCH (08:58)
[2023-04-27] MEDS: POLYETHYLENE (MIRALAX) 17 GM PACK PO SCH (08:59)
[2023-04-27] MEDS: THIAMINE HCL 100 MG TAB PO SCH (09:01)
[2023-04-27] MEDS: VALPROIC ACID SOLN 500 MG/10 ML UDC PO SCH ×2 (09:02→20:47)
--- NOTE | 2023-04-27 15:44 | Hospitalist Progress Note ---
Date of Service April 27, 2023 Assessment & Plan (1) Cerebrovascular accident: Plan: 62 yr old woman with hearing deficits with cochlear implant, Hypertension, DM2, Hypothyroidism who presents with report of confusion per family. she is being managed for the following: Acute/Subacute CVA Seizure -CT Head: Limited by motion artifact. Questionable loss of ann-white matter differentiation in the anterior left temporal lobe could represent acute or subacute infarct. -CTA head:No acute intracranial hemorrhage, no evidence of acute territorial infarction or other acute intracranial disease process. -Neck CTA:No dissection, hemodynamically significant stenosis, or occlusion. -ECHO: EF 55 to 60%. Mild concentric LVH. Grade 1 diastolic dysfunction. No significant valvular pathology. No interatrial shunt. --Repeat CT Head:No acute intracranial hemorrhage, no evidence of acute territorial infarction or other acute intracranial disease process. Continue seizure precautions Appreciate neurology input Continue continue Keppra 500mg IV BID>> changed to valproate sodium as Keppra likely causing sedation Needs further evaluation for possible NPH as outpatient as recommended by n eurology Aspiration precautions Continue aspirin 81 mg daily, atorvastatin 10mg Abilify discontinued--can lower seizure threshold Appreciate palliative care input- No escalation of care if patient deteriorates. Goal is comfort SNF as able per patient's family wishes . If patient deteriorates, plan to transition to comfort as per patient's family wishes Added mirtazapine given very poor oral intake--Increase to 15mg Waiting for SNF placement DM II Recent A1c from last month was 9.8. Tresiba dose was increased to 20U daily. Difficult to ascertain if patient had been adherent due to speech/hearing deficits Patient is on Weekly Trulicity. Need optimization of glycemic control. Continue insulin per protocol, monitor blood glucose levels Hypothyroidism Mood disorder Continue levothyroxine Continue aripiprazole, duloxetine Sacral decubitus wound Continue wound care Ongoing tobacco use Nicotine patch [employer] to quit COPD CONNIE Respiratory status at baseline Sensorineural hearing impairment with cochlear implant Needs follow-up with audiology as outpatient Mood disorder Major depression Abilify discontinued as recommended by psychiatry Continue duloxetine Mirtazapine increased to 15 mg HS with small appetite improvement Appreciate psychiatry input DVT Px:Heparin SQ Code Status :DNI/DNR Disposition: Rehab when accepted Admission and Anticipated Discharge Date Admission Date: April 11, 2023 Subjective Patient is seen and examined in 303-1. Pleasant, appears, comfortable, poor historian 2/2 significant hearing impairment. ROS unobtainable.vNo documented bowel movement since 04/19/23 so c/w bowel regimen. Patient's daughter was at bedside, updated, answered all her questions. Physical Exam 2 Physical Exam: Gen: WD/WN, NAD, resting in bed comfortably, awake, pleasant but marked hearing impairment, dysarthria. HEENT: Normocephalic, atraumatic, conjunctivae moist, sclerae anicteric, mucous membranes moist Lung: Clear to Auscultation bilaterally, no wheezes/rales/rhonchi Heart: Regular rate, regular rhythm, no murmurs, rubs, or gallops Abdomen: Soft, NT, ND +BS x 4 Extremities: no edema Skin: Warm, no rash Results & Data Results & Data Vital Signs (Past 12 Hours) Vital Signs Temp Pulse Resp BP BP Pulse Ox O2 Del Method 04/27/23 14:23 36.7 C 80 16 108/73 97 Room Air 04/27/23 07:22 36.8 C 89 18 128/82 97 Room Air
[2023-04-27] MEDS: ATORVASTATIN 10 MG TAB PO SCH (20:47)
[2023-04-27] MEDS: MIRTAZAPINE TAB 15 MG TAB PO SCH (20:47)
[2023-04-28] MEDS: INSULIN ASPART PER UNIT CHARGE SC SCH ×4 (08:30→21:14)
[2023-04-28] MEDS: LANTUS PER UNIT CHARGE SC SCH ×2 (08:30→21:15)
[2023-04-28] MEDS: THIAMINE HCL 100 MG TAB PO SCH (09:14)
[2023-04-28] MEDS: DOCUSATE SODIUM SYRUP 100 MG/10 ML UDC PO SCH ×2 (09:15→20:04)
[2023-04-28] MEDS: HEPARIN SOD 5,000 UNIT/0.5 ML VIAL SQ SCH ×2 (09:15→20:04)
[2023-04-28] MEDS: VALPROIC ACID SOLN 500 MG/10 ML UDC PO SCH ×2 (09:15→20:04)
[2023-04-28] MEDS: DULoxetine HCL 60 MG CAP PO SCH ×2 (09:15→20:04)
[2023-04-28] MEDS: NICOTINE 21 MG/24 HR TDSY TD SCH (09:15)
[2023-04-28] MEDS: POLYETHYLENE (MIRALAX) 17 GM PACK PO SCH (09:21)
[2023-04-28] MEDS: ASPIRIN 81 MG CHEW PO SCH (10:39)
--- NOTE | 2023-04-28 15:57 | Hospitalist Progress Note ---
Date of Service April 28, 2023 Assessment & Plan (1) Cerebrovascular accident: Plan: 62 yr old woman with hearing deficits with cochlear implant, Hypertension, DM2, Hypothyroidism who presents with report of confusion per family. she is being managed for the following: Acute/Subacute CVA Seizure -CT Head: Limited by motion artifact. Questionable loss of ann-white matter differentiation in the anterior left temporal lobe could represent acute or subacute infarct. -CTA head:No acute intracranial hemorrhage, no evidence of acute territorial infarction or other acute intracranial disease process. -Neck CTA:No dissection, hemodynamically significant stenosis, or occlusion. -ECHO: EF 55 to 60%. Mild concentric LVH. Grade 1 diastolic dysfunction. No significant valvular pathology. No interatrial shunt. --Repeat CT Head:No acute intracranial hemorrhage, no evidence of acute territorial infarction or other acute intracranial disease process. Continue seizure precautions Appreciate neurology input Continue continue Keppra 500mg IV BID>> changed to valproate sodium as Keppra likely causing sedation Needs further evaluation for possible NPH as outpatient as recommended by n eurology Aspiration precautions Continue aspirin 81 mg daily, atorvastatin 10mg Abilify discontinued--can lower seizure threshold Appreciate palliative care input- No escalation of care if patient deteriorates. Goal is comfort SNF as able per patient's family wishes . If patient deteriorates, plan to transition to comfort as per patient's family wishes Added mirtazapine given very poor oral intake--Increase to 15mg Waiting for SNF placement DM II Recent A1c from last month was 9.8. Tresiba dose was increased to 20U daily. Difficult to ascertain if patient had been adherent due to speech/hearing deficits Patient is on Weekly Trulicity. Need optimization of glycemic control. Continue insulin per protocol, monitor blood glucose levels Hypothyroidism Mood disorder Continue levothyroxine Continue aripiprazole, duloxetine Sacral decubitus wound Continue wound care Ongoing tobacco use Nicotine patch [employer] to quit COPD CONNIE Respiratory status at baseline Sensorineural hearing impairment with cochlear implant Needs follow-up with audiology as outpatient Mood disorder Major depression Abilify discontinued as recommended by psychiatry Continue duloxetine Mirtazapine increased to 15 mg HS with small appetite improvement Appreciate psychiatry input DVT Px:Heparin SQ Code Status :DNI/DNR Disposition: Rehab when accepted Admission and Anticipated Discharge Date Admission Date: April 11, 2023 Subjective Patient is seen and examined in 303-1. Pleasant, appears, comfortable, poor historian 2/2 significant hearing impairment. ROS unobtainable. Physical Exam Physical Exam: Gen: WD/WN, NAD, resting in bed comfortably, awake, pleasant but marked hearing impairment, dysarthria. HEENT: Normocephalic, atraumatic, conjunctivae moist, sclerae anicteric, mucous membranes moist Lung: Clear to Auscultation bilaterally, no wheezes/rales/rhonchi Heart: Regular rate, regular rhythm, no murmurs, rubs, or gallops Abdomen: Soft, NT, ND +BS x 4 Extremities: no edema Skin: Warm, no rash Results & Data Results & Data Vital Signs (Past 12 Hours) Vital Signs Temp Pulse Resp BP Pulse Ox O2 Del Method 04/28/23 14:01 36.6 C 89 18 99/62 L 96 Room Air 04/28/23 07:11 36.5 C 78 16 91/59 L 95 Room Air
[2023-04-28] MEDS: MIRTAZAPINE TAB 15 MG TAB PO SCH (20:04)
[2023-04-28] MEDS: ATORVASTATIN 10 MG TAB PO SCH (20:04)
[2023-04-29] MEDS: THIAMINE HCL 100 MG TAB PO SCH (07:55)
[2023-04-29] MEDS: DULoxetine HCL 60 MG CAP PO SCH ×2 (07:55→20:13)
[2023-04-29] MEDS: DOCUSATE SODIUM SYRUP 100 MG/10 ML UDC PO SCH ×2 (07:56→20:13)
[2023-04-29] MEDS: POLYETHYLENE (MIRALAX) 17 GM PACK PO SCH (07:56)
[2023-04-29] MEDS: VALPROIC ACID SOLN 500 MG/10 ML UDC PO SCH ×2 (07:56→20:13)
[2023-04-29] MEDS: NICOTINE 21 MG/24 HR TDSY TD SCH (07:56)
[2023-04-29] MEDS: HEPARIN SOD 5,000 UNIT/0.5 ML VIAL SQ SCH ×2 (07:56→20:12)
[2023-04-29] MEDS: INSULIN ASPART PER UNIT CHARGE SC SCH ×4 (08:22→21:24)
[2023-04-29] MEDS: LANTUS PER UNIT CHARGE SC SCH ×2 (08:26→21:24)
[2023-04-29] MEDS: ASPIRIN 81 MG CHEW PO SCH (09:43)
--- NOTE | 2023-04-29 16:22 | Hospitalist Progress Note ---
Date of Service April 29, 2023 Assessment & Plan (1) Cerebrovascular accident: Plan: 62 yr old woman with hearing deficits with cochlear implant, Hypertension, DM2, Hypothyroidism who presents with report of confusion per family. she is being managed for the following: Acute/Subacute CVA Seizure -CT Head: Limited by motion artifact. Questionable loss of ann-white matter differentiation in the anterior left temporal lobe could represent acute or subacute infarct. -CTA head:No acute intracranial hemorrhage, no evidence of acute territorial infarction or other acute intracranial disease process. -Neck CTA:No dissection, hemodynamically significant stenosis, or occlusion. -ECHO: EF 55 to 60%. Mild concentric LVH. Grade 1 diastolic dysfunction. No significant valvular pathology. No interatrial shunt. --Repeat CT Head:No acute intracranial hemorrhage, no evidence of acute territorial infarction or other acute intracranial disease process. Continue seizure precautions Appreciate neurology input Continue continue Keppra 500mg IV BID>> changed to valproate sodium as Keppra likely causing sedation Needs further evaluation for possible NPH as outpatient as recommended by n eurology Aspiration precautions Continue aspirin 81 mg daily, atorvastatin 10mg Abilify discontinued--can lower seizure threshold Appreciate palliative care input- No escalation of care if patient deteriorates. Goal is comfort SNF as able per patient's family wishes . If patient deteriorates, plan to transition to comfort as per patient's family wishes Added mirtazapine given very poor oral intake--Increase to 15mg Waiting for SNF placement DM II Recent A1c from last month was 9.8. Tresiba dose was increased to 20U daily. Difficult to ascertain if patient had been adherent due to speech/hearing deficits Patient is on Weekly Trulicity. Need optimization of glycemic control. 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 Was approved. cm notified. Admission and Anticipated Discharge Date Admission Date: April 11, 2023 Subjective Patient is seen and examined in 303-1. Pleasant, appears, comfortable, poor historian 2/2 significant hearing impairment. ROS unobtainable. Pt's dtr rayne at bedside. Physical Exam Physical Exam: Gen: WD/WN, NAD, resting in bed comfortably, awake, pleasant but marked hearing impairment, dysarthria. HEENT: Normocephalic, atraumatic, conjunctivae moist, sclerae anicteric, mucous membranes moist Lung: Clear to Auscultation bilaterally, no wheezes/rales/rhonchi Heart: Regular rate, regular rhythm, no murmurs, rubs, or gallops Abdomen: Soft, NT, ND +BS x 4 Extremities: no edema Skin: Warm, no rash Results & Data Results & Data Vital Signs (Past 12 Hours) Vital Signs Temp Pulse Resp BP BP Pulse Ox O2 Del Method 04/29/23 14:40 36.7 C 85 18 125/79 96 Room Air 04/29/23 07:18 36.4 C L 79 18 91/61 L 94 Room Air
[2023-04-29] MEDS: ATORVASTATIN 10 MG TAB PO SCH (20:13)
[2023-04-29] MEDS: MIRTAZAPINE TAB 15 MG TAB PO SCH (20:13)
[2023-04-30] MEDS: DULoxetine HCL 60 MG CAP PO SCH (08:46)
[2023-04-30] MEDS: THIAMINE HCL 100 MG TAB PO SCH (08:46)
[2023-04-30] MEDS: ASPIRIN 81 MG CHEW PO SCH (08:46)
[2023-04-30] MEDS: POLYETHYLENE (MIRALAX) 17 GM PACK PO SCH (08:46)
[2023-04-30] MEDS: VALPROIC ACID SOLN 500 MG/10 ML UDC PO SCH (08:47)
[2023-04-30] MEDS: HEPARIN SOD 5,000 UNIT/0.5 ML VIAL SQ SCH (08:47)
[2023-04-30] MEDS: DOCUSATE SODIUM SYRUP 100 MG/10 ML UDC PO SCH (08:47)
[2023-04-30] MEDS: NICOTINE 21 MG/24 HR TDSY TD SCH (08:48)
[2023-04-30] MEDS: LANTUS PER UNIT CHARGE SC SCH (09:06)
[2023-04-30] MEDS: INSULIN ASPART PER UNIT CHARGE SC SCH ×2 (09:06→12:46)
--- NOTE | 2023-04-30 13:00 | Discharge Summary ---
Date of Service April 30, 2023 Admission HPI Per Admitting Provider History obtained from patient, family, and records. Limited history from patient secondary to marked hearing impairment. Medical history significant for hypertension, hyperlipidemia, COPD/CONNIE as per records, DM 2 insulin requiring, hypothyroidism, anxiety/mood disorder, sensorineural hearing loss status post cochlear device implantation, ongoing tobacco abuse. Recent confinement last month for recurrent falls. Age-indeterminate pelvic fractures noted on imaging. Patient discharged to [facility] facility where she stayed until she was discharged home last week. Patient seen on follow-up at PCPs office 2 days ago. Daughter working with case management for patient placement. Stage I sacral decubitus wound noted on patient's back for which topical mupirocin was prescribed by PCP. Yesterday afternoon, patient noted to be more confused than usual. Somewhat aphasic. No note of facial droop/arm/leg weakness. Patient brought to the ER for evaluation. 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 Admission Exam Per Admitting Provider GENERAL: Comfortable, lethargic, marked hearing impairment, no respiratory distress SKIN: Normal color, warm HEENT: [place] palpebral conjunctivae, no ptosis, dry buccal mucosa NECK : Supple, no tenderness CHEST : Decreased breath sounds, no tenderness HEART : RRR, no obvious murmurs ABDOMEN: Some distention, nontender EXTREMITIES : No LE swelling/tenderness, no other conspicuous deformities noted NEUROLOGIC : Lethargic, no facial asymmetry, marked hearing impairment, gait and stance not assessed Principal Diagnosis Acute/subacute CVA Seizure Discharge Exam Gen: WD/WN, NAD, resting in bed comfortably, awake, pleasant but marked hearing impairment, dysarthria. HEENT: Normocephalic, atraumatic, conjunctivae moist, sclerae anicteric, mucous membranes moist Lung: Clear to Auscultation bilaterally, no wheezes/rales/rhonchi Heart: Regular rate, regular rhythm, no murmurs, rubs, or gallops Abdomen: Soft, NT, ND +BS x 4 Extremities: no edema Skin: Warm, no rash Discharge Data Allergies Allergy/AdvReac Type Severity Reaction Status Date / Time Penicillins Allergy Intermediate Rash Verified 04/10/23 23:29 Consultations 04/11/23 00:09 ED Decision to Admit Stat 04/11/23 05:27 Consult Neurology Routine Consult Neurology Routine 04/16/23 13:54 Consult Palliative Care Routine 04/17/23 11:59 Consult Psychiatry Routine Ordered Studies 04/10/23 CT head/brain wo con Stat 04/10/23 22:32 CT angio head w con Stat CT angio neck with con Stat 04/12/23 08:12 CT head/brain wo con Stat Hospital Course (1) Cerebrovascular accident: 62 yr old woman with hearing deficits with cochlear implant, Hypertension, DM2, Hypothyroidism who presents with report of confusion per family. she was managed for the following: Acute/Subacute CVA Seizure -CT Head: Limited by motion artifact. Questionable loss of ann-white matter differentiation in the anterior left temporal lobe could represent acute or subacute infarct. -CTA head:No acute intracranial hemorrhage, no evidence of acute territorial infarction or other acute intracranial disease process. -Neck CTA:No dissection, hemodynamically significant stenosis, or occlusion. -ECHO: EF 55 to 60%. Mild concentric LVH. Grade 1 diastolic dysfunction. No significant valvular pathology. No interatrial shunt. --Repeat CT Head:No acute intracranial hemorrhage, no evidence of acute territorial infarction or other acute intracranial disease process. Continue seizure precautions Appreciate neurology input Continue continue Keppra 500mg IV BID>> changed to valproate sodium as Keppra likely causing sedation Needs further evaluation for possible NPH as outpatient as recommended by neurology Aspiration precautions Continue aspirin 81 mg daily, atorvastatin 10mg Abilify discontinued--can lower seizure threshold Appreciate palliative care input- No escalation of care if patient deteriorates. Goal is comfort SNF as able per patient's family wishes . If patient deteriorates, plan to transition to comfort as per patient's family wishes Added mirtazapine given very poor oral intake--Increase to 15mg Going today for SNF placement DM II Recent A1c from last month was 9.8. Tresiba dose was increased to 20U daily. Difficult to ascertain if patient had been adherent due to speech/hearing deficits Patient is on Weekly Trulicity. Need optimization of glycemic control. 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 Follow-up with your neurology as an outpatient in 2 to 4 weeks time for evaluation of your NPH as recommended by inpatient neurology. Your neurological medications has been optimized. You might benefit by maintaining palliative care visit as an outpatient. Maintain physical therapy and speech therapy upon discharge. Take your medications as prescribed. Home Health Attestation I certify that this patient is under my care and that I, or a physicians graduate teaching assistant working with me, had a face to-face encounter that meets the home health [id number] encounter requirements with this patient. The encounter with the patient was in whole, or in part, for the following medical condition, which is the primary reason for home health care (list medical condition): I certify that, based on my findings, the following services are medically necessary home health services: My clinical findings support the need for the above services because: Further, I certify that my clinical findings support that this patient is homebound (i.e. absences from home require considerable and taxing effort and are for medical reasons or denominational services or infrequently or of short duration when for other reasons) because: Certification for Home Health Services: Based on the above findings, I certify that this patient is confined to the home and needs intermittent fpc care, physical therapy and/or speech therapy or continues to need occupational therapy. The patient is under my care, and I have initiated the establishment of the plan of care. This patient will be followed by a physician who will periodically review the plan of care. Total Time Total Time Spent Total Time Spent (In Minutes): 45 Discharge Plan Discharge Items Patient Disposition: Transfer Detention Fac Reason For Visit: CVA Discharge Diagnosis: Acute/subacute CVA Seizure Activity: Resume your previous activity Non-emergency contact: Primary Care Provider Call non-emergency contact if: you have any medication questions Follow-up/Referrals: Terence Herr MD [Primary Care Provider] - Diet: Carb Count or DM1 and Other - See Diet Comment Diet Comment: Finger foods Addtl Attending Provider Instructions: Follow-up with your primary care physician within a week, likely you will need labs CBC/CMP/magnesium/phosphorus. Follow-up with your neurology as an outpatient in 2 to 4 weeks time for evaluation of your NPH as recommended by inpatient neurology. Your neurological medications has been optimized. You might benefit by maintaining palliative care visit as an outpatient. Maintain physical therapy and speech therapy upon discharge. Take your medications as prescribed. Pending Studies at Discharge: No Stand-Alone Forms: My [facility] [employer], Medications to Prevent Stroke Skilled Items Patient informed of condition?: Yes DNR: Yes Discharge Level of Care: Skilled Communicable Disease: No Discharge Prognosis: Stable Lines: None Urinary Catheter: No Medications and DC Order Prescriptions: New nicotine [Nicoderm CQ] 21 mg/24 hr Patch 24 Hour 21 mg transdermal QAM 14 Days Qty: 14 0RF aspirin [Children's Aspirin] 81 mg Tablet,Chewable 81 mg PO QAM Qty: 30 0RF mirtazapine 15 mg Tablet 15 mg PO HS Qty: 30 0RF valproic acid (as sodium salt) 500 mg/10 mL (10 mL) Solution 500 mg PO BID Qty: 1000 0RF docusate sodium 60 mg/15 mL Syrup 100 mg PO BID Qty: 480 0RF thiamine HCl (vitamin B1) 100 mg Tablet 100 mg PO QAM Qty: 30 0RF Continued insulin aspart U-100 [Novolog U-100 Insulin aspart] 100 unit/mL Solution 5 unit SUBCUT TID insulin degludec [Tresiba FlexTouch U-100] 100 unit/mL (3 mL) insulin pen 16 unit SUBCUT DAILY acetaminophen [Tylenol] 325 mg Tablet 975 mg PO TID lidocaine 4 % Adhesive Patch,Medicated 1 patch TOPICAL DAILY PRN (Reason: Pain) docusate sodium 100 mg Capsule 100 mg PO BID Rx Instructions: PER PT'S DAUGHTER "DOESN'T TAKE ANYMORE". mupirocin 2 % ointment 1 applic TOPICAL BID Rx Instructions: STARTED 04/09/23 FOR 14 DAYS, APPLY TO AFFECTED AREA. ibuprofen 200 mg capsule 400 mg PO Q6H PRN (Reason: pain) Qty: 14 0RF atorvastatin 10 mg tablet 10 mg PO HS Qty: 30 0RF duloxetine 60 mg capsule,delayed release(DR/EC) 60 mg PO AMHS Qty: 60 0RF (DME) pen needle, diabetic [BD Ultra-Fine Grace Pen Needle] 32 gauge x 5/32" needle See Rx Instructions miscellaneous .MEDSUPPLY Qty: 500 3RF Rx Instructions: As directed to use with insulin pens 4 times a day Trulicity 0.75 mg/0.5 mL pen injector 0.75 mg subcut WEEKLY Qty: 6 3RF Rx Instructions: TUESDAYS (DME) FreeStyle Addi 14 Day Sensor Kit See Rx Instructions .ROUTE .MEDSUPPLY Qty: 6 3RF Rx Instructions: Change every 14 days (DME) FreeStyle Addi 14 Day [place] Misc See Rx Instructions .ROUTE .MEDSUPPLY Qty: 1 1RF Rx Instructions: Use to test blood sugars daily Discontinued aripiprazole 10 mg tablet 10 mg PO QAM Qty: 30 0RF Discharge Orders: Discharge Order (Routine); Ordered 04/30/23 Ordered By: Renate Deshpande Admission Data Admit Date/Time: 04/11/23 03:01 Attending Provider: Renate Deshpande Admit Provider: Martin Moore Primary Care Provider: Terence Herr Other Providers: [facility] ; [place],[facility] ; [facility] ; Martin Moore ; Zenaida Silva ; Sandie Anglin ; Annika Carr ; Cale Colvin ; Dedrick Salgado [place] ; [facility] ; Sussy Pierre
== END 2023-04-30 15:45 | DRG 65 ==
LOC: ED 21:53 → 2N 04-11 03:01 → SUATTDRO 04-11 03:01 → 2N 04-11 04:38 → 2E 04-12 21:44 → 3E 04-19 09:33